=== PATIENT | female | born 1975 | race Caucasian/White ===

== ENCOUNTER 2020-08-22 12:11 | Emergency (ER) | payer OTHER, SELFPAY ==
--- NOTE | 2020-08-22 | ECG_ITS ---
Test Reason : CHEST PAIN Blood Pressure : / mmHG Vent. Rate : 098 BPM Atrial Rate : 098 BPM P-R Int : 128 ms QRS Dur : 074 ms QT Int : 338 ms P-R-T Axes : 026 -06 018 degrees QTc Int : 431 ms Normal sinus rhythm Normal ECG When compared with ECG of 09-MAY-2011 03:22, No significant change was found Referred By: Generic ED Physician Electronically Signed By:MARIANA DIEGO MD
--- NOTE | 2020-08-22 | XR_ITS ---
EXAMINATION: XR CHEST CLINICAL INFORMATION: Cough with chest pain COMPARISON: May 09, 2011 TECHNIQUE: AP portable view of the chest was obtained. FINDINGS: No significant abnormality is noted involving the heart, lungs, mediastinum, bony thorax or soft tissues. XR/XR chest 1V IMPRESSION: No acute disease.
[2020-08-22 12:48] VITALS: BP 133/96; PULSE 99; RESP 16; TEMP 36.9; O2SAT 96; BMI 35.2
--- NOTE | 2020-08-22 13:15 | ED.URI ---
HPI - URI/Sore Throat General Chief Complaint: Upper Respiratory Symptoms Stated Complaint: covid symptoms - test pending Time Seen by Provider: 08/22/20 13:15 Source: patient Mode of arrival: ambulatory Limitations: no limitations History of Present Illness HPI Narrative: 45 y/o female presenting with worsening COVID symptoms. She has a PCR test pending. She lives with her who is COVID positive. She reports worsening dry cough, shortness of breath when walking and chest wall discomfort. She also has headache and chills. No N/V/D, abdominal pain or known fevers at home. MD elicited complaint: cough Related Data Previous Rx's Medication Instructions Recorded hydrocodone-homatropine 5 ml PO Q4-6H PRN #60 ml 08/22/20 prednisone 40 mg PO DAILY #10 tab 08/22/20 Allergies Allergy/AdvReac Type Severity Reaction Status Date / Time hydromorphone [From DILAUDID] Allergy Unknown SHORTNESS Unverified 06/11/20 15:28 OF BREATH Review of Systems Review of Systems: Constitutional: No Fever, + Chills ENT/Mouth: + sore throat, No Rhinorrhea, No Swallowing Difficulty Eyes: No Eye Pain, No Swelling, No Redness Cardiovascular: + Chest Pain, + SOB, No Orthopnea, No Edema Respiratory: + Cough, No Sputum, No Wheezing, + dyspnea Gastrointestinal: No Nausea, No Vomiting, No Diarrhea, No abdominal Pain Musculoskeletal: No joint pain, + Myalgias Skin: No Skin Lesions, No rash Neuro: No Weakness, No Numbness, No Dizziness, + Headache Psych: No Anxiety/Panic, No Depression Heme/Lymph: No Bruising, No Lymphadenopathy Endocrine: No Polyuria, No Polydipsia PMFSH Past Medical History Attestation statement: The following information was validated with the patient. Medical History Anxiety Asthma High cholesterol Social History Social History Alcohol intake: never Smoked in Last 30 Days: No Use of substances other than those prescribed or required for medical reasons: No Advance Directives: No Advance Directives Information Provided: No Physical Exam Vital Signs: Vital Signs: Last Vital Signs Temp 98.5 F 08/22/20 12:48 Pulse 99 08/22/20 12:48 Resp 16 08/22/20 12:48 BP 133/96 H 08/22/20 12:48 Pulse Ox 96 08/22/20 12:48 Body Mass Index 35.2 Appearance: Alert. Oriented X3. No acute distress. ENT: Pharynx normal. Neck: Normal inspection. Neck supple. CVS: Normal heart rate and rhythm. Pulses normal. Respiratory: No respiratory distress. Breath sounds normal. Congested cough. Abdomen: Soft and non-tender. +BS x4 Skin: Skin warm and dry. Normal skin color. Normal skin turgor. No rashes. Extremities: No lower extremity edema. Neuro: Oriented X 3. No motor deficit. No sensory deficit. Course Course Course Narrative: 45 y/o female here with COVID symptoms and worsening PAUL. EKG and CXR are normal. Low suspicion for cardiac chest pain or PE. She has asthma and her COVID test is positive. She is in no respiratory distress and SpO2 96%. No indication for admission to the hospital. She is stable for d/c. Told to return to ER if PAUL worsens or if she develops difficulty breathing. MDM - URI/Sore Throat Lab Data Labs: Lab Results 08/22/20 Range/Units 13:00 Coronavirus (PCR) POSITIVE A (Negative) Influenza Type A (PCR) NEGATIVE (Negative) Influenza Type B (PCR) NEGATIVE (Negative) RSV RNA Qual (PCR) NEGATIVE (Negative) ECG Data Interpretation: normal sinus rhythm, HR 98, normal CO interval, normal QTC, no ischemic changes. Scores Heart Score History: -0- slightly suspicious ECG: -0- normal Age: -1- >45 - <65 Risk factory: -0- no risk factors known Critical Care Time Critical Care Time Critical Care Time: No Discharge Plan Discharge Clinical Impression: COVID-19 Patient Disposition: Home, Self-Care Instructions: COVID-19 (Coronavirus Disease 2019) (ED) Additional Instructions: Your COVID-19 test is POSITIVE. Do not go out in public for 10-14 days. Your EKG was normal. Your chest x-ray was normal. Your vital signs were stable. Take over the counter cold/flu medications as needed for your symptoms. Take Tylenol and/or Motrin as needed for muscle and body aches. Rest and stay hydrated. Continue to use your Duonebs as needed for shortness of breath. If you develop worsening respiratory symptoms or difficulty breathing come back to the ER for further evaluation. Follow up with your doctor next week. Prescriptions: New prednisone 20 mg tablet 40 mg PO DAILY Qty: 10 RF: 0 hydrocodone-homatropine 5-1.5 mg/5 mL syrup 5 ml PO Q4-6H PRN (Reason: cough) Qty: 60 RF: 0 Stand Alone Forms: Work/School Release
[2020-08-22 13:55] LABS: Influenza A PCR NEGATIVE (Negative); Influenza B PCR NEGATIVE (Negative); Resp Syncy Virus RNA Qual PCR NEGATIVE (Negative); SARS COV2 PCR INHOUSE POSITIVE (Negative)
== END 2020-08-22 15:03 | disposition home or self-care (01) ==
PROVIDERS: Emergency Provider Internal Medicine; PCP Internal Medicine
DX: U07.1 COVID-19 (principal); Z79.899 Other long term (current) drug therapy
CPT/HCPCS: 0241U; 71045; 93005; 99283; 99284

== ENCOUNTER 2021-01-15 12:20 | Emergency (ER) | payer OTHER, SELFPAY | END 2021-01-15 15:03 | disposition left against medical advice (07) | PROVIDERS: Emergency Provider Emergency Medicine | DX: G43.909 Migraine, unspecified, not intractable, without status migrainosus (principal) ==

== ENCOUNTER 2021-01-18 13:04 | Emergency (ER) | payer OTHER, SELFPAY ==
--- NOTE | ~2021-01-18 | CT_ITS ---
EXAMINATION: CT HEAD WITHOUT CONTRAST CLINICAL INFORMATION: Expressive aphasia greater than 24 hours ago COMPARISON: None TECHNIQUE: Contiguous axial imaging was performed from the skull base to vertex without intravenous administration of contrast. This CT examination was performed using dose optimization techniques as appropriate, variously including the following: *Automated exposure control *Adjustment of mA and/or kV according to patient size (this includes techniques or standardized protocols for targeted exams where dose is matched to indication/reason for exam; i.e. extremities or head) *Use of iterative reconstruction technique DLP: 659 mGy-cm FINDINGS: There is no evidence of acute intracranial hemorrhage or territorial infarction. No abnormal mass effect or midline shift is seen. Post to white matter differentiation is well preserved. No extra-axial fluid collections are identified. The ventricles are normal in size. There is no abnormal attenuation within the brain parenchyma. The osseous structures and soft tissues are normal. The mastoid air cells and visualized portions of the paranasal sinuses are well aerated. CT/CT head/brain wo con IMPRESSION: No acute intracranial pathology.
--- NOTE | ~2021-01-18 | US_ITS ---
EXAMINATION: US EXTRACRANIAL CAROTID DUPLEX, BILATERAL CLINICAL INFORMATION: TIA with aphasia COMPARISON: None TECHNIQUE: Real-time ultrasound and Doppler techniques (integrating B-mode 2-D vascular images, Doppler spectral analysis and color-flow Doppler imaging) were utilized to interrogate the extracranial carotid arteries, the vertebral arteries and proximal subclavian arteries bilaterally. The degree of stenosis is determined by criteria similar to NASCET. FINDINGS: Right Side: 1. There is mild atherosclerotic plaque seen in the bifurcation/proximal ICA region. 2. The common carotid artery PSV proximally is 95 cm/s and distally 112 cm/s. 3. The proximal internal carotid artery velocities are 99 cm/s systolic and 30 cm/s diastolic. 4. The proximal external carotid artery PSV is 111 cm/s. 5. The vertebral artery shows antegrade flow. 6. The subclavian artery waveforms are normal. Left Side: 1. There is mild atherosclerotic plaque seen in the bifurcation/proximal ICA region. 2. The common carotid artery PSV proximally is 117 cm/s and distally 103 cm/s. 3. The proximal internal carotid artery velocities are 90 cm/s systolic and 32 cm/s diastolic. 4. The proximal external carotid artery PSV is 95 cm/s. 5. The vertebral artery shows antegrade flow. 6. The subclavian artery waveforms are normal. US/US carotid duplex BI IMPRESSION: 1. RIGHT: Minimal, non-hemodynamically significant stenosis of the proximal right internal carotid artery corresponding to a 0-49% stenosis by velocity criteria. 2. LEFT: Minimal, non-hemodynamically significant stenosis of the proximal left internal carotid artery corresponding to a 0-49% stenosis by velocity criteria.
[2021-01-18 13:23] VITALS: BP 145/88; PULSE 80; RESP 16; TEMP 37.2; O2SAT 98; BMI 35.2
[2021-01-18 16:59] VITALS: BP 123/71; PULSE 91; RESP 18; O2SAT 97
--- NOTE | 2021-01-18 16:59 | PC.NURSE ---
pt taking home med: sumatriptan 50mg. no change in sx.
[2021-01-18 17:10] LABS: MANUAL DIFF FLAG NO
[2021-01-18 17:11] LABS: Basophils Absolute Auto 0.1 X10*3/uL (0.0-0.2); Basophils Percent Auto 0.8 % (0-2); Eosinophils Absolute Auto 0.2 X10*3/uL (0.0-0.4); Eosinophils Percent Auto 1.9 % (0-4); Hematocrit 43.7 % (37-47); Hemoglobin 14.7 g/dl (12.0-16.0); Imm Gran Abs Auto 0.02 X10*3/uL (0.00-0.03); Imm Gran Pct Auto 0.2 % (0.0-0.4); Lymphocytes Absolute Auto 2.1 X10*3/uL (1.2-4.9); Lymphocytes Percent Auto 25.2 % (20-40); Mean Corpuscular HGB Conc 33.6 g/dl (31.0-35.0); Mean Corpuscular Volume 89.2 fL (80-98); Mean Platelet Volume 9.2 fL (9.4-12.3); Monocytes Absolute Auto 0.5 X10*3/uL (0.1-1.2); Monocytes Percent Auto 5.4 % (2-11); Neutrophils Absolute Auto 5.5 X10*3/uL (2.0-8.3); Neutrophils Percent Auto 66.5 % (45-73); Platelet Count 306 X10*3/uL (160-400); Red Cell Distribution Width 11.8 % (11.0-16.0); White Blood Count 8.3 X10*3/uL (4.8-10.8)
--- NOTE | 2021-01-18 17:16 | ED_ITS ---
HPI - Headache General Chief Complaint: Headache Stated Complaint: headache Time Seen by Provider: 01/18/21 17:16 Source: patient Mode of arrival: ambulatory Limitations: no limitations History of Present Illness HPI Narrative: Patient's history of migraine headache been having headache for last 13 days. 3 days ago when she had headache she had difficulty in expressing herself episode lasted for 1-1/2 hour improved after Imitrex again she had similar episode 2 days ago which lasted for same time. Also patient had some tingling on the right arms and legs which have resolved completely. Patient called her PCP who asked her to go to hospital further evaluation. Patient denies any aphasia at this time has some mild headache patient took Imitrex prior to arrival no nausea no vomiting no ataxia MD elicited complaint: headache and migraine Onset (ago): day(s) (13) Onset description: gradually Location: frontal Severity: mild Quality & Timing: throbbing Exacerbating factors: light and noise Relieving factors: dark room Context: occurred at rest Associated symptoms: photophobia Treatments prior to arrival: migraine medication Related Data Previous Rx's Medication Instructions Recorded hydrocodone-homatropine 5 ml PO Q4-6H PRN #60 ml 08/22/20 hydrocodone-homatropine 5 ml PO Q4-6H PRN #60 ml 08/22/20 prednisone 40 mg PO DAILY #10 tab 08/22/20 nffvaddxxd-oipzfklxhezrv-fwmf 1 cap PO Q6H PRN #20 cap 01/18/21 [Fioricet] Allergies Allergy/AdvReac Type Severity Reaction Status Date / Time hydromorphone [From DILAUDID] Allergy Unknown SHORTNESS Verified 01/18/21 13:22 OF BREATH Review of Systems Review of Systems: Constitutional : No Weight loss, No Fever, No Chills ENT/Mouth : No sore throat, No Rhinorrhea Eyes: No Eye Pain, No Swelling Cardiovascular : No Chest Pain, no palpitations Respiratory : No Cough, No Sputum, no shortness of breath Gastrointestinal : no Nausea, No Vomiting, No Diarrhea, No abdominal Pain, no black stools Genitourinary : No Dysuria, No Urinary Frequency Musculoskeletal : No joint pain, No Myalgias, No Joint Swelling Skin : No Skin Lesions, No rash Neuro : No Weakness, No Numbness, No Dizziness,++ Headache Psych : No Anxiety/Panic, No Depression Heme/Lymph: No Bruising, No Lymphadenopathy Endocrine : No Polyuria, No Polydipsia All other systems reviewed and are negative FOR[facility]LY [facility] Past Medical History Medical History Anxiety Asthma High cholesterol Migraines Social History Social History Alcohol intake: current Alcohol intake frequency: holidays/special occasions only Alcohol type: wine Smoking Status: Never smoker Use of substances other than those prescribed or required for medical reasons: No Advance Directives: Yes Advance Directives Information Provided: No Advance Directives on File: No Physical Exam Vital Signs: Vital Signs: Last Vital Signs Temp 98.1 F 01/18/21 19:29 Pulse 89 01/18/21 19:29 Resp 16 01/18/21 19:29 BP 121/83 01/18/21 19:29 Pulse Ox 96 01/18/21 19:29 Body Mass Index 35.2 Appearance: Alert. Oriented X3. No acute distress. Eyes: Pupils equal, round and reactive to light. ENT: Pharynx normal. Neck: Normal inspection. Neck supple. CVS: Normal heart rate and rhythm. Pulses normal. Respiratory: No respiratory distress. Breath sounds normal. Abdomen: Soft and nontender. Bowel sounds are present, no mass palpable, no CVA tenderness Skin: Skin warm and dry. Normal skin color. Normal skin turgor. Extremities: No lower extremity edema. Neuro: Oriented X 3. No motor deficit. No sensory deficit. Normal speech no cerebellar signs , cranial nerves intact MDM - Headache MDM Narrative Medical decision making narrative: Patient's complex migraine with transit expressive aphasia more than [address] scan negative, carotid Doppler was also done which is also negative for any occlusive lesion. At this time there is no findings of CVA. No risk factors except migraine. Patient advised to take baby aspirin for now and follow with neurologist and report to the ER if recurrence of the symptoms Differential Diagnosis Differential diagnosis: Likely migraine Lab Data Attestation: I reviewed the patient's lab results. Result diagrams: 01/18/21 17:05 01/18/21 17:05 Labs: Lab Results 01/18/21 01/18/21 01/18/21 Range/Units 17:05 17:05 17:05 WBC 8.3 (4.8-10.8) X10*3/uL RBC 4.90 (4.20-5.50) X10*6/uL Hgb 14.7 (12.0-16.0) g/dl Hct 43.7 (37-47) % MCV 89.2 (80-98) fL MCH 30.0 (27.0-33.0) pg MCHC 33.6 (31.0-35.0) g/dl RDW 11.8 (11.0-16.0) % Plt Count 306 (160-400) X10*3/uL MPV 9.2 L (9.4-12.3) fL Immature Gran % (Auto) 0.2 (0.0-0.4) % Neut % (Auto) 66.5 (45-73) % Lymph % (Auto) 25.2 (20-40) % [place] % (Auto) 5.4 (2-11) % Eos % (Auto) 1.9 (0-4) % Baso % (Auto) 0.8 (0-2) % Lymph # (Auto) 2.1 (1.2-4.9) X10*3/uL [place] # (Auto) 0.5 (0.1-1.2) X10*3/uL Eos # (Auto) 0.2 (0.0-0.4) X10*3/uL Baso # (Auto) 0.1 (0.0-0.2) X10*3/uL Abs Immat Gran (auto) 0.02 (0.00-0.03) X10*3/uL Absolute Neuts (auto) 5.5 (2.0-8.3) X10*3/uL Absolute Nucleated RBC 0.000 (0.0-0.012) X10*3/uL Nucleated RBC % (auto) 0.0 (0.0-0.2) /100WBC PT 12.4 (10.8-13.0) SEC INR 1.0 (0.9-1.1) Sodium 140 (135-145) mmol/L Potassium 3.9 (3.3-5.1) mmol/L Chloride 106 (96-108) mmol/L Carbon Dioxide 24 (22-29) mmol/L Anion Gap 14 (12-20) BUN 14 (9-16) mg/dL Creatinine 0.82 (0.5-1.4) mg/dL Estim Creat Clear Calc 97.2 Estimated GFR > 60 Random Glucose 88 (60-115) mg/dL Calcium 9.3 (8.4-10.2) mg/dL Discharge Plan Discharge Clinical Impression: Migraine Patient Disposition: Home, Self-Care Instructions: Migraine Headache (ED) Additional Instructions: Continue medications and follow up with neurologist for further evaluation Report to the ER if any focal weakness Take baby aspirin daily Prescriptions: New hfolwdijfy-tbuikumwhtntj-ofku [Fioricet] 50-300-40 mg capsule 1 cap PO Q6H PRN (Reason: pain) Qty: 20 RF: 0 No Action prednisone 20 mg tablet 40 mg PO DAILY Qty: 10 RF: 0 hydrocodone-homatropine 5-1.5 mg/5 mL syrup 5 ml PO Q4-6H PRN (Reason: cough) Qty: 60 RF: 0 hydrocodone-homatropine 5-1.5 mg/5 mL syrup 5 ml PO Q4-6H PRN (Reason: cough) Qty: 60 RF: 0 Referrals: Dm Barker MD [Physician] - 1 week Interventions: ED Discharge Assessment Last Done: 01/18/21 20:23 Discharge Date/Time: 01/18/21 20:24
[2021-01-18 17:31] LABS: Prothrombin Time 12.4 SEC (10.8-13.0)
[2021-01-18 17:41] LABS: Anion Gap 14 (12-20); Blood Urea Nitrogen 14 mg/dL (9-16); Calcium 9.3 mg/dL (8.4-10.2); Carbon Dioxide 24 mmol/L (22-29); Chloride 106 mmol/L (96-108); Creatinine Clr Calc Pharmacy 97.2; Estimated Glomerular Filt Rate > 60; Glucose Random 88 mg/dL (60-115); Potassium 3.9 mmol/L (3.3-5.1); Sodium 140 mmol/L (135-145)
[2021-01-18] MEDS: Butalb/Acetamin/Caff 50/325/40 TABLET 1 TAB PO (19:27)
[2021-01-18] MEDS: Aspirin 81 MG TAB.CHEW PO (19:28)
[2021-01-18 19:29] VITALS: BP 121/83; PULSE 89; RESP 16; TEMP 36.7; O2SAT 96
== END 2021-01-18 20:24 | disposition home or self-care (01) ==
PROVIDERS: Emergency Provider Internal Medicine; PCP Internal Medicine
DX: G43.909 Migraine, unspecified, not intractable, without status migrainosus (principal); F41.9 Anxiety disorder, unspecified; J45.909 Unspecified asthma, uncomplicated; E78.5 Hyperlipidemia, unspecified
CPT/HCPCS: 36415; 70450; 80048; 85025; 85610; 93880; 99284; 99285

== ENCOUNTER 2021-01-20 02:20 | Emergency (ER) | payer OTHER, SELFPAY ==
[2021-01-20] VITALS (8 sets, daily range): BP systolic 107–126; BP diastolic 69–85; PULSE 72–94; RESP 16–18; TEMP 36.7; O2SAT 94–98; BMI 35.2
--- NOTE | ~2021-01-20 | MR_ITS ---
MRI OF THE BRAIN WITHOUT IV CONTRAST INDICATION: Numbness, tingling, dizziness. COMPARISON: Head CT 01/18/2021. TECHNIQUE: Multiplanar multisequence MR imaging of the brain was obtained without IV contrast. FINDINGS: There is no hydrocephalus, extra-axial surface collection, or herniation. No parenchymal signal abnormality. The major flow voids at the skull base are preserved. There is no acute infarct on diffusion-weighted imaging. There is no intracranial hemorrhage on the gradient recalled echo acquisition. The midline structures are normal. The cerebellar tonsils are normally positioned. The cerebellum and brainstem are normal. The craniocervical junction is normal. Osseous marrow signal intensity is homogenous. The visualized soft tissues are unremarkable. MR/MR head/brain wo con IMPRESSION: Unremarkable noncontrast MRI of the brain.
--- NOTE | 2021-01-20 03:50 | ED_ITS ---
HPI - Headache General Chief Complaint: Headache Stated Complaint: Dizziness/Headache Time Seen by Provider: 01/20/21 02:55 Source: patient and family () Mode of arrival: ambulatory History of Present Illness HPI Narrative: Is a 45-year-old female who comes in this morning with what she states is recurrence of neurologic symptoms. Patient states that she got up at approximately 2:00 a.m. this morning of went to the bathroom and then was going back to bed and then had 1 of her ?auras? and then felt dizzy and experienced lip and tongue tingling at as well as tingling in the right upper extremity that goes from distal to proximal, as well as stating that she has had right lower extremity tingling and reports some difficulty with the legs feeling heavy. In addition, patient states that she feels foggy. Patient states that at onset of symptoms she called her . Patient states the symptoms last approximately 15 minutes and then subside and that they have been on and off for approximately 2 weeks. During the course of this discussion patient states that she began feeling the tingling in the tips of her fingers again. Related Data Previous Rx's Medication Instructions Recorded hydrocodone-homatropine 5 ml PO Q4-6H PRN #60 ml 08/22/20 hydrocodone-homatropine 5 ml PO Q4-6H PRN #60 ml 08/22/20 prednisone 40 mg PO DAILY #10 tab 08/22/20 obenrndmgj-jettxzppbildm-egdz 1 cap PO Q6H PRN #20 cap 01/18/21 [Fioricet] Allergies Allergy/AdvReac Type Severity Reaction Status Date / Time hydromorphone [From DILAUDID] Allergy Unknown SHORTNESS Verified 01/18/21 13:22 OF BREATH Review of Systems Review of Systems: Pertinent positives and negatives as stated in HPI 10 point review of systems is otherwise negative. [facility] Past Medical History Source: nursing notes reviewed Medical History Anxiety Asthma High cholesterol Migraines Social History Social History Alcohol intake: current Alcohol intake frequency: holidays/special occasions only Alcohol type: wine Smoking Status: Never smoker Use of substances other than those prescribed or required for medical reasons: No Advance Directives: No Physical Exam Vital Signs: Vital Signs: Last Vital Signs Temp 98.0 F 01/20/21 02:26 Pulse 72 01/20/21 05:03 Resp 16 01/20/21 05:03 BP 109/74 01/20/21 05:03 Pulse Ox 97 01/20/21 05:03 Body Mass Index 35.2 VITAL SIGNS: Reviewed. GENERAL: Well developed, well nourished, in no acute distress. HEAD: Normocephalic/atraumatic, EYES: PERRLA, EOMI intact without pain, no nystagmus EARS: Ext canals without abnormality NOSE: Nares patent bilateral OROPHARYNX: no oral lesions noted, posterior pharynx clear NECK: Supple, no adenopathy LUNGS: Normal breath sounds. No adventitious sounds or accessory muscle use. SpO2<94> CARDIOVASCULAR: Regular rate and rhythm without noted murmurs ABDOMEN: Soft, non-tender, non-distended with bowel sounds. NEUROLOGIC: Alert and oriented x 4. Strength and sensation to light touch were grossly intact x 4, no facial asymmetry, heel to mao within normal limits, cranial nerves 2-12 intact. Course Course Course Narrative: 45-year-old female with history and clinical presentation suggestive of complex migraine syndrome with nonfocal findings. However patient was evaluated for this yesterday with CT scan as well as carotid duplex otherwise negative and instructed to return if her symptoms persisted. This evening patient has not attempted to take her Imitrex but did take a Fioricet prior to going to sleep. At this time patient is okay to take her prescribed Imitrex here in the emergency room. Will obtain ESR and reach out to Neurology for further recommendations. Review of ESR, TSH, orthostatics are without acute findings and patient has been resting after taking her Imitrex. The decision was made to proceed with the MRI to conclusively evaluate for evidence of ischemic basis for patient's symptoms as opposed to expansion of migraine symptoms. In addition, if obvious although less likely, could evaluate for MS. Signed out to Dr. Macias. Reevaluation(s) Reevaluation #1: Page out to Neurology Time: 05:09 MDM - Headache Lab Data Labs: Lab Results 01/20/21 01/20/21 01/20/21 Range/Units 04:07 05:11 05:11 ESR 7 (0-20) MM/HR TSH 1.92 (0.32-4.0) uIU/mL Urine Color STRAW Urine Appearance CLEAR Urine pH 6.0 (5.0-8.0) Ur Specific [place] <= 1.005 (1.005-1.025) Urine Protein NEG (NEG-TRACE) MG/DL Urine Glucose (UA) NEG (NEG) MG/DL Urine Ketones NEG (NEG) MG/DL Urine Blood TRACE (NEG) Urine Nitrite NEG (NEG) Ur Leukocyte Esterase NEG (NEG) Urine RBC 0 (0) /HPF Urine WBC 0 (0-4) /HPF Ur Squamous Epith Cells 1+ /LPF Amorphous Sediment 2+ /LPF Urine Bacteria NONE /LPF Discharge Plan Discharge Prescriptions: No Action tbbxirzbch-aityhhpyvpmdm-wzbs [Fioricet] 50-300-40 mg capsule 1 cap PO Q6H PRN (Reason: pain) Qty: 20 RF: 0 prednisone 20 mg tablet 40 mg PO DAILY Qty: 10 RF: 0 hydrocodone-homatropine 5-1.5 mg/5 mL syrup 5 ml PO Q4-6H PRN (Reason: cough) Qty: 60 RF: 0 hydrocodone-homatropine 5-1.5 mg/5 mL syrup 5 ml PO Q4-6H PRN (Reason: cough) Qty: 60 RF: 0
[2021-01-20 04:22] LABS: Glucose Urine UA NEG (NEG); Leukocyte Esterase Urine NEG (NEG); Nitrite Urine NEG (NEG); Specific Gravity - Urine <= 1.005 (1.005-1.025); Urine Blood TRACE (NEG); Urine Ketones NEG (NEG); Urine Protein NEG (NEG-TRACE)
[2021-01-20 04:23] LABS: Appearance Urine CLEAR; Color Urine STRAW
[2021-01-20 04:28] LABS: Amorphous Sediment Urine 2+ /LPF; RBC Urine 0 /HPF (0); Squamous Epithelial Cell Urine 1+ /LPF; WBC Urine 0 /HPF (0-4)
[2021-01-20 05:57] LABS: Erythrocyte Sedimentation Rate 7 MM/HR (0-20)
[2021-01-20 06:05] LABS: TSH reflex Free T4 1.92 uIU/mL (0.32-4.0)
[2021-01-20] MEDS: Butalb/Acetamin/Caff 50/325/40 TABLET 1 TAB PO (07:53)
--- NOTE | 2021-01-20 08:02 | PC.NURSE ---
Per pt and pt has had a migraine x 1.5 weeks. Reports hx of migraines, states she usually gets them with her periods but this one is different. Per report from Alexia VEGA pt was worked up last Monday with carotid u/s. Currently pt is waiting to go to MRI, MRI screening form performed by this RN. Pt ambulated to bathroom with steady gait.
--- NOTE | 2021-01-20 08:33 | PC.NURSE ---
Pt off unit to MRI at this time
--- NOTE | 2021-01-20 09:30 | PC.NURSE ---
Pt back from MRI, reports fioricet so far has been ineffective. Provided a cup of ice water, will re-assess h/a in 20 mins.
--- NOTE | 2021-01-20 10:06 | PC.NURSE ---
Pt reports minimal pain relief. MD at bedside. VSS. Speech clear, answering questions appropriately, denies N/T, neuros intact, reports h/a around her eyes wrapping to back of her head.
[2021-01-20] MEDS: Metoclopramide HCl 10 MG/2 ML VIAL IVPUSH (10:26)
[2021-01-20] MEDS: diphenhydrAMINE HCL 50 MG/ML VIAL IVPUSH (10:26)
[2021-01-20] MEDS: Ketorolac Tromethamine 30 MG/ML VIAL IVPUSH (10:26)
[2021-01-20] MEDS: 0.9 % Sodium Chloride 1,000 ML 999 ML IV (10:27)
--- NOTE | 2021-01-20 10:33 | PC.NURSE ---
Pt medicated with benedryl, reglan, toradol, as charted, 1l NS hung and running WO. Pt reports pain at 5-6/10, denies light sensitivity at this time. Pt instructed to ring if she needs to use the bathroom.
--- NOTE | 2021-01-20 10:58 | PC.NURSE ---
Pt sleeping at this time. Unable to re-assess pain currently.
== END 2021-01-20 12:37 | disposition home or self-care (01) ==
PROVIDERS: Student in an Organized Health Care Education/Training Program; Emergency Provider Emergency Medicine Emergency Medical Services
DX: G43.909 Migraine, unspecified, not intractable, without status migrainosus (principal); R42 Dizziness and giddiness; Z79.899 Other long term (current) drug therapy
CPT/HCPCS: 36415; 70551; 81001; 84443; 85652; 96365; 96375; 99285; J1200; J1885; J2765

== ENCOUNTER 2022-02-01 13:46 | Outpatient (REF) | payer OTHER, SELFPAY ==
--- NOTE | ~2022-02-01 | XR_ITS ---
EXAMINATION: XR HIP, RIGHT CLINICAL INFORMATION: Pain right hip COMPARISON: None TECHNIQUE: Two views of the right hip. FINDINGS: Normal bony mineralization. No fracture, dislocation, destructive process. No joint narrowing or erosive change or chondrocalcinosis. There is borderline spur at the caudal aspect greater trochanter. The right SI joint and pubis are unremarkable. XR/XR hip RT min 2V IMPRESSION: Normal right hip.
--- NOTE | ~2022-02-01 | XR_ITS ---
EXAMINATION: XR THORACIC SPINE CLINICAL INFORMATION: Disc displacement. COMPARISON: Portable chest radiograph 08/22/2020 TECHNIQUE: 4 views of the thoracic spine are obtained. FINDINGS: There is normal thoracic segmentation with 12 rib-bearing thoracic vertebrae of normal height and normal lumbar lordosis. There is no thoracic vertebral compression, spondylolisthesis, focal disc narrowing, or erosive changes. No paraspinal soft tissue swelling. XR/XR thoracic spine 3V IMPRESSION: Unremarkable examination.
== END 2022-02-01 13:47 | disposition home or self-care (01) ==
LOC: HO.XRAY 13:46
PROVIDERS: Absent Provider General Practice; PCP General Practice; Visit Provider Nurse Practitioner Family
DX: Z01.818 Encounter for other preprocedural examination (principal); M25.551 Pain in right hip; M51.26 Other intervertebral disc displacement, lumbar region; R29.898 Other symptoms and signs involving the musculoskeletal system
CPT/HCPCS: 72072; 73502

== ENCOUNTER 2022-06-10 09:57 | Day surgery (SDC) | payer OTHER, SELFPAY ==
--- NOTE | 2022-06-09 12:40 | HO.ANESPROP2 ---
Documented by User: Jessica Gregory NP 06/09/22 12:40 HPI - Anesthesia Eval Consult details Narrative: 46yo F for Colonoscopy PMFSH Active Problems Active Problems: All Active Problems (Updated 02/01/22 @ 14:17 by Fransisco Cottrell) Somatic dysfunction of left sacroiliac joint (Acute) COVID-19 (Acute) Migraine (Acute) Past Medical History Medical History Anxiety Asthma High cholesterol History of abnormal uterine bleeding Hx of fracture of ankle Migraines Family History Family History Mother Pre-diabetes Father Prostate CA Surgical History Surgical History Hx of section Hx of left breast biopsy Social History Social History Household Members: Spouse Alcohol intake: current Alcohol intake frequency: holidays/special occasions only Alcohol type: wine Patient Tobacco Use Status: Never used Tobacco Use of substances other than those prescribed or required for medical reasons: No Are you DNR?: No Advance Directives: No Advance Directives Information Provided: Yes Meds Allergies Allergy/AdvReac Type Severity Reaction Status Date / Time hydromorphone [From DILAUDID] Allergy Unknown SHORTNESS Verified 06/10/22 11:15 OF BREATH Home Medications Medication Instructions Recorded Confirmed Last Taken Type atorvastatin 10 mg tablet 10 mg PO DAILY 02/01/22 06/06/22 Unknown History cetirizine 10 mg tablet 10 mg PO DAILY 02/01/22 06/06/22 Unknown History citalopram 20 mg tablet 20 mg PO DAILY 02/01/22 06/06/22 Unknown History cyclobenzaprine 5 mg tablet 5 mg PO TID PRN Muscle Pain 02/01/22 06/06/22 Unknown History fluticasone 250 mcg-salmeterol 50 1 ea inhalation BID 02/01/22 06/06/22 Unknown History mcg/dose blistr powdr for inhalation (Michael Inhpat) montelukast 10 mg tablet 10 mg PO QPM 02/01/22 06/06/22 Unknown History sumatriptan succinate 50 mg tablet 50 mg PO DIRECTED PRN Migraine 02/01/22 06/06/22 Unknown History Headache Exam Exam Date and Time: June 09, 2022 1240 Assessment and Plan Assessment Anesthesia Assessment: Chart Reviewed Documented by User: Marquita Duff MD 06/10/22 11:23 PMFSH Past Medical History Medical History Anxiety Asthma High cholesterol History of abnormal uterine bleeding Hx of fracture of ankle Migraines Family History Family History Mother Pre-diabetes Father Prostate CA Surgical History Surgical History Hx of section Hx of left breast biopsy History of Problems with Anesthesia: No Social History Social History Household Members: Spouse Alcohol intake: current Alcohol intake frequency: holidays/special occasions only Alcohol type: wine Patient Tobacco Use Status: Never used Tobacco Use of substances other than those prescribed or required for medical reasons: No Are you DNR?: No Advance Directives: No Advance Directives Information Provided: Yes Meds Allergies Allergy/AdvReac Type Severity Reaction Status Date / Time hydromorphone [From DILAUDID] Allergy Unknown SHORTNESS Verified 06/10/22 11:15 OF BREATH Home Medications Medication Instructions Recorded Confirmed Last Taken Type atorvastatin 10 mg tablet 10 mg PO DAILY 02/01/22 06/06/22 Unknown History cetirizine 10 mg tablet 10 mg PO DAILY 02/01/22 06/06/22 Unknown History citalopram 20 mg tablet 20 mg PO DAILY 02/01/22 06/06/22 Unknown History cyclobenzaprine 5 mg tablet 5 mg PO TID PRN Muscle Pain 02/01/22 06/06/22 Unknown History fluticasone 250 mcg-salmeterol 50 1 ea inhalation BID 02/01/22 06/06/22 Unknown History mcg/dose blistr powdr for inhalation (Wixela Inhub) montelukast 10 mg tablet 10 mg PO QPM 02/01/22 06/06/22 Unknown History sumatriptan succinate 50 mg tablet 50 mg PO DIRECTED PRN Migraine 02/01/22 06/06/22 Unknown History Headache Exam Airway Mallampati Class: II Neck ROM: Full Loose/Missing/Broken Teeth: No Heart: RRR Lungs: CTA Assessment and Plan Assessment Anesthesia Assessment: Anesthesia Plan Discussed Final Anesthetic Review History of Problems with Anesthesia: No NPO: Yes ASA Class: II Final Preanesthetic Review: Meds/Allgs Chart Reviewed, Consent Obtained/Reviewed and Anes Risks/Benef Reviewed Patient Risk: Low Procedure Risk: Low Anesthetic Plan Anesthetic Plan: MAC: Disposition: Standard PACU
--- NOTE | ~2022-06-10 | CT_ITS ---
EXAMINATION: CT COLONOGRAPHY CLINICAL INFORMATION: Incomplete colonoscopy COMPARISON: None TECHNIQUE: Bowel preparation: There is a small amount of retained fecal residue and fluid. Stool tagging with Gastrografin and barium: Not used. Colonic distention: CO2 mechanical insufflator used via enema tube with incomplete distention. There are segments of the colon which are collapsed and unevaluable. Acquisition: Low dose imaging targeted to colonic was performed in the supine and prone positions. Procedure: No immediate complication reported. Review: The acquired images were reviewed in axial, coronal and sagittal planes. Additional 3-D fly through images were reviewed at an independent workstation. This CT examination was performed using dose optimization techniques as appropriate, variously including the following: *Automated exposure control *Adjustment of mA and/or kV according to patient size (this includes techniques or standardized protocols for targeted exams where dose is matched to indication/reason for exam; i.e. extremities or head) *Use of iterative reconstruction technique DLP: 611 mGy-cm FINDINGS: Colonic findings: The colon is redundant. There is a small amount of retained fluid and adherent fecal residue. There are some segments of the colon which are collapsed and unevaluable. There are some small smooth areas of mural irregularity including in the transverse colon. On at least some images there appears to be some internal gas and there is likely some change in position favoring adherent fecal residue. There are a few colonic diverticula. No convincing suspicious mass or fixed area of narrowing. Non-colonic findings: The uterus is enlarged and contour is abnormal when correlated with selected portions of lumbar MRI this could represent adenomyosis. There is an approximately 4.6 cm low attenuating right ovarian mass. This may be a cyst but is not fully characterized. The margins are smooth in the internal attenuation appears homogeneous. Best practices suggest this does not require follow-up. CT/CT colonography IMPRESSION: The study is limited. No convincing suspicious mass or fixed area of narrowing. Incomplete distention and adherent fecal residue and a small amount of retained residual fluid could obscure a significant abnormality. Consider a repeat study in one year. I will seek a second opinion from Dr. Raphael
--- NOTE | 2022-06-10 10:34 | MHC.SHP ---
Pre-Procedural Eval Section A Date of Service: 06/10/22 The patient is an INPATIENT: No The History & Physical has been completed within 30 days and I have reviewed it.: No Section B Chief Complaint: screening Details of Present Illness: Colon cancer screening Relevant Family History (Specify if Yes): No Relevant Social History: None Present Medications: see Short Stay Collaborative assessment Medical History: Significant History (Anxiety Asthma High cholesterol Hx of fracture of ankle Migraines) History of Previous Operations: Relevant previous surgery/procedure and date(s) ( history of ) Allergies: Allergies Allergy/AdvReac Type Severity Reaction Status Date / Time hydromorphone [From DILAUDID] Allergy Unknown SHORTNESS Verified 06/06/22 15:48 OF BREATH Review of Systems Sugical H&P ROS: Negative: Constitution, Cardiovascular, Respiratory and Gastrointestinal Exam Surgical H&P Exam: Normal: Heart, Normal: Lungs, Normal: Extremities and Normal: Abdomen Plan Diagnosis/Plan: Unchanged I have reviewed the history and physical and performed a pertinent physical examination on my patient. No changes have occurred unless specified.
[2022-06-10 10:58] LABS: UPreg QC Valid YES; Urine Pregnancy NEGATIVE (NEGATIVE)
[2022-06-10 11:02] VITALS: BMI 36.6
[2022-06-10 11:10] VITALS: BP 125/90; PULSE 89; RESP 16; TEMP 36.9; O2SAT 97
--- NOTE | 2022-06-10 11:26 | W.PM.OPN ---
Operative Note Operative Note Date of Service: 06/10/22 Narrative: Pre-op diagnosis: Colon cancer screening Post-op diagnosis:?other ( colon polyp, diverticulosis, hemorrhoids, incomplete colonoscopy) Procedure: COLONOSCOPY TILL? HEPATIC FLEXURE WITH SNARE POLYPECTOMY AND SUBMUCOSAL INJECTION Consent: Indications for the procedure and potential complications of bleeding, perforation, reaction to medications and missed diagnosis were discussed with the patient and informed consent was obtained. Instrument: Olympus PCF H 190 L variable stiffness pediatric colonoscope Monitoring: Vital signs and clinical assessment, intermittent blood pressure monitoring, continuous EKG monitoring, Pulse oximetry and Carbon Dioxide monitoring were done throughout the procedure. Colon withdrawl time was 30 minutes. Procedure: The patient was placed in the left lateral decubitis position and pre-procedure medications were administered. After a digital rectal examination of the ano-rectum, the video colonoscope was inserted into the rectum and advanced through the colon to the hepatic flexure. It was not possible to advance further due to lack of scope despite abdominal pressure and repositioning to a supine position. The pediatric colonoscope was removed and an adult colonoscope was advanced to the hepatic flexure. It was still not possible to advance the scope beyond the hepatic flexure. The colonoscope was slowly withdrawn in a retrograde panoramic fashion and the colon mucosa was carefully examined including a retroflexed view of the rectum. Findings and interventions are described below. Procedure Difficulty:? Pt was placed in the supine position and LLQ pressure applied to intubate the? ascending colon without success Incomplete colonoscopy Findings: Terminal Ileum: Not evaluated Cecum:? Not evaluated Ascending Colon:? Not evaluated Transverse Colon:? Normal Descending Colon:? Normal Sigmoid Colon:? A 2.5 cms pedunculated polyp at 90 cms - removed with a hot snare.? Polypectomy site was marked with anton ink. Moderate diverticulosis Rectum:? Normal Ano-rectum:? Moderate internal hemorrhoids Colon preparation:? Good? Impression and Post Procedure Diagnosis: Colonoscopy Findings: Incomplete colonoscopy till hepatic flexure due to long and redundant colon. One medium sized polyp removed Moderate diverticulosis seen in the entire colon Moderate hemorrhoids on retroflexed exam. Plan: Await pathology results. CT colonography today. Patient has an appointment on 06/24/22 in the [facility] with Yady Christie FNP-BC. Repeat Colonoscopy interval based on path results - in 1 year if polyp is adenomatous (to check polypectomy site) and 10 years if polyps are hyperplastic. (Needs single or double balloon enteroscope for future colonoscopies due to long and redundant colon) Above findings were reviewed with the patient and colon polyps and diverticulosis handouts were given in the discharge area Surgeon: Chad Browne MD ADDENDUM: CT colonography showed: The study is limited. ? No convincing suspicious mass or fixed area of narrowing. ? Incomplete distention and adherent fecal residue and a small amount of retained residual fluid could obscure a significant abnormality. ? Consider a repeat study in one year. Non-colonic findings:?The uterus is enlarged and contour is abnormal when correlated with selected portions of lumbar MRI this could represent adenomyosis. There is an approximately 4.6 cm low attenuating right ovarian mass. This may be a cyst but is not fully characterized. The margins are smooth in the internal attenuation appears homogeneous. Best practices suggest this does not require follow-up. Above findings were reviewed with the pt and she? was advised to review the non-colonic findings with her ObGyn physician to see if he/she would advise further evaluation with a Pelvic US Anesthesia:?MAC (Dr Duff) Was an Vegetable Grower used for this Procedure?:?Yes Vegetable Grower:?Mara Madrid Estimated blood loss (mL):?0 Pathology:?other (a. sigmoid polyp) Condition:?stable Disposition:?PACU
[2022-06-10 12:15] VITALS: BP 113/46; PULSE 73; RESP 10; TEMP 36.6; O2SAT 97
[2022-06-10 12:30] VITALS: BP 140/71; PULSE 75; RESP 14; O2SAT 98
[2022-06-10 12:45] VITALS: BP 147/74; PULSE 76; RESP 14; TEMP 36.6; O2SAT 98
== END 2022-06-10 15:01 | disposition home or self-care (01) ==
PROVIDERS: Nurse Practitioner; PCP General Practice; Visit Provider Internal Medicine Gastroenterology
PROC: 0DJD8ZZ Inspection of Lower Intestinal Tract, Via Natural or Artificial Opening Endoscopic (ICD-10-PCS; CPT 45378; principal; 2022-06-10 11:20)
DX: Z12.11 Encounter for screening for malignant neoplasm of colon (principal); D12.5 Benign neoplasm of sigmoid colon; K57.30 Diverticulosis of large intestine without perforation or abscess without bleeding; K64.8 Other hemorrhoids; K56.699 Other intestinal obstruction unspecified as to partial versus complete obstruction; N85.2 Hypertrophy of uterus; J45.909 Unspecified asthma, uncomplicated; E78.00 Pure hypercholesterolemia, unspecified; F41.1 Generalized anxiety disorder; G43.909 Migraine, unspecified, not intractable, without status migrainosus; Z79.51 Long term (current) use of inhaled steroids; Z79.899 Other long term (current) drug therapy; Z88.8 Allergy status to other drugs, medicaments and biological substances
CPT/HCPCS: 45385; 45381; 74261; 81025; 88305; J3010

== ENCOUNTER 2022-06-30 13:49 | Outpatient (REF) | payer OTHER, SELFPAY ==
--- NOTE | ~2022-06-30 | XR_ITS ---
EXAMINATION: XR CHEST CLINICAL INFORMATION: Cough COMPARISON: Previous chest x-ray July 2020 TECHNIQUE: 2 views of the chest were obtained. FINDINGS: No significant abnormality is noted involving the heart, lungs, mediastinum, bony thorax or soft tissues. XR/XR chest 2V IMPRESSION: Unremarkable examination.
== END 2022-06-30 13:50 | disposition home or self-care (01) ==
LOC: HO.XRAY 13:49
PROVIDERS: Absent Provider General Practice; PCP General Practice; Visit Provider Emergency Medicine
DX: R05.1 Acute cough (principal)
CPT/HCPCS: 71046

== ENCOUNTER → 2022-08-22 14:54 | Outpatient (BNVA) | payer OTHER, SELFPAY | PROVIDERS: PCP General Practice; Visit Provider Hospitalist | DX: Z23 Encounter for immunization (principal); J45.909 Unspecified asthma, uncomplicated; J18.9 Pneumonia, unspecified organism | CPT/HCPCS: 90471; 90677 ==

== ENCOUNTER → 2022-09-05 15:54 | Outpatient (REF) | payer OTHER, SELFPAY | LOC: HO.SL 15:54 | PROVIDERS: PCP General Practice; Visit Provider Hospitalist | DX: G47.33 Obstructive sleep apnea (adult) (pediatric) (principal) | CPT/HCPCS: 95806 ==

== ENCOUNTER 2022-09-12 14:31 | Outpatient (REF) | payer OTHER, SELFPAY ==
--- NOTE | 2022-09-12 17:24 | PFT_ITS ---
FLOWS: FEV1 102% of predicted at 3.01 L. FVC 107% of predicted at 3.97 L. FEV1 to FVC ratio of 0.76. No bronchodilator response. LUNG VOLUMES: Total lung capacity 107% of predicted at 5.59 L. Residual volume 100% of predicted at 1.82 L. Slow vital capacity 111% of predicted at 3.77 L. Expiratory reserve volume 27% of predicted at 0.30 L. Diffusion capacity is normal. IMPRESSION: No obstructive or restrictive ventilatory defect. No bronchodilator response. Decreased expiratory reserve volume suggests extrathoracic restriction likely secondary to abdominal obesity. Toby Rosales MD AP/MODL / [id number]
== END 2022-09-12 14:32 | disposition home or self-care (01) ==
LOC: HO.RESP 14:31
PROVIDERS: PCP General Practice; Visit Provider Hospitalist
DX: J45.909 Unspecified asthma, uncomplicated (principal)
CPT/HCPCS: 94060; 94727; 94729

== ENCOUNTER → 2022-10-11 15:21 | Outpatient (BNVA) | payer OTHER, SELFPAY | PROVIDERS: PCP General Practice; Visit Provider Hospitalist | DX: J45.909 Unspecified asthma, uncomplicated (principal); J18.9 Pneumonia, unspecified organism; G47.33 Obstructive sleep apnea (adult) (pediatric) ==

== ENCOUNTER → 2023-01-10 15:30 | Outpatient (BNVA) | payer OTHER, SELFPAY | PROVIDERS: PCP General Practice; Visit Provider Surgery Vascular Surgery | DX: Z13.89 Encounter for screening for other disorder (principal) ==

== ENCOUNTER 2023-01-19 14:46 | Outpatient (REF) | payer OTHER, SELFPAY ==
--- NOTE | ~2023-01-19 | US_ITS ---
EXAMINATION: US LOWER EXTREMITY VENOUS (REFLUX EXAM), BILATERAL CLINICAL INDICATION: Chronic venous insufficiency with lower extremity varicose veins, pain and inflammation COMPARISON: None. TECHNIQUE: Color flow triplex imaging and compression Doppler was performed to evaluate both the deep and the superficial systems bilaterally. To evaluate the superficial system, the examination was performed in the upright position. Color-flow Doppler ultrasound and compression ultrasound were utilized. In addition, maneuvers were utilized to demonstrate reflux. FINDINGS: 1. DEEP VENOUS ULTRASOUND OF THE RIGHT LOWER EXTREMITY: Common Femoral Vein: Compressible, normal respiratory variation and augmented flow. Femoral Vein: Compressible, normal color flow and augmentation. Popliteal Vein: Compressible, normal augmentation. Deep Reflux: There is reflux in the popliteal vein measuring 1176 ms There is no evidence of a Carpenter's cyst. 2. SUPERFICIAL ULTRASOUND WITH DOPPLER OF RIGHT LOWER EXTREMITY: GREAT SAPHENOUS VEIN: Saphenofemoral Junction: 0.6 cm; Reflux: 0 ms Proximal Thigh: 0.4 cm; Reflux: 0 ms Mid Thigh: 0.3 cm; Reflux: 532 ms Above Knee: 0.4 cm; Reflux: 872 ms At Knee: 0.4 cm; Reflux: 0 ms Below Knee: 0.2 cm; Reflux: 0 ms Mid Calf: 0.2 cm; Reflux: 0 ms Ankle: 0.2 cm; Reflux: 0 ms DUPLICATED MEDIAL GREAT SAPHENOUS VEIN: Diameter: None Imaged Reflux: NA DUPLICATED LATERAL GREAT SAPHENOUS VEIN: Diameter: 0.3 cm Reflux: None SMALL SAPHENOUS VEIN: Proximal: 0.3 cm; Reflux: 0 ms Distal: 0.3 cm; Reflux: 2672 ms VEIN OF GIACOMINI: None Imaged. PERFORATORS: Location: None significant Size: NA Reflux: NA VARICOSITIES: Location: None Imaged Size: NA Reflux: NA 3. DEEP VENOUS ULTRASOUND OF THE LEFT LOWER EXTREMITY: Common Femoral Vein: Compressible, normal respiratory variation and augmented flow. Femoral Vein: Compressible, normal color flow and augmentation. Popliteal Vein: Compressible, normal augmentation. Deep Reflux: There is deep venous reflux in the common femoral vein measuring 1288 ms There is no evidence of a Carpenter's cyst. 4. SUPERFICIAL ULTRASOUND WITH DOPPLER OF LEFT LOWER EXTREMITY: GREAT SAPHENOUS VEIN: Saphenofemoral Junction: 0.9 cm; Reflux: 2336 ms Proximal Thigh: 1.1 cm; Reflux: 1296 ms Mid Thigh: 0.6 cm; Reflux: 2304 ms Above Knee: 0.6 cm; Reflux: 2588 ms At Knee: 0.7 cm; Reflux: 2460 ms Below Knee: 0.5 cm; Reflux: 1028 ms Mid Calf: 0.4 cm; Reflux: 2564 ms Ankle: 0.2 cm; Reflux: 0 ms DUPLICATED MEDIAL GREAT SAPHENOUS VEIN: Diameter: None Imaged Reflux: NA DUPLICATED LATERAL GREAT SAPHENOUS VEIN: Diameter: 0.3 cm Reflux: 612 ms SMALL SAPHENOUS VEIN: Proximal: 0.2 cm; Reflux: 0 ms Distal: 0.3 cm; Reflux: 0 ms VEIN OF GIACOMINI: None Imaged. PERFORATORS: Location: Multiple perforators within the thigh and throughout the calf Size: Ranging from 0.2 to 0.4 cm Reflux: 752 ms in the corrosion technician to the small saphenous vein. No significant reflux within remaining perforators VARICOSITIES: Location: Proximal calf Size: 0.7 cm Reflux: 2508 ms US/US venous duplex LE BI IMPRESSION: Right: Deep venous reflux in the right popliteal vein. Segmental reflux seen in the great saphenous vein in the mid to distal thigh. Segmental reflux in the right small saphenous vein in the mid to distal calf Left: Deep venous reflux in the left common femoral vein. Diffuse severe reflux throughout the entire length of the left great saphenous vein. Moderate reflux in a lateral duplicated saphenous vein. Multiple varicose veins with large varicosity in the proximal calf with severe reflux
== END 2023-01-19 14:47 | disposition home or self-care (01) ==
LOC: HO.US 14:46
PROVIDERS: PCP General Practice; Visit Provider Surgery Vascular Surgery
DX: I83.12 Varicose veins of left lower extremity with inflammation (principal)
CPT/HCPCS: 93970

== ENCOUNTER → 2023-02-07 15:29 | Outpatient (BNVA) | payer OTHER, SELFPAY | PROVIDERS: PCP General Practice; Visit Provider Hospitalist | DX: J45.909 Unspecified asthma, uncomplicated (principal); J18.9 Pneumonia, unspecified organism; G47.33 Obstructive sleep apnea (adult) (pediatric); Z23 Encounter for immunization ==

== ENCOUNTER → 2023-02-21 15:14 | Outpatient (BNVA) | payer OTHER, SELFPAY | PROVIDERS: PCP General Practice; Visit Provider Surgery Vascular Surgery ==

== ENCOUNTER → 2023-03-31 09:40 | Outpatient (BNVA) | payer OTHER, SELFPAY | PROVIDERS: PCP General Practice; Visit Provider Surgery Vascular Surgery | DX: I83.12 Varicose veins of left lower extremity with inflammation (principal) | CPT/HCPCS: 36475 ==

== ENCOUNTER 2023-04-03 13:19 | Outpatient (REF) | payer OTHER, SELFPAY | END 2023-04-03 13:20 | disposition home or self-care (01) | LOC: HO.US 13:19 | PROVIDERS: PCP General Practice; Visit Provider Surgery Vascular Surgery | DX: M79.605 Pain in left leg (principal) | CPT/HCPCS: 93971 ==

== ENCOUNTER 2023-04-13 15:10 | Outpatient (AMB) | payer OTHER, SELFPAY ==
[2023-04-13 15:10] VITALS: BMI 36.6
--- NOTE | 2023-04-13 15:10 | A.OFFVIS_ITS ---
Intake Vital Signs 04/13/23 15:10 Height 5 ft 5 in Weight 220 lb BMI 36.6 Intake Visit Reasons: 2 week follow up Left GSV RFA 03/31/23 Intake Note: 2 week follow up Left GSV RFA 03/31/23, pt states that the only issue s/p RFA was some redness and a rash over the treated area. Accompanied by: Self / Same As Patient Allergies hydromorphone [From DILAUDID] Allergy (Unknown, Verified 04/13/23 15:16) SHORTNESS OF BREATH HPI 2 week follow up Left GSV RFA 03/31/23 HPI Details Very pleasant 47-year-old female presents for follow-up status post left great saphenous vein ablation. Overall reports that the leg has decreased in swelling and discomfort. She may have had a slight postprocedure allergic reaction as she did report some itching and discomfort. It appears to have resolved. Overall has been doing extremely well. She is now concerned about her right calf which does experience some swelling. [facility] Medical History Anxiety Asthma Asthma High cholesterol History of abnormal uterine bleeding Hx of fracture of ankle Migraines RUTH (obstructive sleep apnea) Pneumonia Surgical History Hx of section Hx of left breast biopsy Family History Mother Pre-diabetes Father Prostate CA Social History Household Members: Spouse Alcohol intake: current Alcohol intake frequency: holidays/special occasions only Alcohol type: wine Patient Tobacco Use Status: Never used Tobacco Review of Systems Const Reports as per HPI ENT Reports no additional complaints Card Denies chest pain, Denies chest pain at rest and Denies chest pain with activity Resp Denies chest congestion and Denies cough GI Reports no additional complaints Musc Details: pain over varicosities, aching of lower extremities, swelling, cramping, heaviness and tiredness, itching Denies abnormal gait Skin/Breast Reports pruritus and Denies wounds Neuro Reports no additional complaints and Denies abnormal gait Psych Denies no additional complaints Physical Exam Vital Signs: BMI result Body Mass Index 36.6 Const General: cooperative, healthy appearing and comfortable Orientation/consciousness: oriented to person, oriented to place and oriented to time Neck Carotids: no bruits Chest Chest palpation & inspection: normal inspection of the chest and normal palpation of entire chest wall Resp Effort & Inspection: normal respiratory effort and able to speak in complete sentences Cardio Rate: regular rate Heart sounds: S1 normal heart sound present and S2 normal heart sound present Peripheral pulses: Peripheral pulses 2+ throughout GI Inspection: Yes normal to inspection Skin Other: +2 edema, right leg and calf General skin exam: dry skin Neuro General: oriented to person, oriented to place and oriented to time Extrem Right lower extremity: full ROM, normal capillary refill and edema Left lower extremity: full ROM, normal capillary refill and edema Psych Mental Status: mental status grossly normal Results Reviewed Results Reviewed: Brief summary of venous insufficiency testing is as follows: right great saphenous vein: negative right small saphenous vein: Positive right accessory vein: none present left great saphenous vein: Ablated left small saphenous vein: negative left accessory vein: none present Please note there is no evidence of any venous aneurysms or significant tortuosity Assessment & Plan Assessment & Plan (1) Varicose veins of left lower extremity with inflammation: Comment: 03/31/2023 - left great saphenous vein radiofrequency ablation Code(s): I83.12 - Varicose veins of left lower extremity with inflammation (2) Varicose veins of right lower extremity with inflammation: Code(s): I83.11 - Varicose veins of right lower extremity with inflammation Plan: This patient has varicose veins with inflammation. They continue to be a source of discomfort for the patient. The patient has tried conservative treatment with compression, leg elevation and exercise program for over 3 months time. They have been compliant with all treatment. This has provided minimal relief for the patient. I do not anticipate this course of treatment will alter the underlying etiology. The patient has been scheduled for lower extremity venous treatment inclusive of --- right small saphenous vein radiofrequency ablation. Risks, benefits, and complications of this procedure has been discu ssed in detail with the patient including but not limited to bleeding, infection, and the development of a DVT. The patient has demonstrated a clear understanding and has consented. We will schedule the patient as soon as possible. Thank you for allowing us to participate in this patient's care. If there are any questions or concerns please do not hesitate to contact us. Coding Level of Care Code Est Pt Level 4 (95892) Diagnoses Varicose veins of left lower extremity with inflammation I83.12 Varicose veins of right lower extremity with inflammation I83.11
== END 2023-04-13 15:42 | disposition home or self-care (01) ==
PROVIDERS: Visit Provider Surgery Vascular Surgery
DX: I83.12 Varicose veins of left lower extremity with inflammation (principal); I83.11 Varicose veins of right lower extremity with inflammation
CPT/HCPCS: 99214

== ENCOUNTER → 2023-04-13 15:10 | Outpatient (BNVA) | payer OTHER, SELFPAY | PROVIDERS: Visit Provider Surgery Vascular Surgery ==

== ENCOUNTER 2023-05-11 13:27 | Outpatient (AMB) | payer OTHER, SELFPAY ==
--- NOTE | 2023-05-11 13:32 | A.OFFVIS_ITS ---
Vital Signs 05/11/23 13:38 Height 5 ft 5 in Weight 222 lb BMI 36.9 BP 130/77 Blood Pressure Location Lt brachial Position Sitting Pulse 66 Intake Visit Reasons: 8 month follow up per Intake Note: Patient follow up Colonoscopy results. Patient cc: acid reflex on and off. Professional Housing Consultant Required: No Accompanied by: Self / Same As Patient Allergies cortisone Allergy (Intermediate, Verified 04/10/24 11:11) Swelling hydromorphone [From DILAUDID] Allergy (Unknown, Verified 04/10/24 11:11) SHORTNESS OF BREATH HPI HPI 8 month follow up per : Details: GI clinic visit for this 46 YF with asthma, migraine MONTES and sleep apnea for follow-up of colon polyps.? LABS IN Dr. Z : Reviewed ENDOSCOPIC STUDIES: 05/2022 COLONOSCOPY SHOWED: Sigmoid Colon:? A 2.5 cms pedunculated polyp at 90 cms - removed with a hot snare.? Polypectomy site was marked with anton ink. Moderate diverticulosis Rectum:? Normal Ano-rectum:? Moderate internal hemorrhoids Impression and Post Procedure Diagnosis: Colonoscopy Findings: Incomplete colonoscopy till hepatic flexure due to long and redundant colon. One medium sized polyp removed (tubular adenoma on bx) Moderate diverticulosis seen in the entire colon Moderate hemorrhoids on retroflexed exam. Plan: CT colonography today. Repeat Colonoscopy interval based on path results - in 1 year if polyp is adenomatous (to check polypectomy site) and 10 years if polyps are hyperplastic. (Needs single or double balloon enteroscope for future colonoscopies due to long and redundant colon) Above findings were reviewed with the patient and colon polyps and diverticulosis handouts were given in the discharge area ADDENDUM: IMAGING STUDIES: 06/10/22 CT COLONOGRAPHY SHOWED: The study is limited. ?No convincing suspicious mass or fixed area of narrowing. ?Incomplete distention and adherent fecal residue and a small amount of retained residual fluid could obscure a significant abnormality. ?Consider a repeat study in one year. Non-colonic findings:?The uterus is enlarged and contour is abnormal when correlated with selected portions of lumbar MRI this could represent adenomyosis. There is an approximately 4.6 cm low attenuating right ovarian mass. This may be a cyst but is not fully characterized. The margins are smooth in the internal attenuation appears homogeneous. Best practices suggest this does not require follow-up. TODAY'S VISIT: Patient denies symptoms of heartburn, dysphagia, nausea, vomiting, change in appetite or weight. Denies recent change in bowel habits, constipation, diarrhea, black stools or rectal bleeding. Patient has a hx of asthma and denies major cardiac problems Denies problems with anesthesia in the past. Denies being on chronic anticoagulation. Patient denies known family history of colon polyps, colon cancer or other GI malignancies. [facility] Medical History RUTH (obstructive sleep apnea) Pneumonia Asthma History of abnormal uterine bleeding Hx of fracture of ankle Migraines Anxiety High cholesterol Asthma Surgical History Hx of colonoscopy Hx of left breast biopsy Hx of section Family History Mother Pre-diabetes Father Prostate CA Daughter Non-radiographic axial spondyloarthritis Daughter Matt thyroiditis Social History Household Members: Spouse Alcohol intake: current Alcohol intake frequency: holidays/special occasions only Alcohol type: wine Patient Tobacco Use Status: Never used Tobacco 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, 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 Review of Systems Const All systems reviewed & are unremarkable except as noted in HPI and below Physical Exam Vital Signs: Last Vital Signs Pulse 66 05/11/23 13:38 BP 130/77 05/11/23 13:38 BMI result Body Mass Index 36.9 Const General: healthy appearing and no acute distress Nutritional Appearance: obese Orientation/consciousness: patient oriented x3 Limitations: no limitations HEENT Head: Yes normal to inspection Ears: hearing grossly normal bilaterally Eyes Sclerae: sclerae normal Pupils: Equal, round and reactive pupils present Neck Neck: Yes normal visual inspection Chest Chest palpation & inspection: normal inspection of the chest Resp Effort & Inspection: normal respiratory effort Auscultation: clear to auscultation bilaterally Cardio Palpation: normal PMI Rate: regular rate Rhythm: regular rhythm Heart sounds: S1 normal heart sound present, S2 normal heart sound present and no murmurs GI Palpation (GI): Soft to palpation, nontender and No hepatosplenomegaly present Auscultation: normal bowel sounds Rectal Exam - Female: deferred Skin General skin exam: no rashes or lesions noted Neuro General: patient oriented x3, gait normal and moves all extremities Cranial nerves: Yes Equal, round and reactive pupils present Psych Appearance: grossly normal Mental Status: mental status grossly normal Assessment & Plan Assessment & Plan (1) History of adenomatous polyp of colon: Code(s): Z86.010 - Personal history of colonic polyps Category: Medical Plan 46 YF with asthma, migraine MONTES and sleep apnea for follow-up of colon polyps.? Pt had an incomplete colonoscopy in 05/2022 and a 2 to 2.5 cms tubular adenoma was removed from the sigmoid colon A CT colonoography was performed and results as noted above Pt was advised to schedule a FU colonoscopy Since she had an incomplete colonoscopy in the past due to a long and redundant colon, repeat colonoscopy will need to be performed with a small bowel enteroscope. FU in 6 months Coding Level of Care Code Est Pt Level 3 (75834) Diagnoses History of adenomatous polyp of colon Z86.010 Time Spent (min) 24
[2023-05-11 13:38] VITALS: BP 130/77; PULSE 66; BMI 36.9
== END 2023-05-11 14:18 | disposition home or self-care (01) ==
PROVIDERS: PCP General Practice; Visit Provider Internal Medicine Gastroenterology
DX: Z86.010 Personal history of colon polyps (principal)
CPT/HCPCS: 99499

== ENCOUNTER → 2023-05-11 13:27 | Outpatient (BNVA) | payer OTHER, SELFPAY | PROVIDERS: PCP General Practice; Visit Provider Internal Medicine Gastroenterology ==

== ENCOUNTER 2023-05-23 15:15 | Outpatient (REF) | payer OTHER, SELFPAY ==
--- NOTE | ~2023-05-23 | MR_ITS ---
EXAMINATION: MR CERVICAL SPINE WITHOUT CONTRAST CLINICAL INFORMATION: Neck pain. Numbness and tingling in upper extremities. COMPARISON: None available. TECHNIQUE: MRI of the cervical spine was obtained using routine sequences without contrast. FINDINGS: There is no central canal stenosis or foraminal narrowing. No disc protrusions are seen. No significant facet arthropathy evident. Very mild disc bulge noted at the C5-C6 level with a minimal anterolisthesis. The marrow signal is homogeneous. No cord signal abnormality or syrinx is seen. The craniovertebral junction and imaged portions of the brain parenchyma appear normal. The vertebral artery flow-voids are maintained. The paraspinal soft tissues are unremarkable. There is mild ectasia of the submandibular ducts bilaterally of indeterminate etiology. Mild rightward cervical spinal curvature noted. A partially visualized heterogeneous 2 cm mass is visible within the right thyroid lobe. The imaged portions of the lungs are grossly clear. MR/MR cervical spine wo con IMPRESSION: Very mild disc bulge and minimal anterolisthesis at the C5-C6 level. Mild rightward spinal curvature. Otherwise, relatively normal MRI of the cervical spine. Indeterminate partially visualized 2 cm nodular lesion in the right thyroid lobe. Based on size criteria and patient age, a followup ultrasound of the thyroid gland is recommended for further evaluation.
== END 2023-05-23 15:16 | disposition home or self-care (01) ==
LOC: HO.MRI 15:15
PROVIDERS: PCP General Practice; Visit Provider General Practice
DX: M54.2 Cervicalgia (principal); R20.0 Anesthesia of skin; R20.2 Paresthesia of skin
CPT/HCPCS: 72141

== ENCOUNTER 2023-05-31 10:13 | Outpatient (REF) | payer OTHER, SELFPAY ==
[2023-05-31 11:34] LABS: MANUAL DIFF FLAG NO
[2023-05-31 11:44] LABS: Basophils Absolute Auto 0.1 X10*3/uL (0.0-0.2); Basophils Percent Auto 1.1 % (0-2); Eosinophils Absolute Auto 0.2 X10*3/uL (0.0-0.4); Eosinophils Percent Auto 3.1 % (0-4); Hematocrit 40.5 % (37.0-47.0); Hemoglobin 13.8 g/dl (12.0-16.0); Imm Gran Abs Auto 0.02 X10*3/uL (0.00-0.03); Imm Gran Pct Auto 0.3 % (0.0-0.4); Lymphocytes Absolute Auto 1.7 X10*3/uL (1.2-4.9); Lymphocytes Percent Auto 27.2 % (20-40); Mean Corpuscular HGB Conc 34.1 g/dl (31.0-35.0); Mean Corpuscular Hemoglobin 30.7 pg (27.0-33.0); Mean Platelet Volume 9.8 fL (9.4-12.3); Monocytes Absolute Auto 0.5 X10*3/uL (0.1-1.2); Monocytes Percent Auto 7.2 % (2-11); Neutrophils Absolute Auto 3.9 x10*3/uL (2.0-8.3); Neutrophils Percent Auto 61.1 % (45-73); Platelet Count 307 X10*3/uL (160-400); Red Cell Distribution Width 11.9 % (11.0-16.0); White Blood Count 6.4 X10*3/uL (4.8-10.8)
[2023-05-31 12:44] LABS: Alanine Aminotransferase 18 U/L (0-31); Albumin Level 4.2 g/dL (3.5-5.0); Alkaline Phosphatase 60 U/L (39-117); Anion Gap 13 (12-20); Aspartate Amino Transferase 15 U/L (5-31); Bilirubin Total 0.5 mg/dL (0.0-1.0); Blood Urea Nitrogen 15 mg/dL (9-16); Calcium 9.3 mg/dL (8.4-10.2); Carbon Dioxide 25 mmol/L (22-29); Chloride 106 mmol/L (96-108); Cholesterol 168 mg/dL (<200); Estimated Glomerular Filt Rate > 60; Glucose Random 91 mg/dL (60-115); HDL Cholesterol 53 mg/dL (>40); LDL Cholesterol Calculated 85 mg/dL (<100); Potassium 3.7 mmol/L (3.3-5.1); Sodium 140 mmol/L (135-145); Triglycerides 153 mg/dL (<150)
[2023-05-31 12:52] LABS: TSH reflex Free T4 1.19 uIU/mL (0.32-4.0)
[2023-05-31 13:07] LABS: Folate 6.5 ng/mL (> or = 4.0); Vitamin B12 255 pg/mL (200-900)
[2023-06-02 04:35] LABS: Syphilis Screen Nonreactive (Nonreactive)
== END 2023-05-31 10:14 | disposition home or self-care (01) ==
LOC: HO.HHCL 10:13
PROVIDERS: Visit Provider General Practice
DX: R00.2 Palpitations (principal); E78.00 Pure hypercholesterolemia, unspecified; R20.0 Anesthesia of skin; R20.2 Paresthesia of skin
CPT/HCPCS: 36415; 80053; 80061; 82607; 82746; 84443; 85025; 86780

== ENCOUNTER 2023-06-26 13:49 | Outpatient (REF) | payer OTHER, SELFPAY | END 2023-06-26 13:50 | disposition home or self-care (01) | LOC: HO.US 13:49 | PROVIDERS: PCP General Practice; Visit Provider General Practice | DX: M79.604 Pain in right leg (principal) | CPT/HCPCS: 76536 ==

== ENCOUNTER 2023-06-30 14:21 | Outpatient (REF) | payer OTHER, SELFPAY | END 2023-06-30 14:22 | disposition home or self-care (01) | LOC: HO.NEURO 14:21 | PROVIDERS: PCP General Practice; Visit Provider General Practice | DX: R20.0 Anesthesia of skin (principal); R20.2 Paresthesia of skin | CPT/HCPCS: 95886; 95911 ==

== ENCOUNTER → 2023-06-30 14:25 | Outpatient (BNV) | payer OTHER, SELFPAY | PROVIDERS: PCP General Practice; Visit Provider Physical Medicine & Rehabilitation | DX: G56.13 Other lesions of median nerve, bilateral upper limbs (principal); G56.01 Carpal tunnel syndrome, right upper limb | CPT/HCPCS: 95886; 95911 ==

== ENCOUNTER 2023-08-01 13:36 | Outpatient (REF) | payer OTHER, SELFPAY ==
--- NOTE | ~2023-08-01 | US_ITS ---
ULTRASOUND-GUIDED THYROID NODULE FINE NEEDLE ASPIRATION INDICATION: Right lobe thyroid TI-RADS 5 category nodule, for FNA. Procedure: Informed consent was obtained from the patient prior to the procedure. During this process, the procedure and potential alternatives were explained, along with the intended outcome and benefits. The risks of the procedure, as well as the risks of not doing the procedure, were discussed. The patient was given the opportunity to ask questions regarding the procedure and appeared competent to make medical decisions. A signed consent form which documents this discussion was placed in the medical record. A timeout was performed in the room. The patient was placed in a supine position with the neck extended. The right side of the neck and chest was prepped and draped in routine sterile fashion. 1% lidocaine was used as anesthetic. Under real-time ultrasound guidance, a 25-gauge needle was placed into the nodule and aspiration was performed. A total of 4 aspirations were performed. The specimens were placed in CytoLyt and and the Affirma bottle. Postprocedure images showed no hematoma. A Band-Aid was applied to the access site. The patient tolerated the procedure well with no immediate complications. Permanent ultrasound images were archived to the procedure. US/US biopsy thyroid IMPRESSION: Right thyroid nodule fine-needle aspiration This procedure was performed by Sushil Hernandez PA-C, and directly supervised by Dr. Marvin
[2023-08-01] MEDS: Lidocaine HCl 1 % MPF 5 ML VIAL SUBCUT (14:52)
== END 2023-08-01 13:37 | disposition home or self-care (01) ==
LOC: HO.US 13:36
PROVIDERS: PCP General Practice; Visit Provider General Practice
DX: E04.1 Nontoxic single thyroid nodule (principal)
CPT/HCPCS: 10005; 88173

== ENCOUNTER → 2023-08-01 13:40 | Outpatient (BNV) | payer OTHER, SELFPAY | PROVIDERS: PCP General Practice; Visit Provider Radiology Diagnostic Radiology | DX: E04.1 Nontoxic single thyroid nodule (principal) | CPT/HCPCS: 10005 ==

== ENCOUNTER 2023-08-15 15:37 | Outpatient (AMB) | payer OTHER, SELFPAY ==
[2023-08-15 15:44] VITALS: PULSE 88; O2SAT 95; BMI 36.6
--- NOTE | 2023-08-15 15:44 | MHC.OFFVIS ---
Intake Vital Signs 08/15/23 15:44 Height 5 ft 5 in Weight 220 lb BMI 36.6 Pulse 88 Pulse Source Pulse Oximeter Pulse Oximetry (%) 95 Oxygen Delivery Method Room Air Intake Visit Reasons: Asthma Filter Tender Required: No Allergies hydromorphone [From DILAUDID] Allergy (Unknown, Verified 08/15/23 15:46) SHORTNESS OF BREATH HPI HPI Comments History of Present Illness Details The patient is a 47-year-old woman with a known history of asthma who has been complaining of ongoing recurrent asthma symptoms requiring prednisone. in the past she was evaluated and treated by a local dye house vat worker. she has continued to use allergy medicine. Typically in the winter in the fall the worst seasons. Then, back in July 2020 the patient did develop significant COVID. She was initially evaluated in the ER 08/22/2020. She was treated and discharged. Although her symptoms worsen and she ended up admitted at [facility] with COVID related pneumonia. She did improve she did not need any oxygen upon discharge. Subsequently after that she has had multiple at episodes of URIs that activate her asthma requiring prednisone. The last time this occurred was back in June 2022. She did have a chest x-ray at that time that I personally reviewed demonstrating some peribronchial coughing in the x-ray also demonstrated decreased lung volumes. But no focal area of airspace disease. Currently she is taking Advair in addition to her rescue inhaler. Seems to be doing better at this time. She continues with her allergy medicine as well. She is back to her baseline. In addition to this the patient does complaint of daytime drowsiness. Her Lehr score is elevated 24. Her complains that she has been snoring more and he has also noted that she has had apneic episodes. He does uses CPAP and strongly feels like she needs 1 as well. Therefore go ahead and request a home sleep study at this time. 10/11/2022 the patient is here for a pulmonary follow-up visit. The patient overall is doing well. She continues use her Advair and also her allergy medication. She continues to be at baseline. She has not required her rescue inhaler. We did review her pulmonary function studies demonstrating normal spirometry without any evidence of any obstruction and no evidence of any restriction. Some slight increased response to the small airways but otherwise within normal limits. The patient did not have any blood work. This point clinically she is doing well. If her symptoms worsen we can consider allergy testing for additional interventions. The patient also continues to have daytime drowsiness. Her Lehr score continues to be elevated 24. She did have a home sleep study which we personally reviewed. The patient did have moderate degree of sleep apnea with an AHI of 14 and also significant hypoxia and tachycardia. Therefore the patient to start CPAP therapy at this time. The patient is agreeable at this time. Will make arrangements with the local [employer] company to start PAP therapy. Will have the patient return in several months and bring her machine to further evaluate her response to therapy. 02/07/2023 the patient is here for pulmonary follow-up visit. The fusion is doing well from an asthma standpoint. She continues with the Advair. She has not required any rescue inhalers. She still struggling with CPAP however. She is using the nasal pillows. Her issue is that she wakes up in the middle the night and takes off the machine without realizing. She has been averaging around 75% usage which is relatively okay. The patient says AHI is down to about 2. The patient still having episodes of apnea specially because she requires higher pressures. I am concerned because high pressures may cause more weight gain in's and more difficulty tolerating it. Therefore will provide her with sleep aid in order for to tolerated better. I did increase her m PAP pressures from 14-16 cm of water. 08/15/2023 The patient is here for a pulmonary follow up visit. Doing well for an asthma standpoint. Has been using the Advair. Has not required the HOLLY as needed. No exacerbations. The patient also has been using his APAP. The therapy has been effective and beneficial. She does use it more than4 hours a night. Her AHI is aroung 2. mean pressures are 15-16. We will increase the min pressure from 6 to 8. [facility] Medical History (Updated 04/13/23 @ 15:56 by Kamron Corrales MD) RUTH (obstructive sleep apnea) Pneumonia Asthma History of abnormal uterine bleeding Hx of fracture of ankle Migraines Anxiety High cholesterol Asthma Surgical History Hx of section Hx of colonoscopy Hx of left breast biopsy Family History Mother Pre-diabetes Father Prostate CA Household Members: Spouse Alcohol intake: current Alcohol intake frequency: holidays/special occasions only Alcohol type: wine Patient Tobacco Use Status: Never used Tobacco Review of Systems Const Denies daytime sleepiness, Denies snoring and Denies stops breathing during sleep Eyes Denies change in vision ENT Denies change in voice, Reports nasal congestion, Reports nasal discharge and Denies throat swelling Card Denies chest pain Resp Reports cough, Denies snoring and Denies wheezing GI Reports no additional complaints Musc Reports no additional complaints and Reports arthralgias Skin/Breast Denies rash Neuro Reports no additional complaints Son/Lymph Denies easy bleeding Aller/Immun Reports seasonal rhinorrhea, Denies throat swelling and Denies wheezing Physical Exam Vital Signs: Last Vital Signs Pulse 88 08/15/23 15:44 Pulse Ox 95 08/15/23 15:44 Oxygen Delivery Method Room Air 08/15/23 15:44 BMI result Body Mass Index 36.6 Const General: comfortable HEENT Head: Yes atraumatic Eyes General: appearance normal, both eyes and all related structures Neck Neck: Yes normal visual inspection Chest Chest palpation & inspection: normal inspection of the chest Resp Effort & Inspection: normal respiratory effort Auscultation: clear to auscultation bilaterally and no wheezes Cardio Rate: regular rate Rhythm: regular rhythm Heart sounds: S1 normal heart sound present and S2 normal heart sound present GI Auscultation: normal bowel sounds Skin General skin exam: no rashes or lesions noted Extrem General: Yes no clubbing, cyanosis or edema Assessment & Plan Assessment & Plan (1) Asthma: Code(s): J45.909 - Unspecified asthma, uncomplicated Qualifiers: Asthma complication type: uncomplicated Asthma persistence: persistent Asthma severity: moderate Qualified Code(s): J45.40 - Moderate persistent asthma, uncomplicated (2) RUTH (obstructive sleep apnea): Comment: Moderate Code(s): G47.33 - Obstructive sleep apnea (adult) (pediatric) Plan Continue Advair HOLLY as needed Singulair increase APAP, adjusted 10-16 ramp 8 Ambien as needed for sleep F/U 12 months Coding Level of Care Code Est Pt Level 4 (46735) Diagnoses Moderate persistent asthma without complication J45.40 Asthma complication type: uncomplicated Asthma persistence: persistent Asthma severity: moderate RUTH (obstructive sleep apnea) G47.33 Time Spent (min) 16
== END 2023-08-15 16:04 | disposition home or self-care (01) ==
PROVIDERS: PCP General Practice; Visit Provider Hospitalist
DX: J45.40 Moderate persistent asthma, uncomplicated (principal); G47.33 Obstructive sleep apnea (adult) (pediatric)
CPT/HCPCS: 99214

== ENCOUNTER → 2023-08-15 15:37 | Outpatient (BNVA) | payer OTHER, SELFPAY | PROVIDERS: PCP General Practice; Visit Provider Hospitalist | DX: J45.909 Unspecified asthma, uncomplicated (principal); J18.9 Pneumonia, unspecified organism; G47.33 Obstructive sleep apnea (adult) (pediatric); Z23 Encounter for immunization ==

== ENCOUNTER 2023-09-04 12:45 | Outpatient (REF) | payer OTHER, SELFPAY ==
[2023-09-04] MEDS: Lidocaine HCl 1 % MPF 5 ML VIAL SUBCUT (14:09)
== END 2023-09-04 12:46 | disposition home or self-care (01) ==
LOC: HO.US 12:45
PROVIDERS: PCP General Practice; Visit Provider General Practice
DX: E04.1 Nontoxic single thyroid nodule (principal)
CPT/HCPCS: 10005; 88173; 88305

== ENCOUNTER → 2023-09-04 12:50 | Outpatient (BNV) | payer OTHER, SELFPAY | PROVIDERS: PCP General Practice; Visit Provider Student in an Organized Health Care Education/Training Program | DX: E04.1 Nontoxic single thyroid nodule (principal) | CPT/HCPCS: 10005 ==

== ENCOUNTER 2023-11-15 12:12 | Outpatient (AMB) | payer OTHER, SELFPAY ==
--- NOTE | 2023-11-15 12:19 | A.OFFVIS_ITS ---
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 Patient reports her Right is worse then the left. She gets numbness, tingling, and shooting pains that go up to the shoulder. It is worse first thing in the morning or with to much repetitive hand motion. She states she uses a brace at night which helps but doesn't relieve all of her symptoms. EMG done. 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 She complains of numbness in the thumb, index, and middle fingers bilaterally, R>L. She says her right hand symptoms are constantly mildly numb but worse in the mornings or with repetitive activities. Her left hand symptoms are more intermittent and occasional She finds some relief from wearing braces at night. 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 [facility] Medical History (Updated 11/15/23 @ 13:18 by Ankit Cortes) RUTH (obstructive sleep apnea) Pneumonia Asthma History of abnormal uterine bleeding Hx of fracture of ankle Migraines Anxiety High cholesterol Asthma Surgical History Hx of section Hx of colonoscopy Hx of left breast biopsy Family History Mother Pre-diabetes Father Prostate CA Social History (Updated 11/15/23 @ 12:35 by Breanne Ayala MACHINE PRESSER) Household Members: Spouse Alcohol intake: current Alcohol intake frequency: holidays/special occasions only Alcohol type: wine Patient Tobacco Use Status: Never used Tobacco 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, 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 Review of Systems Const All systems reviewed & are unremarkable except as noted in HPI and below Physical Exam Vital Signs: BMI result Body Mass Index 36.6 Const General: cooperative, healthy appearing and no acute distress Orientation/consciousness: patient oriented x3 HEENT Head: Yes normocephalic and Yes atraumatic Eyes EOM: EOMs intact bilaterally Resp Effort & Inspection: normal respiratory effort and able to speak in complete sentences Cardio Jugular venous distension: no JVD Skin General skin exam: turgor normal Rashes: no rashes Neuro General: patient oriented x3 Extrem Other: Evaluation of Bilateral Upper Extremity: The patient is alert, oriented, and in no acute distress Neuro: Dense numbness in the right median nerve distribution. Normal sensation in the left median nerve distribution. Normal sensation in the ulnar nerve distribution bilaterally No thenar or intrinsic wasting Good APB muscle belly firing and good finger cross Vascular: Cap refill brisk ROM: She can make a fist and extend all her digits No locking or catching Skin: No lacerations or abrasions. General: No Ecchymosis. No Erythema or evidence of infection. Nerve Conduction Study: IMPRESSION: 1. This is an abnormal study. 2. There is electrodiagnostic evidence for right moderate-severe median neuropathy at the wrist, consistent with carpal tunnel syndrome. 3. There is no electrodiagnostic evidence for ulnar neuropathy, brachial plexopathy, or cervical radiculopathy. 4. There is electrodiagnostic evidence for left median neuropathy at the wrist. Thank you for your kind referral. Kalyani Carl MD, JONATHAN 06/30/23 Psych Appearance: grossly normal Affect: normal affect Attitude: cooperative Assessment & Plan Assessment & Plan (1) Carpal tunnel syndrome of right wrist: Code(s): G56.01 - Carpal tunnel syndrome, right upper limb (2) Carpal tunnel syndrome of left wrist: Code(s): G56.02 - Carpal tunnel syndrome, left upper limb Plan Assessment & Plan: 1. Right carpal tunnel syndrome, moderate-severe With dense numbness, worse with activities 2. Left carpal tunnel syndrome, mild Symptoms intermittent, but daily, worse at night I educated her about this condition I discussed operative and non-operative treatment options The patient would like to proceed with surgery, beginning with the right side The risks and benefits of operative treatment were discussed with the patient and the patient wishes to proceed with surgery. These risks include, but are not limited to risk of damage to blood vessels, nerves, tendons, infection, recurrence, incomplete relief of preoperative symptoms, persistent pain, possible need for further surgery and the risks associated with regional blocks and anesthesia. The plan is to take the patient to the operating room sometime in the next few weeks for the following procedures: 1. Right carpal tunnel release, under local All of the preoperative paperwork including the consent was reviewed today. All the patient's questions were answered. The patient understands that they will be contacted by our planner/scheduler soon to schedule this procedure. She says she is travelling in December and would like to have surgery after she returns She denies Diabetes, blood thinners, heart, lung, kidney issues She has asthma Scribed for Leora Lewis MD by Ankit Cortes, medical detail representative, on 11/15/23 at 1:06 PM, EST. Coding Level of Care Code New Pt Level 4 (90631) Diagnoses Carpal tunnel syndrome of right wrist G56.01 Carpal tunnel syndrome of left wrist G56.02
[2023-11-15 12:21] VITALS: BMI 36.6
== END 2023-11-15 13:32 | disposition home or self-care (01) ==
PROVIDERS: PCP General Practice; Visit Provider Orthopaedic Surgery
DX: G56.03 Carpal tunnel syndrome, bilateral upper limbs (principal); E11.9 Type 2 diabetes mellitus without complications; J45.909 Unspecified asthma, uncomplicated
CPT/HCPCS: 99204

== ENCOUNTER → 2023-11-15 12:12 | Outpatient (BNVA) | payer OTHER, SELFPAY | PROVIDERS: PCP General Practice; Visit Provider Orthopaedic Surgery ==

== ENCOUNTER 2024-01-22 08:25 | Day surgery (SDC) | payer OTHER, SELFPAY ==
[2024-01-22 08:35] VITALS: BP 138/79; PULSE 87; RESP 20; TEMP 36.3; O2SAT 97; BMI 46.8
--- NOTE | 2024-01-22 09:56 | MHC.SHP ---
Pre-Procedural Eval Section A - 24 Hr Update-Section A only Date of Service: 01/22/24 The patient is an INPATIENT: No Changes since office visit: No Cold of Flu in the past 2 weeks, No New Medical Problems, No Changes in Medication and No Patient answered all questions The patient has been examined within 24 hours of the surgical procedure. The History & Physical has been completed within 30 days and I have reviewed it.: Yes Section B - Complete if H&P > 30 days Chief Complaint: Carpal tunnel syndrome, right upper limb Allergies: Allergies Allergy/AdvReac Type Severity Reaction Status Date / Time cortisone Allergy Intermediate Swelling Verified 11/15/23 12:28 hydromorphone [From DILAUDID] Allergy Unknown SHORTNESS Verified 08/15/23 15:46 OF BREATH Exam Exam Comment: Right carpal tunnel syndrome Plan Diagnosis/Plan: Unchanged I have reviewed the history and physical and performed a pertinent physical examination on my patient. No changes have occurred unless specified. Time Spent With Patient Time: Total time managing care of this patient today ____ minutes.
--- NOTE | 2024-01-22 09:56 | W.PM.OPN ---
Operative Note Operative Note Date of Service: 01/22/24 Narrative: Preop diagnosis: 1. Right Carpal tunnel syndrome Postop diagnosis: same Procedure: 1. Right Carpal tunnel release Surgeon: Leora Lewis MD Anesthesia: local block using 1% lidocaine with epinephrine Findings: Thickened transverse carpal ligament. EBL: Less than 5 mL Specimens: None Complications: None Disposition: Brought to recovery room in stable condition Plan: Follow-up for 10-14 days for wound check and suture removal Indications: The patient is 48 years old, with right carpal tunnel syndrome that has been unresponsive to nonoperative management. The risks and benefits of operative treatment including but not limited to risk of damage to blood vessels, nerves, tendons, infection, persistent pain, persistent symptoms, or possible need for additional surgery were discussed with the patient and the patient wishes to proceed with surgery. Procedure: Once consent was obtained a local block was performed using a combination of 1% lidocaine with epinephrine. The patient was then brought back to the operating suite and placed on the operative table in supine position. The right upper extremity was prepped and draped in a standard surgical fashion. Once assured that we had a good block, a 2.0 cm longitudinal incision was made centered over the carpal tunnel. The incision was made through the skin to the subcutaneous tissues using a #15 blade. Dissection was made down to the level of the transverse carpal ligament with care being taken to protect the palmar cutaneous nerve. Once the transverse carpal ligament was clearly visualized, a longitudinal incision was made in the transverse carpal ligament 1st using a #15 blade, then using tenotomy scissors under direct visualization. Care was taken to look for and protect the motor branch of the median nerve when seen in this area. Once satisfied with our carpal tunnel release the wound was copiously irrigated with normal saline and hemostasis was obtained with a brief period of local pressure. The skin edges were reapproximated with some 5.0 nylon suture material and a sterile dressing was applied. The patient appears to have tolerated the procedure well and with no complications. All digits were well vascularized at the conclusion of the case.
--- NOTE | 2024-01-22 11:03 | HO.INF ---
POST OP VITAL SIGNS 121/82, 95 P, 92% RA, R 16.
== END 2024-01-22 11:02 | disposition home or self-care (01) ==
PROVIDERS: PCP General Practice; Visit Provider Orthopaedic Surgery
PROC: (CPT 64721; principal; 2024-01-22 09:00)
DX: G56.01 Carpal tunnel syndrome, right upper limb (principal); R20.0 Anesthesia of skin; R20.2 Paresthesia of skin; G43.909 Migraine, unspecified, not intractable, without status migrainosus; J45.909 Unspecified asthma, uncomplicated; E78.00 Pure hypercholesterolemia, unspecified; G47.33 Obstructive sleep apnea (adult) (pediatric); Z88.5 Allergy status to narcotic agent; Z88.8 Allergy status to other drugs, medicaments and biological substances
CPT/HCPCS: 64721; J0171

== ENCOUNTER → 2024-01-22 08:25 | Outpatient (BNV) | payer OTHER, SELFPAY | PROVIDERS: PCP General Practice; Visit Provider Orthopaedic Surgery | DX: G56.01 Carpal tunnel syndrome, right upper limb (principal) | CPT/HCPCS: 64721 ==

== ENCOUNTER 2024-02-06 11:09 | Outpatient (AMB) | payer OTHER, SELFPAY ==
[2024-02-06 11:24] VITALS: BMI 46.8
--- NOTE | 2024-02-06 11:24 | A.OFFVIS_ITS ---
Vital Signs 02/06/24 11:24 Height 5 ft 5 in Weight 281 lb BMI 46.8 Intake Visit Reasons: PO RT CTR 01/22/24 AR Intake Note: Ashley 48 yr old female presents today for her PO visit for her right CTR 01/22/24 AR. States CTS have improved and is doing well. Sutures removed and steri strips applied. Patient states she is now experiencing mild numbness and tingling in her left pinky. Allergies cortisone Allergy (Intermediate, Verified 02/06/24 11:30) Swelling hydromorphone [From DILAUDID] Allergy (Unknown, Verified 02/06/24 11:30) SHORTNESS OF BREATH HPI HPI PO RT CTR 01/22/24 AR: Details: Ashley is a 48 year old right hand dominant woman who presents S/P right carpal tunnel release, DOS: 01/22/24. She says her sensation has improved and is now normal. She is happy with the results of her surgery Her left hand symptoms are more intermittent and occasional in the median nerve distribution. She says she is now having some occasional small finger numbness She finds some relief from wearing braces at night. She works in [employer] and says she lives with her grandson. She says she has been working from home since her surgery [facility] Medical History (Updated 11/15/23 @ 13:18 by Ankit Cortes) RUTH (obstructive sleep apnea) Pneumonia Asthma History of abnormal uterine bleeding Hx of fracture of ankle Migraines Anxiety High cholesterol Asthma Surgical History Hx of colonoscopy Hx of left breast biopsy Hx of section Family History Mother Pre-diabetes Father Prostate CA Social History Household Members: Spouse Alcohol intake: current Alcohol intake frequency: holidays/special occasions only Alcohol type: wine Patient Tobacco Use Status: Never used 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 Cap refill is brisk Nerve Conduction Study: IMPRESSION: 1. This is an abnormal study. 2. There is electrodiagnostic evidence for right moderate-severe median neuropathy at the wrist, consistent with carpal tunnel syndrome. 3. There is no electrodiagnostic evidence for ulnar neuropathy, brachial plexopathy, or cervical radiculopathy. 4. There is electrodiagnostic evidence for left median neuropathy at the wrist. Thank you for your kind referral. Kalyani Carl MD, JONATHAN 06/30/23 Psych Appearance: grossly normal Affect: normal affect Attitude: cooperative Assessment & Plan Assessment & Plan (1) Carpal tunnel syndrome of right wrist: Code(s): G56.01 - Carpal tunnel syndrome, right upper limb Category: Medical (2) Carpal tunnel syndrome of left wrist: Code(s): G56.02 - Carpal tunnel syndrome, left upper limb Category: Medical Plan Assessment & Plan: 1. Right carpal tunnel syndrome, S/P release DOS: 01/22/24 Pre-operatively with dense numbness, worse with activities Now with normal sensation and good resolution of her nighttime symptoms The patient appears to be doing well post-operatively I educated her about the post-operative course I discussed activity modifications, she is to lift nothing heavier than a cellphone for the next two weeks She will perform gentle ROM exercises at home She should avoid any underwater activities for the next 5 days She should gently massage about the incision site to reduce the risk of hypersensitivity She can follow up prn 2. Left carpal tunnel syndrome, mild Symptoms intermittent, but daily, worse at night She now also has new occasional small finger numbness She will be mindful abot hwo often her small finger goes numb She does not want to discuss surgery at this time If her symptoms increase in frequency or severity she will follow up to discuss surgery Scribed for Leora Lewis MD by Ankit Cortes medical reimbursement manager, on 02/06/24 at 11:30 AM, EST. Scribe Plan - Not visible on output: Scribed for Leora Lewis MD by Ankit Lubanszky, medical reimbursement manager, on [ ] at [ ], EST. Coding Level of Care Code Global (82275) Diagnoses Carpal tunnel syndrome of right wrist G56.01 Carpal tunnel syndrome of left wrist G56.02
== END 2024-02-06 11:42 | disposition home or self-care (01) ==
PROVIDERS: PCP General Practice; Visit Provider Orthopaedic Surgery
DX: G56.03 Carpal tunnel syndrome, bilateral upper limbs (principal)
CPT/HCPCS: 99024

== ENCOUNTER → 2024-02-06 11:09 | Outpatient (BNVA) | payer OTHER, SELFPAY | PROVIDERS: PCP General Practice; Visit Provider Orthopaedic Surgery ==

== ENCOUNTER 2024-02-07 12:23 | Outpatient (AMB) | payer OTHER, SELFPAY ==
[2024-02-07 12:32] VITALS: BMI 46.8
--- NOTE | 2024-02-07 12:32 | MHC.OFFVIS ---
Vital Signs 02/07/24 12:32 Height 5 ft 5 in Weight 281 lb BMI 46.8 Intake Visit Reasons: PO RT CTR 01/22/24 AR Intake Note: Ashley returns today for a wound check of her S/P right hand CTR from 01/22/24. States a steri strip fell off yesterday and looked like her incision was opening. States today it looks better however she just wants to get it check out. Allergies cortisone Allergy (Intermediate, Verified 02/07/24 12:33) Swelling hydromorphone [From DILAUDID] Allergy (Unknown, Verified 02/07/24 12:33) SHORTNESS OF BREATH HPI HPI PO RT CTR 01/22/24 AR: Details: The patient is a 48-year-old woman who is status post a right carpal tunnel release on 01/22/2024. She was seen yesterday for a postop visit and had her sutures removed and Steri-Strips applied. The most distal Steri-Strips came off and the patient thought that the wound may have opened up in want to come in to be seen today, otherwise she says that she is doing well. 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 Her wound appears to be healing well. The distal most Steri-Strips has fallen off, but the underlying wound appears to be well approximated and healing well. No erythema drainage or evidence of infection She can make a fist and extend all of her digits without difficulty. Normal sensation in the median nerve distribution Assessment & Plan Assessment & Plan (1) Carpal tunnel syndrome of right wrist: Code(s): G56.01 - Carpal tunnel syndrome, right upper limb Category: Medical (2) Carpal tunnel syndrome of left wrist: Code(s): G56.02 - Carpal tunnel syndrome, left upper limb Category: Medical Plan Assessment & Plan: 1. Right carpal tunnel syndrome, S/P release DOS: 01/22/24 Pre-operatively with dense numbness, worse with activities Now with normal sensation and good resolution of her nighttime symptoms The patient appears to be doing well post-operatively. No wound problems seen today. I educated her about the post-operative course I discussed activity modifications, she is to lift nothing heavier than a cellphone for the next two weeks She will perform gentle ROM exercises at home She should avoid any underwater activities for the next 5 days She should gently massage about the incision site to reduce the risk of hypersensitivity She can follow up prn 2. Left carpal tunnel syndrome, mild Symptoms intermittent, but daily, worse at night She now also has new occasional small finger numbness She will be mindful abot hwo often her small finger goes numb She does not want to discuss surgery at this time If her symptoms increase in frequency or severity she will follow up to discuss surgery Coding Level of Care Code Global (23126) Diagnoses Carpal tunnel syndrome of right wrist G56.01 Carpal tunnel syndrome of left wrist G56.02
== END 2024-02-07 13:01 | disposition home or self-care (01) ==
PROVIDERS: PCP General Practice; Visit Provider Orthopaedic Surgery
DX: G56.03 Carpal tunnel syndrome, bilateral upper limbs (principal)
CPT/HCPCS: 99024

== ENCOUNTER → 2024-02-07 12:23 | Outpatient (BNVA) | payer OTHER, SELFPAY | PROVIDERS: PCP General Practice; Visit Provider Orthopaedic Surgery ==

== ENCOUNTER 2024-04-10 11:01 | Outpatient (AMB) | payer OTHER, SELFPAY ==
--- NOTE | 2024-04-10 11:08 | A.OFFVIS_ITS ---
Vital Signs 04/10/24 11:14 Height 5 ft 5 in Weight 237 lb 10.533 oz BMI 39.5 BP 120/72 Blood Pressure Location Rt brachial Position Sitting Respiration 16 Pulse 89 Pulse Source Pulse Oximeter Pulse Oximetry (%) 98 Oxygen Delivery Method Room Air Intake Visit Reasons: /CM Intake Note: Patient presents for . hoping to get answer and treatment for diagnoses Allergies cortisone Allergy (Intermediate, Verified 04/10/24 11:11) Swelling hydromorphone [From DILAUDID] Allergy (Unknown, Verified 04/10/24 11:11) SHORTNESS OF BREATH Medication List - Last Reconciled 04/10/24 by Nitesh Johnston MD albuterol sulfate 90 mcg/actuation 0 mcg inhalation atorvastatin 10 mg PO DAILY cetirizine 10 mg PO DAILY cholecalciferol (vitamin D3) 10 mcg PO DAILY citalopram 20 mg PO DAILY cyclobenzaprine 5 mg PO TID PRN fluticasone propion-salmeterol 250-50 mcg/dose (Wixela Inhub) 1 ea inhalation BID ipratropium-albuterol 0.5 mg-3 mg(2.5 mg base)/3 mL mL inhalation QID montelukast 10 mg PO QPM nebulizers As directed oxycodone 10 mg PO QID sumatriptan succinate 50 mg PO DIRECTED PRN zolpidem (Ambien) 10 mg PO BEDTIME PRN 30 days HPI Comments Details: This is a 48-year-old female who presents for evaluation of sacroiliitis. Patient stated that she has had back pain symptoms for about 10 years. The pain is in different parts of her spine but generally more severe in the lower left back, the SI joint area and the left buttock area. Generally worse in the morning associated with morning stiffness that lasts 1-2 hours. Improved with sitting on heat, moving around. Patient was referred to do physical therapy multiple times with little improvement. 3-4 years ago her symptoms were worse. She would have flare-ups that were few and far in between however for the last 3-4 years she would have a flare-up that occurs every other week and lasts 3-4 days. Her PCP ordered multiple labs which showed positive HLA B27. She was referred to [facility]. She was evaluated and no evidence of an autoimmune rheumatic disease was found. She was then referred to Dr. Otoole. She ibuprofen 600 mg 3 times a day for at least 2 months without improvement. She also took multiple prednisone courses without improvement. She had multiple steroid injections in the left SI joint area as well as other injections without much improvement, she also had radiofrequency ablation procedure. These procedures would help some of her back pain but they do not affect the main painful area in the left lower back, in the SI area. She also gets intermittent joint pain swelling and stiffness of her hands, wrists, fingers were swollen and she had to cut off her wedding ring. She denies any skin rashes. She denies any history suggestive of uveitis or colitis. She states that her daughter was diagnosed with non radiographic axial spa with uveitis and is on Humira. Her other daughter has Matt's thyroiditis. Patient denies any history of DVT/PE. 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, 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 Female Reproductive History Menstrual Total pregnancies: 4 Full term: 2 Ab spontaneous: 2 Review of Systems Const Denies weight loss Eyes Reports no additional complaints ENT Reports neck pain Musc Reports back pain, Reports arthralgias, Reports joint swelling, Reports neck pain and Reports stiffness Skin/Breast Reports unusual bruising Physical Exam Vital Signs: Last Vital Signs Pulse 89 04/10/24 11:14 Resp 16 04/10/24 11:14 BP 120/72 04/10/24 11:14 Pulse Ox 98 04/10/24 11:14 Oxygen Delivery Method Room Air 04/10/24 11:14 BMI result Body Mass Index 39.5 Const General: cooperative, healthy appearing and comfortable Nutritional Appearance: obese morbidly obese Orientation/consciousness: patient oriented x3 Limitations: no limitations HEENT Head: Yes normocephalic and Yes atraumatic Mouth: moist mucous membranes Resp Effort & Inspection: normal respiratory effort and able to speak in complete sentences Auscultation: clear to auscultation bilaterally Cardio Rate: regular rate Rhythm: regular rhythm Skin General skin exam: no rashes or lesions noted Neuro General: patient oriented x3 Extrem Other: Left wrist pain with flexion and extension Left 2nd flexor tendon tenderness No elbow pain with full flexion-extension Normal range of motion of shoulders without pain Negative empty can test and Speed's test bilaterally Normal range of motion of neck No knee pain or swelling and no pain with full flexion-extension No ankle swelling or tenderness bilaterally Negative MTP squeeze test bilaterally Normal nailfold capillaroscopy No nail pitting Courtney test 10-14 cm Positive straight leg raise test bilaterally Positive BARRETT test on the right Results Reviewed Results Reviewed: MRI L-spine 11/2023 Impression: At L5-S1, there is a small broad-based disc bulge.? There is no significant central canal stenosis or nerve root compromise at this or at any other level MRI SI joints without contrast 11/2023 Findings The sacroiliac joints are congruent without effusion or capsulitis detected.? There is asymmetric hyperintense STIR osseous reactive signal in the sacrum along the sacroiliac joints, left more than right.? Corresponding irregularity of the joint margin without osseous erosion or subarticular cystic change.? On the left this sizable area of edema exhibits abnormal intermediate T1 signal.? Minimal left iliac bone hyperintense T1 fat reactive signal as well? Sacrum and coccygeal segments are normally aligned.? Sacral neural foramina are symmetric.? Presacral fat is normal.? Pyriformis muscles are symmetric without edema? Image portions of the sciatic nerves demonstrate no impinging lesion or signal abnormality? Lower lumbar spine exhibits L5-S1 disc bulging, incompletely characterized.? Hip joints and pubic symphysis are congruent.? Muscle bulk is preserved.? No muscular edema or tear.? No fascial edema? Subcutaneous factors normal.? Bone signal is normal.? No soft tissue collection? Intrapelvic contents demonstrate no free fluid.? Impression 1.:? Assymmetric sacral osseous edema along the SI joints with irregularity of the joint margins may be compatible with an axial spondyloarthritis such as psoriatic arthritis and reactive arthritis, particularly in the corresponding clinical setting with positive HLA B27? 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 Patient's back pain is inflammatory in nature. Her her labs showed a positive HLA B27, MRI SI joint consistent with sacroiliitis, daughter with non radiographic axial spa. Patient failed numerous treatments including ibuprofen 600 mg 3 times a day for at least 2 months, she also failed prednisone as well as numerous spinal procedures and injections by Pain Management without improvement. We will need to start a biologic DMARD. Discussed risks and benefits of Humira. Patient agreed to proceed. Will start prior authorization for Humira, any other adalimumab bio similar. Check labs today. 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
[2024-04-10 11:14] VITALS: BP 120/72; PULSE 89; RESP 16; O2SAT 98; BMI 39.5
== END 2024-04-10 11:55 | disposition home or self-care (01) ==
PROVIDERS: PCP General Practice; Visit Provider Student in an Organized Health Care Education/Training Program
DX: M45.A Non-radiographic axial spondyloarthritis (principal)
CPT/HCPCS: 99204

== ENCOUNTER → 2024-04-10 11:01 | Outpatient (BNVA) | payer OTHER, SELFPAY | PROVIDERS: PCP General Practice; Visit Provider Student in an Organized Health Care Education/Training Program ==

== ENCOUNTER 2024-04-10 12:02 | Outpatient (REF) | payer OTHER, SELFPAY ==
[2024-04-10 13:10] LABS: MANUAL DIFF FLAG NO
[2024-04-10 13:11] LABS: Basophils Absolute Auto 0.1 X10*3/uL (0.0-0.2); Basophils Percent Auto 0.8 % (0-2); Eosinophils Absolute Auto 0.2 X10*3/uL (0.0-0.4); Eosinophils Percent Auto 1.8 % (0-4); Hemoglobin 14.3 g/dl (12.0-16.0); Imm Gran Abs Auto 0.02 X10*3/uL (0.00-0.03); Imm Gran Pct Auto 0.2 % (0.0-0.4); Lymphocytes Absolute Auto 1.6 X10*3/uL (1.2-4.9); Lymphocytes Percent Auto 17.6 % (20-40); Mean Corpuscular Hemoglobin 30.6 pg (27.0-33.0); Mean Corpuscular Volume 89.7 fL (80.0-98.0); Mean Platelet Volume 9.6 fL (9.4-12.3); Monocytes Absolute Auto 0.5 X10*3/uL (0.1-1.2); Neutrophils Absolute Auto 6.6 x10*3/uL (2.0-8.3); Neutrophils Percent Auto 73.6 % (45-73); Platelet Count 306 X10*3/uL (160-400); Red Blood Count 4.68 X10*6/uL (4.20-5.50); White Blood Count 8.9 X10*3/uL (4.8-10.8)
[2024-04-10 13:29] LABS: Alanine Aminotransferase 18 U/L (0-31); Albumin Level 4.4 g/dL (3.5-5.0); Alkaline Phosphatase 70 U/L (39-117); Anion Gap 14 (12-20); Aspartate Amino Transferase 11 U/L (5-31); Bilirubin Total 0.5 mg/dL (0.0-1.0); Blood Urea Nitrogen 15 mg/dL (9-16); C Reactive Protein 2.79 mg/dL (< or = 0.50); Calcium 9.6 mg/dL (8.4-10.2); Carbon Dioxide 21 mmol/L (22-29); Chloride 106 mmol/L (96-108); Estimated Glomerular Filt Rate > 60; Glucose Random 100 mg/dL (60-115); Potassium 4.1 mmol/L (3.3-5.1); Sodium 137 mmol/L (135-145); Total Protein 7.3 g/dL (6.5-8.0)
[2024-04-10 13:31] LABS: Rheumatoid Factor < 13.0 IU/mL (<15.0)
[2024-04-10 13:51] LABS: Erythrocyte Sedimentation Rate 17 MM/HR (0-20)
[2024-04-10 13:53] LABS: HBS Num1 > 1000.00 mIU/mL (0-7.99); HBc Num1 0.11 S/CO (0.00-0.79); HBsAGNum1 0.29 S/CO (0.00-0.99); Hepatitis A Antibody IgM 0.16 Index (0-0.79); Hepatitis B Core Antibody Nonreactive (Nonreactive); Hepatitis B Surface Antigen Negative (Negative); ~HepC Num1 0.05 S/CO (0.00-0.79); ~Hepatitis A Antibody IgM Nonreactive (Nonreactive); ~Hepatitis B Surface Antibody REACTIVE (Nonreactive); ~Hepatitis C Antibody Nonreactive (Nonreactive)
[2024-04-12 14:44] LABS: Cyclic Citrullinated Peptide <16 UNITS
[2024-04-12 21:24] LABS: Prot Elec - Albumin 4.1 g/dL (3.8-4.8); Prot Elec - Alpha1 0.4 g/dL (0.2-0.3); Prot Elec - Alpha2 0.8 g/dL (0.5-0.9); Prot Elec - Beta 1 0.5 g/dL (0.4-0.6); Prot Elec - Beta 2 0.4 g/dL (0.2-0.5); Prot Elec - Gamma 0.8 g/dL (0.8-1.7)
[2024-04-13 00:09] LABS: TS Negative Control Passed; TS Panel A 2; TS Panel B 0; TS Positive Control Passed; TSpotTB Negative (Negative)
[2024-04-15 14:18] LABS: IgA 162 mg/dL (47-310); IgG 950 mg/dL (600-1640); IgM 108 mg/dL (50-300)
[2024-04-19 09:28] LABS: Anti Nuclear Antibody Screen NEGATIVE (NEGATIVE)
== END 2024-04-10 12:03 | disposition home or self-care (01) ==
LOC: HO.10HDL 12:02
PROVIDERS: Visit Provider Student in an Organized Health Care Education/Training Program
DX: M25.50 Pain in unspecified joint (principal); Z11.59 Encounter for screening for other viral diseases; Z11.7 Encounter for testing for latent tuberculosis infection; M45.A Non-radiographic axial spondyloarthritis
CPT/HCPCS: 36415; 80053; 82784; 84165; 85025; 85652; 86038; 86140; 86200; 86334; 86431; 86481; 86704; 86706; 86709; 86803; 87340

== ENCOUNTER 2024-05-02 13:17 | Outpatient (REF) | payer OTHER, SELFPAY | END 2024-05-02 13:18 | disposition home or self-care (01) | LOC: HO.LAB 13:17 | PROVIDERS: PCP General Practice; Visit Provider Internal Medicine Gastroenterology | DX: R19.7 Diarrhea, unspecified (principal); M45.A Non-radiographic axial spondyloarthritis | CPT/HCPCS: 36415; 81405; 81479; 82397; 83520; 86140; 88346; 88350 ==

== ENCOUNTER 2024-06-17 09:28 | Outpatient (REF) | payer OTHER, SELFPAY ==
--- NOTE | ~2024-06-17 | US_ITS ---
EXAMINATION: US THYROID CLINICAL INFORMATION: History thyroid nodules. Greater than 1.5 cm inconclusive early 2023. COMPARISON: Ultrasound soft tissue head/neck thyroid dated 06/26/2023. TECHNIQUE: Linear transducer grayscale and color Doppler examination with attention to the region of the thyroid. FINDINGS: SIZE: Measurements of the thyroid lobes and nodules are given in sagittal, anteroposterior and transverse dimensions respectively. Right Thyroid Lobe: 5.8 x 2.6 x 3.0 cm, volume 23.4 mL. Previously 5.8 x 2.3 x 2.6 cm, volume 18 mL. Parenchyma: The gland echotexture is homogeneous. Thyroid vascularity is normal. Left Thyroid Lobe: 4.8 x 2.0 x 2.0 cm, volume 10.2 mL. Previously 5.1 x 2.1 x 2.2 cm, volume 12 mL. Parenchyma: The gland echotexture is homogeneous. Thyroid vascularity is normal. Isthmus: 0.3 cm in maximum AP dimension. Previously 0.3 cm. Estimated total number of nodules greater than or equal to 1 cm: 1. Weekday Babysitter nodules are described as follows: 1. Location: Right superior. Size: 0.6 x 0.7 x 0.8 cm, volume 0.2 mL. Previously: 1.0 x 0.6 x 0.8 cm, volume 0.24 mL. Nodule characteristics: Composition: Spongiform (0). Echogenicity: Anechoic (0). Shape: Not taller than wide (0). Margins: Smooth (0). Echogenic Foci: None (0). ACR TI-RADS total points: 0 Previous: 0 ACR TI-RADS category: 1 Previous: 1 Significant change in size (>/= 20% in 2 dimensions and minimal increase of 2 mm or 50% or greater increase in volume): No Change in features: No Change in ACR TI-RADS risk category: No 2. Location: Right superior/mid. Size: 3.2 x 1.3 x 2.4 cm, volume 5.1 mL. Previously: 2.2 x 1.3 x 2.1 cm, volume 3.28 mL. Nodule characteristics: Composition: Mixed cystic and solid (1). Echogenicity: Hypoechoic (2). Shape: Not taller than wide (0). Margins: Smooth (0). Echogenic Foci: None (0). ACR TI-RADS total points: 3 Previous: 4 ACR TI-RADS category: 3 Previous: 4 Significant change in size (>/= 20% in 2 dimensions and minimal increase of 2 mm or 50% or greater increase in volume): Yes Change in features: Yes Change in ACR TI-RADS risk category: Yes, decreased. 3. Location: Right mid. Size: 0.8 x 0.3 x 0.8 cm, volume 0.11 mL. Previously: 0.9 x 0.4 x 0.7 cm, volume 0.14 mL. Nodule characteristics: Composition: Solid/almost completely solid (2). Echogenicity: Hypoechoic (2). Shape: Not taller than wide (0). Margins: Smooth (0). Echogenic Foci: None (0). ACR TI-RADS total points: 4 Previous: 4 ACR TI-RADS category: 4 Previous: 4 Significant change in size (>/= 20% in 2 dimensions and minimal increase of 2 mm or 50% or greater increase in volume): No Change in features: No Change in ACR TI-RADS risk category: No 4. Location: Left superior. Size: 0.5 x 0.4 x 0.7 cm, volume 0.06 mL. Previously: 0.9 x 0.4 x 0.8 cm, volume 0.14 mL. Nodule characteristics: Composition: Mixed cystic and solid (1). Echogenicity: Hypoechoic (2). Shape: Not taller than wide (0). Margins: Smooth (0). Echogenic Foci: None (0). ACR TI-RADS total points: 3 Previous: 3 ACR TI-RADS category: 3 Previous: 3 Significant change in size (>/= 20% in 2 dimensions and minimal increase of 2 mm or 50% or greater increase in volume): No Change in features: No Change in ACR TI-RADS risk category: No 5. Location: Left mid. Size: 0.6 x 0.4 x 0.6 cm, volume 0.08 mL. Previously: 0.6 x 0.4 x 0.5 cm, volume 0.07 mL. Nodule characteristics: Composition: Spongiform (0). Echogenicity: Anechoic (0). Shape: Not taller than wide (0). Margins: Smooth (0). Echogenic Foci: None (0). ACR TI-RADS total points: 0 Previous: 0 ACR TI-RADS category: 1 Previous: 1 Significant change in size (>/= 20% in 2 dimensions and minimal increase of 2 mm or 50% or greater increase in volume): No Change in features: No Change in ACR TI-RADS risk category: No NODES: No lymphadenopathy is seen in the tissue surrounding the thyroid gland. US/US thyroid IMPRESSION: Multinodular goiter. TR 3, 3.2 cm right superior mid nodule which has increased in size and meets criteria for biopsy. ACR TI-RADS RECOMMENDATION REFERENCE: Ultrasound-guided fine-needle aspiration, follow up ultrasound, no further followup. * TR1 (0 point) and TR2 (2 points): No FNA or followup * TR3 (3 points): FNA if more than or equal to 2.5 cm in maximum dimension, follow up ultrasound in 1, 3 and 5 years if 1.5 to 2.4 cm in maximum dimension. * TR4 (4-6 points): FNA if more than or equal to 1.5 cm in maximum dimension, follow up ultrasound in 1, 2, 3 and 5 years if 1 to 1.4 cm in maximum dimension. * TR5 (more than or equal to 7 points): FNA if more than or equal to 1 cm in maximum dimension, follow up ultrasound every year for 5 years if 0.5 to 0.9 cm in maximum dimension. * TR3, TR4 or TR5 nodules that are below the size threshold for follow up receive no followup. Electronically signed by: Ritesh Liang MD 07/19/2024 08:36 AM EDT
== END 2024-06-17 09:29 | disposition home or self-care (01) ==
LOC: HO.US 09:28
PROVIDERS: PCP General Practice; Visit Provider General Practice
DX: E04.1 Nontoxic single thyroid nodule (principal)
CPT/HCPCS: 76536

== ENCOUNTER 2024-06-25 14:31 | Outpatient (AMB) | payer OTHER, SELFPAY ==
--- NOTE | 2024-06-25 14:40 | MHC.OFFVIS ---
Vital Signs 06/25/24 14:43 Height 5 ft 5 in Weight 238 lb 15.697 oz BMI 39.8 BP 115/72 Blood Pressure Location Rt brachial Position Sitting Pulse 90 Pulse Source Pulse Oximeter Pulse Oximetry (%) 96 Oxygen Delivery Method Room Air Intake Visit Reasons: non-radiographic AxSpA Intake Note: Patient presents for non-radiographic AxSpA. Allergies cortisone Allergy (Intermediate, Verified 06/25/24 14:43) Swelling hydromorphone [From DILAUDID] Allergy (Unknown, Verified 06/25/24 14:43) SHORTNESS OF BREATH Medication List - Last Reconciled 06/25/24 by Nitesh Johnston MD albuterol sulfate 90 mcg/actuation 0 mcg inhalation atorvastatin 10 mg PO DAILY cetirizine 10 mg PO DAILY cholecalciferol (vitamin D3) 10 mcg PO DAILY citalopram 20 mg PO DAILY cyclobenzaprine 5 mg PO TID PRN Cyltezo(CF) Pen (adalimumab-adbm) 40 mg (0.4 mL) subcut Q2W NS fluticasone propion-salmeterol 250-50 mcg/dose (Wixela Inhub) 1 ea inhalation BID ipratropium-albuterol 0.5 mg-3 mg(2.5 mg base)/3 mL mL inhalation QID montelukast 10 mg PO QPM naproxen 500 mg PO BID PRN nebulizers As directed oxycodone 10 mg PO QID sumatriptan succinate 50 mg PO DIRECTED PRN zolpidem (Ambien) 10 mg PO BEDTIME PRN 30 days HPI Comments Details: Patient returns for follow-up. Ariel was finally approved. She has done 4 injections so far. She states that she feels somewhat improved, especially in terms of her fatigue. Initial history: This is a 48-year-old female who presents for evaluation of sacroiliitis. Patient stated that she has had back pain symptoms for about 10 years. The pain is in different parts of her spine but generally more severe in the lower left back, the SI joint area and the left buttock area. Generally worse in the morning associated with morning stiffness that lasts 1-2 hours. Improved with sitting on heat, moving around. Patient was referred to do physical therapy multiple times with little improvement. 3-4 years ago her symptoms were worse. She would have flare-ups that were few and far in between however for the last 3-4 years she would have a flare-up that occurs every other week and lasts 3-4 days. Her PCP ordered multiple labs which showed positive HLA B27. She was referred to [facility]. She was evaluated and no evidence of an autoimmune rheumatic disease was found. She was then referred to Dr. Otoole. She ibuprofen 600 mg 3 times a day for at least 2 months without improvement. She also took multiple prednisone courses without improvement. She had multiple steroid injections in the left SI joint area as well as other injections without much improvement, she also had radiofrequency ablation procedure. These procedures would help some of her back pain but they do not affect the main painful area in the left lower back, in the SI area. She also gets intermittent joint pain swelling and stiffness of her hands, wrists, fingers were swollen and she had to cut off her wedding ring. She denies any skin rashes. She denies any history suggestive of uveitis or colitis. She states that her daughter was diagnosed with non radiographic axial spa with uveitis and is on Humira. Her other daughter has Matt's thyroiditis. Patient denies any history of DVT/PE. [facility] Medical History RUTH (obstructive sleep apnea) Pneumonia Asthma History of abnormal uterine bleeding Hx of fracture of ankle Migraines Anxiety High cholesterol Asthma Surgical History Hx of colonoscopy Hx of left breast biopsy Hx of section Family History Mother Pre-diabetes Father Prostate CA Daughter Non-radiographic axial spondyloarthritis Daughter Matt thyroiditis Social History Household Members: Spouse Alcohol intake: current Alcohol intake frequency: holidays/special occasions only Alcohol type: wine Patient Tobacco Use Status: Never used Tobacco 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, 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 Female Reproductive History Menstrual Total pregnancies: 4 Full term: 2 Ab spontaneous: 2 Review of Systems Const Denies weight loss Eyes Reports no additional complaints ENT Reports neck pain Musc Reports back pain, Reports arthralgias, Reports neck pain and Reports stiffness Physical Exam Vital Signs: Last Vital Signs Pulse 90 06/25/24 14:43 BP 115/72 06/25/24 14:43 Pulse Ox 96 06/25/24 14:43 Oxygen Delivery Method Room Air 06/25/24 14:43 BMI result Body Mass Index 39.8 Const General: cooperative, healthy appearing and comfortable Nutritional Appearance: obese morbidly obese Orientation/consciousness: patient oriented x3 Limitations: no limitations HEENT Head: Yes normocephalic and Yes atraumatic Mouth: moist mucous membranes Resp Effort & Inspection: normal respiratory effort and able to speak in complete sentences Skin General skin exam: no rashes or lesions noted Neuro General: patient oriented x3 Extrem Other: No active synovitis both hands, wrists, elbows and shoulders Normal range of motion of neck Courtney test 10-14 cm Negative Fabere test bilaterally Negative straight leg raise test bilaterally Results Reviewed Results Reviewed: MRI L-spine 11/2023 Impression: At L5-S1, there is a small broad-based disc bulge.? There is no significant central canal stenosis or nerve root compromise at this or at any other level MRI SI joints without contrast 11/2023 Findings The sacroiliac joints are congruent without effusion or capsulitis detected.? There is asymmetric hyperintense STIR osseous reactive signal in the sacrum along the sacroiliac joints, left more than right.? Corresponding irregularity of the joint margin without osseous erosion or subarticular cystic change.? On the left this sizable area of edema exhibits abnormal intermediate T1 signal.? Minimal left iliac bone hyperintense T1 fat reactive signal as well? Sacrum and coccygeal segments are normally aligned.? Sacral neural foramina are symmetric.? Presacral fat is normal.? Pyriformis muscles are symmetric without edema? Image portions of the sciatic nerves demonstrate no impinging lesion or signal abnormality? Lower lumbar spine exhibits L5-S1 disc bulging, incompletely characterized.? Hip joints and pubic symphysis are congruent.? Muscle bulk is preserved.? No muscular edema or tear.? No fascial edema? Subcutaneous factors normal.? Bone signal is normal.? No soft tissue collection? Intrapelvic contents demonstrate no free fluid.? Impression 1.:? Assymmetric sacral osseous edema along the SI joints with irregularity of the joint margins may be compatible with an axial spondyloarthritis such as psoriatic arthritis and reactive arthritis, particularly in the corresponding clinical setting with positive HLA B27? 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 Started Humira 40 mg every other week about 2 months ago with significant improvement on exam. Continue with Humira 40 mg every other week Labs before next visit in 3 months (2) Adalimumab (Humira) long-term use: Code(s): Z79.620 - halfway (current) use of immunosuppressive biologic Category: Medical Plan: Side effects of Humira were discussed with the patient in detail including increased risk of infection, demyelinating disease, reactivation of latent TB, possible increased risk of solid and skin tumors. Patient fully aware. Advised patient to seek medical care [facility] if patient has an infection and advised patient to stop the medication until the infection is resolved. (3) Immunization counseling: Code(s): Z71.85 - Encounter for immunization safety counseling Category: Medical Plan: Discussed vaccinations. Advised patient to get flu vaccine and COVID booster. Get Shingrix vaccine. Try to get RSV vaccine. 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
[2024-06-25 14:43] VITALS: BP 115/72; PULSE 90; O2SAT 96; BMI 39.8
== END 2024-06-25 15:27 | disposition home or self-care (01) ==
PROVIDERS: PCP General Practice; Visit Provider Student in an Organized Health Care Education/Training Program
DX: M45.A Non-radiographic axial spondyloarthritis (principal); Z79.620 Long term (current) use of immunosuppressive biologic; Z71.85 Encounter for immunization safety counseling
CPT/HCPCS: 99214

== ENCOUNTER → 2024-06-25 14:31 | Outpatient (BNVA) | payer OTHER, SELFPAY | PROVIDERS: PCP General Practice; Visit Provider Student in an Organized Health Care Education/Training Program ==

== ENCOUNTER 2024-09-20 14:04 | Outpatient (REF) | payer OTHER, SELFPAY ==
[2024-09-20 14:21] LABS: MANUAL DIFF FLAG NO
[2024-09-20 14:52] LABS: Basophils Absolute Auto 0.1 X10*3/uL (0.0-0.2); Eosinophils Absolute Auto 0.2 X10*3/uL (0.0-0.4); Eosinophils Percent Auto 2.9 % (0-4); Hematocrit 39.8 % (37.0-47.0); Hemoglobin 13.5 g/dl (12.0-16.0); Imm Gran Abs Auto 0.02 X10*3/uL (0.00-0.03); Imm Gran Pct Auto 0.2 % (0.0-0.4); Lymphocytes Absolute Auto 2.4 X10*3/uL (1.2-4.9); Lymphocytes Percent Auto 28.7 % (20-40); Mean Corpuscular HGB Conc 33.9 g/dl (31.0-35.0); Mean Corpuscular Volume 91.5 fL (80.0-98.0); Mean Platelet Volume 9.6 fL (9.4-12.3); Monocytes Absolute Auto 0.6 X10*3/uL (0.1-1.2); Monocytes Percent Auto 6.7 % (2-11); Neutrophils Percent Auto 60.5 % (45-73); Platelet Count 288 X10*3/uL (160-400); Red Blood Count 4.35 X10*6/uL (4.20-5.50); Red Cell Distribution Width 12.1 % (11.0-16.0); White Blood Count 8.2 X10*3/uL (4.8-10.8)
[2024-09-20 15:31] LABS: Erythrocyte Sedimentation Rate 6 MM/HR (0-20)
[2024-09-20 16:22] LABS: Alanine Aminotransferase 37 U/L (0-31); Albumin Level 4.1 g/dL (3.5-5.0); Alkaline Phosphatase 59 U/L (39-117); Anion Gap 11 (12-20); Aspartate Amino Transferase 21 U/L (5-31); Bilirubin Total 0.3 mg/dL (0.0-1.0); Blood Urea Nitrogen 13 mg/dL (9-16); C Reactive Protein 0.29 mg/dL (< or = 0.50); Calcium 9.2 mg/dL (8.4-10.2); Carbon Dioxide 26 mmol/L (22-29); Chloride 105 mmol/L (96-108); Estimated Glomerular Filt Rate > 60; Glucose Random 99 mg/dL (60-115); Potassium 3.8 mmol/L (3.3-5.1); Sodium 138 mmol/L (135-145)
== END 2024-09-20 14:05 | disposition home or self-care (01) ==
LOC: HO.LAB 14:04
PROVIDERS: PCP General Practice; Visit Provider Student in an Organized Health Care Education/Training Program
DX: M45.A Non-radiographic axial spondyloarthritis (principal)
CPT/HCPCS: 36415; 80053; 85025; 85652; 86140

== ENCOUNTER 2024-09-26 14:24 | Outpatient (AMB) | payer OTHER, SELFPAY ==
--- NOTE | 2024-09-26 14:27 | MHC.OFFVIS ---
Vital Signs 09/26/24 14:32 Height 5 ft 5 in Weight 241 lb 6.499 oz BMI 40.2 BP 124/72 Blood Pressure Location Rt brachial Position Sitting Pulse 86 Pulse Source Pulse Oximeter Pulse Oximetry (%) 97 Oxygen Delivery Method Room Air Intake Visit Reasons: Intake Note: Patient presents for . Allergies cortisone Allergy (Intermediate, Verified 09/26/24 14:31) Swelling hydromorphone [From DILAUDID] Allergy (Unknown, Verified 09/26/24 14:31) SHORTNESS OF BREATH Medication List - Last Reconciled 09/26/24 by Nitesh Johnston MD adalimumab-atto (Amjevita(CF) Autoinjector) 40 mg (0.4 mL) subcut Q2W albuterol sulfate 90 mcg/actuation 0 mcg inhalation atorvastatin 10 mg PO DAILY cetirizine 10 mg PO DAILY cholecalciferol (vitamin D3) 10 mcg PO DAILY citalopram 20 mg PO DAILY cyclobenzaprine 5 mg PO TID PRN fluticasone propion-salmeterol 250-50 mcg/dose (Wixela Inhub) 1 ea inhalation BID ipratropium-albuterol 0.5 mg-3 mg(2.5 mg base)/3 mL mL inhalation QID montelukast 10 mg PO QPM naproxen 500 mg PO BID PRN nebulizers As directed oxycodone 10 mg PO QID sumatriptan succinate 50 mg PO DIRECTED PRN zolpidem (Ambien) 10 mg PO BEDTIME PRN 30 days HPI Comments Details: 49-year-old female with HLA B27 positive ankylosing spondylitis returns for follow-up. She remains on the adalimumab bio similar. Doing well overall. She states that she continues to have intermittent low back pain and some neck pain. Initial history: This is a 48-year-old female who presents for evaluation of sacroiliitis. Patient stated that she has had back pain symptoms for about 10 years. The pain is in different parts of her spine but generally more severe in the lower left back, the SI joint area and the left buttock area. Generally worse in the morning associated with morning stiffness that lasts 1-2 hours. Improved with sitting on heat, moving around. Patient was referred to do physical therapy multiple times with little improvement. 3-4 years ago her symptoms were worse. She would have flare-ups that were few and far in between however for the last 3-4 years she would have a flare-up that occurs every other week and lasts 3-4 days. Her PCP ordered multiple labs which showed positive HLA B27. [facility] was [facility] to [facility]. She was evaluated and no evidence of an autoimmune rheumatic disease was found. She was then referred to Dr. Otoole. She ibuprofen 600 mg 3 times a day for at least 2 months without improvement. She also took multiple prednisone courses without improvement. She had multiple steroid injections in the left SI joint area as well as other injections without much improvement, she also had radiofrequency ablation procedure. These procedures would help some of her back pain but they do not affect the main painful area in the left lower back, in the SI area. She also gets intermittent joint pain swelling and stiffness of her hands, wrists, fingers were swollen and she had to cut off her wedding ring. She denies any skin rashes. She denies any history suggestive of uveitis or colitis. She states that her daughter was diagnosed with non radiographic axial spa with uveitis and is on Humira. Her other daughter has Matt's thyroiditis. Patient denies any history of DVT/PE. 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, 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 Female Reproductive History Menstrual Total pregnancies: 4 Full term: 2 Ab spontaneous: 2 Review of Systems Const Denies weight loss Eyes Reports no additional complaints ENT Reports neck pain Musc Reports back pain, Reports arthralgias and Reports neck pain Physical Exam Vital Signs: Last Vital Signs Pulse 86 09/26/24 14:32 BP 124/72 09/26/24 14:32 Pulse Ox 97 09/26/24 14:32 Oxygen Delivery Method Room Air 09/26/24 14:32 BMI result Body Mass Index 40.2 Const General: cooperative, healthy appearing and comfortable Nutritional Appearance: obese morbidly obese Orientation/consciousness: patient oriented x3 Limitations: no limitations HEENT Head: Yes normocephalic and Yes atraumatic Mouth: moist mucous membranes Resp Effort & Inspection: normal respiratory effort and able to speak in complete sentences Skin General skin exam: no rashes or lesions noted Neuro General: patient oriented x3 Extrem Other: No active synovitis both hands, wrists, elbows and shoulders Normal range of motion of neck Courtney test 10-14.5 cm Negative Fabere test bilaterally Negative straight leg raise test bilaterally Assessment & Plan Assessment & Plan (1) 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 On adalimumab 40 mg every other week. Doing well overall. I think her inflammatory symptoms are very well controlled. Remaining symptoms are likely degenerative and mechanical in nature. Advised patient to get re-evaluated by Dr. Otoole Continue with adalimumab 40 mg every other week Labs before next visit in 6 months (2) Adalimumab (Humira) long-term use: Code(s): Z79.620 - residential (current) use of immunosuppressive biologic Category: Medical Plan: Side effects of Humira were discussed with the patient in detail including increased risk of infection, demyelinating disease, reactivation of latent TB, possible increased risk of solid and skin tumors. Patient fully aware. Advised patient to seek medical care [facility] if patient has an infection and advised patient to stop the medication until the infection is resolved. (3) Immunization counseling: Code(s): Z71.85 - Encounter for immunization safety counseling Category: Medical Plan: Discussed vaccinations. Patient got her flu vaccine, COVID booster this year, 1st dose of Shingrix vaccine. She will try to get the RSV vaccine No need to hold Humira Plan I spent 26 minutes reviewing patient's chart, evaluating patient, ordering diagnostic workup, counseling patient and documenting in the chart Orders: Orders Comprehensive Met. 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
[2024-09-26 14:32] VITALS: BP 124/72; PULSE 86; O2SAT 97; BMI 40.2
== END 2024-09-26 14:52 | disposition home or self-care (01) ==
PROVIDERS: PCP General Practice; Visit Provider Student in an Organized Health Care Education/Training Program
DX: M45.A Non-radiographic axial spondyloarthritis (principal); Z79.620 Long term (current) use of immunosuppressive biologic; Z71.85 Encounter for immunization safety counseling
CPT/HCPCS: 99214

== ENCOUNTER 2024-10-11 15:17 | Outpatient (REF) | payer OTHER, SELFPAY ==
[2024-10-11 15:29] LABS: MANUAL DIFF FLAG NO
[2024-10-11 15:35] LABS: Basophils Absolute Auto 0.1 X10*3/uL (0.0-0.2); Basophils Percent Auto 1.3 % (0-2); Eosinophils Absolute Auto 0.3 X10*3/uL (0.0-0.4); Eosinophils Percent Auto 4.8 % (0-4); Hematocrit 42.2 % (37.0-47.0); Hemoglobin 14.5 g/dl (12.0-16.0); Imm Gran Abs Auto 0.01 X10*3/uL (0.00-0.03); Imm Gran Pct Auto 0.1 % (0.0-0.4); Lymphocytes Absolute Auto 2.5 X10*3/uL (1.2-4.9); Lymphocytes Percent Auto 36.1 % (20-40); Mean Corpuscular HGB Conc 34.4 g/dl (31.0-35.0); Mean Corpuscular Hemoglobin 30.8 pg (27.0-33.0); Mean Corpuscular Volume 89.6 fL (80.0-98.0); Mean Platelet Volume 9.2 fL (9.4-12.3); Monocytes Absolute Auto 0.5 X10*3/uL (0.1-1.2); Monocytes Percent Auto 6.6 % (2-11); Neutrophils Absolute Auto 3.5 x10*3/uL (2.0-8.3); Neutrophils Percent Auto 51.1 % (45-73); Platelet Count 311 X10*3/uL (160-400); Red Blood Count 4.71 X10*6/uL (4.20-5.50); Red Cell Distribution Width 11.6 % (11.0-16.0); White Blood Count 6.8 X10*3/uL (4.8-10.8)
[2024-10-11 16:19] LABS: Erythrocyte Sedimentation Rate 5 MM/HR (0-20)
[2024-10-11 16:59] LABS: Alanine Aminotransferase 49 U/L (0-31); Albumin Level 4.4 g/dL (3.5-5.0); Alkaline Phosphatase 65 U/L (39-117); Anion Gap 10 (12-20); Aspartate Amino Transferase 30 U/L (5-31); Bilirubin Total 0.5 mg/dL (0.0-1.0); Blood Urea Nitrogen 14 mg/dL (9-16); C Reactive Protein 0.24 mg/dL (< or = 0.50); Calcium 8.9 mg/dL (8.4-10.2); Carbon Dioxide 26 mmol/L (22-29); Chloride 108 mmol/L (96-108); Estimated Glomerular Filt Rate > 60; Glucose Random 102 mg/dL (60-115); Potassium 3.8 mmol/L (3.3-5.1); Sodium 140 mmol/L (135-145); Total Protein 7.6 g/dL (6.5-8.0)
== END 2024-10-11 15:18 | disposition home or self-care (01) ==
LOC: HO.LAB 15:17
PROVIDERS: PCP General Practice; Visit Provider Student in an Organized Health Care Education/Training Program
DX: M45.A Non-radiographic axial spondyloarthritis (principal)
CPT/HCPCS: 36415; 80053; 85025; 85652; 86140

== ENCOUNTER 2024-10-14 15:05 | Outpatient (AMB) | payer OTHER, SELFPAY ==
[2024-10-14 15:05] VITALS: BP 122/76; PULSE 81; O2SAT 99; BMI 39.2
--- NOTE | 2024-10-14 15:05 | A.OFFVIS_ITS ---
Vital Signs 10/14/24 15:05 Height 5 ft 5 in Weight 235 lb 10.786 oz BMI 39.2 BP 122/76 Blood Pressure Location Lt brachial Position Sitting Pulse 81 Pulse Source Pulse Oximeter Pulse Oximetry (%) 99 Oxygen Delivery Method Room Air Intake Visit Reasons: Intake Note: Patient last seen by Doctor Nitesh Johnston on 09/26/24. Patient presents for follow up and test results. Allergies cortisone Allergy (Intermediate, Verified 10/14/24 15:08) Swelling hydromorphone [From DILAUDID] Allergy (Unknown, Verified 10/14/24 15:08) SHORTNESS OF BREATH Medication List - Last Reconciled 10/14/24 by Cecilia Lamas MD adalimumab-atto (Amjevita(CF) Autoinjector) 40 mg (0.4 mL) subcut Q2W albuterol sulfate 90 mcg/actuation 0 mcg inhalation atorvastatin 10 mg PO DAILY cetirizine 10 mg PO DAILY cholecalciferol (vitamin D3) 10 mcg PO DAILY citalopram 20 mg PO DAILY cyclobenzaprine 5 mg PO TID PRN fluticasone propion-salmeterol 250-50 mcg/dose (Wixela Inhub) 1 ea inhalation BID ipratropium-albuterol 0.5 mg-3 mg(2.5 mg base)/3 mL mL inhalation QID montelukast 10 mg PO QPM naproxen 500 mg PO BID PRN nebulizers As directed oxycodone 10 mg PO QID sumatriptan succinate 50 mg PO DIRECTED PRN zolpidem (Ambien) 10 mg PO BEDTIME PRN 30 days HPI Comments Details: Patient is a 49-year-old female with hyperlipidemia and allergies who presents for follow up of non radiographic ankylosing spondylitis Interval History: Patient last seen with Dr. Johnston 09/26/2024. At that time she was continuing to have intermittent low back pain and some neck pain. She had recently started a new by a similar as per her insurance which was not covering her previous medications. Today patient states that she has been on the new bio similar for 1 month and has been having return of her inflammatory type back pain as well as peripheral joint pain. Rheumatologic History: Patient diagnosed with non radiographic ankylosing spondylitis 03/2024 Initial history: This is a 48-year-old female who presents for evaluation of sacroiliitis. Patient stated that she has had back pain symptoms for about 10 years. The pain is in different parts of her spine but generally more severe in the lower left back, the SI joint area and the left buttock area. Generally worse in the morning associated with morning stiffness that lasts 1-2 hours. Improved with sitting on heat, moving around. Patient was referred to do physical therapy multiple times with little improvement. 3-4 years ago her symptoms were worse. She would have flare-ups that were few and far in between however for the last 3-4 years she would have a flare-up that occurs every other week and lasts 3-4 days. Her PCP ordered multiple labs which showed positive HLA B27. She was referred to [facility]. She was evaluated and no evidence of an autoimmune rheumatic disease was found. She was then referred to Dr. Otoole. She ibuprofen 600 mg 3 times a day for at least 2 months without improvement. She also took multiple prednisone courses without improvement. She had multiple steroid injections in the left SI joint area as well as other injections without much improvement, she also had radiofrequency ablation procedure. These procedures would help some of her back pain but they do not affect the main painful area in the left lower back, in the SI area. She also gets intermittent joint pain swelling and stiffness of her hands, wrists, fingers were swollen and she had to cut off her wedding ring. She denies any skin rashes. She denies any history suggestive of uveitis or colitis. She states that her daughter was diagnosed with non radiographic axial spa with uveitis and is on Humira. Her other daughter has Matt's thyroiditis. Patient denies any history of DVT/PE. Current Rheumatology Medication(s): Adalimumab-atto 40mg SC every other week [facility] Medical History (Updated 10/14/24 @ 15:41 by Cecilia Lamas MD) Long-term current use of immunosuppressive biologic agent RUTH (obstructive sleep apnea) Pneumonia Asthma History of abnormal uterine bleeding Hx of fracture of ankle Migraines Anxiety High cholesterol Asthma Surgical History Hx of colonoscopy Hx of left breast biopsy Hx of section Family History Mother Pre-diabetes Father Prostate CA Daughter Non-radiographic axial spondyloarthritis Daughter Matt thyroiditis Social History Household Members: Spouse Alcohol intake: current Alcohol intake frequency: holidays/special occasions only Alcohol type: wine Patient Tobacco Use Status: Never used Tobacco 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, 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 Review of Systems Const Details: Review of Systems Constitutional: Denies fever, chills, weight loss ENT: Denies vision changes, eye pain or eye redness, dental caries, dry mouth GI: Denies nausea, vomiting, diarrhea, abdominal pain, change in BM Pulm: Denies SOB, PAUL, hemoptysis, wheezing Cards: Denies chest pain, palpitations Skin: Denies Raynaud's, rash, nail changes, photosensitivity, SENIOR QUALITY CONTROL 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 Well appearing and in no apparent painful distress HEENT Conjunctiva and sclera clear. ?Pupils equal round and reactive to light. ?No lymphadenopathy. ? CHEST/RESPIRATORY SYSTEM Normal respiratory effort and able to speak in complete sentences. ?Clear to auscultation bilaterally. ?No crackles, rales, rhonchi, wheezes heard. CARDIAC SYSTEM Regular rate and rhythm. ?S1 and S2 heard no murmurs. ?Radial pulses intact bilaterally MSK Hands: ?Mild dactylitis noted to the 2nd digit bilateral hands. Mild tenderness to palpation of the PIPs. Wrists: ?Full range of motion at the wrists without pain. ?No tenderness to palpation or synovitis noted to the wrists. Elbows: Full range of motion without pain. No tenderness, weakness, swelling, increased warmth or erythema. Shoulders: Full range of motion. Mild pain at the extreme of range. No tend erness, weakness, swelling, increased warmth or erythema. Hips: Full range of motion without pain. Hip bursa: No tenderness to palpation Knees: ?Full range of motion. ?No tenderness, swelling, increased warmth or erythema.?No effusion or crepitations Ankles: Full range of motion. ?No tenderness, swelling, increased warmth or erythema.? Feet: ?Negative squeeze test. ?No tenderness to palpation or swelling of the MTPs. Tender points:?No tenderness to palpation of the bilateral trapezius, supraspinatus, greater trochanters, anterior costochondral junctions, bilateral gluteal areas, bilateral suboccipital muscle insertions SKIN Skin intact without rashes. 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: Comment: +HLA b27 Failed NSAIDs Humira 04/2024 effective - 07/2024 Stopped due to insurance Humira biosimilar - secondary failure Code(s): M45.A8 - 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 Category: Medical Plan: #Non radiographic ankylosing spondylitis Patient wit non radiographic ankylosing spondylitis now with secondary failure of her Humira biosimilar We will change to Rinvoq Plan - Rinvoq 15mg daily - Stop Amjevita - RTC 3 months - Labs befor visit: CBC, CMP, ESR, CRP (2) Long-term current use of immunosuppressive biologic agent: Code(s): 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 immunosuppressive 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 Category: Medical Plan: #Long-term Use of MONY inhibitor (Rinvoq) Discussed with patient the benefits and risks of MONY inhibitors for the management of the rheumatic condition Benefits include reduce pain, maintenance of remission and reduction of flares Risks include thromboembolic events, skin cancer and nonmelanoma skin cancers, other forms of cancer, cardiovascular alcohol and mortality Advise patient that they are to hold the medication and for up to 1 week after a febrile illness or an open skin wound Plan I spent 40 minutes reviewing the record and labs, taking a history, examining the patient, discussing the treatment plan and documenting in the medical record Medications: New upadacitinib ER (Rinvoq) 15 mg PO DAILY 90 days 90 tabs 1RF M45.A8 - Non- radiographic axial spondyloarthritis of sacral and sacrococcygeal region Discontinued adalimumab-atto (Amjevita(CF) Autoinjector) Discontinued Reason: Doctor's Order 40 mg (0.4 mL) subcut Q2W 0.8 mL 2RF Coding Level of Care Code Est Pt Level 5 (68805) Complex EM visit Add On G2211 Diagnoses 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
== END 2024-10-14 15:35 | disposition home or self-care (01) ==
PROVIDERS: PCP General Practice; Visit Provider Student in an Organized Health Care Education/Training Program
DX: M45.A Non-radiographic axial spondyloarthritis (principal); Z79.620 Long term (current) use of immunosuppressive biologic
CPT/HCPCS: 99215

== ENCOUNTER 2024-11-01 11:39 | Outpatient (AMB) | payer OTHER, SELFPAY ==
--- NOTE | 2024-11-01 11:42 | A.OFFVIS_ITS ---
Intake Visit Reasons: dfmla paperwork Intake Note: Patient presents for DFMLA paperwork. Allergies cortisone Allergy (Intermediate, Verified 10/14/24 15:08) Swelling hydromorphone [From DILAUDID] Allergy (Unknown, Verified 10/14/24 15:08) SHORTNESS OF BREATH HPI Comments Details: Patient is a 49-year-old female with hyperlipidemia and allergies who presents for follow up of non radiographic ankylosing spondylitis Interval History: Patient last seen with ne 10/14/2024. At that time she had switched from Humira to the bio similar however on the bio similar she had waning of effect. And so we transitioned her to Rinvoq Today she is here to fill out FMLA paperwork Rheumatologic History: Patient diagnosed with non radiographic ankylosing spondylitis 03/2024 Initial history: This is a 48-year-old female who presents for evaluation of sacroiliitis. Patient stated that she has had back pain symptoms for about 10 years. The pain is in different parts of her spine but generally more severe in the lower left back, the SI joint area and the left buttock area. Generally worse in the morning associated with morning stiffness that lasts 1-2 hours. Improved with sitting on heat, moving around. Patient was referred to do physical therapy multiple times with little improvement. 3-4 years ago her symptoms were worse. She would have flare-ups that were few and far in between however for the last 3-4 years she would have a flare-up that occurs every other week and lasts 3-4 days. Her PCP ordered multiple labs which showed positive HLA B27. She was [facility] to [facility]. She was evaluated and no evidence of an autoimmune rheumatic disease was found. She was then referred to Dr. Otoole. She ibuprofen 600 mg 3 times a day for at least 2 months without improvement. She also took multiple prednisone courses without improvement. She had multiple steroid injections in the left SI joint area as well as other injections without much improvement, she also had radiofrequency ablation procedure. These procedures would help some of her back pain but they do not affect the main painful area in the left lower back, in the SI area. She also gets intermittent joint pain swelling and stiffness of her hands, wrists, fingers were swollen and she had to cut off her wedding ring. She denies any skin rashes. She denies any history suggestive of uveitis or colitis. She states that her daughter was diagnosed with non radiographic axial spa with uveitis and is on Humira. Her other daughter has Matt's thyroiditis. Patient denies any history of DVT/PE. Current Rheumatology Medication(s): Rinvoq 15mg daily PFSH Medical History (Updated 10/14/24 @ 15:41 by Cecilia Lamas MD) Long-term current use of immunosuppressive biologic agent RUTH (obstructive sleep apnea) Pneumonia Asthma History of abnormal uterine bleeding Hx of fracture of ankle Migraines Anxiety High cholesterol Asthma Surgical History Hx of colonoscopy Hx of left breast biopsy Hx of section Family History Mother Pre-diabetes Father Prostate CA Daughter Non-radiographic axial spondyloarthritis Daughter Matt thyroiditis Social History Household Members: Spouse Alcohol intake: current Alcohol intake frequency: holidays/special occasions only Alcohol type: wine Patient Tobacco Use Status: Never used 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 Well appearing and in no apparent painful distress HEENT Conjunctiva and sclera clear. ?Pupils equal round and reactive to light. ?No lymphadenopathy. ? CHEST/RESPIRATORY SYSTEM Normal respiratory effort and able to speak in complete sentences. ?Clear to auscultation bilaterally. ?No crackles, rales, rhonchi, wheezes heard. CARDIAC SYSTEM Regular rate and rhythm. ?S1 and S2 heard no murmurs. ?Radial pulses intact bilaterally MSK Hands: ?Mild dactylitis noted to the 2nd digit bilateral hands. Mild tenderness to palpation of the PIPs. Wrists: ?Full range of motion at the wrists without pain. ?No tenderness to palpation or synovitis noted to the wrists. Elbows: Full range of motion without pain. No tenderness, weakness, swelling, increased warmth or erythema. Shoulders: Full range of motion. Mild pain at the extreme of range. No tenderness, weakness, swelling, increased warmth or erythema. Hips: Full range of motion without pain. Hip bursa: No tenderness to palpation Knees: ?Full range of motion. ?No tenderness, swelling, increased warmth or erythema.?No effusion or crepitations Ankles: Full range of motion. ?No tenderness, swelling, increased warmth or erythema.? Feet: ?Negative squeeze test. ?No tenderness to palpation or swelling of the MTPs. Tender points:?No tenderness to palpation of the bilateral trapezius, supraspinatus, greater trochanters, anterior costochondral junctions, bilateral gluteal areas, bilateral suboccipital muscle insertions SKIN Skin intact without rashes. 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: Comment: +HLA b27 Failed NSAIDs Humira 04/2024 effective - 07/2024 Stopped due to insurance Humira biosimilar - secondary failure Code(s): M45.A8 - 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 Category: Medical Plan: #Non radiographic ankylosing spondylitis Patient wit non radiographic ankylosing spondylitis now with secondary failure of her Humira biosimilar On Rinvoq Plan -complete [facility] paperwork - follow up in 3 months (2) Long-term current use of immunosuppressive biologic agent: Code(s): 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 immunosuppressive 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 Category: Medical Plan: #Long-term Use of MONY inhibitor (Rinvoq) Discussed with patient the benefits and risks of MONY inhibitors for the management of the rheumatic condition Benefits include reduce pain, maintenance of remission and reduction of flares Risks include thromboembolic events, skin cancer and nonmelanoma skin cancers, other forms of cancer, cardiovascular alcohol and mortality Advise patient that they are to hold the medication and for up to 1 week after a febrile illness or an open skin wound Plan I spent 10 minutes reviewing the record and labs, taking a history, examining the patient, discussing the treatment plan and documenting in the medical record Coding Level of Care Code Est Pt Level 2 (73861) Diagnoses 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
--- OUTSIDE RECORDS SUMMARY | 2024-11-01 12:41 | XMS_ITS ---
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 She has been in state of [...] She exercises x days/week by . * ROS:?Annual Radio Maintainer Exam ROS:?Bowel habit changes?denies.?Bladder symptoms?denies.?Vaginal discharge, unusual?denies.?Vaginal itch or odor?denies.?weight or appetite changes?denies.?Chest pains, SOB?denies.?depression?denies.?Breast:?Denies?Breast lump.?Denies?Nipple discharge.?Hematology:?Denies?Swollen glands.?Skin:?Patient denies?changing moles.?Psychiatric:?Denies?Anxiety.? * Medical History:?Unspecified asthma, uncomplicated, Pure hypercholesterolemia, unspecified, Anxiety disorder, unspecified, Disorder of breast, unspecified, Unspecified lump in the left breast, upper inner quadrant, Unspecified lump in the right breast, upper inner quadrant, COVID-19, Diverticulitis of intestine, part unspecified, without perforation or abscess without bleeding. * Radio Maintainer History:?/ Para?4/3.?Sexual activity?currently sexually active.?Last Pap Smear:?11/14/2019 NIL/neg HR HPV.?Mammogram:?10/30/23 50-75% density, 08/25/21 Unilat Right, 08/17/21 50-75% density, 01/13/20 50-75% density, 05/16/19 right breast u/s, 01/16/2017, 50-75% density.?Abnormal Pap Smear:?None.?LMP and menses?07/01/23.?History of STD's:?None.? Control:?partner had vasectomy.?Colonoscopy?2021 - polyp found; diverticulosis.?TANK SETTER HISTORY MISC.?12/12/17 Dense breasts counseling done. Cristela lifetime risk is 7.1%. No supplemental screening indicated.? * OB History:?Total pregnancies? 4, Para 3. 2 vaginal. 1 .?Total living children?3.?(s)?1.? # 1:?normal spontaneous vaginal delivery (), 07/19/92, Cassandra, 5lb 1oz, IUGR.? # 2:?elective terminations of (ETOP), T1, no complications.? # 3?normal spontaneous vaginal delivery (), 11/30/94, Alejandra, 7lb 3oz, no complications.? # 4:?Primary , [birth year], born at 31.5 wks, Maura, 2lb 12oz, breech and PPROM. Started as a twin (lost first twin in first trimester).? * Allergies:?Dilaudid: breathi ng problems. Objective: * Vitals:? * Examination: ???General Examination: ?GENERAL APPEARANCE:?in no acute distress, well developed, well nourished, dopster present in room.?HEAD:?normocephalic, atraumatic.?NECK/THYROID:?neck supple, full range of motion, thyroid normal.?LYMPH NODES:?no axillary or supraclavicular adenopathy.?SKIN:? normal, good turgor, no rashes, no suspicious lesions.?BREASTS:? normal, no dimpling, no discharge, no drainage, no masses palpable bilaterally, nontender.?ABDOMEN:? soft, non-tender, non distended without masses or hepatosplenomegay.?RECTAL:? normal tone, no masses palpable.?BACK:? no costovertebral angle tenderness.?FEMALE GENITOURINARY:?Vulva without lesions or masses, vagina pink without abnormal discharge, lesions or masses, cervix appears normal and is not tender to palpation, uterus is normal size, mobile, nontender and anteverted, ovaries are not palpable.?NEUROLOGIC:? alert and oriented, gait normal.?PSYCH:? alert, oriented, cognitive function intact, cooperative with exam, good eye contact, mood/affect full range, speech clear.? Assessment: * Assessment: 1.?Encounter for gynecologic al examination (general) (routine) without abnormal findings - Z01.419 (Primary)???2.?Encounter for screening mammogram for malignant neoplasm of breast - Z12.31???3.?Encounter for screening for infections with a predominantly sexual mode of transmission - Z11.3??? Plan: * Treatment: 2.?Encounter for screening m ammogram for malignant neoplasm of breast?Imaging: MM Digital Screening Mammogram 3D * Follow Up:?1 Year (Reason: Y early Radio Maintainer Exam) * Images: Billing Information: * Visit Code:? 57206 Preventive Care Est Pt. Age 40-64. * Procedure Codes:? 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 She has been in state of [...] General Examination GENERAL APPEARANCE: in no ac [place] distress, well developed, well nourished, dopster present in room HEAD: normocephalic, atrau matic [...]
--- OUTSIDE RECORDS SUMMARY | 2024-11-01 12:41 | XMS_ITS | Encounter Summary ---
Author Organization [facility] Address [address] [place] [address] Care Team Providers Care Sole Polisher Name Role Phone Bette Garay DO Primary Care Pro vider Unavailable Community, Pcp Primary Care Provider Harish Winters MD, PHD Unavailable Unava ilable Encounter Details Date Type Department Care Team Description 05/08/2018 Refill Adult Medicine [address] [address] Bette Garay DO Social History Tobacco Use Types Packs/Day Years Used Date Smoking Tobacco: Never Smokeless Tobacco: Never Alcohol Use Standard Drinks/Week Comments Not Asked 0 (1 standard drink = 0.6 oz pur e alcohol) Sex Assigned at Date Recorded Not on file Job Start Date Occupation Industry Not on file Not on file Not on file documented as of this encounter Miscellaneous Notes * Telephone Encounter - Cinthya Woods M.A. - 05/09/2018 7:32 AM EDT Lab Results Component Value Date NA 142 11/27/2017 K 4.3 11/27/2017 CO2 27.0 11/27/2017 CL 101 11/27/2017 BUN 17 11/27/2017 CREAT 1.0 11/27/2017 GLU 83 11/27/2017 CA 9.1 11/27/2017 GFR > 60 11/27/2017 Last ov with Maya 01/02/18 Last albuterol inhaler rx 11/2017 DX Asthma so it is too early to refill. Pt is changing pharmacies * Telephone Encounter - Cinthya Woods M.A. - 05/09/2018 7:32 AM EDTFrom: Ashley Magdaleno To: Bette Raines DO Sent: 05/08/2018 10:13 PM EDT Subject: Medication Renewal Request Original authorizing provider: DO Ashley Padron would like a refill of the following medications: cetirizine (ZYRTEC) 10 MG tablet [Bette Jay DO] montelukast (SINGULAIR) 10 MG tablet [Bette Jay DO] ALBUTEROL SULFATE (PROAIR HFA) 108 (90 BASE) MCG/ACT Aero Soln [Bette Jay DO] fluticasone-salmeterol (ADVAIR DISKUS) 250-50 MCG/DOSE diskus inhaler [Bette Jay DO] sumatriptan (IMITREX) 50 MG tablet [Bette Jay DO] Preferred pharmacy: [id number] AT Comment: [place]??? My pharmacy closed ([facility] in [place]). I requested twice, through the pharmacies, that my meds be transferred to [facility] on [facility] in [place], but they seem to be unable to do this. I am wondering if you might be able to just send along new prescriptions to [facility] for me? I think this isthe easiest way to get this done. Please let me know if there are any questions. Thank you very much! documented in this encounter Plan of Treatment Not on file documented as of this encounter Visit Diagnoses Not on filedocumented in this encounter Care Teams Sole Polisher Relationship Specialty Start Date End Date Bette Garay DO PCP - General Internal Medicine 02/27/14 06/06/21 Community, Pcp PCP - General Internal Medicine 11/09/21 Harish Palomo MD, PHD Specialist Neurosurgery 11/09/21 documented as of this encounter
--- OUTSIDE RECORDS SUMMARY | 2024-11-01 12:41 | XMS_ITS | Encounter Summary ---
Author Organization [facility] Address [address] [place] [address] Care Team Providers Care Import Manager Name Role Phone Community, Pcp Primary Care Provider Harish Winters MD, PHD Unavailable Unava ilable Reason for Visit * Reason Onset Date Comments Faxed Refill 07/27/2021 Encounter Details Date Type Department Care Team Description 07/27/2021 Refill Adult Medicine [address] [address] Louise Fairchild PA-C [address] [place] [id number] Faxed Refill Social History Tobacco Use Types Packs/Day Years Used Date Smoking Tobacco: Never Smokeless Tobacco: Never Alcohol Use Standard Drinks/Week Comments Yes 0 (1 standard drink = 0.6 oz pur e alcohol) occasionally Sex Assigned at Date Recorded Not on file Job Start Date Occupation Industry Not on file Not on file Not on file COVID-19 Exposure Response Date Recorded In the last month, have you been in contact with someone who was confirmed or suspected to have Coronavirus / COVID-19? Yes 07/13/2021 3:58 PM EDT documented as of this encounter Miscellaneous Notes * Telephone Encounter - Mary Martinez M.A. - 07/27/2021 11:14 AM EDT Last office visit 07/13/21 with Louise Fairchild Lab Results Component Value Date CHOL 141 09/16/2019 LDL 74 09/16/2019 HDL 51 09/16/2019 TRIG 80 09/16/2019 SGOT 14 09/16/2019 SGPT 22 09/16/2019 * Telephone Encounter - Sushil Buck - 07/27/2021 10:54 AM EDT Patient would like script to be: E-PRESCRIBED/FAXED TO PHARMACY WHEN WAS THE PATIENT'S LAST APPOINTMENT IN ADULT MEDICINE? 07/13/21 WHEN WAS THE LAST TIME THE PATIENT SAW THEIR PCP? 05/16/19 Does patient have an upcoming appointment? No, Louise Fairchild did not specify in the appointment on 07/13/21 when the patient should follow up. (THE MEDICATION REQUESTED IS ON THE MED LIST ABOVE) All of the medications requested were on the CURRENT MEDS list Did you check the Pharmacy information above?: YES Patient wants: 90 -day supply Is this a mail order prescription request ? NO If the refill is from a FAXED refill request what is the RX # listed on the fax? [id number] Patients current insurance carrier is: Payor: [employer] [place] / Plan: PPO $20 [place] / Product Type: PPO [id number] documented in this encounter Plan of Treatment Not on file documented as of this encounter Visit Diagnoses Not on filedocumented in this encounter Care Teams Import Manager Relationship Specialty Start Date End Date Community, Pcp PCP - General Internal Medicine 11/09/21 Harish Palomo MD, PHD Specialist Neurosurgery 11/09/21 documented as of this encounter
--- OUTSIDE RECORDS SUMMARY | 2024-11-01 12:41 | XMS_ITS | Encounter Summary ---
Author Organization [facility] Address [address] [place] [address] Care Team Providers Care First Assistant Manager Name Role Phone Bette Garay DO Primary Care Pro vider Unavailable Community, Pcp Primary Care Provider Harish Winters MD, PHD Unavailable Unava ilable Encounter Details Date Type Department Care Team Description 01/19/2018 Orders Only Adult Medicine [address] [address] Bette Garay DO Social History Tobacco Use Types Packs/Day Years Used Date Smoking Tobacco: Never Smokeless Tobacco: Never Alcohol Use Standard Drinks/Week Comments Not Asked 0 (1 standard drink = 0.6 oz pur e alcohol) Sex Assigned at Date Recorded Not on file Job Start Date Occupation Industry Not on file Not on file Not on file documented as of this encounter Plan of Treatment Not on file documented as of this encounter Visit Diagnoses Not on filedocumented in this encounter Care Teams First Assistant Manager Relationship Specialty Start Date End Date Bette Garay DO PCP - General Internal Medicine 02/27/14 06/06/21 Community, Pcp PCP - General Internal Medicine 11/09/21 Harish Palomo MD, PHD Specialist Neurosurgery 11/09/21 documented as of this encounter
--- OUTSIDE RECORDS SUMMARY | 2024-11-01 12:41 | XMS_ITS | Encounter Summary ---
Author Organization [facility] Address [address] [place] [address] Care Team Providers Care Street Supervisor Name Role Phone Bette Garay DO Primary Care Pro vider Unavailable Community, Pcp Primary Care Provider Harish Winters MD, PHD Unavailable Unava ilable Encounter Details Date Type Department Care Team Description 01/19/2018 Pt. Non Urgent Medic al Question Adult Medicine [address] [address] Bette Garay DO Social History Tobacco Use Types Packs/Day Years Used Date Smoking Tobacco: Never Smokeless Tobacco: Never Alcohol Use Standard Drinks/Week Comments Not Asked 0 (1 standard drink = 0.6 oz pur e alcohol) Sex Assigned at Date Recorded Not on file Job Start Date Occupation Industry Not on file Not on file Not on file documented as of this encounter Progress Notes * Mony Almaguer, C.M.A. - 01/19/2018 3:08 PM EDTFrom: Ashley Magdaleno To: Bette Raines DO Sent: 01/19/2018 2:48 PM EDT Subject: Follow-up to Med Discussion Hi Dr. Akhtar-- I received a call from Mony who was relaying your message about my not tolerating the bupropionwell. I completely agree with that. She also mentioned being referred to Behavioral Health, which is not necessary. I have had anxiety for a very long time and have always been well controlled on SSRIs. 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 The only reason why I requested changes with you to these meds was due to weight gain. I would like to request to be placed back on citalopram or sertraline. I will deal with the weight gain in the best way thatI can. If you have a few free moments, can I request that you please give me a quick call on my cell ([phone]) so we can discuss if you are in agreement with this new plan? I would greatly appreciate it. documented in this encounter Plan of Treatment Not on file documented as of this encounter Visit Diagnoses Not on filedocumented in this encounter Care Teams Street Supervisor Relationship Specialty Start Date End Date Bette Garay DO PCP - General Internal Medicine 02/27/14 06/06/21 [facility], Pcp PCP - General Internal Medicine 11/09/21 Harish Palomo MD, PHD Specialist Neurosurgery 11/09/21 documented as of this encounter
--- OUTSIDE RECORDS SUMMARY | 2024-11-01 12:41 | XMS_ITS | Patient Health Record ---
Author Organization [facility] Address [address] [place] [address] Care Team Providers Care Burn Crew Member Name Role Phone ERIKA TAVAREZ MD Primary Care Provider Unavail able LIAN HENSON Unavailable [phone] Allergies Allergen (clinical drug ingredient) Drug/Non Drug Allergy documented on EMR Reaction Allergy Type Onset Date Status hydromorphone Dilaudid breathing problems Drug Allergy Active Reason For Referral No Information Medications Medication SIG (Take, Route, Frequency, Duration) Notes Start Date End Date Status Advair Diskus 250-50 1 Inhalation TWICE DAILY for -02/16/2012 Active Vitamin D3 50 MCG (1999 [place]) 1 capsule Orally Once a day for 30 day(s) Active Atorvastatin Calcium 10 MG 1 tablet Orally Once a day Active Citalopram Hydrobromide 40 MG Orally BEING TAPERED OFF Active Singulair 5 MG 1 ORAL daily for -02/16/2012 Active ProAir HFA 90MCG 2 Inhalation four times daily for -02/16/2012 Active Cyclobenzaprine HCl 5 MG Oral for 20 Active SUMAtriptan Succinate 50 MG Oral for 5 Active Cetirizine HCl 10 MG TAKE 1 TABLET BY MOUTH EVERY DAY NEEDED Oral for 30 Active Co Q-10 50 MG 1 capsule with a meal Orally Once a day Active Social History Tobacco Use: Social History Observation Description Date Details (start date - stop date) Never Smoker NA - NA Tobacco Use/Smoking Question Answer Notes Are you a nonsmoker Alcohol Screen (Audit-C) Question Answer Notes Did you have a drink contain ing alcohol in the past year? Yes How often did you have a dri nk containing alcohol in the past year? 2 to 3 times a week (3 points) How many drinks did you have on a typical day when you were drinking in the past year? 1 or 2 drinks (0 point) How often did you have 6 or more drinks on one occasion in the past year? Never (0 point) Points 3 Interpretation Positive Sexual History Question Answer Notes Had sex in the past 12 months (vaginal, oral, or anal)? Yes with Men only Section Notes: Marital status: Children: 3 Children Lives with: spouse Occupation: employed full-time Nutrition: average diet Exercise: regular walking Sexual activity: monogamous relationship. Contraception: vasectomy .CE: Smoking: Never a smoker .CE: Alcohol: occasional alcohol Text messaging while driving: no Sunscreen: yes Illicit drugs: no Seatbelt: yes Marital status: Children: 3 Children Lives with: spouse Occupation: employed full-time Nutrition: average diet Exercise: regular walking Sexual activity: monogamous relationship. Contraception: vasectomy .CE: Smoking: Never a smoker .CE: Alcohol: occasional alcohol Text messaging while driving: no Sunscreen: yes Illicit drugs: no Seatbelt: yes Marital status: Children: 3 Children Lives with: spouse Occupation: employed full-time Nutrition: average diet Exercise: regular walking Sexual activity: monogamous relationship. Contraception: vasectomy .CE: Smoking: Never a smoker .CE: Alcohol: occasional alcohol Text messaging while driving: no Sunscreen: yes Illicit drugs: no Seatbelt: yes Marital status: Children: 3 Children Lives with: spouse Occupation: employed full-time Nutrition: average diet Exercise: regular walking Sexual activity: monogamous relationship. Contraception: vasectomy .CE: Smoking: Never a smoker .CE: Alcohol: occasional alcohol Text messaging while driving: no Sunscreen: yes Illicit drugs: no Seatbelt: yes Problems Problem Type SNOMED Code ICD Code Onset Dates Problem Status W/U Status Risk Notes Problem Diverticulitis of colon (651563033) Diverticulitis of intestine, part unspecified, without perforation or abscess without bleeding (K57.92) Active confirmed Problem Disorder of breast (52639074) Disorder of breast, unspecified (N64.9) Active confirmed Problem Asthma (disorder) (320950229) Asthma, unspecified, unspecified status (493.90) Active confirmed Major Plan Of Treatment Pending Test Test Name Order Date Ultrasound : Breast, right 01/18/2017 MM Digital Mammo Screening 10/23/2015 ULTRASOUND: PELVIC W/TRANSVAGINAL 2021 ULTRASOUND: PELVIC W/TRANSVAGINAL 2022 MM Digital Screening Mammogram 3D 2019 MM Digital Screening Mammogram 3D 2020 MM Digital Screening Mammogram 3D 2021 Insurance Providers Payer Name Payer Address Payer Phone Subscriber Number Group Number Insured Name Patient Relationship to Insured Coverage Start Date Coverage End Date [facility] [address] [place] [address] [id number] ENRIQUE PALMER Self - patient is the insured Medical (General) History Medical History History ICD Code Unspecified asthma, uncomplicated J45.90 9 Pure hypercholesterolemia, unspecified E 78.00 Anxiety disorder, unspecified F41.9 Disorder of breast, unspecified N64.9 Unspecified lump in the left breast, upp er inner quadrant N63.22 Unspecified lump in the right breast, up per inner quadrant N63.12 COVID-19 U07.1 Diverticulitis of intestine, part unspecified, without perforation or abscess without bleeding K57.92 Surgical History Surgery Date(Month/Year) HYSTEROSCOPY, POLYPECTOMY, FRAC D&C AND HTA 2013 section R beast intraductal papilloma resection Left Ankle Surgery 07/27/18; 10/2018 Left Breast Biopsy - Fibroadenoma 01/2020 Hospitalization History Reason Date(Month/Year) child
--- OUTSIDE RECORDS SUMMARY | 2024-11-01 12:41 | XMS_ITS ---
Author Organization [facility] Address [address] [address] Care Team Providers Care Sheriff'S Officer Name Role Phone ERIKA TAVAREZ MD Primary Care Provider Unavail able LIAN HENSON Unavailable [phone] Allergies Allergen (clinical drug ingredient) Drug/Non Drug Allergy documented on EMR Reaction Allergy Type Onset Date Status hydromorphone Dilaudid breathing problems Drug Allergy Active REASON FOR VISIT Annual TAG STRINGER Physical Encounters Encounter Location Date Provider Diagnosis [facility] [employer] [facility] [address] [address] 04/09/2024 LIAN HENSON Encounter for gynecological examination [...] Follow Up: 1 Year, Reason: Y early Senior Telecommunications Specialist Exam Progress Notes * ARTURO PALMEROB: 3 (49 yo F)Acc No.[id number]:04/09/2024 PROGRESS NOTES Patient:?ASHLEY PALMER Provider:?LIAN HENSON MD :1975???Age:48 Y???Sex:Female D ate:04/09/2024 Address:[address] [place], [place] [id number] Pcp:ERIKA TAVAREZ MD Subjective: * Chief Complaints: * ???1. Annual TAG STRINGER Physical. 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 She has been in state [...] exercises x days/week by . * ROS:?Annual Senior Telecommunications Specialist Exam ROS:?Bowel habit changes?denies.?Bladder symptoms?denies.?Vaginal discharge, unusual?denies.?Vaginal [...] without perforation or abscess without bleeding. * Senior Telecommunications Specialist History:?/ Para?4/3.?Sexual activity?currently sexually active.?Last Pap Smear:?11/14/2019 NIL/neg HR HPV.?Mammogram:?10/30/23 50-75% density, 08/25/21 Unilat Right, 08/17/21 50-75% density, 01/13/20 50-75% density, 05/16/19 right breast u/s, 01/16/2017, 50-75% density.?Abnormal Pap Smear:?None.?LMP and menses?07/01/23.?History of STD's:?None.? Control:?partner had vasectomy.?Colonoscopy?2021 - polyp found; diverticulosis.?TAG STRINGER HISTORY MISC.?12/12/17 Dense breasts counseling done. Cristela [...] no acute distress, well developed, well nourished, area field person present in room.?HEAD:?normocephalic, atraumatic.?NECK/THYROID:?neck supple, full range [...] * Follow Up:?1 Year (Reason: Y early Senior Telecommunications Specialist Exam) * Images: Billing Information: * Visit Code:? 82146 Preventive Care Est Pt. Age 40-64. 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 She has been in state [...] ac diony distress, well developed, well nourished, area field person present in room HEAD: normocephalic, atrau matic [...]
--- OUTSIDE RECORDS SUMMARY | 2024-11-01 12:41 | XMS_ITS | Encounter Summary ---
Author Organization [facility] Address [address] [place] [address] Care Team Providers Care Decorator Inspector Name Role Phone Community, Pcp Primary Care Provider Harish Winters MD, PHD Unavailable Unava ilable Encounter Details Date Type Department Care Team Description 08/09/2021 Manager [facility] Report Medical Records [address] [place] [id number] Ron Otoole DO Social History Tobacco Use Types Packs/Day [...] PM EDT documented as of this encounter Plan of Treatment Not on file documented as of this encounter Visit Diagnoses Not on filedocumented in this encounter Care Teams Decorator Inspector Relationship Specialty Start Date End Date Community, Pcp PCP - General Internal Medicine 11/09/21 Harish Palomo MD, PHD Specialist Neurosurgery 11/09/21 documented as of this encounter
--- OUTSIDE RECORDS SUMMARY | 2024-11-01 12:42 | XMS_ITS | Encounter Summary ---
Author Organization [employer] Address [address] [facility] 7[address] [place] [address] Care Team Providers Care Gate Attendant Name Role Phone Leilani Gale MD Primary Care Provider [phone] Encounter Details Date Type Department Care Team ([facility] st Contact Info) Description 10/08/2024 Telephone [facility] MED[facility] [address] [place] [address] Leilani Gale MD [address] [place] [address] Social History Tobacco Use Types Packs/Day Years Used Date Smoking Tobacco: Never Smokeless Tobacco: Never Alcohol Use Standard Drinks/Week Comments Yes 0 (1 standard drink = 0.6 oz pur e alcohol) sometimes wine PHQ-2 Answer Date Recorded Patient Health Questionnaire-2 Score 0 11/28/2022 Housing Stability Answer Date Recorded What is your housing situation today? I have sherrie soliman 07/11/[address] you li ve. Do you have problems with any of the following? None of the above 07/11/2023 Food Insecurity Answer Date Recorded Within the past 12 months, y ou worried that your food would run out before you got money to buy more: Never True 07/11/2023 Within the past 12 months,th e food you bought just didn't last and you didn't have enough money to get more: Never True Transportation Answer Date Recorded In the past 12 months, has l ack of transportation kept you from medical appts, meetings, work or from getting things needed for daily living? Yes, it has kept me from medical appointments or getting medications. 07/07/2023 Utilities Answer Date Recorded In the past 12 months, has t he electric, gas, oil or water [employer] threatened to shut off services in your home? No 07/11/2023 Depression Answer Date Recorded Patient Health Questionnaire-2 Score 0 11/28/2022 Comments Unknown Sex and Gender Information Value Date Recorded Sex Assigned at Female 07/25/2022 10:20 AM EDT Legal Sex Female 10:20 AM EDT Gender Identity Female 07/25/2022 10:20 AM EDT Sexual Orientation Straight 07/25/2022 10 :20 AM EDT documented as of this encounter Miscellaneous Notes * Telephone Encounter - Leilani Gale MD - 10/08/2024 4:03 PM EST Patient is 49yo F with history of YUE-27 negative ankylosing spondylosis, asthma, carpal tunnel, and redundant colon, who needs repeat biopsy of R thyroid nodule. Attempted x 2 at [facility] 08/01/23 and 09/04/23 TECHNIQUE/FINDINGS.: Informed consent was obtained following discussion of the risks and benefits of the procedure with the patient. The patient was placed supine in the ultrasound procedure table. Preliminary ultrasound demonstrates right thyroid nodule in concordance with prior imaging. A site on the right neck was selected and marked and sterilely prepped and draped. The right thyroid nodule was then accessed with a 22-gauge needle. 4 passes were made. The samples were sent to pathology for analysis. Hemostasis was achieved with white manual compression and a dressing was applied. Patient tolerated procedure well with no immediate complications . US/US guided fine needle asp IMPRESSION: Right thyroid nodule FNA. Second attempt with sufficient cells for diagnosis: Thyroid, right nodule, fine-needle aspiration: Benign ([place] category 2). COMMENT: The ThinPrep slide has scattered mixed inflammatory cells and blood only. The cell block has scattered small groups of benign-appearing follicular epithelial cells, some with degenerative changes. No cytologic atypia is present. Small fragments of colloid and focal dystrophic calcifications are also present. Repeat thyroid ultrasound 05/2024 EXAMINATION: US THYROID CLINICAL INFORMATION: History thyroid nodules. Greater than 1.5 cm inconclusive early 2023. COMPARISON: Ultrasound soft tissue head/neck thyroid dated 06/26/2023. TECHNIQUE: Linear transducer grayscale and color Doppler examination with attention to the region of the thyroid. FINDINGS: SIZE: Measurements of the thyroid lobes and nodules are given in sagittal, anteroposterior and transverse dimensions respectively. Right Thyroid Lobe: 5.8 x 2.6 x 3.0 cm, volume 23.4 mL. Previously 5.8 x 2.3 x 2.6 cm, volume 18 mL. Parenchyma: The gland echotexture is homogeneous. Thyroid vascularity is normal. Left Thyroid Lobe: 4.8 x 2.0 x 2.0 cm, volume 10.2 mL. Previously 5.1 x 2.1 x 2.2 cm, volume 12 mL. Parenchyma: The gland echotexture is homogeneous. Thyroid vascularity is normal. Isthmus: 0.3 cm in maximum AP dimension. Previously 0.3 cm. Estimated total number of nodules greater than or equal to 1 cm: 1. Garden Equipment Mechanic nodules are described as follows: 1. Location: Right superior. Size: 0.6 x 0.7 x 0.8 cm, volume 0.2 mL. Previously: 1.0 x 0.6 x 0.8 cm, volume 0.24 mL. Nodule characteristics: Composition: Spongiform (0). Echogenicity: Anechoic (0). Shape: Not taller than wide (0). Margins: Smooth (0). Echogenic Foci: None (0). ACR TI-RADS total points: 0 Previous: 0 ACR TI-RADS category: 1 Previous: 1 Significant change in size (>/= 20% in 2 dimensions and minimal increase of 2 mm or 50% or greater increase in volume): No Change in features: No Change in ACR TI-RADS risk category: No 2. Location: Right superior/mid. Size: 3.2 x 1.3 x 2.4 cm, volume 5.1 mL. Previously: 2.2 x 1.3 x 2.1 cm, volume 3.28 mL. Nodule characteristics: Composition: Mixed cystic and solid (1). Echogenicity: Hypoechoic (2). Shape: Not taller than wide (0). Margins: Smooth (0). Echogenic Foci: None (0). ACR TI-RADS total points: 3 Previous: 4 ACR TI-RADS category: 3 Previous: 4 Significant change in size (>/= 20% in 2 dimensions and minimal increase of 2 mm or 50% or greater increase in volume): Yes Change in features: Yes Change in ACR TI-RADS risk category: Yes, decreased. 3. Location: Right mid. Size: 0.8 x 0.3 x 0.8 cm, volume 0.11 mL. Previously: 0.9 x 0.4 x 0.7 cm, volume 0.14 mL. Nodule characteristics: Composition: Solid/almost completely solid (2). Echogenicity: Hypoechoic (2). Shape: Not taller than wide (0). Margins: Smooth (0). Echogenic Foci: None (0). ACR TI-RADS total points: 4 Previous: 4 ACR TI-RADS category: 4 Previous: 4 Significant change in size (>/= 20% in 2 dimensions and minimal increase of 2 mm or 50% or greater increase in volume): No Change in features: No Change in ACR TI-RADS risk category: No 4. Location: Left superior. Size: 0.5 x 0.4 x 0.7 cm, volume 0.06 mL. Previously: 0.9 x 0.4 x 0.8 cm, volume 0.14 mL. Nodule characteristics: Composition: Mixed cystic and solid (1). Echogenicity: Hypoechoic (2). Shape: Not taller than wide (0). Margins: Smooth (0). Echogenic Foci: None (0). ACR TI-RADS total points: 3 Previous: 3 ACR TI-RADS category: 3 Previous: 3 Significant change in size (>/= 20% in 2 dimensions and minimal increase of 2 mm or 50% or greater increase in volume): No Change in features: No Change in ACR TI-RADS risk category: No 5. Location: Left mid. Size: 0.6 x 0.4 x 0.6 cm, volume 0.08 mL. Previously: 0.6 x 0.4 x 0.5 cm, volume 0.07 mL. Nodule characteristics: Composition: Spongiform (0). Echogenicity: Anechoic (0). Shape: Not taller than wide (0). Margins: Smooth (0). Echogenic Foci: None (0). ACR TI-RADS total points: 0 Previous: 0 ACR TI-RADS category: 1 Previous: 1 Significant change in size (>/= 20% in 2 dimensions and minimal increase of 2 mm or 50% or greater increase in volume): No Change in features: No Change in ACR TI-RADS risk category: No NODES: No lymphadenopathy is seen in the tissue surrounding the thyroid gland. US/US thyroid IMPRESSION: Multinodular goiter. TR 3, 3.2 cm right superior mid nodule which has increased in size and meets criteria for biopsy. documented in this encounter Plan of Treatment Not on file documented as of this encounter Visit Diagnoses Not on filedocumented in this encounter Care Teams Gate Attendant Relationship Specialty Start Date End Date Leilani Gale MD [address] [place] [phone] PCP - General Family Medicine 11/02/21 documented as of this encounter
--- OUTSIDE RECORDS SUMMARY | 2024-11-01 12:42 | XMS_ITS | Encounter Summary ---
Author Organization [facility] Address [address] [place] [address] Care Team Providers Care Bank Vault Clerk Name Role Phone Bette Garay DO Primary Care Pro vider Unavailable Community, Pcp Primary Care Provider Harish Winters MD, PHD Unavailable Unava ilable Encounter Details Date Type Department Care Team Description 09/07/2018 Lead Engineer Report Medical Records [address] [place] [id number] Jarrell Aldrich Social History Tobacco Use Types Packs/Day Years [...] on filedocumented in this encounter Care Teams Bank Vault Clerk Relationship Specialty Start Date End Date Bette Garay DO PCP - General Internal Medicine 02/27/14 06/06/21 [facility], Pcp PCP - General Internal Medicine 11/09/21 Harish Palomo MD, PHD Specialist Neurosurgery 11/09/21 documented as of this encounter
--- OUTSIDE RECORDS SUMMARY | 2024-11-01 12:42 | XMS_ITS | Encounter Summary ---
Author Organization [employer] Address [address] [facility] 7[address] [place] [address] Care Team Providers Care Development Officer Name Role Phone Leilani Gale MD Primary Care Provider [phone] Encounter Details Date Type Department Care Team (Late st Contact Info) Description 10/11/2024 Orders Only GENERIC EXTERNAL DATA DEPARTMENT Provider, Generic External Data Social History Tobacco Use Types Packs/Day Years Used Date Smoking Tobacco: Never Smokeless Tobacco: Never Alcohol Use Standard Drinks/Week Comments Yes 0 (1 standard drink = 0.6 oz pur e alcohol) sometimes wine PHQ-2 Answer Date Recorded Patient Health Questionnaire-2 Score 0 11/28/2022 Housing Stability Answer Date Recorded What is your housing situation today? I have sherrie jourdan 07/11/[address] you li [...] t he electric, gas, oil or water company threatened to shut off services in your home? No 07/11/2023 Depression Answer Date Recorded Patient Health Questionnaire-2 Score 0 11/28/2022 Comments Unknown Sex and Gender Information Value Date Recorded Sex Assigned at Female 07/25/2022 10:20 AM EDT Legal Sex Female 10:20 AM EDT Gender Identity Female 07/25/2022 10:20 AM EDT Sexual Orientation Straight 07/25/2022 10 :20 AM EDT documented as of this encounter Plan of Treatment Not on file documented as of this encounter Procedures Procedure Name Priority Date/Time Associated Diagnosis Comments CBC WITH AUTO DIFFERENTIAL Routine 10/11/2024 3:26 PM EST SED RATE BY MODIFIED WESTERGREN Routine 10/11/2024 3:26 PM EST C-REACTIVE PROTEIN Routine 10/11/2024 3: 26 PM EST COMPREHENSIVE METABOLIC PANEL Routine 10/11/2024 3:26 PM EST documented in this encounter Results * C-reactive Protein (10/11/2024 3:26 PM EST) C Reactive Protein 0.24 < or = 0.50 mg/dL [facility] 10/11/2024 3:26 PM EST 10/11/2024 3:27 PM EST us Generic External Data Provider LAB BLOOD ORDERAB LES Final Result [facility] [address] [place] [phone] * (ABNORMAL) Comprehensive Metabolic Panel (10/11/2024 3:26 PM EST) Sodium 140 135 - 145 mmol/L [facility] Potassium 3.8 3.3 - 5.1 mmol/L [facility] Chloride 108 96 - 108 mmol/L [facility] Carbon Dioxide 26 22 - 29 mmol/L [facility] Anion Gap 10(L) 12 - 20 [facility] Urea Nitrogen (BUN) 14 9 - 16 mg/dL [facility] Creatinine, Serum 0.96 0.5 - 1.4 mg/dL [facility] Estimated Glomerular Filt Rate >60 [facility] Comment:Chronic Kidney Disea se: Estimated GFR < 60 mL/min/[id number] Kidney Disease: Estimated GFR < 15 mL/min/1.73m2 Glucose 102 60 - 115 mg/dL [facility] Calcium 8.9 8.4 - 10.2 mg/dL [facility] Bilirubin, Total 0.5 0.0 - 1.0 mg/dL [facility] Aspartate Amino Transferase 30 5 - 31 U/L [facility] Alanine Aminotransferase 49(H) 0 - 31 U/L [facility] Total Protein 7.6 6.5 - 8.0 g/dL [facility] Albumin Level 4.4 3.5 - 5.0 g/dL [facility] Alkaline Phosphatase 65 39 - 117 U/L [facility] 10/11/2024 3:26 PM EST 10/11/2024 3:27 PM EST us Generic External Data Provider LAB BLOOD ORDERAB LES Final Result Performing Organization Address City/[facility]/ZIP Co de Phone Number [facility] [address] [place] [phone] * Sed Rate by Modified Juliannaren (10/11/2024 3:26 PM EST) Erythrocyte Sedimentation Rate 5 0 - 20 MM/HR [facility] Comment:Patients with polycy themia and many hemoglobin abnormalitiesmay have depressed sed rates whereas patients with anemiamay have elevated sed rates. 10/11/2024 3:26 PM EST 10/11/2024 3:27 PM EST us Generic External Data Provider LAB BLOOD ORDERAB LES Final Result Performing Organization Address City/[facility]/ZIP Co de Phone Number [facility] [address] [place] [phone] * (ABNORMAL) CBC auto differential (10/11/2024 3:26 PM EST) White Blood Count 6.8 4.8 - 10.8 X10*3/uL [facility] Red Blood Count 4.71 4.20 - 5.50 X10*6/uL [facility] Hemoglobin 14.5 12.0 - 16.0 g/dl [facility] Hematocrit 42.2 37.0 - 47.0 % [facility] Mean Corpuscular Volume 89.6 80.0 - 98.0 fL [facility] Mean Corpuscular Hemoglobin 30.8 27.0 - 33.0 pg [facility] Mean Corpuscular HGB Conc 34.4 31.0 - 35.0 g/dl [facility] Red Cell Distribution Width 11.6 11.0 - 16.0 % [facility] Platelet Count 311 160 - 400 X10*3/uL [facility] Mean Platelet Volume 9.2(L) 9.4 - 12.3 fL [facility] Neutrophils Percent Auto 51.1 45 - 73 % [facility] Imm Gran Pct Auto 0.1 0.0 - 0.4 % [facility] Lymphocytes Percent Auto 36.1 20 - 40 % [facility] Monocytes Percent Auto 6.6 2 - 11 % [facility] Eosinophils Percent Auto 4.8(H) 0 - 4 % [facility] Basophils Percent Auto 1.3 0 - 2 % [facility] NRBC Pct Auto 0.0 0.0 - 0.2 /100WBC [facility] Neutrophils Absolute Auto 3.5 2.0 - 8.3 x10*3/uL [facility] Imm Gran Abs Auto 0.01 0.00 - 0.03 X10*3/uL [facility] Lymphocytes Absolute Auto 2.5 1.2 - 4.9 X10*3/uL [facility] Monocytes Absolute Auto 0.5 0.1 - 1.2 X10*3/uL [facility] Eosinophils Absolute Auto 0.3 0.0 - 0.4 X10*3/uL [facility] Basophils Absolute Auto 0.1 0.0 - 0.2 X10*3/uL [facility] NRBC Abs Auto 0.000 0.0 - 0.012 X10*3/uL [facility] 10/11/2024 3:26 PM EST 10/11/2024 3:27 PM EST us Generic External Data Provider LAB BLOOD ORDERAB LES Final Result Performing Organization Address City/State/[facility] Co de Phone Number [facility] [address] [place] [phone] documented in this encounter Visit Diagnoses Not on filedocumented in this encounter Care Teams Development Officer Relationship Specialty Start Date End Date Leilani Gale MD [address] [place] [phone] PCP - General Family Medicine 11/02/21 documented as of this encounter
--- OUTSIDE RECORDS SUMMARY | 2024-11-01 12:42 | XMS_ITS | Encounter Summary ---
Author Organization [facility] Address [address] [place] [address] Care Team Providers Care Saxophone Teacher Name Role Phone Bette Garay DO Primary Care Pro vider Unavailable Community, Pcp Primary Care Provider Harish Winters MD, PHD Unavailable Unava ilable Reason for Visit * Reason Comments E-prescribe Rx Request Encounter Details Date Type Department Care Team Description 08/17/2019 Refill Adult Medicine [address] [phone] Bette Garay DO E-prescribe Rx Request Social History Tobacco Use Types Packs/Day Years [...] encounter Miscellaneous Notes * Telephone Encounter - Kelle Talley M.A. - 08/19/2019 9:17 AM EST Lab Results Component Value Date SGOT 15 06/23/2018 SGPT 19 06/23/2018 * Telephone Encounter - Danae Perez - 08/18/2019 9:21 AM EST Patient would like script to be: E-PRESCRIBED/FAXED TO PHARMACY WHEN WAS THE PATIENT'S LAST APPOINTMENT IN ADULT MEDICINE? 05-16-19 WHEN WAS THE LAST TIME THE PATIENT SAW THEIR PCP? 12-17-18 Does patient have an upcoming appointment? Patient was sent a My Chart request to set up an appointment as they are due. (THE MEDICATION REQUESTED IS ON THE MED LIST ABOVE) All of the medications requested were on the CURRENT MEDS list Did you check the Pharmacy information above?: YES Patient wants: 30 -day supply Is this a mail order prescription request ? NO If the refill is from a FAXED refill request what is the RX # listed on the fax? N/A Patients current insurance carrier is: Payor: [employer] / Plan: [employer] $20 [place] 1 / Product Type: Replica LabsO [id number] documented in this encounter Plan of Treatment Not on file documented as of this encounter Visit Diagnoses Not on filedocumented in this encounter Care Teams Saxophone Teacher Relationship Specialty Start Date End Date Bette Garay DO PCP - General Internal Medicine 02/27/14 06/06/21 [facility], Pcp PCP - General Internal Medicine 11/09/21 Harish Palomo MD, PHD Specialist Neurosurgery 11/09/21 documented as of this encounter
--- OUTSIDE RECORDS SUMMARY | 2024-11-01 12:42 | XMS_ITS | Patient Health Record ---
Author Organization [facility] Address [address] [facility] [place] [address] Care Team Providers Care Vmware Consultant Name Role Phone Bette Garay Primary Care Provid er Unavailable Addis Alexander Unavailable [phone] Allergies Allergen (clinical drug ingredient) Drug/Non Drug Allergy documented on EMR Reaction Allergy Type Onset Date Status hydromorphone Dilaudid anaphylaxis Drug Allergy A ctive hydromorphone Hydromorphone HCl anaphylaxis Drug Allergy Active adhesive tape Skin Irritation Drug Allergy Active latex Skin Irritation Drug Allergy A ctive Reason For Referral No Information Medications Medication SIG (Take, Route, Frequency, Duration) Notes Start Date End Date Status Cetirizine HCl 10 MG Oral for 30 Active Vitamin D Active Atorvastatin Calcium Active SUMAtriptan Active CoQ-10 Active Citalopram Hydrobromide 20 MG 1 tablet Orally Once a day Active Montelukast Sodium 10 MG Oral for 30 Active Advair Diskus 250-50 MCG/DOSE Inhalation for 30 Active Immunizations Vaccine Route Administration Date Status Comme nts COVID-19 Moderna Vaccine Unknown 10/07/2020 Administered Second Dose: 11/04/2020 Social History Tobacco use other than smoking: Question Answer Notes Are you an other tobacco user? No Problems Problem Type SNOMED Code ICD Code Onset Dates Problem Status W/U Status Risk Notes Problem 30416510 Non-pressure ulcer of right lower extremity, limited to breakdown of skin (L97.911) Active confirmed Plan Of Treatment Pending Test Test Name Order Date 10073-Wudd Destruction, -01/16/2017 14785-Onru Destruction, -02/06/2017 84926-Loum Destruction, -14 03/22/2017 [id number]-Gihcqxcy Plate 01/16/2017 27725- Debride <25 sq cm 02/06/2017 Insurance Providers Payer Name Payer Address Payer Phone Subscriber Number Group Number Insured Name Patient Relationship to Insured Coverage Start Date Coverage End Date [facility] [address] [place] [address] [id number] Ashley Magdaleno Self - patient is the insured Medical (General) History Medical History History ICD Code Anxiety asthma Chicken pox Migraines Sciatica Back,Hip,and Knee pain Broken bones Cholesterol Cataracts Headaches/Migraines Neuropathy chronic sinusitis Joint implants/screws Surgical History Surgery Date(Month/Year) Uterine Ablation 2015 Intraductal Papiloma Removal 2013 section 1996 breast biopsy 12/2019 ankle surgery L 10/2018 ankle ORIF L 07/2018
--- OUTSIDE RECORDS SUMMARY | 2024-11-01 12:42 | XMS_ITS | Encounter Summary ---
Author Organization [facility] Address [address] [place] [address] Care Team Providers Care Mortgage Loan Counselor Name Role Phone Bette Garay DO Primary Care Pro vider Unavailable Community, Pcp Primary Care Provider Harish Winters MD, PHD Unavailable Unava ilable Reason for Visit * Reason Comments E-prescribe Rx Request Encounter Details Date Type Department Care Team Description 02/18/2020 Refill Adult Medicine [address] [address] Bette Garay DO E-prescribe Rx Request Social [...] encounter Miscellaneous Notes * Telephone Encounter - Silvana Crowder M.A. - 02/18/2020 4:40 PM EDT Last ov 12/08/19 Lab Results Component Value Date ALB 3.7 09/16/2019 SGOT 14 09/16/2019 SGPT 22 09/16/2019 TBILI 0.4 09/16/2019 ALKPHOS 62 09/16/2019 TP 6.2 09/16/2019 * Telephone Encounter - Lacy Issa 02/18/2020 2:27 PM EDT Patient would like script to be: E-PRESCRIBED/FAXED TO PHARMACY WHEN WAS THE PATIENT'S LAST APPOINTMENT IN ADULT MEDICINE? 11/15/2019 WHEN WAS THE LAST TIME THE PATIENT SAW THEIR PCP? Same as above Does patient have an upcoming appointment? No-unable to reach left voicemaill to call for appointment due to refill request. Appt due (THE MEDICATION REQUESTED IS ON THE MED [...] N/A Patients current insurance carrier is: Payor: [employer] / Plan: [employer] $20 [place] 1 / Product Type: HMO [id number] documented in this encounter Plan of Treatment Not on file documented as of this encounter Visit Diagnoses Not on filedocumented in this encounter Care Teams Mortgage Loan Counselor Relationship Specialty Start Date End Date Bette Garay DO PCP - General Internal Medicine 02/27/14 06/06/21 [facility], Pcp PCP - General Internal Medicine 11/09/21 Harish Palomo MD, PHD Specialist Neurosurgery 11/09/21 documented as of this encounter
--- OUTSIDE RECORDS SUMMARY | 2024-11-01 12:42 | XMS_ITS | Encounter Summary ---
Author Organization [facility] Address [address] [place] [address] Care Team Providers Care Menswear Salesperson Name Role Phone Bette Garay DO Primary Care Pro vider Unavailable Community, Pcp Primary Care Provider Harish Winters MD, PHD Unavailable Unava ilable Encounter Details Date Type Department Care Team Description 08/07/2016 Refill Adult Medicine [address] [address] Bette Garay DO Social History Tobacco Use Types Packs/Day Years Used Date Smoking Tobacco: Never Alcohol Use Standard Drinks/Week Comments Not Asked 0 (1 standard drink = 0.6 oz pur e alcohol) Sex Assigned at Date Recorded Not on file Job Start Date Occupation Industry Not on file Not on file Not on file documented as of this encounter Miscellaneous Notes * Telephone Encounter - Mony Almaguer C.M.A. - 08/08/2016 9:53 AM EST Faxed to pharmacy * Telephone Encounter - Renea Cueto M.A. - 08/07/2016 3:17 PM EST Last ov 05/20/16 * Telephone Encounter - Renea Cueto M.A. - 08/07/2016 3:17 PM ESTFrom: Ashley Magdaleno To: Bette Raines DO Sent: 08/07/2016 3:25 AM EST Subject: Medication Renewal Request Original authorizing provider: DO Ashley Padron would like a refill of the following medications: montelukast (SINGULAIR) 10 MG tablet [Bette Jay DO] Preferred pharmacy: [address] Comment: documented in this encounter Plan of Treatment Not on file documented as of this encounter Visit Diagnoses Not on filedocumented in this encounter Care Teams Menswear Salesperson Relationship Specialty Start Date End Date Bette Garay DO PCP - General Internal Medicine 02/27/14 06/06/21 [facility], Pcp PCP - General Internal Medicine 11/09/21 Harish Palomo MD, PHD Specialist Neurosurgery 11/09/21 documented as of this encounter
--- OUTSIDE RECORDS SUMMARY | 2024-11-01 12:42 | XMS_ITS | Encounter Summary ---
Author Organization [facility] Address [address] [place] [address] Care Team Providers Care Executive Vice President Business Development Name Role Phone Bette Garay DO Primary Care Pro vider Unavailable Community, Pcp Primary Care Provider Harish Winters MD, PHD Unavailable Unava ilable Encounter Details Date Type Department Care Team Description 10/23/2018 Transfer Records Medical Records [address] [place] [id number] Jarrell Aldrich Social History Tobacco Use Types [...] on filedocumented in this encounter Care Teams Executive Vice President Business Development Relationship Specialty Start Date End Date Bette Garay DO PCP - General Internal Medicine 02/27/14 06/06/21 [facility]cp PCP - General Internal Medicine 11/09/21 Harish Palomo MD, PHD Specialist Neurosurgery 11/09/21 documented as of this encounter
--- OUTSIDE RECORDS SUMMARY | 2024-11-01 12:42 | XMS_ITS | Encounter Summary ---
Author Organization [facility] Address [address] [place] [address] Care Team Providers Care Naturopathic Doctor Name Role Phone Bette Garay DO Primary Care Pro vider Unavailable Community, Pcp Primary Care Provider Harish Winters MD, PHD Unavailable Unava ilable Reason for Visit * Reason Comments E-prescribe Rx Request Encounter Details Date Type Department Care Team Description 08/08/2020 Refill Adult Medicine [address] [address] Bette Garay DO E-prescribe Rx Request Social [...] Telephone Encounter - Mary Martinez M.A. - 08/10/2020 1:18 PM EST Lab Results Component Value Date ALB 3.7 09/16/2019 SGOT 14 09/16/2019 SGPT 22 09/16/2019 TBILI 0.4 09/16/2019 ALKPHOS 62 09/16/2019 TP 6.2 09/16/2019 * Telephone Encounter - Kaylie Horan - 08/10/2020 12:53 PM EST Patient would like script to be: E-PRESCRIBED/FAXED TO PHARMACY WHEN WAS THE PATIENT'S LAST APPOINTMENT IN ADULT MEDICINE? 06/29/20 WHEN WAS THE LAST TIME THE PATIENT SAW THEIR PCP? 10/26/19 Does patient have an upcoming appointment? My chart message has been sent to pt (THE MEDICATION REQUESTED IS ON THE MED [...] N/A Patients current insurance carrier is: Payor: [employer] / Plan: One [place] $20 [place] 1 / Product Type: HMO [id number] documented in this encounter Plan of Treatment Not on file documented as of this encounter Visit Diagnoses Not on filedocumented in this encounter Care Teams Naturopathic Doctor Relationship Specialty Start Date End Date Bette Garay DO PCP - General Internal Medicine 02/27/14 06/06/21 [facility], Pcp PCP - General Internal Medicine 11/09/21 Harish Palomo MD, PHD Specialist Neurosurgery 11/09/21 documented as of this encounter
--- OUTSIDE RECORDS SUMMARY | 2024-11-01 12:42 | XMS_ITS | Encounter Summary ---
Author Organization [employer] Address [address] [place] [address] [address] [place] [address] Care Team Providers Care Costume Rental Clerk Name Role Phone Leilani Gale MD Primary Care Provider [phone] Reason for Referral * Consultation (Routine) - Closed Specialty Diagnoses / Procedures Referred By Peng booth Referred To Contact Gastroenterology Diagnoses Redundant colon Colon cancer screening Leilani Gale MD [address] [place] [address] Phone: tel: fax: [facility] [address] [place] [address] Phone: tel: fax: Referral ID Status Reason Start Date Expiration Date V isits Requested Visits Authorized [id number] Closed Specialty Services Required 05/31/2024 05/31/2025 1 1 * Imaging (Routine) - Closed Specialty Diagnoses / Procedures Referred By Peng booth Referred To Contact Radiology Diagnoses Thyroid nodule greater than or equal to 1.5 cm in diameter incidentally noted on imaging study Procedures US Thyroid Leilani Gale MD [address] [place] [address] Phone: tel: fax: [facility] [address] [place] [address] Phone: tel: fax: Referral ID Status Reason Start Date Expiration Date Visits Re quested Visits Authorized [id number] Closed 05/31/2024 05/31/2025 1 1 Encounter Details Date Type Department Care Team (Late st Contact Info) Description 05/31/2024 Orders Only [facility] MEDICINE [address] [place] [address] Leilani Gale MD [address] [place] [address] Thyroid nodule greater than or equal to 1.5 cm in diameter incidentally noted on imaging study (Primary Dx); Redundant colon; Colon cancer screening Social History Tobacco Use Types Packs/Day Years [...] as of this encounter Plan of Treatment Scheduled Referrals Name Type Priority Associated Diagnoses Order Schedule Referral to Gastroenterology Outpatient Referral Routine Redundant colon Colon cancer screening Expected: 05/31/2024 (Approximate), Expires: 05/31/2025 documented as of this encounter Procedures Procedure Name Priority Date/Time Associated Diagnosis Comments US THYROID Routine 06/17/2024 9:38 AM EDT Thyroid nodule greater than or equal to 1.5 cm in diameter incidentally noted on imaging study documented in this encounter Results * US Thyroid (06/17/2024 9:38 AM EDT) Anatomical Region Laterality Modality Head, Neck Ultrasound 06/17/2024 9:38 AM EDT Narrative 07/19/2024 8:39 AM EDT ? [facility] ?[address] ?[place] [address] ? Ultrasound Report ? Signed ? Patient: Ashley Magdaleno ?MR#: [id number] ?? [id number] ? : 1975 ?Acct:[id number] ? Age/Sex: 48 / F ?ADM Date: 06/17/24 ? Loc: HO.US ? Attending Dr: Leilani Gale MD ? Ordering Physician: Leilani Gale ?? Date of Service: 06/17/24 ?? Procedure(s): US thyroid ?? Accession Number(s): [id number] ? cc: Leilani Gale ? EXAMINATION: ?? US THYROID ? CLINICAL INFORMATION: ?? History thyroid nodules. Greater than 1.5 cm inconclusive early 2023. ? COMPARISON: ?? Ultrasound soft tissue head/neck thyroid dated 06/26/2023. ? TECHNIQUE: ?? Linear transducer grayscale and color Doppler examination with ?? attention to the region of the thyroid. ? FINDINGS: ? SIZE: Measurements of the thyroid lobes and nodules are given in ?? sagittal, anteroposterior and transverse dimensions respectively. ? Right Thyroid Lobe: 5.8 x 2.6 x 3.0 cm, volume 23.4 mL. Previously 5.8 ?? x 2.3 x 2.6 cm, volume 18 mL. ?? Parenchyma: The gland echotexture is homogeneous. Thyroid vascularity ?? is normal. ? Left Thyroid Lobe: 4.8 x 2.0 x 2.0 cm, volume 10.2 mL. Previously 5.1 x ?? 2.1 x 2.2 cm, volume 12 mL. ?? Parenchyma: The gland echotexture is homogeneous. Thyroid vascularity ?? is normal. ? Isthmus: 0.3 cm in maximum AP dimension. Previously 0.3 cm. ? Estimated total number of nodules greater than or equal to 1 cm: 1. ?? Super[employer] Former nodules are described as follows: ? 1. ??Location: Right superior. ? Size: 0.6 x 0.7 x 0.8 cm, volume 0.2 mL. ? Previously: 1.0 x 0.6 x 0.8 cm, volume 0.24 mL. ? Nodule characteristics: ? Composition: Spongiform (0). ? Echogenicity: Anechoic (0). ? Shape: Not taller than wide (0). ? Margins: Smooth (0). ? Echogenic Foci: None (0). ? ACR TI-RADS total points: 0 Previous: 0 ? ACR TI-RADS category: 1 Previous: 1 ? Significant change in size (>/= 20% in 2 dimensions and minimal ?? increase of 2 mm or 50% or greater increase in volume): No ? Change in features: No ? Change in ACR TI-RADS risk category: No ? 2. ??Location: Right superior/mid. ? Size: 3.2 x 1.3 x 2.4 cm, volume 5.1 mL. ? Previously: 2.2 x 1.3 x 2.1 cm, volume 3.28 mL. ? Nodule characteristics: ? Composition: Mixed cystic and solid (1). ? Echogenicity: Hypoechoic (2). ? Shape: Not taller than wide (0). ? Margins: Smooth (0). ? Echogenic Foci: None (0). ? ACR TI-RADS total points: 3 Previous: 4 ? ACR TI-RADS category: 3 Previous: 4 ? Significant change in size (>/= 20% in 2 dimensions and minimal ?? increase of 2 mm or 50% or greater increase in volume): Yes ? Change in features: Yes ? Change in ACR TI-RADS risk category: Yes, decreased. ? 3. ??Location: Right mid. ? Size: 0.8 x 0.3 x 0.8 cm, volume 0.11 mL. ? Previously: 0.9 x 0.4 x 0.7 cm, volume 0.14 mL. ? Nodule characteristics: ? Composition: Solid/almost completely solid (2). ? Echogenicity: Hypoechoic (2). ? Shape: Not taller than wide (0). ? Margins: Smooth (0). ? Echogenic Foci: None (0). ? ACR TI-RADS total points: 4 Previous: 4 ? ACR TI-RADS category: 4 Previous: 4 ? Significant change in size (>/= 20% in 2 dimensions and minimal ?? increase of 2 mm or 50% or greater increase in volume): No ? Change in features: No ? Change in ACR TI-RADS risk category: No ? 4. ??Location: Left superior. ? Size: 0.5 x 0.4 x 0.7 cm, volume 0.06 mL. ? Previously: 0.9 x 0.4 x 0.8 cm, volume 0.14 mL. ? Nodule characteristics: ? Composition: Mixed cystic and solid (1). ? Echogenicity: Hypoechoic (2). ? Shape: Not taller than wide (0). ? Margins: Smooth (0). ? Echogenic Foci: None (0). ? ACR TI-RADS total points: 3 Previous: 3 ? ACR TI-RADS category: 3 Previous: 3 ? Significant change in size (>/= 20% in 2 dimensions and minimal ?? increase of 2 mm or 50% or greater increase in volume): No ? Change in features: No ? Change in ACR TI-RADS risk category: No ? 5. ??Location: Left mid. ? Size: 0.6 x 0.4 x 0.6 cm, volume 0.08 mL. ? Previously: 0.6 x 0.4 x 0.5 cm, volume 0.07 mL. ? Nodule characteristics: ? Composition: Spongiform (0). ? Echogenicity: Anechoic (0). ? Shape: Not taller than wide (0). ? Margins: Smooth (0). ? Echogenic Foci: None (0). ? ACR TI-RADS total points: 0 Previous: 0 ? ACR TI-RADS category: 1 Previous: 1 ? Significant change in size (>/= 20% in 2 dimensions and minimal ?? increase of 2 mm or 50% or greater increase in volume): No ? Change in features: No ? Change in ACR TI-RADS risk category: No ? NODES: No lymphadenopathy is seen in the tissue surrounding the thyroid ?? gland. ? US/US thyroid ?? IMPRESSION: ?? Multinodular goiter. TR 3, 3.2 cm right superior mid nodule which has ?? increased in size and meets criteria for biopsy. ? ACR TI-RADS RECOMMENDATION REFERENCE: ?? Ultrasound-guided fine-needle aspiration, follow up ultrasound, no ?? further followup. ? * TR1 (0 point) and TR2 (2 points): No FNA or followup ? * TR3 (3 points): FNA if more than or equal to 2.5 cm in maximum ?? dimension, follow up ultrasound in 1, 3 and 5 years if 1.5 to 2.4 cm in ?? maximum dimension. ? * TR4 (4-6 points): FNA if more than or equal to 1.5 cm in maximum ?? dimension, follow up ultrasound in 1, 2, 3 and 5 years if 1 to 1.4 cm ?? in maximum dimension. ? * TR5 (more than or equal to 7 points): FNA if more than or equal to 1 ?? cm in maximum dimension, follow up ultrasound every year for 5 years if ?? 0.5 to 0.9 cm in maximum dimension. ? * TR3, TR4 or TR5 nodules that are below the size threshold for follow ?? up receive no followup. ? Electronically signed by: ??Ritesh Liang MD ??07/19/2024 08:36 AM EDT ? Dictated By: ?Ritesh Liang MD ? Signed By: ?<Electronically signed by Ritesh Liang MD in OV> ? 07/19/24 0836 ? DD/ 0938 ? TD/TT: 06/17/24 0948 ? Sales Record Clerk: SS ? Procedure Note Bruce Shaikh - 07/19/[address] [address] Ultrasound Report Signed Patient: Ashley Magdaleno EMR#: [id number] : 1975Acct:[id number] Age/Sex: 48 / FADM Date: 06/17/24 Loc: HO.US Attending Dr: Leilani Gale MD Ordering Physician: Leilani Gale Date of Service: 06/17/24 Procedure(s): US thyroid Accession Number(s): [id number] cc: Leilani Gale EXAMINATION: US THYROID CLINICAL INFORMATION: History thyroid [...] than or equal to 1 cm: 1. [employer] Former nodules are described as follows: 1. Location: [...] in size and meets criteria for biopsy. ACR TI-RADS RECOMMENDATION REFERENCE: Ultrasound-guided fine-needle aspiration, follow up ultrasound, no further followup. * TR1 (0 point) and TR2 (2 points): No FNA or followup * TR3 (3 points): FNA if more than or equal to 2.5 cm in maximum dimension, follow up ultrasound in 1, 3 and 5 years if 1.5 to 2.4 cm in maximum dimension. * TR4 (4-6 points): FNA if more than or equal to 1.5 cm in maximum dimension, follow up ultrasound in 1, 2, 3 and 5 years if 1 to 1.4 cm in maximum dimension. * TR5 (more than or equal to 7 points): FNA if more than or equal to 1 cm in maximum dimension, follow up ultrasound every year for 5 years if 0.5 to 0.9 cm in maximum dimension. * TR3, TR4 or TR5 nodules that are below the size threshold for follow up receive no followup. Electronically signed by: Ritesh Liang MD 07/19/2024 08:36 AM EDT Dictated By: Ritesh Liang MD Signed By: <Electronically signed by Ritesh Liang MD in OV> 07/19/24 0836 DD/ 0938 TD/TT: 06/17/24 0948 Sales Record Clerk: SS us Leilani Gale MD IMG US PROCEDURES Final Result documented in this encounter Visit Diagnoses Diagnosis Thyroid nodule greater than or equal to 1.5 cm in diameter incidentally noted on imaging study- Primary Redundant colon Other congenital anomalies of intestine Colon cancer screening Special screening for malignant neoplasms, colon documented in this encounter Care Teams Costume Rental Clerk Relationship Specialty Start Date End Date Leilani Gale MD [address] [place] [address] PCP - General Family Medicine 11/02/21 documented as of this encounter
--- OUTSIDE RECORDS SUMMARY | 2024-11-01 12:42 | XMS_ITS | Encounter Summary ---
Author Organization [facility] Address [address] [place] [address] Care Team Providers Care Can Patcher Name Role Phone Bette Garay DO Primary Care Pro vider Unavailable Community, Pcp Primary Care Provider Harish Winters MD, PHD Unavailable Unava ilable Reason for Visit * Reason Onset Date Comments DME Request 05/11/2020 nebulizer supply cup that medication goes into Encounter Details Date Type Department Care Team Description 05/11/2020 Pt. Non Urgent Medical Question Medicine/Pediatrics - [address] [phone] Shefali Dowling NP Mild intermittent asthma with acute exacerbation (Primary Dx) Social History Tobacco Use Types Packs/Day Years Used Date Smoking Tobacco: Never Smokeless Tobacco: Never Alcohol Use Standard Drinks/Week Comments Yes 0 (1 standard drink = 0.6 oz pur e alcohol) occasionally Sex Assigned at Date Recorded Not on file Job Start Date Occupation Industry Not on file Not on file Not on file documented as of this encounter Progress Notes * Shefali Dowling NP - 05/11/2020 4:33 PM EDT Nebulizer and supplies ordered - 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 documented in this encounter Miscellaneous Notes * Telephone Encounter - Cinthya Woods M.A. - 05/11/2020 1:08 PM EDTFrom: Ashley Magdaleno To: Shefali Dowling NP Sent: 05/11/2020 1:07 PM EDT Subject: Request for Nebulizer wilson Elida, When I got home from my appointment I found my dogs ate the part of my nebulizer the medication goes in to. Would you be able to write an Rx for me to get this part replaced please? Thank you, Ashley documented in this encounter Plan of Treatment Not on file documented as of this encounter Procedures Procedure Name Priority Date/Time Associated Diagnosis Comments NEBULIZER SUPPLIES Routine 05/11/2020 4:33 PM EDT Mild intermittent asthma with acute exacerbation NEBULIZER Routine 05/11/2020 4:33 PM EDT Mild intermittent asthma with acute exacerbation documented in this encounter Visit Diagnoses Diagnosis Mild intermittent asthma with acute exacerbation- Primary Unspecified asthma, with exacerbation documented in this encounter Care Teams Can Patcher Relationship Specialty Start Date End Date Bette Garay DO PCP - General Internal Medicine 02/27/14 06/06/21 [facility], Pcp PCP - General Internal Medicine 11/09/21 Harish Palomo MD, PHD Specialist Neurosurgery 11/09/21 documented as of this encounter
--- OUTSIDE RECORDS SUMMARY | 2024-11-01 12:42 | XMS_ITS | Encounter Summary ---
Author Organization [facility] Address [address] [place] [address] Care Team Providers Care Fumigator And Sterilizer Name Role Phone Bette Garay DO Primary Care Pro vider Unavailable Community, Pcp Primary Care Provider Harish Winters MD, PHD Unavailable Unava ilable Encounter Details Date Type Department Care Team Description 12/24/2020 Pt. Non Urgent Medic al Question Adult Medicine [address] [address] Bette Garay DO Social History Tobacco Use [...] on filedocumented in this encounter Care Teams Fumigator And Sterilizer Relationship Specialty Start Date End Date Bette Garay DO PCP - General Internal Medicine 02/27/14 06/06/21 [facility], Pcp PCP - General Internal Medicine 11/09/21 Harish Palomo MD, PHD Specialist Neurosurgery 11/09/21 documented as of this encounter
--- OUTSIDE RECORDS SUMMARY | 2024-11-01 12:42 | XMS_ITS | Encounter Summary ---
Author Organization [facility] Address [address] [place] [address] Care Team Providers Care Certified Real Estate Appraiser Name Role Phone Bette Garay DO Primary Care Pro vider Unavailable Community, Pcp Primary Care Provider Harish Winters MD, PHD Unavailable Unava ilable Reason for Visit * Reason Comments E-prescribe Rx Request Encounter Details Date Type Department Care Team Description 07/28/2020 Refill Adult Medicine [address] [address] Bette Garay DO E-prescribe Rx Request Social [...] or suspected to have Coronavirus / COVID-19? Unable to assess 06/29/2020 11:13 AM EDT documented as of this encounter Miscellaneous Notes * Telephone Encounter - Mary Martinez M.A. - 07/28/2020 11:22 AM EST Lab Results Component Value Date CHOL 141 09/16/2019 LDL 74 09/16/2019 HDL 51 09/16/2019 TRIG 80 09/16/2019 SGOT 14 09/16/2019 SGPT 22 09/16/2019 * Telephone Encounter - Amber Yoel - 07/28/2020 8:04 AM EST Patient would like script to be: E-PRESCRIBED/FAXED TO PHARMACY WHEN WAS THE PATIENT'S LAST APPOINTMENT IN ADULT MEDICINE? 06/29/2020 WHEN WAS THE LAST TIME THE PATIENT SAW THEIR PCP? 11/15/2019 Does patient have an upcoming appointment? No-no answer, no voicemail documented x2 (Please verify telephone contact #'s at next phone call) (THE MEDICATION REQUESTED IS ON THE MED [...] N/A Patients current insurance carrier is: Payor: [employer] / Plan: [employer] $[address] [place] [id number] / Product Type: HMO [id number] documented in this encounter Plan of Treatment Not on file documented as of this encounter Visit Diagnoses Not on filedocumented in this encounter Care Teams Certified Real Estate Appraiser Relationship Specialty Start Date End Date Bette Garay DO PCP - General Internal Medicine 02/27/14 06/06/21 [facility], Pcp PCP - General Internal Medicine 11/09/21 Harish Palomo MD, PHD Specialist Neurosurgery 11/09/21 documented as of this encounter
--- OUTSIDE RECORDS SUMMARY | 2024-11-01 12:42 | XMS_ITS | Encounter Summary ---
Author Organization [facility] Address [address] [place] [address] Care Team Providers Care Personnel Associate Name Role Phone Adina Ramos Primary Care Provider Bette Astudillo DO Primary Care Pro vider Unavailable Community, Pcp Primary Care Provider Harish Winters MD, PHD Unavailable Unava ilable Reason for Visit * Reason Onset Date Comments TEST RESULTS 02/18/2014 Encounter Details Date Type Department Care Team Description 02/18/2014 Telephone Adult Medicine [address] [address] Bette Garay DO TEST RESULTS Social History Tobacco Use Types Packs/Day Years Used Date Smoking Tobacco: Never Alcohol Use Standard Drinks/Week Comments Not Asked 0 (1 standard drink = 0.6 oz pur e alcohol) Sex Assigned at Date Recorded Not on file Job Start Date Occupation Industry Not on file Not on file Not on file documented as of this encounter Miscellaneous Notes * Telephone Encounter - Miguelito Woods M.A. - 02/19/2014 12:53 PM EDT Pt made aware of results, please put order in for Vit B12 inj, pt advised to take vit D suppliment * Telephone Encounter - Miguelito Woods M.A. - 02/19/2014 11:38 AM EDT Message left advising pt I tried calling her back again re test resutls [phone] * Telephone Encounter - Jelly Gupta - 02/19/2014 8:47 AM EDT Patient returned call.. Please call on cell # [phone] * Telephone Encounter - Miguelito Woods M.A. - 02/18/2014 3:45 PM EDT Message left asking pt to call our office back re test resultrs [phone] * Telephone Encounter - Miguelito Woods M.A. - 02/18/2014 3:45 PM EDT Message copied by MIGUELITO WOODS M.A. on MonFebruary 18, 2014 3:45 PM ------ Message from: BETTE DOHERTY Created: MonFebruary 18, 2014 1:55 PM Please call patient regarding results thyroid function is good. But b12 and vitamin D is on the lwoside and may be contributing to fatigue will benefit from suppletments. Telephone Information: documented in this encounter Plan of Treatment Not on file documented as of this encounter Visit Diagnoses Not on filedocumented in this encounter Care Teams Personnel Associate Relationship Specialty Start Date End Date Adina Ramos PCP - General 05/31/11 02/26/14 Bette Garay DO PCP - General Internal Medicine 02/27/14 06/06/21 [facility], Pcp PCP - General Internal Medicine 11/09/21 Harish Palomo MD, PHD Specialist Neurosurgery 11/09/21 documented as of this encounter
--- OUTSIDE RECORDS SUMMARY | 2024-11-01 12:42 | XMS_ITS | Encounter Summary ---
Author Organization [facility] Address [address] [place] [address] Care Team Providers Care Superintendent Geophysical Laboratory Name Role Phone Bette Garay DO Primary Care Pro vider Unavailable Community, Pcp Primary Care Provider Harish Winters MD, PHD Unavailable Unava ilable Reason for Referral * EXTERNAL (Urgent) - Authorized/Booked Specialty Diagnoses / Procedures Referred By Peng booth Referred To Contact Neurology Diagnoses Migraine without aura and without status migrainosus, not intractable Procedures REFERRAL TO NEUROLOGY Louise Fairchild PA-C [address] [place] [address] [facility] [address], [address] [place] [address] Referral ID Status Reason Start Date Expiration Date V isits Requested Visits Authorized [id number] Authorized/B ooked 01/20/2021 04/22/2021 1 1 Encounter Details Date Type Department Care Team Description 01/19/2021 Pt. Non Urgent Medical Question Adult Medicine [address] [address] Louise Fairchild PA-C [address] [place] [id number] Migraine without aura and without status migrainosus, not intractable (Primary Dx) Social History Tobacco Use Types [...] or suspected to have Coronavirus / COVID-19? No / Unsure 01/22/2021 3:48 PM EDT documented as of this encounter Miscellaneous Notes * Telephone Encounter - Elenita Sullivan M.A. - 01/19/2021 1:48 PM EDTFrom: Ashley Magdaleno To: Edinson Fairchild Sent: 01/19/2021 1:42 PM EDT Subject: Neuro Referral Elida Espinosa was [place] [facility] [place] for continuing migraines with complex symptoms. Both the CT scan andcarotid ultrasound were negative. I was prescribed fioricet and advised to follow-up with neurology. Can you please advise who you would recommend I see for neurology and what the timeframe is to getin with them? Thank Ashley duncan documented in this encounter Plan of Treatment Not on file documented as of this encounter Visit Diagnoses Diagnosis Migraine without aura and without status migrainosus, not intractable- Primary Migraine without aura, without mention of intractable migraine without mention of status migrainosus documented in this encounter Care Teams Superintendent Geophysical Laboratory Relationship Specialty Start Date End Date Bette Garay DO PCP - General Internal Medicine 02/27/14 06/06/21 [facility], Pcp PCP - General Internal Medicine 11/09/21 Harish Palomo MD, PHD Specialist Neurosurgery 11/09/21 documented as of this encounter
--- OUTSIDE RECORDS SUMMARY | 2024-11-01 12:42 | XMS_ITS | Encounter Summary ---
Author Organization [employer] Address [address] [place] [address] 7t [place] [address] Care Team Providers Care Occup Therapist Name Role Phone Leilani Gale MD Primary Care Provider [phone] Reason for Referral * Consultation (Routine) - Canceled Specialty Diagnoses / Procedures Referred By Peng booth Referred To Contact Endocrinology Diagnoses Thyroid nodule greater than or equal to 1.5 cm in diameter incidentally noted on imaging study Leilani Gale MD [address] [place] [address] Phone: tel: fax: Referral ID Status Reason Start Date Expiration Date Visits Requested Visits Authorized [id number] Canceled Specialty Services Required 08/08/2024 08/08/2025 1 1 Encounter Details Date Type Department Care Team ([facility] st Contact Info) Description 08/08/2024 Orders Only [facility] MEDICINE [address] [place] [address] Leilani Gale MD [address] [place], [place] [phone] Thyroid nodule greater than or equal to 1.5 cm in diameter incidentally noted on imaging study (Primary Dx) Social History Tobacco Use Types [...] Scheduled Referrals Name Type Priority Associated Diagnoses Orde r Schedule Referral to Endocrinology Outpatient Referral Routine Thyroid nodule greater than or equal to 1.5 cm in diameter incidentally noted on imaging study Expected: 08/08/2024 (Approximate), Expires: 08/08/2025 documented as of this encounter Visit Diagnoses Diagnosis Thyroid nodule greater than or equal to 1.5 cm in diameter incidentally noted on imaging study- Primary documented in this encounter Care Teams Occup Therapist Relationship Specialty Start Date End Date Leilani Gale MD [address] [place] [address] PCP - General Family Medicine 11/02/21 documented as of this encounter
--- OUTSIDE RECORDS SUMMARY | 2024-11-01 12:42 | XMS_ITS | Encounter Summary ---
Author Organization [employer] Address [address] [place] [address] 7t [place] [address] Care Team Providers Care Capability Lead Name Role Phone Leilani Gale MD Primary Care Provider [phone] Reason for Referral * Consultation (Routine) - Authorized Specialty Diagnoses / Procedures Referred By Contac t Referred To Contact Endocrinology Diagnoses Thyroid nodule greater than or equal to 1.5 cm in diameter incidentally noted on imaging study Leilani Gale MD [address] [place] [address] Phone: tel: fax: [facility] [address] [place] [phone] Phone: tel: fax: Referral ID Status Reason Start Date Expiration Date Visits Requested Visits Authorized [id number] Authorized Specialty Services Required 10/08/2024 10/08/2025 1 1 Encounter Details Date Type Department Care Team (Late st Contact Info) Description 10/08/2024 Orders Only [facility] MEDICINE [address] [place] [address] Leilani Gale MD [address] [place], [place] [phone] Thyroid nodule greater than or equal to [...] diameter incidentally noted on imaging study Expected: 10/08/2024 (Approximate), Expires: 10/08/2025 documented as of this encounter Visit Diagnoses Diagnosis Thyroid nodule greater than or equal to 1.5 cm in diameter incidentally noted on imaging study- Primary documented in this encounter Care Teams Capability Lead Relationship Specialty Start Date End Date Leilani Gale MD [address] [place] [phone] PCP - General Family Medicine 11/02/21 documented as of this encounter
--- OUTSIDE RECORDS SUMMARY | 2024-11-01 12:42 | XMS_ITS ---
Author Organization [employer] 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 * Medical History:? Objective: * Vitals:? Assessment: Plan: * Treatment: * Images: Billing Information: * Visit Code:? * Procedure Codes:? * Electronic signature of LIAN HENSON MD on 11/01/2024 at 12:42 PM EST Sign off status: Pending * Provider:?LIAN HENSON MD Date:?2023 Generated for Printi ng/Faxing/eTransmitting on:?11/01/2024 12:42 PM EST
--- OUTSIDE RECORDS SUMMARY | 2024-11-01 12:42 | XMS_ITS | Encounter Summary ---
Author Organization [facility] Address [address] [place] [address] Care Team Providers Care Chief Resource Officer Name Role Phone Bette Garay DO Primary Care Pro vider Unavailable Community, Pcp Primary Care Provider Harish Winters MD, PHD Unavailable Unava ilable Reason for Visit * Reason Onset Date Comments medication problems 05/26/2017 Encounter Details Date Type Department Care Team Description 05/26/2017 Telephone Adult Medicine [address] [address] Bette Garay DO medication problems Social History Tobacco Use Types Packs/Day Years Used Date Smoking Tobacco: Never Alcohol Use Standard Drinks/Week Comments Not Asked 0 (1 standard drink = 0.6 oz pur e alcohol) Sex Assigned at Date Recorded Not on file Job Start Date Occupation Industry Not on file Not on file Not on file documented as of this encounter Miscellaneous Notes * Telephone Encounter - Balke Sheikh M.A. - 05/26/2017 3:43 PM EDT Please clarify directions, thank you. Current sig shown as May repeat dose once after 2 hours, if needed. * Telephone Encounter - Camila Rosario - 05/26/2017 3:32 PM EDT Who is calling? A pharmacist: [facility] [place] Pharmacist Name: n/a Pharmacy Phone # [phone] Name of the medication imitrex What is the specific problem or interaction? Please call and clarify directions /cannot be dispenseas written If the patient is having a problem with taking the med - how long has the problem been going on? N/A documented in this encounter Plan of Treatment Not on file documented as of this encounter Visit Diagnoses Not on filedocumented in this encounter Care Teams Chief Resource Officer Relationship Specialty Start Date End Date Bette Garay DO PCP - General Internal Medicine 02/27/14 06/06/21 [facility], Pcp PCP - General Internal Medicine 11/09/21 Harish Palomo MD, PHD Specialist Neurosurgery 11/09/21 documented as of this encounter
--- OUTSIDE RECORDS SUMMARY | 2024-11-01 12:42 | XMS_ITS | Encounter Summary ---
Author Organization [facility] Address [address] [place] [address] Care Team Providers Care Commercial Loan Underwriter Name Role Phone Bette Garay DO Primary Care Pro vider Unavailable Community, Pcp Primary Care Provider Harish Winters MD, PHD Unavailable Unava ilable Reason for Visit * Reason Comments E-prescribe Rx Request Encounter Details Date Type Department Care Team Description 07/23/2020 Refill Adult Medicine [address] [address] Bette Garay DO E-prescribe Rx Request Social [...] encounter Miscellaneous Notes * Telephone Encounter - Amy Pink - 07/23/2020 9:35 AM EDT Patient would like script to be: E-PRESCRIBED/FAXED TO PHARMACY WHEN WAS THE PATIENT'S LAST APPOINTMENT IN ADULT MEDICINE? 06/29/20 WHEN WAS THE LAST TIME THE PATIENT SAW THEIR PCP? 11/15/19 Does patient have an upcoming appointment? No-patient refused appointment, will call back to book appointment (THE MEDICATION REQUESTED IS ON THE MED [...] N/A Patients current insurance carrier is: Payor: [employer] [place] / Plan: [employer] $20 ARCHER 1 / Product Type: HMO [id number] documented in this encounter Plan of Treatment Not on file documented as of this encounter Visit Diagnoses Not on filedocumented in this encounter Care Teams Commercial Loan Underwriter Relationship Specialty Start Date End Date Bette Garay DO PCP - General Internal Medicine 02/27/14 06/06/21 [facility], Pcp PCP - General Internal Medicine 11/09/21 Harish Palomo MD, PHD Specialist Neurosurgery 11/09/21 documented as of this encounter
--- OUTSIDE RECORDS SUMMARY | 2024-11-01 12:42 | XMS_ITS | Encounter Summary ---
Author Organization [facility] Address [address] [place] [address] Care Team Providers Care Right Of Way Man Name Role Phone Bette Garay DO Primary Care Pro vider Unavailable Community, Pcp Primary Care Provider Harish Winters MD, PHD Unavailable Unava ilable Encounter Details Date Type Department Care Team Description 05/27/2017 Orders Only Adult Medicine [address] [address] Bette Garay DO Social History Tobacco Use [...] on filedocumented in this encounter Care Teams Right Of Way Man Relationship Specialty Start Date End Date Bette Garay DO PCP - General Internal Medicine 02/27/14 06/06/21 Community, Pcp PCP - General Internal Medicine 11/09/21 Harish Palomo MD, PHD Specialist Neurosurgery 11/09/21 documented as of this encounter
--- OUTSIDE RECORDS SUMMARY | 2024-11-01 12:42 | XMS_ITS | Clinical Summary ---
Author Organization [employer] Address [address] [place] [address] 7t [place] [address] Care Team Providers Care Street Cleaning Equipment Operator Name Role Phone Leilani Gale MD Primary Care Provider [phone] Allergies Active Allergy Reactions Criticality Noted Date Comments Hydromorphone Hcl 12/16/2021 Other reaction(s): breathing problems Wound Dressings 11/30/2022 Other reaction(s): swollen red rash Medications cholecalcifero l (Vitamin D-3) 50 MCG (1999) capsule daily. Active coenzyme Q-10 50 MG capsule daily. Active ipratropium-al buterol (Duo-Neb) 0.5-2.5 mg/3 mL nebulizer solution USE 1 VIAL VIA NEBULIZER 4 TIMES A DAY 2 Active predniSONE (Deltasone) 20 MG tablet Take 40 mg by mouth in the morning. 2 Active Turmeric 500 MG capsule Active zolpidem (Ambien) 10 MG tablet Take 10 mg by mouth if needed at bedtime. 3 Active citalopram (CeleXA) 20 MG tabletIndicati ons:Anxiety TAKE 1 TABLET BY MOUTH EVERY DAY 90 tablet 3 4 Active Fluticasone-Sa lmeterol 250-50 MCG/ACT aerosol powder INHALE 1 PUFF TWICE DAILY IN THE MORNING AND IN THE EVENING APPROXIMATELY 12 HOURS APART. RINSE MOUTH AFTER USING. 60 each 5 4 Active montelukast (Singulair) 10 MG tablet TAKE 1 TABLET BY MOUTH EVERY DAY IN THE EVENING 90 tablet 3 4 Active atorvastatin (Lipitor) 10 MG tablet Take 1 tablet (10 mg) by mouth Once per day. 90 tablet 3 4 Active cetirizine (ZyrTEC) 10 MG tablet Take 1 tablet (10 mg) by mouth Once per day. 90 tablet 3 4 Active cyclobenzaprin e (Flexeril) 5 MG tablet Take 1 tablet (5 mg) by mouth at bedtime. 30 tablet 3 4 Active SUMAtriptan (Imitrex) 50 MG tablet TAKE 1 TABLET BY MOUTH AT ONSET OF MIGRAINE. MAY REPEAT ONCE AFTER 2 HOURS IF NEEDED. NO MORE THAN 2 DOSES PER 24 HOURS 10 tablet 6 4 Active albuterol 108 (90 Base) MCG/ACT inhaler INHALE 2 PUFFS BY MOUTH EVERY 4 TO 6 HOURS NEEDED FOR COUGH / FOR ASTHMA 8.5 g 3 4 Active Active Problems Problem Noted Date Diagnosed Date Bilateral carpal tunnel syndrome 11/15/2023 Overview (11/15/2023): Ortho note 11/15/23; Pt to have surgical release Thyroid nodule greater than or equal to 1.5 cm in diameter incidentally noted on imaging study 05/31/2023 Anxiety 11/30/2022 Arthritis 11/30/2022 Disorder of breast 11/30/2022 Facet arthropathy, lumbosacral 11/30/2022 Lumbar radiculitis 11/30/2022 SI (sacroiliac) joint dysfunction 11/30/2022 Cervical pain (neck) 11/30/2022 Assessment & Plan (04/14/2023 8:33 AM EDT): Pt has undergone > 6 weeks of conservative therapy without improvement in symptoms I am concerned for cervical myelopathy with her progressive fine motor weakness Will re-order CT scan of neck Varicose veins of leg with pain, left 11/30/2022 Herniated lumbar intervertebral disc 11/05/2021 Assessment & Plan (04/14/2023 8:33 AM EDT): Continue supportive measures Consider trial of acupuncture Migraine headache 11/05/2021 History of COVID-19 01/11/2021 Overview (11/30/2022): Dx: 08/28/2020 Vitamin D deficiency 05/26/2017 High cholesterol 09/30/2016 Obesity (BMI 30-39.9) 11/15/2013 Panic attack 08/24/2012 Palpitations 10/30/2006 Asthma 09/25/1959 Overview (11/30/2022): Dr. 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 Encounters Date Type Department Care Team Description 10/11/2024 Orders Only GENERIC EXTERNAL DATA DEPARTMENT Provider, Generic External Data 10/08/2024 Orders Only [address] [address] Leilani Gale MD Thyroid nodule greater than or equal to 1.5 cm in diameter incidentally noted on imaging study (Primary Dx) 10/08/[address] [address] Leilani Gale MD 09/20/2024 Orders Only GENERIC EXTERNAL DATA DEPARTMENT Provider, Generic External Data 09/13/2024 Refill [facility] [address] [place] [address] Leilani Gale MD 08/08/2024 Orders Only [address] [address] Leilani Gale MD Thyroid nodule greater than or equal to 1.5 cm in diameter incidentally noted on imaging study (Primary Dx) from Last 3 Months Immunizations Name Administration Dates Next Due Influenza Injectable Quadriv alant Preservative Free IIV4 MDCK 07/20/2022,06/14/2022,06/15/2021,2019 Influenza injectable quadriv alent IIV4 with preservative 06/05/2019,06/06/2018 Influenza, IIV3, injectable 05/24/2012 Influenza, Unspecified 06/03/2020,05/26/2019 Moderna Covid-19 Vaccine 6+ Bivalent 01/16/2023 Pneumococcal Conjugate PCV 13 10/23/2015 Pneumococcal Conjugate PCV 20 08/22/2022 Tdap 01/28/2022,01/12/2012 Social History Tobacco Use Types Packs/Day Years Used Date Smoking Tobacco: Never Smokeless Tobacco: Never Tobacco Cessation:Counseling Given: Not Answered Alcohol Use Standard Drinks/Week Comments Yes 0 [...] t he electric, gas, oil or water [employer] threatened to shut off services in your home? No 07/11/2023 Depression Answer Date Recorded Patient Health Questionnaire-2 Score 0 11/28/2022 Comments Unknown Sex and Gender Information Value Date Recorded Sex Assigned at Female 07/25/2022 10:20 AM EDT Legal Sex Female 10:20 AM EDT Gender Identity Female 07/25/2022 10:20 AM EDT Sexual Orientation Straight 07/25/2022 10 :20 AM EDT Last Filed Vital Signs Vital Sign Reading Time Taken Comments Blood Pressure 126/80 04/12/2023 4:15 PM EDT Pulse 87 04/12/2023 4:15 PM EDT Temperature 36.8 ??C (98.3 ??F) 04/12/2023 4:15 PM ED T Respiratory Rate 20 11/28/2022 11:43 AM EST Oxygen Saturation 98% 04/12/2023 4:15 PM EDT Inhaled Oxygen Concentration - - Weight 103 kg (228 lb) 04/12/2023 4:15 PM EDT Height 165.1 cm (5' 5 ) 04/12/2023 4:15 PM EDT Body Mass Index 37.94 04/12/2023 4:15 PM EDT Plan of Treatment Health Maintenance Due Date Last Done Comments CT Colonography 1973 FIT DNA/Cologuard 1973 FIT 1973 FOBT 1973 HIV Screening 1973 Sigmoidoscopy 1973 Alcohol/Substance Use Screening 1985 Family Planning (PISQ) 1988 Hepatitis C Screening 1991 Hepatitis B Vaccines (1 of 3 - 19+ 3-dose series) 1992 Pap Smear 1994 Cervical Cancer Screening 2003 HPV/Cotest 2003 Mammogram 2013 Zoster Vaccines (1 of 2) 2023 Depression Screening 11/29/2023 11/28/2022, 11/29/19 23 SDOH Screening 11/29/2023 11/28/2022 Tobacco Screening 04/14/2024 04/14/2023 COVID-19 Vaccine ( season) 2024 01/16/2023, 01/11/2022, 11/04/2020, Additional history exists Influenza Vaccine (#1) 2024 , 06/14/2022, 06/15/2021, Additional history exists Lipid Panel 05/31/2028 05/31/2023 DTaP/Tdap/Td Vaccines (3 - Td or Tdap) 01/29/2032 01/28/2022, 01/12/2012 Colonoscopy 06/10/2032 06/10/2022, 06/10/2022 Colorectal Cancer Screening 06/10/2032 RSV Patients and Patients Aged 60 years or older (1 - 1-dose 75+ series) 2048 Pneumococcal Vaccine: 50+ Years Completed 08/22/2022, 10/23/2015 HIB Vaccines Aged Out No longer eligi ble based on patient's age to complete this topic HPV Vaccines Aged Out No longer eligi ble based on patient's age to complete this topic Hepatitis A Vaccines Aged Out No long er eligible based on patient's age to complete this topic IPV Vaccines Aged Out No longer eligi ble based on patient's age to complete this topic Meningococcal Vaccine Aged Out No lida jayda eligible based on patient's age to complete this topic RSV under 20 months Aged Out No longe r eligible based on patient's age to complete this topic Rotavirus Vaccines Aged Out No longer eligible based on patient's age to complete this topic Procedures Procedure Name Priority Date/Time Associated Diagnosis Comments C-REACTIVE PROTEIN Routine 10/11/2024 3: 26 PM EST COMPREHENSIVE METABOLIC PANEL Routine 10/11/2024 3:26 PM EST SED RATE BY MODIFIED WESTERGREN Routine 10/11/2024 3:26 PM EST CBC WITH AUTO DIFFERENTIAL Routine 10/11/2024 3:26 PM EST C-REACTIVE PROTEIN Routine 09/20/2024 2: 19 PM EST COMPREHENSIVE METABOLIC PANEL Routine 09/20/2024 2:19 PM EST SED RATE BY MODIFIED WESTERGREN Routine 09/20/2024 2:19 PM EST CBC WITH AUTO DIFFERENTIAL Routine 09/20/2024 2:19 PM EST LIPID PANEL, STANDARD Routine 05/31/2023 10:17 AM EDT High cholesterol HM COLONOSCOPY Routine 06/10/2022 from Last 3 Months or Most Recently Relevant to Health Maintenance Results * (ABNORMAL) CBC auto differential (10/11/2024 3:26 PM EST) Only the most recent of2 resultswithin the time period is included. White Blood Count 6.8 4.8 - 10.8 [...] LES Final Result [facility] [address] [place] [phone] * Sed Rate by Modified Juliannaren (10/11/2024 3:26 PM EST) Only the most recent of2 resultswithin the time period is included. Pathologist [facility] Erythrocyte Sedimentation Rate 5 0 - 20 MM/HR [facility] Comment:Patients with polycy themia and many hemoglobin abnormalitiesmay have depressed sed rates whereas patients with anemiamay have elevated sed rates. 10/11/2024 3:26 PM EST 10/11/2024 3:27 PM EST Generic External Data Provider LAB BLOOD ORDERAB LES Final Result Performing Organization Address [facility] Phone Number [facility] [address] [place] [phone] * C-reactive Protein (10/11/2024 3:26 PM EST) Only the most recent of2 resultswithin the time period is included. Pathologist [facility] C Reactive Protein 0.24 < or = 0.50 mg/dL [facility] 10/11/2024 3:26 PM EST 10/11/2024 3:27 PM EST Generic External Data Provider LAB BLOOD ORDERAB LES Final Result Performing Organization Address [facility] Phone Number [facility] [address] [place] [phone] * (ABNORMAL) Comprehensive Metabolic Panel (10/11/2024 3:26 PM EST) Only the most recent of2 resultswithin the time period is included. Pathologist [facility] Sodium 140 135 - 145 mmol/L [facility] [...] Kidney Disea se: Estimated GFR < 60 mL/min/1.01p3Pgibch Kidney Disease: Estimated GFR < 15 mL/min/1.73m2 [...] LES Final Result [facility] [address] [place] [address] [phone] * (ABNORMAL) Lipid Panel, Standard (05/31/2023 10:17 AM EDT) Triglycerides 153(H) <150 mg/dL [facility] Comment:Desirable Triglyceri de: less than 150 mg/dLBorderline High Triglyceride 150-199 mg/dLHigh Triglyceride: 200-499 mg/dLVery High Triglyceride: greater than or equal to 5OO mg/dL Cholesterol 168 <200 mg/dL [facility] Comment:Desirable Cholestero l: less than 200 mg/dLBorderline High Cholesterol: 200-239 mg/dLHigh Cholesterol: greater than 239 mg/dL LDL Cholesterol Calculated 85 <100 mg/dL [facility] Comment:Desirable LDL: less than 100 mg/dLNear Optimal/Above Optimal LDL: 110- 129 mg/dLBorderline High LDL: 130-159 mg/dLHigh LDL: 160-189 mg/dLVery High LDL: greater than or equal to 190 mg/dL HDL Cholesterol 53 >40 mg/dL [facility] Comment:Desirable HDL: great er than 40 mg/dL Note: This HDL assay may give artificially low results in patients with liver disease. Blood Venous blood specimen / Unknown 05/31/2023 10:17 AM EDT 05/31/2023 11:16 AM EDT us Leilani Gale MD LAB BLOOD ORDERABLES Final Res ult Performing Organization Address [facility] Co de Phone Number [facility] [address] [place] [phone] * Colonoscopy (06/10/2022) Colonoscopy Normal Normal [facility] Comment:see scanned report 06/10/2022 Leilani Gale MD HEALTH MAINTENANCE Final Resul t Performing Organization Address [facility] Co de Phone Number [facility] [address] [place] [phone] from Last 3 Months or Most Recently Relevant to Health Maintenance Insurance [facility] , [address] [place] [address] Cleaning Equipment Operator Relationship Specialty Start Date End Date Leilani Gale MD [address] [place] [phone] PCP - General Family Medicine 11/02/21
--- OUTSIDE RECORDS SUMMARY | 2024-11-01 12:43 | XMS_ITS | Encounter Summary ---
Author Organization [facility] Address [address] [place] [address] Care Team Providers Care Nitrate Operator Name Role Phone Community, Pcp Primary Care Provider Harish Winters MD, PHD Unavailable Unava ilable Encounter Details Date Type Department Care Team Description 11/10/2021 SCAN [facility] Neurosurgery [place] [address] [place] [address] Harish Palomo MD, PHD Social History Tobacco Use Types Packs/Day Years [...] have Coronavirus / COVID-19? No / Unsure 11/09/2021 9:36 AM EST documented as of this encounter Plan of Treatment Not on file documented as of this encounter Visit Diagnoses Not on filedocumented in this encounter Care Teams Nitrate Operator Relationship Specialty Start Date End Date Community, Pcp PCP - General Internal Medicine 11/09/21 Harish Palomo MD, PHD Specialist Neurosurgery 11/09/21 documented as of this encounter
--- OUTSIDE RECORDS SUMMARY | 2024-11-01 12:43 | XMS_ITS | Encounter Summary ---
Author Organization [facility] Address [address] [place] [address] Care Team Providers Care Head Start Assistant Teacher Name Role Phone Bette Garay DO Primary Care Pro vider Unavailable Community, Pcp Primary Care Provider Harish Winters MD, PHD Unavailable Unava ilable Encounter Details Date Type Department Care Team Description 09/21/2018 Cost Control Supervisor Report Medical Records [address] [place] [phone] Jarrell Aldrich Social History Tobacco Use Types [...] on filedocumented in this encounter Care Teams Head Start Assistant Teacher Relationship Specialty Start Date End Date Bette Garay DO PCP - General Internal Medicine 02/27/14 06/06/21 [facility], Pcp PCP - General Internal Medicine 11/09/21 Harish Palomo MD, PHD Specialist Neurosurgery 11/09/21 documented as of this encounter
--- OUTSIDE RECORDS SUMMARY | 2024-11-01 12:43 | XMS_ITS | Encounter Summary ---
Author Organization [facility] Address [address] [place] [address] Care Team Providers Care Cut Off Saw Grader Name Role Phone Bette Garay DO Primary Care Pro vider Unavailable Community, Pcp Primary Care Provider Harish Winters MD, PHD Unavailable Unava ilable Encounter Details Date Type Department Care Team Description 06/12/2018 Orders Only Adult Medicine [address] [id number] Bette Garay DO Dyslipidemia (Primary Dx); Vitamin D deficiency; Fatigue, unspecified type Social History Tobacco Use Types Packs/Day Years [...] on file documented as of this encounter Results * TRANSAMINASE (SGPT)(ALT) UV- (06/23/2018 10:14 AM EDT) ALT( SGPT) 19 10 - 60 U/L 06/23/2018 12:36 PM EDT [facility] 06/23/2018 10:1 4 AM EDT 06/23/2018 10:15 AM EDT Bette Raines DO LAB [address] * TRANSAMINASE (SGOT)(AST) UV- (06/23/2018 10:14 AM EDT) AST (SGOT) 15 10 - 42 U/L 06/23/2018 12:36 PM EDT [facility] 06/23/2018 10:1 4 AM EDT 06/23/2018 10:15 AM EDT Bette [employer] Colasacco DO LAB Performing Organization Address City/[facility] Co de Phone Number [address] * (ABNORMAL) LIPID PROFILE (06/23/2018 10:14 AM EDT) Cholesterol 172 0 - 200 mg/dL 06/23/2018 12:36 PM EDT [facility] TRIGLYCERIDES 97 0 - 150 mg/dL 06/23/2018 12:36 PM EDT [facility] HDL CHOLESTEROL 49 >40 mg/dL 8 12:36 PM EDT [facility] LDL CALCULATED 104(H) 0 - 100 mg/dL 06/23/2018 12:36 PM EDT [facility] TC-HDLC RATIO 4 0.0 - 4.4 mg/dL 06/23/2018 12:36 PM EDT [facility] 06/23/2018 10:1 4 AM EDT 06/23/2018 10:15 AM EDT Bette [employer] Colasacco DO LAB Performing Organization Address City/[facility] Co de Phone Number [address] * (ABNORMAL) 25 HYDROXY INCLUDES FRACTIONS IF PERFORMED (06/23/2018 10:14 AM EDT) 25-HYDROXY VITAMIN D TOTAL 29(L) 30 - 80 ng/ml 06/25/2018 11:12 AM EDT [facility] Comment: Vitamin D Reference Ranges ??Deficiency: ? <20 ng/mL ??Insufficiency: ?20-29 ng/mL ??Optimal: ?30-80 ng/mL ??High: ? >80 ng/mL 06/23/2018 10:1 4 AM EDT 06/23/2018 10:15 AM EDT Bette Akhtar Colasacco DO LAB Performing Organization Address City/[facility]/ZIP Co de Phone Number [address] * VITAMIN B-12, ASSAY (06/23/2018 10:14 AM EDT) Pathologist [facility] [place] VITAMIN B12 419 211 - 946 pg/mL 06/23/2018 12:36 PM EDT [facility] 06/23/2018 10:1 4 AM EDT 06/23/2018 10:15 AM EDT Bette Raines DO LAB Performing Organization Address City/[facility] Co de Phone Number [address] * CBC (AUTO DIFF PLATELET) (06/23/2018 10:14 AM EDT) Pathologist [facility] [place] WBC 6.4 4.8 - 10.8 x10-3 06/23/2018 10:24 AM EDT [facility] RBC 4.8 3.8 - 4.8 x10-6 06/23/2018 10:24 AM EDT [facility] HGB 14.2 11.5 - 16.0 g/dl 06/23/2018 10:24 AM EDT [facility] HCT 42.8 35 - 47 % 06/23/2018 10:24 AM EDT [facility] MCV 89.9 79 - 98 fl 06/23/2018 10:24 AM EDT [facility] MCH 29.8 27 - 32 pg 06/23/2018 10:24 AM EDT [facility] MCHC 33.2 32 - 37 g/dl 06/23/2018 10:24 AM EDT [facility] RDW 11.9 11 - 15 % 06/23/2018 10:24 AM EDT [facility] PLT COUNT 324 130 - 400 x10-3 06/23/2018 10:24 AM EDT [facility] MEAN PLATELET VOLUME 9.3 7 - 11 fl 06/23/2018 10:24 AM EDT [facility] NEUT % 56.6 41 - 85 % 06/23/2018 10:24 AM EDT [facility] LYMPH % 31.8 15 - 48 % 06/23/2018 10:24 AM EDT [facility] MONO % 6.4 0 - 12 % 06/23/2018 10:24 AM EDT [facility] EOS % 3.9 0 - 5 % 06/23/2018 10:24 AM EDT [facility] BASO % 1.3 0 - 2 % 06/23/2018 10:24 AM EDT [facility] 06/23/2018 10:1 4 AM EDT 06/23/2018 10:15 AM EDT Bette Raines DO LAB Performing Organization Address City/State/[facility] Co de Phone Number [facility] [address] [facility] documented in this encounter Visit Diagnoses Diagnosis Dyslipidemia- Primary Other and unspecified hyperlipidemia Vitamin D deficiency Unspecified vitamin D deficiency Fatigue, unspecified type documented in this encounter Care Teams Cut Off Saw Grader Relationship Specialty Start Date End Date Bette Garay DO PCP - General Internal Medicine 02/27/14 06/06/21 [facility], Pcp PCP - General Internal Medicine 11/09/21 Harish Palomo MD, PHD Specialist Neurosurgery 11/09/21 documented as of this encounter
== END 2024-11-01 12:26 | disposition home or self-care (01) ==
PROVIDERS: PCP General Practice; Visit Provider Student in an Organized Health Care Education/Training Program
DX: M45.A Non-radiographic axial spondyloarthritis (principal); Z79.620 Long term (current) use of immunosuppressive biologic
CPT/HCPCS: 99212

== ENCOUNTER → 2024-11-01 11:39 | Outpatient (BNVA) | payer OTHER, SELFPAY | PROVIDERS: PCP General Practice; Visit Provider Student in an Organized Health Care Education/Training Program ==

== ENCOUNTER 2025-01-15 10:39 | Outpatient (AMB) | payer OTHER, SELFPAY ==
--- NOTE | 2025-01-15 10:40 | MHC.OFFVIS ---
Vital Signs 01/15/25 10:44 Height 5 ft 5 in Weight 237 lb 3.478 oz BMI 39.5 BP 115/70 Blood Pressure Location Lt brachial Position Sitting Pulse 82 Pulse Source Pulse Oximeter Pulse Oximetry (%) 97 Oxygen Delivery Method Room Air Intake Visit Reasons: Intake Note: Patient presents for . Allergies cortisone Allergy (Intermediate, Verified 01/15/25 10:44) Swelling hydromorphone [From DILAUDID] Allergy (Unknown, Verified 01/15/25 10:44) SHORTNESS OF BREATH Medication List - Last Reconciled 01/15/25 by Cecilia Lamas MD albuterol sulfate 90 mcg/actuation 0 mcg inhalation atorvastatin 10 mg PO DAILY cetirizine 10 mg PO DAILY cholecalciferol (vitamin D3) 10 mcg PO DAILY citalopram 20 mg PO DAILY cyclobenzaprine 5 mg PO TID PRN fluticasone propion-salmeterol 250-50 mcg/dose (Wixela Inhub) 1 ea inhalation BID ipratropium-albuterol 0.5 mg-3 mg(2.5 mg base)/3 mL mL inhalation QID montelukast 10 mg PO QPM naproxen 500 mg PO BID PRN nebulizers As directed oxycodone 10 mg PO QID sumatriptan succinate 50 mg PO DIRECTED PRN upadacitinib ER (Rinvoq) 15 mg PO DAILY 90 days zolpidem (Ambien) 10 mg PO BEDTIME PRN 30 days HPI Comments Details: Patient is a 49-year-old female with hyperlipidemia and allergies who presents for follow up of non radiographic ankylosing spondylitis Interval History: Patient last seen with me 11/01/2024. At that time she was transitioned to Rinvoq due to secondary failure of Humira biosimilar Today, She continues to have SI joint pain and intermittent flares affecting different sites Thinks that the Rinvoq is working but still has flare Had flares on the Humira as well so she feels that they are both doing the same Is very frustrated with her pain and disease Rheumatologic History: Patient diagnosed with non radiographic ankylosing spondylitis 03/2024 Initial history: This is a 48-year-old female who presents for evaluation of sacroiliitis. Patient stated that she has had back pain symptoms for about 10 years. The pain is in different parts of her spine but generally more severe in the lower left back, the SI joint area and the left buttock area. Generally worse in the morning associated with morning stiffness that lasts 1-2 hours. Improved with sitting on heat, moving around. Patient was referred to do physical therapy multiple times with little improvement. 3-4 years ago her symptoms were worse. She would have flare-ups that were few and far in between however for the last 3-4 years she would have a flare-up that occurs every other week and lasts 3-4 days. Her PCP ordered multiple labs which showed positive HLA B27. She was referred to [facility]. She was evaluated and no evidence of an autoimmune rheumatic disease was found. She was then referred to Dr. Otoole. She ibuprofen 600 mg 3 times a day for at least 2 months without improvement. She also took multiple prednisone courses without improvement. She had multiple steroid injections in the left SI joint area as well as other injections without much improvement, she also had radiofrequency ablation procedure. These procedures would help some of her back pain but they do not affect the main painful area in the left lower back, in the SI area. She also gets intermittent joint pain swelling and stiffness of her hands, wrists, fingers were swollen and she had to cut off her wedding ring. She denies any skin rashes. She denies any history suggestive of uveitis or colitis. She states that her daughter was diagnosed with non radiographic axial spa with uveitis and is on Humira. Her other daughter has Matt's thyroiditis. Patient denies any history of DVT/PE. Current Rheumatology Medication(s): Rinvoq 15mg daily [facility] Medical History (Updated 10/14/24 @ 15:41 by Cecilia Lamas MD) Long-term current use of immunosuppressive biologic agent RUTH (obstructive sleep apnea) Pneumonia Asthma History of abnormal uterine bleeding Hx of fracture of ankle Migraines Anxiety High cholesterol Asthma Surgical History Hx of colonoscopy Hx of left breast biopsy Hx of section Family History Mother Pre-diabetes Father Prostate CA Daughter Non-radiographic axial spondyloarthritis Daughter Matt thyroiditis Social History Household Members: Spouse Alcohol intake: current Alcohol intake frequency: holidays/special occasions only Alcohol type: wine Patient Tobacco Use Status: Never used Tobacco 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, 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 Review of Systems Const Details: Review of Systems Constitutional: Denies fever, chills, weight loss ENT: Denies vision changes, eye pain or eye redness, dental caries, dry mouth GI: Denies nausea, vomiting, diarrhea, abdominal pain, change in BM Pulm: Denies SOB, PAUL, hemoptysis, wheezing Cards: Denies chest pain, palpitations Skin: Denies Raynaud's, rash, nail changes, photosensitivity, RAIL CAR REPAIRER: Denies headaches, weakness, paresthesias, recurrent falls MSK: as per HPI All other systems reviewed and are unremarkable except noted above Physical Exam Vital Signs: Last Vital Signs Pulse 82 01/15/25 10:44 BP 115/70 01/15/25 10:44 Pulse Ox 97 01/15/25 10:44 Oxygen Delivery Method Room Air 01/15/25 10:44 BMI result Body Mass Index 39.5 Vital signs reviewed Physical Examination CONSTITUITIONAL Patient alert and cooperative. Well appearing and in no apparent painful distress HEENT Conjunctiva and sclera clear. ?Pupils equal round and reactive to light. ?No lymphadenopathy. ? CHEST/RESPIRATORY SYSTEM Normal respiratory effort and able to speak in complete sentences. ?Clear to auscultation bilaterally. ?No crackles, rales, rhonchi, wheezes heard. CARDIAC SYSTEM Regular rate and rhythm. ?S1 and S2 heard no murmurs. ?Radial pulses intact bilaterally MSK Hands: TTP of the 2nd and 3rd MCPs on the right and the 2nf MCP on the left Wrists: ?Full range of motion at the wrists without pain. ?TTP of bilateral wrists Elbows: Full range of motion without pain. No tenderness, weakness, swelling, increased warmth or erythema. Shoulders: Full range of motion. Mild pain at the extreme of range. No tenderness, weakness, swelling, increased warmth or erythema. Knees: ?Full range of motion. ?No tenderness, swelling, increased warmth or erythema.?No effusion or crepitations Ankles: Full range of motion. ?No tenderness, swelling, increased warmth or erythema.? Feet: ?Negative squeeze test. ?No tenderness to palpation or swelling of the MTPs. Tender points:?No tenderness to palpation of the bilateral trapezius, supraspinatus, greater trochanters, anterior costochondral junctions, bilateral gluteal areas, bilateral suboccipital muscle insertions SKIN Skin intact without rashes. 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 Given her moderate to severe disease activity with recurrent flares this warrants change in her medication. She had okay response on TNF and we will try another TNF medication: Simponi Plan - Stop Rinvoq - Simponi SC 50mg every 4 weeks - Labs today: CBC, CMP, ESR, CRP, hepatitis panel, T spot - RTC 4 months - Labs before visit: CBC, CMP, ESR, CRP (2) Encounter for monitoring golimumab therapy: Code(s): Z51.81 - Encounter for therapeutic drug level monitoring; Z79.620 - rodent exterminator (current) use of immunosuppressive biologic Plan: #Long-term Use of TNF Inhibitors: Golimumab Discussed with the patient the benefits and risks of TNF inhibitors for the management of the rheumatic condition Benefits include reduce pain, maintenance of remission and reduction of flares as well as ?progression of the disease Risks include injection sites/infusion reactions, serious infections (such as bacterial infections, opportunistic infections), malignancy, delaminating syndromes, autoimmune phenomena, CHF exacerbations, palmar plantar psoriasis and cytopenias Recommended rotating injection sites, and holding medication during and for up to 1 week after resolution of a febrile illness or open skin wound Plan I spent 35 minutes reviewing the record and labs, taking a history, examining the patient, discussing the treatment plan and documenting in the medical record Orders: Orders Complete Blood Count Auto Diff 4 Months M45.A8 - 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
[2025-01-15 10:44] VITALS: BP 115/70; PULSE 82; O2SAT 97; BMI 39.5
--- OUTSIDE RECORDS SUMMARY | 2025-01-15 12:37 | XMS_ITS | Encounter Summary ---
Author Organization [facility] Address [address] [place] [address] Care Team Providers Care Fabric Worker Leader Name Role Phone Community, Pcp Primary Care Provider Harish Winters MD, PHD Unavailable Unava ilable Encounter Details Date Type Department Care Team Description 08/09/2021 Tub Wash Operator Report Medical Records [address] [place] [id number] Ron Otoole DO Social History Tobacco Use [...] on filedocumented in this encounter Care Teams Fabric Worker Leader Relationship Specialty Start Date End Date Community, Pcp PCP - General Internal Medicine 11/09/21 Harish Palomo MD, PHD Specialist Neurosurgery 11/09/21 documented as of this encounter
--- OUTSIDE RECORDS SUMMARY | 2025-01-15 12:37 | XMS_ITS | Patient Health Record ---
Author Organization [facility] Address [address] [place] [address] Care Team Providers Care Vegetable Grower Name Role Phone ERIKA TAVAREZ MD Primary Care Provider Unavail able LIAN HENSON Unavailable [phone] Allergies Allergen (clinical drug ingredient) Drug/Non Drug Allergy documented on EMR Reaction Allergy Type Onset Date Status hydromorphone Dilaudid breathing problems Drug Allergy Active Results Component Value Reference Range Notes [id number] IGP No Culture 30 Plus Reviewed date:12/26/2024 04:19:08 PM Interpretation: Performing Lab:[facility] [place], [address], [address], [place], Phone - [phone], Director - [facility] Notes/Report: Clinical Information:VAG/CERV [id number] LMP / Prev Treat...[id number] Dates / Results....11/14/2019 No. of containers..01 ThinPrep Vial DIAGNOSIS: NEGATIVE FOR IN TRAEPITHELIAL LESION OR MALIGNANCY. Specimen adequacy: Satisfactory for evaluation. Endocervical and/or squamous metaplastic cells (endocervical component) are present. Clinician provided ICD10: Z0 1.419 Performed by: Sushil Ramirez , Security Intern (ASCP) . . Note: The Pap smear is a screening test designed to aid in the detection of premalignant and malignant conditions of the uterine cervix. It is not a diagnostic procedure and should not be used as the sole means of detecting cervical cancer. Both false-positive and false-negative reports do occur. . Test Methodology: This liquid based ThinPrep(R) pap test was screened with the use of an image guided system. HPV Aptima Negative Negative This nucleic acid amplification test detects fourteen high-risk HPV types (16,18,31,33,35,39,45,51,52,56,58 ,59,66,68) without differentiation. HPV Genotype Reflex Criteria not met, HPV Genotype not performed. PDF Report Reviewed date:12/26/2024 04:19:27 PM Interpretation: Performing Lab:[facility] [place], [address], [address], [place], Phone - [phone], Director - [facility] Notes/Report: Clinical Information:VAG/CERV [id number] LMP / Prev Treat...[id number]=[id number] Dates / Results....11/14/2019 No. of containers..01 ThinPrep Vial Test, Urine Reviewed date:01/10/2025 11:31:35 AM Interpretation: Performing Lab: Notes/Report: Test, Urine NEG Reason For Referral No Information Medications Medication SIG (Take, Route, Frequency, Duration) Notes Start Date End Date Status Rinvoq Active Vitamin D3 50 MCG (2000 UT) 1 capsule Orally Once a day for 30 day(s) Active Advair Diskus 250-50 1 Inhalation TWICE DAILY for -3 02/16/2012 Active ProAir HFA 90MCG 2 Inhalation four times daily for -02/16/2012 Active Cetirizine HCl 10 MG TAKE 1 TABLET BY MOUTH EVERY DAY NEEDED Oral for 30 Active SUMAtriptan Succinate 50 MG Oral for 5 Active Ambien 5 MG 1 tablet at bedtime as needed Orally Once a day Active Cyclobenzaprine HCl 5 MG Oral for 20 Active oxyCODONE HCl 10 MG 1 tablet as needed Orally every 6 hrs Active miSOPROStol 200 MCG as directed Orally 8-12 hrs prior to appointment for 1 days 12/23/2024 Active Singulair 5 MG 1 ORAL daily for -02/16/2012 Active Citalopram Hydrobromide 40 MG Orally BEING TAPERED OFF Active Atorvastatin Calcium 10 MG 1 tablet Orally Once a day Active Social History Tobacco Use: Social History Observation Description Date Details (start date - stop date) Never Smoker NA - NA Tobacco Use/Smoking Question Answer Notes Are you a nonsmoker Sexual History Question Answer Notes Had sex in the past 12 months (vaginal, oral, or anal)? Yes with Men only AUDIT-C (Standard) Question Answer Notes Did you have a drink contain ing alcohol in the past year? Yes How often did you have a dri nk containing alcohol in the past year? 2 to 4 times a month (2 points) How many drinks did you have on a typical day when you were drinking in the past year? 1 or 2 drinks (0 point) How often did you have six o r more drinks on one occasion in the past year? Never (0 point) Points 2 Interpretation Negative Section Notes: Marital status: Children: 3 Children [...] Status Risk Notes Problem Diverticulitis of colon (479376594) Diverticulitis of intestine, part unspecified, without perforation or abscess without bleeding (K57.92) Active confirmed Problem Disorder of breast (77572961) Disorder of breast, unspecified (N64.9) Active confirmed Problem Abnormal uterine bleeding (66586734060519) Abnormal uterine and vaginal bleeding, unspecified (N93.9) Active confirmed Problem Asthma (disorder) (709394146) Asthma, unspecified, unspecified status (493.90) Active confirmed Major Vital Signs Temperature 97.7 degrees Fahrenheit 12/23/2024 Blood pressure diastolic 78 mm Hg 12/23/2024 Height 65 in 12/23/2024 Blood pressure systolic 124 mm Hg 12/23/2024 Weight 233 lbs 12/23/2024 BMI 38.77 kg/m2 12/23/2024 Encounters Encounter Location Date Provider Diagnosis [facility] [facility] [employer] [address] [address] 12/23/2024 LIAN HENSON Encounter for gynecological examination (general) (routine) without abnormal findings Z01.419 ; Encounter for screening mammogram for malignant neoplasm of breast Z12.31 and Abnormal uterine and vaginal bleeding, unspecified N93.9 [facility] [employer] [address] [address] 01/10/2025 LIAN HENSON Abnormal uterine and vaginal bleeding, unspecified N93.9 Assessments Encounter Date Diagnosis (ICD Code) Assessment Notes Treatment Notes Treatment Clinical Notes Section Notes 12/23/2024 Encounter for gynecological examination (general) (routine) without abnormal findings (ICD-10 - Z01.419) During the visit, the following areas of concern were addressed: Discussed cervical cancer screening with either cytology alone every 3 years or high risk HPV co-testing every 5 years as per ASCCP guidelines. Advised continued annual pelvic exams. Patient encouraged to increase her level of exercise. SBE technique encouraged/taugh t. Patient reminded when annual mammogram is due. Patient encouraged to keep colon screening up to date. 12/23/2024 Encounter for screening mammogram for malignant neoplasm of breast (ICD-10 - Z12.31) 01/10/2025 Abnormal uterine and vaginal bleeding, unspecified (ICD-10 - N93.9) If normal, consider Mirena IUD vs hormonal therapy to help with frequent, erratic bleeding. 12/23/2024 Abnormal uterine and vaginal bleeding, unspecified (ICD-10 - N93.9) Likely abnormal bleeding due to perimenopause, but need to rule out polyps, hyperplasia and carcinoma. This is a new, complex problem, evaluated separately from her routine exam, and considerable time was spent on obtaining additional history including ROS, and ordering medications and testing for evaluation. Plan Of Treatment Pending Test Test Name Order Date Ultrasound : Breast, right 01/18/2017 Sonohysterogram 12/23/2024 SURGICAL PATHOLOGY 01/10/2025 MM Digital Mammo Screening 10/23/2015 ULTRASOUND: PELVIC W/TRANSVAGINAL 2022 ULTRASOUND: PELVIC W/TRANSVAGINAL 2021 MM Digital Screening Mammogram 3D 2024 MM Digital Screening Mammogram 3D 2019 MM Digital Screening Mammogram 3D 2020 MM Digital Screening Mammogram 3D 2021 Next Appt Details Provider Name:LIAN Celis, 01/20/2025 03:00:00 PM, [address], [address], [place], [address], Provider Name:LIAN Celis, 12/25/2025 09:00:00 AM, [address], [address], [place], [address], Insurance Providers Payer Name Payer Address Payer Phone Subscriber Number Group Number Insured Name Patient Relationship to Insured Coverage Start Date Coverage End Date [facility] [address] [place] [address] [id number] ENRIQUE PALMER Self - patient is the [...] without perforation or abscess without bleeding K57.92 Abnormal uterine and vaginal bleeding, u nspecified N93.9 Postmenopausal bleeding N95.0 Surgical History Surgery Date(Month/Year) HYSTEROSCOPY, POLYPECTOMY, FRAC D&C AND HTA 2013 section R beast intraductal papilloma resection Left Ankle Surgery 07/27/18; 10/2018 Left Breast Biopsy - Fibroadenoma 01/2020 Hospitalization History Reason Date(Month/Year) child
--- OUTSIDE RECORDS SUMMARY | 2025-01-15 12:37 | XMS_ITS | Encounter Summary ---
Author Organization [facility] Address [address] [place] [address] Care Team Providers Care Workforce Specialist Name Role Phone Community, Pcp Primary Care Provider Harish Winters MD, PHD Unavailable Unava ilable Reason for Visit * Reason Onset Date Comments Faxed Refill 07/27/2021 Encounter Details Date Type Department Care Team Description 07/27/2021 Refill Adult Medicine [address] [address] Louise Fairchild PA-C [address] [place] [phone] Faxed Refill Social History Tobacco Use Types [...] the RX # listed on the fax? [phone] Patients current insurance carrier is: Payor: [employer] [place] / Plan: PPO $20 [place] / Product Type: PPO [id number] documented in this encounter Plan of Treatment Not on file documented as of this encounter Visit Diagnoses Not on filedocumented in this encounter Care Teams Workforce Specialist Relationship Specialty Start Date End Date Community, Pcp PCP - General Internal Medicine 11/09/21 Harish Palomo MD, PHD Specialist Neurosurgery 11/09/21 documented as of this encounter
--- OUTSIDE RECORDS SUMMARY | 2025-01-15 12:37 | XMS_ITS | Encounter Summary ---
Author Organization [employer] Address [address] [place] [address] Care Team Providers Care Seed Technician Name Role Phone Leilani Gale MD Primary Care Provider Encounter Details Date Type Department Care Team ([facility] st Contact Info) Description 12/27/2024 Orders Only [facility] [address] [place] [address] Leilani Gale MD [address] [place] [address] COVID-19 (Primary Dx) Social History Tobacco Use Types [...] as of this encounter Visit Diagnoses Diagnosis COVID-19- Primary documented in this encounter Care Teams Seed Technician Relationship Specialty Start Date End Date Leilani Gale MD [address] [place] [address] PCP - General Family Medicine 11/02/21 documented as of this encounter
--- OUTSIDE RECORDS SUMMARY | 2025-01-15 12:37 | XMS_ITS | Encounter Summary ---
Author Organization [facility] Address [address] [place] [address] Care Team Providers Care Establishment Guide Name Role Phone Bette Garay DO Primary Care Pro vider Unavailable Community, Pcp Primary Care Provider Harish Winters MD, PHD Unavailable Unava ilable Encounter Details Date Type Department Care Team Description 05/08/2018 Refill Adult Medicine [address] [address] Bette Garay DO Social History Tobacco Use [...] MG tablet [Bette Jay DO] Preferred pharmacy: [id number] AT Comment: Helharley??? My pharmacy closed ([facility] in [place]). I requested twice, through the pharmacies, that my meds be transferred to [facility] on [address] in [place], but they seem to be unable to do this. I am wondering if you might be able to just send along new prescriptions to [facility] for me? I think this isthe easiest way to get this done. Please let me know if there are any questions. Thank you very much! documented in this encounter Plan of Treatment Not on file documented as of this encounter Visit Diagnoses Not on filedocumented in this encounter Care Teams Establishment Guide Relationship Specialty Start Date End Date Bette Garay DO PCP - General Internal Medicine 02/27/14 06/06/21 Community, Pcp PCP - General Internal Medicine 11/09/21 Harish Palomo MD, PHD Specialist Neurosurgery 11/09/21 documented as of this encounter
--- OUTSIDE RECORDS SUMMARY | 2025-01-15 12:37 | XMS_ITS ---
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 Name Role Phone ERIKA TAVAREZ MD Primary Care Provider Unavail able LIAN HENSON Unavailable [phone] Allergies Allergen (clinical drug ingredient) Drug/Non Drug Allergy documented on EMR Reaction Allergy Type Onset Date Status hydromorphone Dilaudid breathing problems Drug Allergy Active REASON FOR VISIT Annual MANAGER WIRELESS Physical Encounters Encounter Location Date Provider Diagnosis [facility] [address] [address] 04/09/2024 LIAN HENSON Encounter for gynecological examination [...] Follow Up: 1 Year, Reason: Y early Client Account Manager Exam Provider Name:LIAN Celis, 01/20/2025 03:00:00 PM, [employer], [address], [place], [address], Provider Name:LIANAkilah Celis, 12/25/2025 09:00:00 AM, [address], [address], [place], [address], Progress Notes * ARTURO PALMEROB: 3 (49 yo F)Acc No.[id number]:04/09/2024 PROGRESS NOTES Patient:?ASHLEY PALMER Provider:?LIAN HENSON MD :1975???Age:48 Y???Sex:Female D ate:04/09/2024 Address:[address] [place], [place] [id number] Pcp:ERIKA TAVAREZ MD Subjective: * Chief Complaints: * ???1. Annual MANAGER WIRELESS Physical. 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 She has been in state of [...] exercises x days/week by . * ROS:?Annual Client Account Manager Exam ROS:?Bowel habit changes?denies.?Bladder symptoms?denies.?Vaginal discharge, unusual?denies.?Vaginal [...] without perforation or abscess without bleeding. * Client Account Manager History:?/ Para?4/3.?Sexual activity?currently sexually active.?Last Pap Smear:?11/14/2019 NIL/neg HR HPV.?Mammogram:?10/30/23 50-75% density, 08/25/21 Unilat Right, 11/23/21 50-75% density, 01/13/20 50-75% density, 05/16/19 right breast u/s, 01/16/2017, 50-75% density.?Abnormal Pap Smear:?None.?LMP and menses?07/01/23.?History of STD's:?None.? Control:?partner had vasectomy.?Colonoscopy?2021 - polyp found; diverticulosis.?MANAGER WIRELESS HISTORY MISC.?12/12/17 Dense breasts counseling done. Cristela [...] no acute distress, well developed, well nourished, ambulatory services representative present in room.?HEAD:?normocephalic, atraumatic.?NECK/THYROID:?neck supple, full range [...] * Follow Up:?1 Year (Reason: Y early Client Account Manager Exam) * Images: Billing Information: * Visit Code:? 75435 Preventive Care Est Pt. Age 40-64. * Procedure Codes:? 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 She has been in state of [...] General Examination GENERAL APPEARANCE: in no ac nisqually distress, well developed, well nourished, ambulatory services representative present in room HEAD: normocephalic, atrau matic [...]
--- OUTSIDE RECORDS SUMMARY | 2025-01-15 12:37 | XMS_ITS ---
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 Name Role Phone ERIKA TAVAREZ MD Primary Care Provider Unavail able LIAN HENSON Unavailable [phone] Allergies Allergen (clinical drug ingredient) Drug/Non Drug Allergy documented on EMR Reaction Allergy Type Onset Date Status hydromorphone Dilaudid breathing problems Drug Allergy Active Results Component Value Reference Range Notes [id number] IGP No Culture 30 Plus Reviewed date:12/26/2024 04:19:08 PM Interpretation: Performing Lab:[facility], [address], [address], [place], Phone - [phone], Director - [facility] Notes/Report: Clinical Information:VAG/CERV [id number] LMP / Prev Treat...[id number] Dates / Results....11/14/2019 No. of containers..01 ThinPrep Vial DIAGNOSIS: NEGATIVE FOR IN TRAEPITHELIAL LESION OR MALIGNANCY. Specimen adequacy: Satisfactory for evaluation. Endocervical and/or squamous metaplastic cells (endocervical component) are present. Clinician provided ICD10: Z0 1.419 Performed by: Sushil Ramirez Content Architect (ASCP) . . Note: The Pap smear [...] Report Reviewed date:12/26/2024 04:19:27 PM Interpretation: Performing Lab:[facility] [place], [address]ta [address], [address], [place], Phone - [phone], Director - [facility] Notes/Report: Clinical Information:VAG/CERV [id number] LMP / Prev Treat...[id number] Dates / Results....11/14/2019 No. of containers..01 ThinPrep Vial REASON FOR VISIT Annual BUNDLE SORTER Physical Medications Medication SIG (Take, Route, Frequency, Duration) Notes Start Date End Date Status miSOPROStol 200 MCG as directed Orally 8-12 hrs prior to appointment for 1 days 12/23/2024 Active Cetirizine HCl 10 MG TAKE 1 TABLET BY MOUTH EVERY DAY NEEDED Oral for 30 Active SUMAtriptan Succinate 50 MG Oral for 5 Active Cyclobenzaprine HCl 5 MG Oral for 20 Active Advair Diskus 250-50 1 Inhalation TWICE DAILY for -3 02/16/2012 Active ProAir HFA 90MCG 2 Inhalation four times daily for -02/16/2012 Active Singulair 5 MG 1 ORAL daily for -02/16/2012 Active Citalopram Hydrobromide 40 MG Orally BEING TAPERED OFF Active Atorvastatin Calcium 10 MG 1 tablet Orally Once a day Active Rinvoq Active Vitamin D3 50 MCG (2000 UT) 1 capsule Orally Once a day for 30 day(s) Active Ambien 5 MG 1 tablet at bedtime as needed Orally Once a day Active oxyCODONE HCl 10 MG 1 tablet as needed Orally every 6 hrs Active Social History Tobacco Use: Social History [...] Never (0 point) Points 2 Interpretation Negative Problems Problem Type SNOMED Code ICD Code Onset Dates Problem Status W/U Status Risk Notes Problem Abnormal uterine bleeding ([id number] [id number]) Abnormal uterine and vaginal bleeding, unspecified (N93.9) Active confirmed Vital Signs Temperature 97.7 degrees Fahrenheit 12/24/19 25 Blood pressure systolic 124 mm Hg 12/24/19 25 Blood pressure diastolic 78 mm Hg 025 Height 65 in 12/23/2024 Weight 233 lbs 12/23/2024 BMI 38.77 kg/m2 12/23/2024 Encounters Encounter Location Date Provider Diagnosis [address] [place] [address] 12/23/2024 LIAN HENSON Encounter for gynecological examination [...] malignant neoplasm of breast (ICD-10 - Z12.31) 12/23/2024 Abnormal uterine and vaginal bleeding, unspecified (ICD-10 - N93.9) Likely abnormal bleeding due to perimenopause, but need to rule out polyps, hyperplasia and carcinoma. This is a new, complex problem, evaluated separately from her routine exam, and considerable time was spent on obtaining additional history including ROS, and ordering medications and testing for evaluation. Plan Of Treatment Medication Medication Name Sig Start Date Stop Date Notes miSOPROStol 200 MCG as directed Orally 8 -12 hrs prior to appointment for 1 days 12/23/2024 Treatment Notes Assessment Notes Encounter for gynecological [...] to keep colon screening up to date. Abnormal uterine and vaginal bleeding, unspecified Likely abnormal bleeding due to perimenopause, but need to rule out polyps, hyperplasia and carcinoma. This is a new, complex problem, evaluated separately from her routine exam, and considerable time was spent on obtaining additional history including ROS, and ordering medications and testing for evaluation. Pending Test Test Name Order Date Sonohysterogram 12/23/2024 MM Digital Screening Mammogram 3D 2024 Next Appt Details Follow Up: prn sonohysterogr am; 1 Year, Reason: Yearly Digital Sales Manager Exam Provider Name:LIAN Celis, 01/20/2025 03:00:00 PM, [address], [address], [place], [address], Provider Name:LIAN Celis, 12/25/2025 09:00:00 AM, [address], [address], [place], [address], Progress Notes * ARTURO PALMEROB: 3 (49 yo F)Acc No.[id number]:12/23/2024 PROGRESS NOTES Patient:?ENRIQUE PALMER Provider:?LIAN HENSON MD :[id number]???Age:49 Y???Sex:Female D ate:12/23/2024 Address:[address] [place] [address], [place], [place] Pcp:ERIKA TAVAREZ MD Subjective: * Chief Complaints: * ??? Annual BUNDLE SORTER Physical * HPI: ???Constitutional:? 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 She has been in state of good health since her last exam. She reports she was diagnosed with ankylosing spondylosis.?She has the following concerns: she has had some very painful periods, and they have been irregular. She has received the Moderna Covid-19 vaccine. Relationship status: for 32 years. She is sexually active. Sexual partner(s): male. She does not wish to have STI testing. Menses: irregular, usually coming about once a month, but occasionally a shorter cycle (22 days) and occasionally skipping a period. They usually last 3-13 days, with an average of 5-7 days. She also reports random spotting - she is always wearing a pantiliner. In October, she had a 13-day bleed with a 1 day break (day 4), then the November period started 12/05/24, which was a 22 day cycle, which then lasted 9 days. Contraception: vasectomy She does report vaginal dryness - lubricant with good effect. She does have hot flashes/night sweats - tolerable, has been present for years. The patient hasn never had an abnormal pap smear. Her most recent pap smear was 11/14/2019 - NIL, neg HRHPV. Cotesting due 2024. She has not been diagnosed with breast cancer. She does not have a family history of breast cancer. Her last mammogram was 10/30/23. She has heterogeneously dense breast tissue, with a Cristela model lifetime risk of 7.1%. No supplemental screening is indicated. She does not have a family history of colon cancer. She a has had a colonoscopy. The last colonoscopy was 09/24/24 - next due in 3 yrs. The patient does exercise. She exercises x 2 days/week by walking. She has arthritis in her back. ???BUNDLE SORTER (Problems):?c/o Abnormal bleeding:?Date problem started:?within the last year ?Current bleeding problem:?change in cycle (interval/duration/flow/pain) or irregular cycles ?Interval between cycles since change:?irregular - see above ?Changes in amount or character of flow:?medium ?Associated signs and symptoms:?abdominal pain with the bleeding, and lower back pain. She has a history of a uterine ablation. * ROS:?Annual Digital Sales Manager Exam ROS:?Bowel habit changes?denies.?Bladder symptoms?denies.?Vaginal discharge, unusual?denies.?Vaginal itch or odor?denies.?weight or appetite changes?denies.?Chest pains, SOB?denies.?depression?denies.?ENT:?Denies?Nosebleed.?Endocrine:?Comments?Has thyroid nodules - seeing endocrine.?Breast:?Denies?Breast lump.?Denies?Breast pain.?Denies?Nipple discharge.?Gastrointestinal:?Denies?Abdominal pain.?Denies?Blood in stool.?Denies?Hematemesis.?Denies?Rectal bleeding.?Hematology:?Denies?Easy bruising.?Denies?Swollen glands.?Denies?Family member with bleeding problems.?Women Only:?Admits?Irregular menses.?Admits?Vaginal bleeding between periods.?Genitourinary:?Denies?Blood in urine.?Skin:?Patient denies?changing moles.?Psychiatric:?Admits?Anxiety,?well-controlled with citalopram, uses self-talk.? * Medical History:? * Digital Sales Manager History:?/ Para?4/3.?Sexual activity?currently sexually active.?Last Pap Smear:?11/14/2019 NIL/neg HR HPV.?Mammogram:?10/30/23 50-75% density, 08/25/21 Unilat Right, 08/17/21 50-75% density, 01/13/20 50-75% density, 05/16/19 right breast u/s, 01/16/2017, 50-75% density.?Abnormal Pap Smear:?None.?LMP and menses?12/05/2024 ,07/01/23.?History of STD's:?None.? Control:?partner had vasectomy.?Colonoscopy?09/24/2024 NEG, 2021 - polyp found; diverticulosis.?BUNDLE SORTER HISTORY MISC.?12/12/17 Dense breasts counseling done. Cristela lifetime risk is 7.1%. No supplemental screening indicated.? * OB History:?Total pregnancies? 4, Para 3. 2 vaginal. 1 .?Total living children?3.?(s)?1.? # 1:?normal spontaneous vaginal delivery (), 07/19/92, Cassandra, 5lb 1oz, IUGR.? # 2:?elective terminations of (ETOP), T1, no complications.? # 3?normal spontaneous vaginal delivery (), 11/30/94, Alejandra, 7lb 3oz, no complications - has a son Guanako (05/25/22).? # 4:?Primary , [birth year], born at 31.5 wks, Maura, 2lb 12oz, breech and PPROM. Started as a twin (lost first twin in first trimester).? * Surgical History:?HYSTEROSCO PY, POLYPECTOMY, FRAC D&C AND HTA 2013Cesarean section R beast intraductal papilloma resection Left Ankle Surgery 07/27/18; 10/2018Left Breast Biopsy - Fibroadenoma 01/2020 * Hospitalization/Major Diagno stic Procedure:?child * Family History:?Mother: nina kaye 77 yrs, pre diabetic, diagnosed with Unspecified essential hypertension.?Father: 75 yrs, prostate ca, high cholesterol, CAD, interstitial lung disease, hypothyroid; in 12/2022 from sepsis and CHF, diagnosed with Unspecified essential hypertension.?2 brother(s) - healthy. .? Brother - Humble - 11/26/75 - well Brother - Jose Daniel - 01/22/81 - well Daughter - Maura - ankylosing spondylitis Daughter - Cassandra - Matt's, infertility issues Daughter - Alejandra - PCOS; focal seizures, fibromyalgia?- has a child 05/25/22 (boy, Guanako). * Social History:?Tobacco Use:?Tobacco Use/Smoking?Are you a?nonsmoker ???Sexual History:?Sexual History?Had sex in the past 12 months (vaginal, oral, or anal)??Yes ?with?Men only ?Details of Sexual History?Are you sexually active??Yes ???Drugs/Alcohol:?Drugs?Have you used drugs other than those for medical reasons in the past 12 months??Yes ?Marijuana??Yes edible couple of times a month ???Miscellaneous:?Children: yes. ?Domestic violence: no. ?Exercise: no. ?Home smoke detector use: yes, smoke detectors, carbon monoxide detector. ?Housing: owns a home. ?Living with: spouse. ?Marital status: , Red. ?Natural support system: yes. 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 ?Others at home: yes, daughter and grandson. ?Pets: dogs: 2. ?Sexual abuse: no. ?Sexually active: yes. ?Travel outside of the [place]: no. ?Verbal abuse: no. ???Drug/Alcohol:?AUDIT-C (Standard)?Did you have a drink containing alcohol in the past year??Yes ?How often did you have a drink containing alcohol in the past year??2 to 4 times a month (2 points) ?How many drinks did you have on a typical day when you were drinking in the past year??1 or 2 drinks (0 point) ?How often did you have six or more drinks on one occasion in the past year??Never (0 point) ?Points?2 ?Interpretation?Negative * Medications:?TakingAmbien 5 MG Tablet 1 tablet at bedtime as needed Orally Once a day oxyCODONE HCl 10 MG Tablet 1 tablet as needed Orally every 6 hrs Rinvoq Vitamin D3 50 MCG (2000 UT) Capsule 1 capsule Orally Once a day Advair Diskus 250-50 60 1 Inhalation TWICE DAILY ProAir HFA 90MCG 1 2 Inhalation four times daily Singulair 5 MG 30 1 ORAL daily Citalopram Hydrobromide 40 MG Tablet Orally , Notes to Pharmacist: BEING TAPERED OFFAtorvastatin Calcium 10 MG Tablet 1 tablet Orally Once a day Cetirizine HCl 10 MG Tablet TAKE 1 TABLET BY MOUTH EVERY DAY NEEDED Oral SUMAtriptan Succinate 50 MG Tablet Oral Cyclobenzaprine HCl 5 MG Tablet Oral Taking Ambien 5 MG Tablet 1 tablet at bedtime as needed Orally Once a day Taking oxyCODONE HCl 10 MG Tablet 1 tablet as needed Orally every 6 hrs Taking Rinvoq Taking Vitamin D3 50 MCG (2000 UT) Capsule 1 capsule Orally Once a day Taking Advair Diskus 250-50 60 1 Inhalation TWICE DAILY Taking ProAir HFA 90MCG 1 2 Inhalation four times daily Taking Singulair 5 MG 30 1 ORAL daily Taking Citalopram Hydrobromide 40 MG Tablet Orally , Notes to Pharmacist: BEING TAPERED OFFTaking Atorvastatin Calcium 10 MG Tablet 1 tablet Orally Once a day Taking Cetirizine HCl 10 MG Tablet TAKE 1 TABLET BY MOUTH EVERY DAY NEEDED Oral Taking SUMAtriptan Succinate 50 MG Tablet Oral Taking Cyclobenzaprine HCl 5 MG Tablet Oral DiscontinuedCo Q-10 50 MG Capsule 1 capsule with a meal Orally Once a day Medication List reviewed and reconciled with the patientDiscontinued Co Q-10 50 MG Capsule 1 capsule with a meal Orally Once a day Medication List reviewed and reconciled with the patient * Allergies:?Dilaudid: mercedvaleria gutierrez[Allergies Verified] Objective: * Vitals:?Ht: 65 in, Wt:233lbs , BMI:38.77Index, BP:124/78mm Hg, Temp:97.7F. * Examination: ???General Examination: ?GENERAL APPEARANCE:?in no acute distress, well developed, well nourished, account support rep present in room , pleasant, well nourished, in no acute distress, account support rep present in room.?HEAD:?normocephalic, atraumatic.?NECK/THYROID:?neck supple, full range of motion, thyroid normal.?LYMPH NODES:?no axillary or supraclavicular adenopathy.?SKIN:? normal, good turgor, no rashes, no suspicious lesions , warm and dry.?BREASTS:? normal, no dimpling, no discharge, no drainage, no masses palpable bilaterally, nontender.?ABDOMEN:? soft, obese, on-tender, non distended without masses or hepatosplenomegaly.?RECTAL:?deferred due to recent colonoscopy.?BACK:? no costovertebral angle tenderness.?FEMALE GENITOURINARY:?Vulva without lesions or masses, vagina pink without abnormal discharge, lesions or masses, cervix appears normal and is not tender to palpation, no polyps seen, uterus is difficult to size due to habitus, mobile, nontender and anteverted, ovaries are not palpable.?NEUROLOGIC:? alert and oriented, gait normal.?PSYCH:? alert, oriented, cognitive function intact, cooperative with exam, good eye contact, mood/affect full range, speech clear.?Psychiatry: ?AFFECT:? appropriate.?ATTITUDE:? cooperative.?SPEECH:? clear.? Assessment: * Assessment: 1.?Encounter for gynecologic al examination (general) (routine) without abnormal findings - Z01.419 (Primary)???2.?Encounter for screening mammogram for malignant neoplasm of breast - Z12.31???3.?Abnormal uterine and vaginal bleeding, unspecified - N93.9??? Plan: * Treatment: ? Value Reference Range ?. . - * ?HPV Aptima Negative Negative - * VAG/CERVThis lab was reviewe d by LIAN HENSON on 12/26/2024 at 16:19 PM EDT Notes: During the visit, the following areas of [...] to keep colon screening up to date. ??2.?Encounter for screening mammogram for malignant neoplasm of breast?Imaging: MM Digital Screening Mammogram 3D3.?Abnormal uterine and vaginal bleeding, unspecified? Start miSOPROStol Tablet, 200 MCG, as directed, Orally, 8-12 hrs prior to appointment, 1 days, 1, Refills 0.?Imaging: Sonohysterogram Notes: Likely abnormal bleeding due to perimenopause, but need to rule out polyps, hyperplasia and carcinoma. This is a new, complex problem, evaluated separately from her routine exam, and considerable time was spent on obtaining additional history including ROS, and ordering medications and testing for evaluation. ?? * Procedure Codes:? * Preventive Medicine:? ~~~~~~~~~~~~~ STRENGTH TRAINING ~~~~~~~~~~~~~ Anyone, at any fitness level, can and should add strength training to their routine. Strength training is an important part of an overall fitness program, mainly because lean muscle mass naturally diminishes with age. You'll increase the percentage of fat in your body if you don't do anything to replace the lean muscle you lose over time. Strength training can help you preserve and enhance your muscle mass (at any age!), develop strong bones and reduce the risk of osteoporosis, manage or lose weight and increase your metabolism to help you burn more calories. It will also improve your ability to do everyday activities and reduce symptoms of chronic conditions such as arthritis, back pain, obesity, heart disease and diabetes. Some research suggests that regular strength training may help improve thinking and learning skills. Don't be intimidated. You can strength train at home or in the gym, and you have plenty of options. You can rely on your body weight and do many exercises with little or no equipment, like pushups, pullups, planks and leg squats. Or you can go pro and choose to go with resistance tubing (a lightweight tubing that provides resistance when stretched), free weights like barbells and dumbbells, or weight machines at the gym. ~~~~~~~~~~~~~~~~~~~~~~~~~~~~~~~~~~~~~~~~~~~ SARCOPENIA AND THE IMPORTANCE OF STRENGTH TRAINING EXERCISE ~~~~~~~~~~~~~~~~~~~~~~~~~~~~~~~~~~~~~~~~~~~ What is sarcopenia? ~~~~~~~~~~~~ Sarcopenia refers to the process of losing skeletal muscle mass and strength. 'Sarco' is the [place] word referring to flesh, and 'penia' means a reduction in amount. Thus, the word describes a progressive weakening of the body caused by a 'change in body compensation in favor of fat and at the expense of muscle.' Everyone, beginning around age 25, starts to lose muscle mass, though the actual symptoms of this loss do not usually begin showing up until around the age of 40 or so. The process begins really picking up speed after the age of 65. In fact, around the age of 40, most women will lose almost a half-pound of muscle every year and replace it with fat. The result of this gradual loss of muscle is an insidious weakening of the body, loss of balance, loss of confidence upon walking, and a reduced ability to recover from near falls. As we lose strength, we become more inactive. This makes sense, because if we have less muscle, it takes much more effort to move, and we fatigue more easily. But also, with loss of strength comes loss of balance and stability. The fear of falling keeps many people sedentary, and a sedentary lifestyle opens the door for chronic illness. ~~~~~~~~~~~~~~ Take back your muscle ~~~~~~~~~~~~~~ And now for great news: you can delay sarcopenia and even reverse it. How? By lifting weights. Even though you cannot grow new muscles cells to replace the ones you have already lost, you can develop the ones that you have left. In fact, you can become stronger than you ever have in your life by simply beginning a strength training program. No matter how old you are, it is not too late to start. Even patients in nursing homes have seen transformation. After strength training, bedridden patients were able to begin walking with walkers, walker-dependent patients graduated to canes, and so on. And no matter how young you are, it is not too early to start! By starting early, you can significantly delay the effects of sarcopenia. As you begin lifting weights, you will notice a transformation in your body. You will have more energy, you will perform everyday tasks with noticeably more ease and your clothes will begin sagging on you, because you will be building muscle and burning up the fat deposits. You will have greater balance and more confidence. And perhaps best of all is the insurance policy you pay premiums on every time you choose to lift, because you are laying a strong, solid foundation for your later years. You are laying up health, independence and the ability to live well, not just long. DON'T LET ANOTHER DAY GO BY THAT YOU ARE LOSING MUSCLE. Take it back, and get ready to feel better than you ever have! . * Follow Up:?pb kingogr am; 1 Year (Reason: Yearly Digital Sales Manager Exam) * Images: Billing Information: * Visit Code:? 93842 Preventive Care Est Pt. Age 40-64. 04719 Office Visit, Est Pt., Level 4. * Procedure Codes:? 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 She has been in state of good health since her last exam. She reports she was diagnosed with ankylosing spondylosis. She has the following concerns: she has had some very painful periods, and they have been irregular. She has received the Moderna Covid-19 vaccine. Relationship status: for 32 years. She is sexually active. Sexual partner(s): male. She does not wish to have STI testing. Menses: irregular, usually coming about once a month, but occasionally a shorter cycle (22 days) and occasionally skipping a period. They usually last 3-13 days, with an average of 5-7 days. She also reports random spotting - she is always wearing a pantiliner. In October, she had a 13-day bleed with a 1 day break (day 4), then the November period started 12/05/24, which was a 22 day cycle, which then lasted 9 days. Contraception: vasectomy She does report vaginal dryness - lubricant with good effect. She does have hot flashes/night sweats - tolerable, has been present for years. The patient hasn never had an abnormal pap smear. Her most recent pap smear was 11/14/2019 - NIL, neg HRHPV. Cotesting due 2024. She has not been diagnosed with breast cancer. She does not have a family history of breast cancer. Her last mammogram was 10/30/23. She has heterogeneously dense breast tissue, with a Cristela model lifetime risk of 7.1%. No supplemental screening is indicated. She does not have a family history of colon cancer. She a has had a colonoscopy. The last colonoscopy was 09/24/24 - next due in 3 yrs. The patient does exercise. She exercises x 2 days/week by walking. She has arthritis in her back. BUNDLE SORTER (Problems) Abnormal bleeding: Date problem started:: within the last year Current bleeding problem:: c hange in cycle (interval/duration/flow/pain) or irregular cycles ?Interval between cycles since change:: irregular - see above ?Changes in amount or character of flow: : medium Associated signs and symptoms:: abdomina l pain with the bleeding, and lower back pain. She has a history of a uterine ablation. Examination Category Sub-Category Detail Notes Category Not es Psychiatry ATTITUDE: cooperative AFFECT: appropriate SPEECH: clear General Examination GENERAL APPEARANCE: in no ac diony distress, well developed, well nourished, account support rep present in room , pleasant, well nourished, in no acute distress, account support rep present in room HEAD: normocephalic, atrau matic NECK/THYROID: neck supple, full ra nge of motion, thyroid normal ABDOMEN: soft, obese, on-tend er, non distended without masses or hepatosplenomegaly NEUROLOGIC: alert and oriented, gait normal SKIN: normal, good turgor, no rashes, no suspicious lesions , warm and dry BACK: no costovertebral an gle tenderness BREASTS: normal, no dimpling, no discharge, no drainage, no masses palpable bilaterally, nontender LYMPH NODES: no axillary or supra clavicular adenopathy RECTAL: deferred due to rece nt colonoscopy PSYCH: alert, oriented, cog nitive function intact, cooperative with exam, good eye contact, mood/affect full range, speech clear FEMALE GENITOURINARY: Vulva without lesi ons or masses, vagina pink without abnormal discharge, lesions or masses, cervix appears normal and is not tender to palpation, no polyps seen, uterus is difficult to size due to habitus, mobile, nontender and anteverted, ovaries are not palpable
--- OUTSIDE RECORDS SUMMARY | 2025-01-15 12:37 | XMS_ITS | Encounter Summary ---
Author Organization [facility] Address [address] [place] [address] Care Team Providers Care Lipstick Molder Name Role Phone Bette Garay DO Primary Care Pro vider Unavailable Community, Pcp Primary Care Provider Harish Winters MD, PHD Unavailable Unava ilable Encounter Details Date Type Department Care Team Description 01/19/2018 Pt. Non Urgent Medic al Question Adult Medicine [address] [address] Bette Garay DO Social History Tobacco Use [...] me a quick call on my cell ([phone]) so we can discuss if you are in agreement with this new plan? I would greatly appreciate it. documented in this encounter Plan of Treatment Not on file documented as of this encounter Visit Diagnoses Not on filedocumented in this encounter Care Teams Lipstick Molder Relationship Specialty Start Date End Date Bette Garay DO PCP - General Internal Medicine 02/27/14 06/06/21 [facility], Pcp PCP - General Internal Medicine 11/09/21 Harish Palomo MD, PHD Specialist Neurosurgery 11/09/21 documented as of this encounter
--- OUTSIDE RECORDS SUMMARY | 2025-01-15 12:38 | XMS_ITS | Encounter Summary ---
Author Organization [facility] Address [address] [place] [address] Care Team Providers Care Building Inspector Name Role Phone Bette Garay DO Primary Care Pro vider Unavailable Community, Pcp Primary Care Provider Harish Winters MD, PHD Unavailable Unava ilable Reason for Visit * Reason Comments E-prescribe Rx Request Encounter Details Date Type Department Care Team Description 08/17/2019 Refill Adult Medicine [address] [address] Bette Garay DO E-prescribe Rx Request Social [...] N/A Patients current insurance carrier is: Payor: [employer] [place] / Plan: [employer] $20 [place]PER[place] 1 / Product Type: PrediculousO [id number] documented in this encounter Plan of Treatment Not on file documented as of this encounter Visit Diagnoses Not on filedocumented in this encounter Care Teams Building Inspector Relationship Specialty Start Date End Date Bette Garay DO PCP - General Internal Medicine 02/27/14 06/06/21 [facility], Pcp PCP - General Internal Medicine 11/09/21 Harish Palomo MD, PHD Specialist Neurosurgery 11/09/21 documented as of this encounter
--- OUTSIDE RECORDS SUMMARY | 2025-01-15 12:38 | XMS_ITS | Encounter Summary ---
Author Organization [facility] Address [address] [place] [address] Care Team Providers Care Right Of Way Maintenance Supervisor Name Role Phone Bette Garay DO Primary Care Pro vider Unavailable Community, Pcp Primary Care Provider Harish Winters MD, PHD Unavailable Unava ilable Encounter Details Date Type Department Care Team Description 12/24/2020 Pt. Non Urgent Medic al Question Adult Medicine [address] [address] Bette Garay DO Social History Tobacco Use [...] this encounter Care Teams Right Of Way Maintenance Supervisor Relationship Specialty Start Date End Date Bette Garay DO PCP - General Internal Medicine 02/27/14 06/06/21 [facility], Pcp PCP - General Internal Medicine 11/09/21 Harish Palomo MD, PHD Specialist Neurosurgery 11/09/21 documented as of this encounter
--- OUTSIDE RECORDS SUMMARY | 2025-01-15 12:38 | XMS_ITS | Encounter Summary ---
Author Organization [facility] Address [address] [place] [address] Care Team Providers Care Gameplay Engineer Name Role Phone Bette Garay DO Primary Care Pro vider Unavailable Community, Pcp Primary Care Provider Harish Winters MD, PHD Unavailable Unava ilable Encounter Details Date Type Department Care Team Description 05/13/2020 Pt. Non Urgent Medic al Question Adult Medicine - [address] [address] Molly Rossi MD Social History Tobacco Use Types Packs/Day Years Used Date Smoking Tobacco: Never Smokeless Tobacco: Never Alcohol Use Standard Drinks/Week Comments Yes 0 (1 standard drink = 0.6 oz pur e alcohol) occasionally Sex Assigned at Date Recorded Not on file Job Start Date Occupation Industry Not on file Not on file Not on file documented as of this encounter Progress Notes * Amina Douglas M.A. - 05/13/2020 2:00 PM EDTFrom: Ashley Magdaleno To: Molly Rossi MD Sent: 05/13/2020 1:58 PM EDT Subject: COVID Test Results Hello, I am wondering what the turnaround time is on COVID testing? I had testing done on Monday, May 08 and do not yet have results. Thank you, Ashley documented in this encounter Plan of Treatment Not on file documented as of this encounter Visit Diagnoses Not on filedocumented in this encounter Care Teams Gameplay Engineer Relationship Specialty Start Date End Date Bette Garay DO PCP - General Internal Medicine 02/27/14 06/06/21 [facility], Pcp PCP - General Internal Medicine 11/09/21 Harish Palomo MD, PHD Specialist Neurosurgery 11/09/21 documented as of this encounter
--- OUTSIDE RECORDS SUMMARY | 2025-01-15 12:38 | XMS_ITS | Encounter Summary ---
Author Organization [facility] Address [address] [place] [address] Care Team Providers Care Volunteer Assistant Name Role Phone Bette Garay DO Primary Care Pro vider Unavailable Community, Pcp Primary Care Provider Harish Winters MD, PHD Unavailable Unava ilable Encounter Details Date Type Department Care Team Description 09/07/2018 Head Kiln Operator Report Medical Records [address] [place] [address] Jarrell Aldrich Social History Tobacco Use Types [...] on filedocumented in this encounter Care Teams Volunteer Assistant Relationship Specialty Start Date End Date Bette Garay DO PCP - General Internal Medicine 02/27/14 06/06/21 [facility], Pcp PCP - General Internal Medicine 11/09/21 Harish Palomo MD, PHD Specialist Neurosurgery 11/09/21 documented as of this encounter
--- OUTSIDE RECORDS SUMMARY | 2025-01-15 12:38 | XMS_ITS | Encounter Summary ---
Author Organization [facility] Address [address] [place] [address] Care Team Providers Care Diet Consultant Name Role Phone Bette Garay DO Primary Care Pro vider Unavailable Community, Pcp Primary Care Provider Harish Winters MD, PHD Unavailable Unava ilable Reason for Visit * Reason Comments E-prescribe Rx Request Encounter Details Date Type Department Care Team Description 08/08/2020 Refill Adult Medicine [address] [address] Bette Garay DO E-prescribe Rx Request Social [...] N/A Patients current insurance carrier is: Payor: [employer] [place] / Plan: [employer] $20 [place] 1 / Product Type: HMO [id number] documented in this encounter Plan of Treatment Not on file documented as of this encounter Visit Diagnoses Not on filedocumented in this encounter Care Teams Diet Consultant Relationship Specialty Start Date End Date Bette Garay DO PCP - General Internal Medicine 02/27/14 06/06/21 [facility], Pcp PCP - General Internal Medicine 11/09/21 Harish Palomo MD, PHD Specialist Neurosurgery 11/09/21 documented as of this encounter
--- OUTSIDE RECORDS SUMMARY | 2025-01-15 12:38 | XMS_ITS | Encounter Summary ---
Author Organization [facility] Address [address] [place] [address] Care Team Providers Care Embedded Systems Software Developer Name Role Phone Bette Garay DO Primary Care Pro vider Unavailable Community, Pcp Primary Care Provider Harish Winters MD, PHD Unavailable Unava ilable Encounter Details Date Type Department Care Team Description 10/23/2018 Transfer Records Medical Records [address] [place] [address] Jarrell Aldrich Social History Tobacco Use Types [...] on filedocumented in this encounter Care Teams Embedded Systems Software Developer Relationship Specialty Start Date End Date Bette Garay DO PCP - General Internal Medicine 02/27/14 06/06/21 [facility], Pcp PCP - General Internal Medicine 11/09/21 Harish Palomo MD, PHD Specialist Neurosurgery 11/09/21 documented as of this encounter
--- OUTSIDE RECORDS SUMMARY | 2025-01-15 12:38 | XMS_ITS ---
Author Organization [facility] Address [address] [address] Care Team Providers Care Programmer Operator Numerical Control Name Role Phone ERIKA TAVAREZ MD Primary Care Provider Unavail able LIAN HENSON Unavailable [phone] Allergies Allergen (clinical drug ingredient) Drug/Non Drug Allergy documented on EMR Reaction Allergy Type Onset Date Status hydromorphone Dilaudid breathing problems Drug Allergy Active Results Component Value Reference Range Notes Test, Urine Reviewed date:01/10/2025 11:31:35 AM Interpretation: Performing Lab: Notes/Report: Test, Urine NEG REASON FOR VISIT HSONO/EB/AUB Medications Medication SIG (Take, Route, Frequency, Duration) Notes Start Date End Date Status Rinvoq Active Vitamin D3 50 MCG (1999 UT) 1 capsule Orally Once a day for 30 day(s) Active Advair Diskus 250-50 1 Inhalation TWICE DAILY for -02/16/2012 Active ProAir HFA 90MCG 2 Inhalation four times daily for -02/16/2012 Active Singulair 5 MG 1 ORAL daily for -02/16/2012 Active SUMAtriptan Succinate 50 MG Oral for [...] EVERY DAY NEEDED Oral for 30 Active Citalopram Hydrobromide 40 MG Orally BEING TAPERED OFF Active Atorvastatin Calcium 10 MG 1 tablet Orally Once a day Active Encounters Encounter Location Date Provider Diagnosis [facility] [address] [facility] [address] [place] [address] 01/10/2025 LIAN HENSON Abnormal uterine and vaginal bleeding, unspecified N93.9 Assessments Encounter Date Diagnosis (ICD Code) Assessment Notes Treatment Notes Treatment Clinical Notes Section Notes 01/10/2025 Abnormal uterine and vaginal bleeding, unspecified (ICD-10 - N93.9) If normal, consider Mirena IUD vs hormonal therapy to help with frequent, erratic bleeding. Plan Of Treatment Treatment Notes Assessment Notes Abnormal uterine and vaginal bleeding, unspecified If normal, consider Mirena IUD vs hormonal therapy to help with frequent, erratic bleeding. Pending Test Test Name Order Date SURGICAL PATHOLOGY 01/10/2025 Next Appt Details Follow Up: 10 days, Reason: results/plan Provider Name:LIAN Celis, 01/20/2025 03:00:00 PM, [address] [place] [address], [address], [place], [address], Provider Name:LIAN Celis, 12/25/2025 09:00:00 AM, [employer], [address], [place], [address], Procedure Notes * Category Sub-Category Detail Notes Endometrial biopsy Test: Negative Indication: Dysfunctional uterin e bleeding (DUB) Consent: General procedure, i ndications, risks, benefits, alternative treatments, and expected outcomes have been discussed with this patient. She has had an opportunity to ask questions, and all questions have been answered by me. She verbalizes understanding and to the best of my knowledge I feel the patient has been adequately informed and consented. The consent form has been signed. Prep: The patient was plac ed in the dorsal lithotomy position and a pelvic examination performed with the results documented above. A speculum was inserted into the vagina and the cervix cleaned with an antiseptic solution Procedure: A speculum was place d in the vaginal vault. The cervix was visualized and cleansed with an antiseptic solution. The cervix was grasped with a tenaculum. Gentle traction was used to align the cervix and uterine canal. A flexible endometrial biopsy instrument was then passed through the cervical canal into the uterine cavity without difficulty. The uterine cavity was sounded to 10 cm. An adequate specimen was obtained and submitted for pathological evaluation and hemostasis achieved. The instruments were removed from the vagina and the patient advised to report bleeding, fever, dizziness, or other symptoms. She tolerated the procedure well. She was discharged from the office in stable condition with follow-up instructions. Follow-up treatment will be determined when the results of the biopsy are available in approximately one week. Sonohysterogram procedure Cervix prepped w ith aseptic solution, Tenaculum required/used, Catheter advanced easily, Lining smooth Progress Notes * ARTURO PALMEROB: 3 (49 yo F)Acc No.[id number]:01/10/2025 Patient:?ENRIQUE PALMER Provider:?LIAN HENSON MD :1975???Age:49 Y???Sex:Female D ate:01/10/2025 Address:[address] [place], [place] [id number] Pcp:ERIKA TAVAREZ MD Subjective: * Chief Complaints: * ???HSONO/EB/AUB * HPI: ???PASSENGER SERVICE AGENT (Procedures/Surgeries):?Patient presents today for sonohysterogram and endometrial biopsy. She was seen for her yearly exam on 12/23/24 with the following bleeding history: Menses: irregular, usually coming about once a [...] day cycle, which then lasted 9 days. She relies on her 's vasectomy for contraception. * Medical History:? * Medications:?TakingAmbien 5 MG Tablet 1 tablet at bedtime as needed Orally Once a day oxyCODONE HCl 10 MG Tablet 1 tablet as needed Orally every 6 hrs Rinvoq Vitamin D3 50 MCG (1999 UT) Capsule 1 capsule Orally Once a [...] Oral Cyclobenzaprine HCl 5 MG Tablet Oral miSOPROStol 200 MCG Tablet as directed Orally 8-12 hrs prior to appointment Medication List reviewed and reconciled with the patientTaking Ambien 5 MG Tablet 1 tablet at [...] Taking Cyclobenzaprine HCl 5 MG Tablet Oral Taking miSOPROStol 200 MCG Tablet as directed Orally 8-12 hrs prior to appointment Medication List reviewed and reconciled with the patient * Allergies:?Dilaudid: rosibel gutierrez[Allergies Verified] Objective: * Vitals:? Assessment: * Assessment: 1.?Abnormal uterine and vagi nal bleeding, unspecified - N93.9 (Primary)??? Plan: * Treatment: ?LAB: Test, Urine (Collection Date & Time - 01/10/2025)* ? Value Reference Range ? Test, Urine NEG * Anand Sejal 01/10/2025 11:20:29 AM EDT > Notes: If normal, consider Mirena IUD vs hormonal therapy to help with frequent, erratic bleeding. ? * Procedures:?Sonohysterogram:?procedure?Cervix prepped with aseptic solution, Tenaculum required/used, Catheter advanced easily, Lining smooth.?Endometrial biopsy :? Test:?Negative.?Indication:?Dysfunctional uterine bleeding (DUB).?Consent:?General procedure, indications, risks, benefits, alternative treatments, and expected outcomes have been discussed with this patient. She has had an opportunity to ask questions, and all questions have been answered by me. She verbalizes understanding and to the best of my knowledge I feel the patient has been adequately informed and consented. The consent form has been signed..?Prep:?The patient was placed in the dorsal lithotomy position and a pelvic examination performed with the results documented above. A speculum was inserted into the vagina and the cervix cleaned with an antiseptic solution.?Procedure:?A speculum was placed in the vaginal vault. The cervix was visualized and cleansed with an antiseptic solution. The cervix was grasped with a tenaculum. Gentle traction was used to align the cervix and uterine canal. A flexible endometrial biopsy instrument was then passed through the cervical canal into the uterine cavity without difficulty. The uterine cavity was sounded to 10 cm. An adequate specimen was obtained and submitted for pathological evaluation and hemostasis achieved. The instruments were removed from the vagina and the patient advised to report bleeding, fever, dizziness, or other symptoms. She tolerated the procedure well. She was discharged from the office in stable condition with follow-up instructions. Follow-up treatment will be determined when the results of the biopsy are available in approximately one week..? * Procedure Codes:?52499 URINE [id number] CATHETER FOR [id number] BIOPSY OF UTERUS LINING * Follow Up:?10 days (Reason: results/plan) * Images: Billing Information: * Visit Code:? * Procedure Codes:? 73975 [address]. 91266 CATHETER FOR HYSTEROGRAPHY. 59381 BIOPSY OF UTERUS LINING. * Sign off status: Completed true * Provider:?LIAN HENSON MD Date:?2024 Generated for Madhu gray/Luis/Raysmitting on:?01/15/2025 12:37 PM EDT
--- OUTSIDE RECORDS SUMMARY | 2025-01-15 12:38 | XMS_ITS | Patient Health Record ---
Author Organization [facility] Address [address] [facility] [place] [address] Care Team Providers Care Behavioral Health Clinician Name Role Phone Bette Garay Primary Care Provid er Unavailable Addis Alexander Unavailable [phone] Allergies Allergen (clinical drug ingredient) Drug/Non Drug [...] Problem Status W/U Status Risk Notes Problem [id number] Non-pressure ulcer of right lower extremity, limited to breakdown of skin (L97.911) Active confirmed Plan Of Treatment Pending Test Test Name Order Date 91326-Xmdb Destruction, -01/16/2017 51393-Xvwq Destruction, -02/06/2017 47254-Vkpf Destruction, -14 03/22/2017 46472-Ovaykwgu Plate 01/16/2017 75992- Debride <25 sq cm 02/06/2017 Insurance Providers Payer Name Payer Address Payer Phone Subscriber Number Group Number Insured Name Patient Relationship to Insured Coverage Start Date Coverage End Date [facility] [address] [place] [address] [id number] Ashley Magdaleno Self - patient is the [...]
--- OUTSIDE RECORDS SUMMARY | 2025-01-15 12:38 | XMS_ITS | Encounter Summary ---
Author Organization [facility] Address [address] [place] [address] Care Team Providers Care Restaurant Assistant Name Role Phone Bette Garay DO Primary Care Pro vider Unavailable Community, Pcp Primary Care Provider Harish Winters MD, PHD Unavailable Unava ilable Reason for Visit * Reason Comments E-prescribe Rx Request Encounter Details Date Type Department Care Team Description 11/13/2018 Refill Adult Medicine [address] [address] Shaneka Blanco PA-C E-prescribe Rx Request Social History Tobacco Use [...] Telephone Encounter - Cinthya Woods M.A. - 11/14/2018 10:42 AM EST Lab Results Component Value Date NA 142 11/27/2017 K 4.3 11/27/2017 CO2 27.0 11/27/2017 CL 101 11/27/2017 BUN 17 11/27/2017 CREAT 1.0 11/27/2017 GLU 83 11/27/2017 CA 9.1 11/27/2017 GFR > 60 11/27/2017 Last ov with Shaneka 10/17/18 * Telephone Encounter - Tatiana Tim - 11/14/2018 10:38 AM EST Patient would like script to be: E-PRESCRIBED/FAXED TO PHARMACY WHEN WAS THE PATIENT'S LAST APPOINTMENT IN ADULT MEDICINE? 10/17/2018 WHEN WAS THE LAST TIME THE PATIENT SAW THEIR PCP? 12/01/2017 Does patient have an upcoming appointment? No[facility]ill [facility]. Appt due 03/17/2019 (THE MEDICATION REQUESTED IS ON THE MED [...] N/A Patients current insurance carrier is: Payor: [employer] [place] / Plan: HMO $30 [place] [id number] /Product Type: HMO [id number] documented in this encounter Plan of Treatment Not on file documented as of this encounter Visit Diagnoses Not on filedocumented in this encounter Care Teams Restaurant Assistant Relationship Specialty Start Date End Date Bette Garay DO PCP - General Internal Medicine 02/27/14 06/06/21 [facility], Pcp PCP - General Internal Medicine 11/09/21 Harish Palomo MD, PHD Specialist Neurosurgery 11/09/21 documented as of this encounter
--- OUTSIDE RECORDS SUMMARY | 2025-01-15 12:38 | XMS_ITS | Encounter Summary ---
Author Organization [employer] Address [address] [place] [address] [address] [place] [address] Care Team Providers Care Principal Military Analyst Name Role Phone Leilani Gale MD Primary Care Provider [phone] Reason for Referral * Consultation (Routine) - Authorized Specialty Diagnoses / Procedures Referred By Contac t Referred To Contact Endocrinology Diagnoses Thyroid nodule greater than or equal to 1.5 cm in diameter incidentally noted on imaging study Leilani Gale MD [address] [place] [address] Phone: tel: fax: [facility] [address] [place] [phone] Phone: tel: fax: Referral ID Status Reason Start Date Expiration Date Visits Requested Visits Authorized [id number] Authorized Specialty Services Required 10/08/2024 10/08/2025 1 1 Encounter Details Date Type Department Care Team (Late st Contact Info) Description 10/08/2024 Orders Only [facility] MEDICINE [address] [place] [address] Leilani Gale MD [address] [place], [place] [phone] Thyroid nodule greater than or equal to [...] Primary documented in this encounter Care Teams Principal Military Analyst Relationship Specialty Start Date End Date Leilani Gale MD [address] [place] [address] PCP - General Family Medicine 11/02/21 documented as of this encounter
--- OUTSIDE RECORDS SUMMARY | 2025-01-15 12:38 | XMS_ITS | Clinical Summary ---
Author Organization [employer] Address [address] [place] [address] 7t [place] [address] Care Team Providers Care Account Officer Name Role Phone Leilani Gale MD Primary Care Provider [phone] Allergies Active Allergy Reactions Criticality Noted Date Comments Hydromorphone Hcl 12/16/2021 Other reaction(s): breathing problems Wound Dressings 11/30/2022 Other reaction(s): swollen red rash Medications cholecalcifer ol (Vitamin D-3) 50 MCG (1999) capsule daily. Active coenzyme Q-10 50 MG capsule daily. Active ipratropium-a lbuterol (Duo-Neb) 0.5-2.5 mg/3 mL nebulizer solution USE 1 VIAL VIA NEBULIZER 4 TIMES A DAY 06/27/20 22 Active predniSONE (Deltasone) 20 MG tablet Take 40 mg by mouth in the morning. 06/29/20 22 Active Turmeric 500 MG capsule Active zolpidem (Ambien) 10 MG tablet Take 10 mg by mouth if needed at bedtime. 02/09/20 23 Active Fluticasone-S almeterol 250-50 MCG/ACT aerosol powder INHALE 1 PUFF TWICE DAILY IN THE MORNING AND IN THE EVENING APPROXIMATELY 12 HOURS APART. RINSE MOUTH AFTER USING. 60 each 5 01/19/20 24 Active montelukast (Singulair) 10 MG tablet TAKE 1 TABLET BY MOUTH EVERY DAY IN THE EVENING 90 tablet 3 02/07/20 24 Active atorvastatin (Lipitor) 10 MG tablet Take 1 tablet (10 mg) by mouth Once per day. 90 tablet 3 02/09/20 24 Active cetirizine (ZyrTEC) 10 MG tablet Take 1 tablet (10 mg) by mouth Once per day. 90 tablet 3 02/09/20 24 Active cyclobenzapri ne (Flexeril) 5 MG tablet Take 1 tablet (5 mg) by mouth at bedtime. 30 tablet 3 05/03/20 24 Active SUMAtriptan (Imitrex) 50 MG tablet TAKE 1 TABLET BY MOUTH AT ONSET OF MIGRAINE. MAY REPEAT ONCE AFTER 2 HOURS IF NEEDED. NO MORE THAN 2 DOSES PER 24 HOURS 10 tablet 6 06/28/20 24 Active albuterol 108 (90 Base) MCG/ACT inhaler INHALE 2 PUFFS BY MOUTH EVERY 4 TO 6 HOURS NEEDED FOR COUGH / FOR ASTHMA 8.5 g 3 09/13/20 24 Active citalopram (CeleXA) 20 MG tabletIndicat ions:Anxiety TAKE 1 TABLET BY MOUTH EVERY DAY 90 tablet 3 12/18/19 25 Active Nirmatrelvir& Ritonavir 300/100 (Paxlovid, 300/100,) 20 x 150 MG & 10 x 100MG tablet therapy packIndicatio ns:COVID-19 Take 1 Dose by mouth 2 times daily. 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) 12/27/2024 Orders Only [facility] MEDICINE [address] [place], [place] [phone] Leilani Gale MD COVID-19 (Primary Dx) 12/17/2024 Refill [facility] MED & PEDS [address] [place], [place] [phone] Quynh Bliss MD Anxiety from Last 3 Months Immunizations Name Administration [...] Procedure Name Priority Date/Time Associated Diagnosis Comments LIPID PANEL, STANDARD Routine 05/31/2023 10:17 AM EDT High cholesterol HM COLONOSCOPY Routine 06/10/2022 from Last 3 Months or Most Recently Relevant to Health Maintenance Results * (ABNORMAL) Lipid Panel, Standard (05/31/2023 10:17 AM EDT) Triglycerides 153(H) <150 mg/dL [facility] Comment:Desirable Triglyceri de: less than 150 mg/dLBorderline High Triglyceride 150-199 mg/dLHigh Triglyceride: 200-499 mg/dLVery High Triglyceride: greater than or equal to 5OO mg/dL Cholesterol 168 <200 mg/dL [facility] Comment:Desirable Cholestero l: less than 200 mg/dLBorderline High Cholesterol: 200-239 mg/dLHigh Cholesterol: greater than 239 mg/dL LDL Cholesterol Calculated 85 <100 mg/dL [facility] Comment:Desirable LDL: less than 100 mg/dLNear Optimal/Above Optimal LDL: 110- 129 mg/dLBorderline High LDL: 130-159 mg/dLHigh LDL: 160-189 mg/dLVery High LDL: greater than or equal to 190 mg/dL HDL Cholesterol 53 >40 mg/dL [facility] Comment:Desirable HDL: great er than 40 mg/dL Note: This HDL assay may give artificially low results in patients with liver disease. Blood Venous blood specimen / Unknown 05/31/2023 10:17 AM EDT 05/31/2023 11:16 AM EDT us Leilani Gale MD LAB BLOOD ORDERABLES Final Res ult [facility] [address] [place] [address] [phone] * Hm Colonoscopy (06/10/2022) Colonoscopy Normal Normal [facility] Comment:see scanned report 06/10/2022 Leilani Gale MD HEALTH MAINTENANCE Final Resul t [facility] [address] [place] [address] [phone] from Last 3 Months or Most Recently Relevant to Health Maintenance Insurance [facility] , [address] [place] [address] Care Teams Account Officer Relationship Specialty Start Date End Date Leilani Gale MD [address] [place] [id number] PCP - General Family Medicine 11/02/21
--- OUTSIDE RECORDS SUMMARY | 2025-01-15 12:38 | XMS_ITS | Encounter Summary ---
Author Organization [facility] Address [address] [place] [address] Care Team Providers Care Senior Benefits Analyst Name Role Phone Community, Pcp Primary Care Provider Harish Winters MD, PHD Unavailable Unava ilable Encounter Details Date Type Department Care Team Description 11/10/2021 SCAN [facility] Neurosurgery [place] [address] [place] [address] Harish Palomo MD, PHD Social [...] on filedocumented in this encounter Care Teams Senior Benefits Analyst Relationship Specialty Start Date End Date Community, Pcp PCP - General Internal Medicine 11/09/21 Harish Palomo MD, PHD Specialist Neurosurgery 11/09/21 documented as of this encounter
--- OUTSIDE RECORDS SUMMARY | 2025-01-15 12:38 | XMS_ITS | Encounter Summary ---
Author Organization [facility] Address [address] [place] [address] Care Team Providers Care Pain Management Specialist Name Role Phone Bette Garay DO Primary Care Pro vider Unavailable Community, Pcp Primary Care Provider Harish Winters MD, PHD Unavailable Unava ilable Encounter Details Date Type Department Care Team Description 09/21/2018 Supervisor [employer] Report Medical Records [address] [place] [address] Jarrell Aldrich Social History Tobacco Use Types [...] on filedocumented in this encounter Care Teams Pain Management Specialist Relationship Specialty Start Date End Date Bette Garay DO PCP - General Internal Medicine 02/27/14 06/06/21 [facility], Pcp PCP - General Internal Medicine 11/09/21 Harish Palomo MD, PHD Specialist Neurosurgery 11/09/21 documented as of this encounter
--- OUTSIDE RECORDS SUMMARY | 2025-01-15 12:38 | XMS_ITS | Encounter Summary ---
Author Organization [facility] Address [address] [place] [address] Care Team Providers Care Gravel Wheeler Name Role Phone Bette Garay DO Primary Care Pro vider Unavailable Community, Pcp Primary Care Provider Harsih Winters MD, PHD Unavailable Unava ilable Encounter Details Date Type Department Care Team Description 05/12/2020 Telephone Adult [address] [address] Shefali Dowling, MOE Social History Tobacco Use Types Packs/Day Years [...] on filedocumented in this encounter Care Teams Gravel Wheeler Relationship Specialty Start Date End Date Bette Garay DO PCP - General Internal Medicine 02/27/14 06/06/21 Community, Pcp PCP - General Internal Medicine 11/09/21 Harish Palomo MD, PHD Specialist Neurosurgery 11/09/21 documented as of this encounter
--- OUTSIDE RECORDS SUMMARY | 2025-01-15 12:38 | XMS_ITS | Encounter Summary ---
Author Organization [facility] Address [address] [place] [address] Care Team Providers Care Library Media Specialist Name Role Phone Bette Garay DO Primary Care Pro vider Unavailable Community, Pcp Primary Care Provider Harish Winters MD, PHD Unavailable Unava ilable Reason for Visit * Reason Comments E-prescribe Rx Request Encounter Details Date Type Department Care Team Description 01/14/2019 Refill Adult Medicine [address] [address] Louise Fairchild PA-C [address] [place] [address] E-prescribe Rx Request Social History Tobacco Use [...] Telephone Encounter - Cinthya Woods M.A. - 01/14/2019 9:37 AM EDT Lab Results Component Value Date NA 142 11/27/2017 K 4.3 11/27/2017 CO2 27.0 11/27/2017 CL 101 11/27/2017 BUN 17 11/27/2017 CREAT 1.0 11/27/2017 CA 9.1 11/27/2017 GFR > 60 11/27/2017 Last ov with pcp 12/17/18 * Telephone Encounter - Tashia Parry - 01/14/2019 9:31 AM EDT Patient would like script to be: E-PRESCRIBED/FAXED TO PHARMACY WHEN WAS THE PATIENT'S LAST APPOINTMENT IN ADULT MEDICINE? 12-17-18 WHEN WAS THE LAST TIME THE PATIENT SAW THEIR PCP? Same as above Does patient have an upcoming appointment? No-patient will call back to book appointment (THE MEDICATION REQUESTED IS ON THE MED LIST ABOVE) One or some of the medications requested were on the HISTORICAL MED list Did you check the Pharmacy information above?: YES Patient wants: 30 -day supply Is this a mail order prescription request ? NO If the refill is from a FAXED refill request what is the RX # listed on the fax? N/A Patients current insurance carrier is: Payor: [employer] [place] / Plan: [employer] $30 JAKE 1500 /Product Type: HMO [id number] documented in this encounter Plan of Treatment Not on file documented as of this encounter Visit Diagnoses Not on filedocumented in this encounter Care Teams Library Media Specialist Relationship Specialty Start Date End Date Bette Garay DO PCP - General Internal Medicine 02/27/14 06/06/21 [facility], Pcp PCP - General Internal Medicine 11/09/21 Harish Palomo MD, PHD Specialist Neurosurgery 11/09/21 documented as of this encounter
--- OUTSIDE RECORDS SUMMARY | 2025-01-15 12:38 | XMS_ITS | Encounter Summary ---
Author Organization [facility] Address [address] [place] [address] Care Team Providers Care Packer Dried Beef Name Role Phone Bette Garay DO Primary Care Pro vider Unavailable Community, Pcp Primary Care Provider Harish Winters MD, PHD Unavailable Unava ilable Reason for Visit * Reason Comments E-prescribe Rx Request Encounter Details Date Type Department Care Team Description 02/18/2020 Refill Adult Medicine [address] [address] Bette Garay DO E-prescribe Rx Request Social [...] N/A Patients current insurance carrier is: Payor: [employer] / Plan: [employer] $20 BRISTOL 1 / Product Type: HMO [id number] documented in this encounter Plan of Treatment Not on file documented as of this encounter Visit Diagnoses Not on filedocumented in this encounter Care Teams Packer Dried Beef Relationship Specialty Start Date End Date Bette Garay DO PCP - General Internal Medicine 02/27/14 06/06/21 [facility], Pcp PCP - General Internal Medicine 11/09/21 Harish Palomo MD, PHD Specialist Neurosurgery 11/09/21 documented as of this encounter
--- OUTSIDE RECORDS SUMMARY | 2025-01-15 12:38 | XMS_ITS | Encounter Summary ---
Author Organization [facility] Address [address] [place] [address] Care Team Providers Care Elevator Erector Name Role Phone Bette Garay DO Primary Care Pro vider Unavailable Community, Pcp Primary Care Provider Harish Winters MD, PHD Unavailable Unava ilable Encounter Details Date Type Department Care Team Description 12/16/2020 Kitchen Clerk Report Medical Records [address] [place] [address] Addis Alexander DPM Social History Tobacco Use Types Packs/Day Years [...] on filedocumented in this encounter Care Teams Elevator Erector Relationship Specialty Start Date End Date Bette Garay DO PCP - General Internal Medicine 02/27/14 06/06/21 [facility], Pcp PCP - General Internal Medicine 11/09/21 Harish Palomo MD, PHD Specialist Neurosurgery 11/09/21 documented as of this encounter
--- OUTSIDE RECORDS SUMMARY | 2025-01-15 12:38 | XMS_ITS | Encounter Summary ---
Author Organization [employer] Address [address] [place] [address] 7[address] [place] [address] Care Team Providers Care Field Artillery Operations Specialist Name Role Phone Leilani Gale MD Primary Care Provider [phone] Reason for Referral * Consultation (Routine) - Canceled Specialty Diagnoses / Procedures Referred By Peng booth Referred To Contact Endocrinology Diagnoses Thyroid nodule greater than or equal to 1.5 cm in diameter incidentally noted on imaging study Leilani Gale MD [address] [place] [address] Phone: tel: fax: Referral ID Status Reason Start Date Expiration Date Visits Requested Visits Authorized [id number] Canceled Specialty Services Required 08/08/2024 08/08/2025 1 1 Encounter Details Date Type Department Care Team (Late st Contact Info) Description 08/08/2024 Orders Only [facility] MEDICINE [address] [place] [address] Leilani Gale MD [address] [place], [place] [phone] Thyroid nodule greater than or equal to [...] Primary documented in this encounter Care Teams Field Artillery Operations Specialist Relationship Specialty Start Date End Date Leilani Gale MD [address] [place] [address] PCP - General Family Medicine 11/02/21 documented as of this encounter
--- OUTSIDE RECORDS SUMMARY | 2025-01-15 12:38 | XMS_ITS | Encounter Summary ---
Author Organization [employer] Address [address] [place] [address] 7t [place] [address] Care Team Providers Care Drawing Supervisor Name Role Phone Leilani Gale MD Primary Care Provider [phone] Reason for Referral * Consultation (Routine) - Closed Specialty Diagnoses / Procedures Referred By Peng booth Referred To Contact Gastroenterology Diagnoses Redundant colon Colon cancer screening Leilani Gale MD [address] [place] [address] Phone: tel: fax: [facility] [address] [place] [address] Phone: tel: fax: Referral ID Status Reason Start Date Expiration Date V isits Requested Visits Authorized [id number] Closed Specialty Services Required 05/31/2024 05/31/2025 1 1 * Imaging (Routine) - Closed Specialty Diagnoses / Procedures Referred By Peng booth Referred To Contact Radiology Diagnoses Thyroid nodule greater than or equal to 1.5 cm in diameter incidentally noted on imaging study Procedures US Thyroid Leilani Gale MD [address] [place] [address] Phone: tel: fax: [facility] [address] [place] [address] Phone: tel: fax: Referral ID Status Reason Start Date Expiration Date Visits Re quested Visits Authorized [id number] Closed 05/31/2024 05/31/2025 1 1 Encounter Details Date Type Department Care Team (Late st Contact Info) Description 05/31/2024 Orders Only [facility] MEDICINE [address] [place] [address] Leilani Gale MD [address] [place] [address] Thyroid nodule greater than or equal to [...] EDT Narrative 07/19/2024 8:39 AM EDT ? [facility] ?[address] ?[place] [address] ? Ultrasound Report ? Signed ? Patient: Ashley Magdaleno ?MR#: [id number] ?? [id number] ? : 1975 ?Acct:[id number] ? Age/Sex: 48 / F ?ADM Date: 06/17/24 ? Loc: HO.US ? Attending Dr: Leilani Gale MD ? Ordering Physician: Leilani Gale ?? Date of Service: 06/17/24 ?? Procedure(s): US thyroid ?? Accession Number(s): [id number] ? cc: Leilani Gale ? EXAMINATION: ?? [...] or equal to 1 cm: 1. ?? Sole Filler nodules are described as follows: ? 1. [...] DD/ 0938 ? TD/TT: 06/17/24 0948 ? Agent Based Modeler: SS ? Procedure Note Bruce Shaikh - 07/19/[address] [address] Ultrasound Report Signed Patient: Ashley Magdaleno EMR#: [id number] : 1975Acct:[id number] Age/Sex: 48 / FADM Date: 06/17/24 Loc: HO.US Attending Dr: Leilani Gale MD Ordering Physician: Leilani Gale Date of Service: 06/17/24 Procedure(s): US thyroid Accession Number(s): [id number] cc: Leilani Gale EXAMINATION: US THYROID CLINICAL [...] than or equal to 1 cm: 1. Sole Filler nodules are described as follows: 1. Location: [...] 07/19/24 0836 DD/ 0938 TD/TT: 06/17/24 0948 Agent Based Modeler: SS us Leilani Gale MD IMG US PROCEDURES Final Result documented in this encounter Visit Diagnoses Diagnosis Thyroid nodule greater than or equal to 1.5 cm in diameter incidentally noted on imaging study- Primary Redundant colon Other congenital anomalies of intestine Colon cancer screening Special screening for malignant neoplasms, colon documented in this encounter Care Teams Drawing Supervisor Relationship Specialty Start Date End Date Leilani Gale MD [address] [place] [address] PCP - General Family Medicine 11/02/21 documented as of this encounter
--- OUTSIDE RECORDS SUMMARY | 2025-01-15 12:38 | XMS_ITS | Encounter Summary ---
Author Organization [facility] Address [address] [place] [address] Care Team Providers Care Coupon Clerk Name Role Phone Bette Garay DO Primary Care Pro vider Unavailable Community, Pcp Primary Care Provider Harish Winters MD, PHD Unavailable Unava ilable Encounter Details Date Type Department Care Team Description 07/03/2014 Market Research Interviewer Report Medical Records [address] [place] [address] Ron Roberson Social History Tobacco Use Types Packs/Day Years [...] on filedocumented in this encounter Care Teams Coupon Clerk Relationship Specialty Start Date End Date Bette Garay DO PCP - General Internal Medicine 02/27/14 06/06/21 [facility], Pcp PCP - General Internal Medicine 11/09/21 Harish Palomo MD, PHD Specialist Neurosurgery 11/09/21 documented as of this encounter
== END 2025-01-15 11:20 | disposition home or self-care (01) ==
LOC: HO.RHE 10:39
PROVIDERS: PCP General Practice; Visit Provider Student in an Organized Health Care Education/Training Program
DX: M45.A Non-radiographic axial spondyloarthritis (principal); Z51.81 Encounter for therapeutic drug level monitoring; Z79.620 Long term (current) use of immunosuppressive biologic
CPT/HCPCS: 99214

== ENCOUNTER 2025-01-15 11:33 | Outpatient (REF) | payer OTHER, SELFPAY ==
[2025-01-15 13:23] LABS: MANUAL DIFF FLAG NO
[2025-01-15 13:48] LABS: Basophils Percent Auto 0.5 % (0-2); Eosinophils Absolute Auto 0.1 X10*3/uL (0.0-0.4); Eosinophils Percent Auto 1.3 % (0-4); Hematocrit 38.7 % (37.0-47.0); Hemoglobin 13.1 g/dl (12.0-16.0); Imm Gran Abs Auto 0.04 X10*3/uL (0.00-0.03); Imm Gran Pct Auto 0.7 % (0.0-0.4); Lymphocytes Absolute Auto 2.2 X10*3/uL (1.2-4.9); Lymphocytes Percent Auto 38.8 % (20-40); Mean Corpuscular HGB Conc 33.9 g/dl (31.0-35.0); Mean Corpuscular Hemoglobin 31.4 pg (27.0-33.0); Mean Corpuscular Volume 92.8 fL (80.0-98.0); Mean Platelet Volume 9.9 fL (9.4-12.3); Monocytes Absolute Auto 0.4 X10*3/uL (0.1-1.2); Monocytes Percent Auto 7.6 % (2-11); Neutrophils Absolute Auto 2.8 x10*3/uL (2.0-8.3); Neutrophils Percent Auto 51.1 % (45-73); Platelet Count 299 X10*3/uL (160-400); Red Blood Count 4.17 X10*6/uL (4.20-5.50); Red Cell Distribution Width 12.9 % (11.0-16.0); White Blood Count 5.6 X10*3/uL (4.8-10.8)
--- OUTSIDE RECORDS SUMMARY | 2025-01-15 13:58 | XMS_ITS | Encounter Summary ---
Author Organization [employer] Address [address] [place] [address] [address] [place] [address] Care Team Providers Care Pin Ticket Machine Operator Name Role Phone Leilani Gale MD Primary Care Provider [phone] Reason for Referral * Consultation (Routine) - Canceled Specialty Diagnoses / Procedures Referred By Peng booth Referred To Contact Endocrinology Diagnoses Thyroid nodule greater than or equal to 1.5 cm in diameter incidentally noted on imaging study Leilani Gale MD [address] [place] [address] Phone: tel: fax: Referral ID Status Reason Start Date Expiration Date Visits Requested Visits Authorized [id number] Canceled Specialty Services Required 08/08/2024 08/08/2025 1 1 Encounter Details Date Type Department Care Team (Late st Contact Info) Description 08/08/2024 Orders Only [facility] MEDICINE [address] [place] [address] Leilani Gale MD [address] [place], [place] [phone] Thyroid nodule greater than or equal to [...] Primary documented in this encounter Care Teams Pin Ticket Machine Operator Relationship Specialty Start Date End Date Leilani Gale MD [address] [place] [address] PCP - General Family Medicine 11/02/21 documented as of this encounter
--- OUTSIDE RECORDS SUMMARY | 2025-01-15 13:58 | XMS_ITS | Encounter Summary ---
Author Organization [employer] Address [address] [facility] 7t [place] [address] Care Team Providers Care Cp Bleacher Operator Name Role Phone Leilani Gale MD Primary Care Provider [phone] Encounter Details Date Type Department Care Team ([facility] st Contact Info) Description 12/27/2024 Orders Only [facility] MEDICINE [address] [place] [address] Leilani Gale MD [address] [place] [address] COVID-19 (Primary Dx) Social History Tobacco Use [...] Primary documented in this encounter Care Teams Cp Bleacher Operator Relationship Specialty Start Date End Date Leilani Gale MD [address] [place] [address] PCP - General Family Medicine 11/02/21 documented as of this encounter
--- OUTSIDE RECORDS SUMMARY | 2025-01-15 13:58 | XMS_ITS | Encounter Summary ---
Author Organization [employer] Address [address] [place] [address] 7[address] [place] [address] Care Team Providers Care Cable Inspector Name Role Phone Leilani Gale MD Primary Care Provider [phone] Reason for Referral * Consultation (Routine) - Authorized Specialty Diagnoses / Procedures Referred By Contac t Referred To Contact Endocrinology Diagnoses Thyroid nodule greater than or equal to 1.5 cm in diameter incidentally noted on imaging study Leilani Gale MD [address] [place] [address] Phone: tel: fax: [facility] [address] [place] [phone] Phone: tel: fax: Referral ID Status Reason Start Date Expiration Date Visits Requested Visits Authorized [id number] Authorized Specialty Services Required 10/08/2024 10/08/2025 1 1 Encounter Details Date Type Department Care Team (Late st Contact Info) Description 10/08/2024 Orders Only [facility] MEDICINE [address] [place] [address] Leilani Gale MD [address] [place], [place] [phone] Thyroid nodule greater than or equal to [...] Primary documented in this encounter Care Teams [place] Inspector Relationship Specialty Start Date End Date Leilani Gale MD [address] [place] [address] PCP - General Family Medicine 11/02/21 documented as of this encounter
--- OUTSIDE RECORDS SUMMARY | 2025-01-15 13:58 | XMS_ITS | Clinical Summary ---
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 MEDICINE [address] [place], [place] [phone] Leilani Gale MD COVID-19 (Primary Dx) 12/17/2024 Refill [facility] MED & PEDS [address] [place], [place] [phone] Quynh Bliss MD Anxiety from Last 3 [...] 10:17 AM EDT) Triglycerides 153(H) <150 mg/dL [facility] Comment:Desirable Triglyceri de: less than 150 mg/dLBorderline High Triglyceride 150-199 mg/dLHigh Triglyceride: 200-499 mg/dLVery High Triglyceride: greater than or equal to 5OO mg/dL Cholesterol 168 <200 mg/dL [facility] Comment:Desirable Cholestero l: less than 200 mg/dLBorderline High Cholesterol: 200-239 mg/dLHigh Cholesterol: greater than 239 mg/dL LDL Cholesterol Calculated 85 <100 mg/dL [facility] Comment:Desirable LDL: less than 100 mg/dLNear Optimal/Above Optimal LDL: 110- 129 mg/dLBorderline High LDL: 130-159 mg/dLHigh LDL: 160-189 mg/dLVery High LDL: greater than or equal to 190 mg/dL HDL Cholesterol 53 >40 mg/dL [facility] Comment:Desirable HDL: great er than 40 mg/dL Note: This HDL assay may give artificially low results in patients with liver disease. Blood Venous blood specimen / Unknown 05/31/2023 10:17 AM EDT 05/31/2023 11:16 AM EDT us Leilani Gale MD LAB BLOOD ORDERABLES Final Res ult [facility] [address] [place] [address] [phone] * Hm Colonoscopy (06/10/2022) Colonoscopy Normal Normal [facility] Comment:see scanned report 06/10/2022 Leilani Gale MD HEALTH MAINTENANCE Final Resul t [facility] [address] [place] [address] [phone] from Last 3 Months or Most Recently Relevant to Health Maintenance Insurance [facility] , [address] [place] [address] Care Teams Funeral Home Assistant Relationship Specialty Start Date End Date Leilani Gale MD [address] [place] [id number] PCP - General Family Medicine 11/02/21
--- OUTSIDE RECORDS SUMMARY | 2025-01-15 13:58 | XMS_ITS | Encounter Summary ---
Author Organization [employer] Address [address] [place] [address] 7t [place] [address] Care Team Providers Care Floatman Name Role Phone Leilani Gale MD Primary Care Provider [phone] Reason for Referral * Consultation (Routine) - Closed Specialty Diagnoses / Procedures Referred By Peng booth Referred To Contact Gastroenterology Diagnoses Redundant colon Colon cancer screening Leilani Gale MD [address] [place] [address] Phone: tel: fax: [facility] [address] [place] [address] Phone: tel: fax: Referral ID Status Reason Start Date Expiration Date V isits Requested Visits Authorized [id number] Closed Specialty Services Required 05/31/2024 05/31/2025 1 1 * Imaging (Routine) - Closed Specialty Diagnoses / Procedures Referred By Peng booth Referred To Contact Radiology Diagnoses Thyroid nodule greater than or equal to 1.5 cm in diameter incidentally noted on imaging study Procedures US Thyroid Leilani Gale MD [address] [place] [address] Phone: tel: fax: [facility] [address] [place] [address] Phone: tel: fax: Referral ID Status Reason Start Date Expiration Date Visits Re quested Visits Authorized [id number] Closed 05/31/2024 05/31/2025 1 1 Encounter Details Date Type Department Care Team (Late st Contact Info) Description 05/31/2024 Orders Only [facility] MED[facility]INE [address] [place] [address] Leilani Gale MD [address] [place] [address] Thyroid nodule greater than or equal to [...] EDT Narrative 07/19/2024 8:39 AM EDT ? [facility] ?[address] ?[place] [address] ? Ultrasound Report ? Signed ? Patient: Ashley Magdaleno ?MR#: [id number] ?? [id number] ? : 1975 ?Acct:[id number] ? Age/Sex: 48 / F ?ADM Date: 06/17/24 ? Loc: HO.US ? Attending Dr: Leilani Gale MD ? Ordering Physician: Leilani Gale ?? Date of Service: 06/17/24 ?? Procedure(s): US thyroid ?? Accession Number(s): [id number] ? cc: Leilani Gale ? EXAMINATION: ?? [...] or equal to 1 cm: 1. ?? Pattern Changer And Repairer nodules are described as follows: ? 1. [...] DD/ 0938 ? TD/TT: 06/17/24 0948 ? Door Core Assembler: SS ? Procedure Note Bruce Shaikh - 07/19/[address] [address] Ultrasound Report Signed Patient: Ashley Magdaleno EMR#: [id number] : 1975Acct:[id number] Age/Sex: 48 / FADM Date: 06/17/24 Loc: HO.US Attending Dr: Leilani Gale MD Ordering Physician: Leilani Gale Date of Service: 06/17/24 Procedure(s): US thyroid Accession Number(s): [id number] cc: Leilani Gale EXAMINATION: US THYROID CLINICAL [...] than or equal to 1 cm: 1. Pattern Changer And Repairer nodules are described as follows: 1. Location: [...] 07/19/24 0836 DD/ 0938 TD/TT: 06/17/24 0948 Door Core Assembler: SS us Leilani Gale MD IMG US PROCEDURES Final Result documented in this encounter Visit Diagnoses Diagnosis Thyroid nodule greater than or equal to 1.5 cm in diameter incidentally noted on imaging study- Primary Redundant colon Other congenital anomalies of intestine Colon cancer screening Special screening for malignant neoplasms, colon documented in this encounter Care Teams Floatman Relationship Specialty Start Date End Date Leilani Gale MD [address] [place] [address] PCP - General Family Medicine 11/02/21 documented as of this encounter
[2025-01-15 14:05] LABS: Alanine Aminotransferase 32 U/L (0-31); Albumin Level 4.3 g/dL (3.5-5.0); Alkaline Phosphatase 44 U/L (39-117); Anion Gap 11 (12-20); Aspartate Amino Transferase 21 U/L (5-31); Bilirubin Total 0.4 mg/dL (0.0-1.0); Blood Urea Nitrogen 13 mg/dL (9-16); C Reactive Protein 0.12 mg/dL (< or = 0.50); Calcium 9.3 mg/dL (8.4-10.2); Carbon Dioxide 24 mmol/L (22-29); Chloride 107 mmol/L (96-108); Estimated Glomerular Filt Rate > 60; Glucose Random 91 mg/dL (60-115); Sodium 138 mmol/L (135-145)
[2025-01-15 14:15] LABS: Erythrocyte Sedimentation Rate 9 MM/HR (0-20)
[2025-01-16 04:22] LABS: HBS Num1 > 1000.00 mIU/mL (0-7.99); HBc Num1 0.13 S/CO (0.00-0.79); HBsAGNum1 0.29 S/CO (0.00-0.99); Hepatitis A Antibody IgM 0.16 Index (0-0.79); Hepatitis B Core Antibody Nonreactive (Nonreactive); Hepatitis B Surface Antigen Negative (Negative); ~HepC Num1 0.08 S/CO (0.00-0.79); ~Hepatitis A Antibody IgM Nonreactive (Nonreactive); ~Hepatitis B Surface Antibody REACTIVE (Nonreactive); ~Hepatitis C Antibody Nonreactive (Nonreactive)
[2025-01-17 22:29] LABS: TS Negative Control Passed; TS Panel A 1; TS Panel B 0; TS Positive Control Passed; TSpotTB Negative (Negative)
== END 2025-01-15 11:34 | disposition home or self-care (01) ==
LOC: HO.HHCL 11:33
PROVIDERS: Visit Provider Student in an Organized Health Care Education/Training Program
DX: M45.A Non-radiographic axial spondyloarthritis (principal)
CPT/HCPCS: 36415; 80053; 85025; 85652; 86140; 86481; 86704; 86706; 86709; 86803; 87340

== ENCOUNTER 2025-04-08 15:39 | Outpatient (REF) | payer OTHER, SELFPAY ==
[2025-04-08 15:50] LABS: MANUAL DIFF FLAG NO
[2025-04-08 16:33] LABS: Hematocrit 41.7 % (37.0-47.0); Hemoglobin 14.3 g/dl (12.0-16.0); Imm Gran Abs Auto 0.01 X10*3/uL (0.00-0.03); Imm Gran Pct Auto 0.2 % (0.0-0.4); Lymphocytes Absolute Auto 2.1 X10*3/uL (1.2-4.9); Mean Corpuscular HGB Conc 34.3 g/dl (31.0-35.0); Mean Corpuscular Hemoglobin 30.7 pg (27.0-33.0); Mean Corpuscular Volume 89.5 fL (80.0-98.0); NRBC Abs Auto 0.000 X10*3/uL (0.0-0.012); NRBC Pct Auto 0.0 /100WBC (0.0-0.2); Platelet Count 315 X10*3/uL (160-400); Red Blood Count 4.66 X10*6/uL (4.20-5.50); White Blood Count 6.1 X10*3/uL (4.8-10.8)
--- OUTSIDE RECORDS SUMMARY | 2025-04-08 16:34 | XMS_ITS | Encounter Summary ---
Author Organization [employer] Address [address] [facility] 7t [place] [address] Care Team Providers Care Website Admin Name Role Phone Leilani Gale MD Primary Care Provider [phone] Encounter Details Date Type Department Care Team ([facility] st Contact Info) Description 12/27/2024 Orders Only [facility] MEDICINE [address] [place], [place] [phone] Leilani Gale MD [address] [place] [address] COVID-19 (Primary Dx) Social History Tobacco Use Types Packs/Day Years Used Date Smoking Tobacco: Never Smokeless Tobacco: Never Alcohol Use Standard Drinks/Week Comments Yes 0 (1 standard drink = 0.6 oz pur e alcohol) sometimes wine PHQ-2 Answer Date Recorded Patient Health Questionnaire-2 Score 0 11/28/2022 Housing Stability Answer Date Recorded What is your housing situation today? I have sherrieyaakov soliman 07/11/[address] you [...] as of this encounter Plan of Treatment Upcoming Encounters Date Type Department Care Team (Late st Contact Info) Description 04/30/2025 4:00 PM EDT Office Visit [facility] MEDICINE [address] [place] [phone] Leilani Gale MD [address] [place] [address] documented as of this encounter Visit Diagnoses Diagnosis COVID-19- Primary documented in this encounter Care Teams Website Admin Relationship Specialty Start Date End Date Leilani Gale MD [address] [place] [address] PCP - General Family Medicine 11/02/21 documented as of this encounter
--- OUTSIDE RECORDS SUMMARY | 2025-04-08 16:35 | XMS_ITS | Patient Health Record ---
Author Organization [facility] Address [address] [place] [address] Care Team Providers Care Tool Grinder Operator External Name Role Phone Bette Garay Primary Care Provid er Unavailable Addis Alexander Unavailable [phone] Allergies Allergen (clinical drug ingredient) Drug/Non Drug [...] End Date Status Cetirizine HCl 10 MG Oral; Duration: 30 Active Vitamin D Active Atorvastatin Calcium Active SUMAtriptan Active CoQ-10 Active Citalopram Hydrobromide 20 MG 1 tablet Orally Once a day Active Montelukast Sodium 10 MG Oral; Duration: 30 Active Advair Diskus 250-50 MCG/DOSE Inhalation; Duration: 30 Act randa Immunizations Vaccine Route Administration Date Status Comme nts COVID-19 Moderna Vaccine Unknown 10/07/2020 Administered Second Dose: 11/04/2020 Social History Tobacco use other than smoking: Question Answer Notes Are you an other tobacco user? No Problems Problem Type SNOMED Code ICD Code Onset Dates Problem Status W/U Status Risk Notes Problem Non-pressure ulcer of right lower extremity, limited to breakdown of skin (L97.911) Active confirmed Plan Of Treatment Pending Test Test Name Order Date [id number] Destruction, 1-14 01/16/2017 [id number]-Nlmv Destruction, 1-03/22/2017 59345-Fisg Destruction, -02/06/2017 [id number]-Upvkfkph Plate 01/16/2017 39161- Debride <25 sq cm 02/06/2017 Insurance Providers Payer Name Payer Address Payer Phone Subscriber Number Group Number Insured Name Patient Relationship to Insured Coverage Start Date Coverage End Date [employer] [address] [place] [address] [id number] Ashley Magdaleno Self - patient is the [...]
[2025-04-08 16:58] LABS: Alanine Aminotransferase 35 U/L (0-31); Albumin Level 4.5 g/dL (3.5-5.0); Alkaline Phosphatase 60 U/L (39-117); Anion Gap 14 (12-20); Aspartate Amino Transferase 25 U/L (5-31); Blood Urea Nitrogen 10 mg/dL (9-16); Calcium 9.4 mg/dL (8.4-10.2); Carbon Dioxide 25 mmol/L (22-29); Chloride 108 mmol/L (96-108); Estimated Glomerular Filt Rate > 60; Potassium 3.9 mmol/L (3.3-5.1); Sodium 143 mmol/L (135-145); Total Protein 7.0 g/dL (6.5-8.0)
== END 2025-04-08 15:40 | disposition home or self-care (01) ==
LOC: HO.LAB 15:39
PROVIDERS: PCP General Practice; Visit Provider Student in an Organized Health Care Education/Training Program
DX: M45.A Non-radiographic axial spondyloarthritis (principal)
CPT/HCPCS: 36415; 80053; 85025; 85652; 86140

== ENCOUNTER 2025-04-15 15:21 | Outpatient (AMB) | payer OTHER, SELFPAY ==
--- NOTE | 2025-04-15 15:28 | A.OFFVIS_ITS ---
Intake Visit Reasons: New prob-LT hand CTS Intake Note: Ashley 49 yr old right hand dominant female presents today for a new problem visit. States she is having numbness and tingling in her left hand. States her symptoms come and go and worsens at night time. State she would like to discuss surgery. Hx of right CTR 01/22/[address] Lewis. Patient also mentioned she has a auto immune condition called ankylosing spondylitis and is causing her to have pain in her left side on the lateral aspect of wrist. Allergies cortisone Allergy (Intermediate, Verified 04/15/25 15:34) Swelling hydromorphone (From DILAUDID) Allergy (Unknown, Verified 04/15/25 15:34) SHORTNESS OF BREATH HPI HPI New prob-LT hand CTS: Details: Ashley is a 49 year old right hand dominant woman who returns to discuss her left carpal tunnel syndrome. She complains of numbness in her left median nerve distribution. Symptoms intermittent, but daily, worse at night. She also complains of bilateral wrist pain, primarily the left lateral wrist, along with swelling. She was recently diagnosed with Ankylosing Spondylitis, and is following with Rheumatology for this. She says she was told this may be causing her wrist pain, but she is unsure. She is currently on Simponi, an immunosuppressant, and a Prednisone taper. She is scheduled to follow up with Rheumatology on 04/17/25. She has a Hx of a right carpal tunnel release, DOS: 01/22/24. She says she is doing well and her sensation is normal. [facility] Medical History (Updated 04/15/25 @ 15:43 by Ankit Cortes) Long-term current use of immunosuppressive biologic agent RUTH (obstructive sleep apnea) Pneumonia Asthma History of abnormal uterine bleeding Hx of fracture of ankle Migraines Anxiety High cholesterol Asthma Surgical History Hx of colonoscopy Hx of left breast biopsy Hx of section Family History Mother Pre-diabetes Father Prostate CA Daughter Non-radiographic axial spondyloarthritis Daughter Matt thyroiditis Social History Household Members: Spouse Alcohol intake: current Alcohol intake frequency: holidays/special occasions only Alcohol type: wine Patient Tobacco Use Status: Never used Tobacco 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, 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 Review of Systems Const All systems reviewed & are unremarkable except as noted in HPI and below Physical Exam Const General: cooperative, healthy appearing and no acute distress Orientation/consciousness: patient oriented x3 HEENT Head: Yes normocephalic and Yes atraumatic Eyes EOM: EOMs intact bilaterally Resp Effort & Inspection: normal respiratory effort and able to speak in complete sentences Cardio Jugular venous distension: no JVD Skin General skin exam: turgor normal Rashes: no rashes Neuro General: patient oriented x3 Extrem Other: Evaluation of Left Upper Extremity: The patient is alert, oriented, and in no acute distress Neuro: No thenar or intrinsic wasting Good APB muscle belly firing and good finger cross Vascular: Cap refill brisk ROM: She can make a fist and extend all her digits Nerve Conduction Study IMPRESSION: 1. This is an abnormal study. 2. There is electrodiagnostic evidence for right moderate-severe median neuropathy at the wrist, consistent with carpal tunnel syndrome. 3. There is no electrodiagnostic evidence for ulnar neuropathy, brachial plexopathy, or cervical radiculopathy. 4. There is electrodiagnostic evidence for left median neuropathy at the wrist. Kalyani Carl MD, JONATHAN 06/30/23 Psych Appearance: grossly normal Affect: normal affect Attitude: cooperative Assessment & Plan Assessment & Plan (1) Carpal tunnel syndrome of left wrist: Code(s): G56.02 - Carpal tunnel syndrome, left upper limb Category: Medical (2) Long-term current use of immunosuppressive biologic agent: Code(s): Z79.620 - alf (current) use of immunosuppressive biologic Category: Medical (3) Bilateral wrist pain: Code(s): M25.531 - Pain in right wrist; M25.532 - Pain in left wrist Category: Medical Plan Assessment & Plan: 1. Left carpal tunnel syndrome, mild Symptoms intermittent, but daily, worse at night I educated her about this condition I discussed operative and non-operative treatment options The patient would like to proceed with surgery The risks and benefits of operative treatment were discussed with the patient and the patient wishes to proceed with surgery. These risks include, but are not limited to risk of damage to blood vessels, nerves, tendons, infection, recurrence, incomplete relief of preoperative symptoms, persistent pain, possible need for further surgery and the risks associated with regional blocks and anesthesia. The plan is to take the patient to the operating room sometime in the next few weeks for the following procedures: 1. Left carpal tunnel release, under local All of the preoperative paperwork including the consent was reviewed today. All the patient's questions were answered. The patient understands that they will be contacted by our physician assistant surgery soon to schedule this procedure She denies Diabetes, blood thinners, asthma, heart, lung, kidney issues She is on Simponi, an immunosuppressant, and currently on a Prednisone taper. She will follow up with Rheumatology on 04/17/25 concerning when she needs to stop her medication prior to surgery 2. Bilateral wrist pain, L>R Perhaps secondary to Ankylosing Spondylitis She will follow up to discuss this when she has recovered from surgery. Radiographs of her wrists required at her follow-up appointment for htis 3. Right carpal tunnel syndrome, S/P release DOS: 01/22/24 Pre-operatively with dense numbness, worse with activities Now with normal sensation and good resolution of her nighttime symptoms Doing well, no complaints Scribe Plan - Not visible on output: Scribed for Leora Lewis MD by Ankit Cortes, medical collections representative, on [ ] at [ ], EST. Coding Level of Care Code Est Pt Level 4 (58936) Diagnoses Carpal tunnel syndrome of left wrist G56.02 Long-term current use of immunosuppressive biologic agent Z79.620 Bilateral wrist pain M25.531; M25.532
--- OUTSIDE RECORDS SUMMARY | 2025-04-15 16:17 | XMS_ITS | Encounter Summary ---
Author Organization [facility] Address [address] [facility] [address] [place] [address] Phone Care Team Providers Care Oil Lease Operator Name Role Phone Kamron Corrales MD Unavailable Cedric Perez MD Unavailable Leilani Gale MD Primary Care Provider + Ron Otoole DO Unavailable Unavailabl e Encounter Details Date Type Department Care Team (Late st Contact Info) Description 09/24/2024 Procedure Pass [facility] Admitting Dept Virtual Department [address] [place] [address] Social History Tobacco Use Types Packs/Day Years Used Date Smoking Tobacco: Never Smokeless Tobacco: Never Alcohol Use Standard Drinks/Week Comments Not Asked 0 (1 standard drink = 0.6 oz pur e alcohol) 3-4/week Education Answer Date Recorded Are you interested in more education? Not on manuelito e 08/19/2024 Are you concerned about learning? Not on file 08/19/2024 No 08/19/2024 No 08/19/2024 Digital Access Answer Date Recorded No 08/19/2024 No 08/19/2024 Reliable internet access at home? Not on file 08/19/2024 Device with a working camera? Not on file Intimate Partner Violence Answer Date R ecorded Are you denied basic needs s uch as food, clothing, or medical care? No 09/24/2024 In the past 12 months have y ou been in a relationship with a person who hurts, threatens, or tries to control you? No 09/24/2024 Are you denied basic needs s uch as food, clothing, or medical care? No 09/24/2024 In the past 12 months have y ou been in a relationship with a person who hurts, threatens, or tries to control you? No 09/24/2024 Comments Unknown Sex and Gender Information Value Date Recorded Sex Assigned at Not on file Legal Sex Female 11:49 AM EST Gender Identity Not on file Sexual Orientation Not on file documented as of this encounter Plan of Treatment Upcoming Encounters Date Type Department Care Team (Late st Contact Info) Description 07/28/2025 10:40 AM EST Office Visit [facility] [address] [place] [address] Luz Elena Walker MD [address] [place] [address] [email or web address] documented as of this encounter Visit Diagnoses Not on filedocumented in this encounter Care Teams Oil Lease Operator Relationship Specialty Start Date End Date Leilani Gale MD [address] [place] [address] [place] [address] PCP - General Family Medicine 09/16/24 Kamron Corrales MD [address] [place] [address] Vascular Surgery 09/16/24 Cedric Perez MD [address] [place] [address] [place] [address] Pulmonary Disease 09/16/24 Ron Otoole DO [address] [place] [address] [place] [address] Physical Medicine and Rehabilitation 09/16/24 documented as of this encounter Additional Source Comments The information contained in this document represents components of the legal health record. It is not the complete legal health record.[facility]
--- OUTSIDE RECORDS SUMMARY | 2025-04-15 16:17 | XMS_ITS | Encounter Summary ---
Author Organization [employer] Address [address] [facility] 7t [place] [address] Care Team Providers Care Snow Maker Name Role Phone Leilani Gale MD Primary Care Provider [phone] Encounter Details Date Type Department Care Team ([facility] st Contact Info) Description 12/27/2024 Orders Only [facility] MEDICINE [address] [place], [place] [phone] Leilani Gale MD [address] [place] [address] COVID-19 (Primary Dx) Social History Tobacco Use [...] Description 04/30/2025 4:00 PM EDT Office Visit [facility] MEDICINE [address] [place] [phone] Leilani Gale MD [address] [place] [address] documented as of this encounter Visit Diagnoses Diagnosis COVID-19- Primary documented in this encounter Care Teams Snow Maker Relationship Specialty Start Date End Date Leilani Gale MD [address] [place] [address] PCP - General Family Medicine 11/02/21 documented as of this encounter
--- OUTSIDE RECORDS SUMMARY | 2025-04-15 16:17 | XMS_ITS ---
Author Name [facility] Organization Unknown Care Team Organization Name Specialty Phone Email Start Date End Da te [facility] Termed, PROVIDER Primary Care 08/02/202204/25
--- OUTSIDE RECORDS SUMMARY | 2025-04-15 16:17 | XMS_ITS | Patient Health Record ---
Author Organization [facility] Address [address] [place] [address] Care Team Providers Care Counter Caser Name Role Phone ERIKA TAVAREZ MD Primary Care Provider Unavail able LIAN HENSON Unavailable [phone] Allergies Allergen (clinical drug ingredient) Drug/Non Drug Allergy documented on EMR Reaction Allergy Type Onset Date Status hydromorphone Dilaudid breathing problems Drug Allergy Active Results Component Value Reference Range Notes SURGICAL PATHOLOGY Reviewed date:01/21/2025 02:27:49 PM Interpretation: Performing Lab:Testing performed or reported by [facility], a Service of [facility], [address] [place] [address] Fidel Locke MD, Design Drafter [facility]# [id number] Notes/Report: Patient Name: ENRIQUE PALMER Lab Patient : [id number] (Age: 49) Collection Date: 01/10/2025 Accession Date: 01/10/2025 Sign Out Date: 01/19/2025 Tissue Source: 1:EMB Final Diagnosis: Endometrium, biopsy: - Weakly proliferative endometrium with stromal breakdown. A. Tubal (ciliated) epithelial change present (estrogen effect). Primary Pathologist:Dianelys Luo M.D.,Ph.D. electronically signed out by: Dianelys Luo M.D.,Ph.D. / [facility] [place] [facility] [place] Clinical History: Abnormal uterine and vaginal bleeding Gross Description: Labeled endometrial biopsy . Received in formalin is a 2.6 x 2.5 x 0.6 cm aggregate of translucent mucus with red, lott tissue. The specimen is entirely submitted. 1 and 2-multiple pieces, x 2. (EG)* As of December 02, 2023, the specimen processing and staining is performed at [facility], [address] [place] [address] (CLIA#[id number]). Its performance characteristics determined by Memo. Dm Read M.D. Design Drafter of Surgical Pathology, Kendrick Flores M.D. Design Drafter Cytopathology Phone #: [phone], On-Call Pathologist: [id number] Test, Urine Reviewed date:01/10/2025 11:31:35 AM Interpretation: Performing Lab: Notes/Report: Test, Urine NEG PDF Report Reviewed date:12/26/2024 04:19:27 PM Interpretation: Performing Lab:[facility] [place], [address], [address], [place], Phone - [phone], Director - [facility] Notes/Report: Clinical Information:VAG/CERV [id number] LMP / Prev Treat...[id number]=[id number] Dates / Results....11/14/2019 No. of containers..01 ThinPrep Vial PDF Report Reviewed date:01/21/2025 03:33:41 PM Interpretation: Performing Lab:[facility] [place], [address], Suite [facility], [place], Phone - [phone], Director - [facility] Notes/Report: Clinical Information:SRC: URINE Chlamydia/GC Amplification Reviewed date:01/21/2025 03:06:46 PM Interpretation: Performing Lab:[facility] [place], [address], Marita [facility], [place], Phone - [phone], Director - [facility] Notes/Report: Clinical Information:SRC: URINE Chlamydia trachomatis, DAISHA Negative Negative Neisseria gonorrhoeae, DAISHA Negative Negative [id number] IGP No Culture 30 Plus Reviewed date:12/26/2024 04:19:08 PM Interpretation: Performing Lab:[facility] [place] [address], [address] [facility], [place], Phone - [phone], Director - [facility] Notes/Report: Clinical Information:VAG/CERV [id number] LMP / Prev Treat...[id number] Dates / Results....11/14/2019 No. of containers..01 ThinPrep Vial DIAGNOSIS: NEGATIVE FOR INTRAEPITHELIAL LESION OR MALIGNANCY. Specimen adequacy: Satisfactory for evaluation. Endocervical and/or squamous metaplastic cells (endocervical component) are present. Clinician provided ICD10: Z01.419 Performed by: Sushil Ramirez , Slide Forming Machine Operator ([facility]) . . Note: The Pap smear is [...] amplification test detects fourteen high-risk HPV types (16,18,31,33,35,39,45,51,5 2,56,58,59,66,68) without differentiation. HPV Genotype Reflex Criteria not met, HPV Genotype not performed. Reason For Referral No Information Medications Medication SIG (Take, Route, Frequency, Duration) Notes Start Date End Date Status ProAir HFA 90MCG 2 Inhalation four times daily; Duration: -3 02/16/2012 Active Singulair 5 MG 1 ORAL daily; Duration: -02/16/2012 Active Vitamin D3 50 MCG (2000 UT) 1 capsule Orally Once a day; Duration: 30 day(s) Active Advair Diskus 250-50 1 Inhalation TWICE DAILY; Duration: -02/16/2012 Active oxyCODONE HCl 10 MG 1 tablet as needed Orally every 6 hrs PRN Active Simponi 50 MG/0.5ML 0.5 mL Subcutaneous Active SUMAtriptan Succinate 50 MG Oral; Duration: 5 PRN Active Ambien 5 MG 1 tablet at bedtime as needed Orally Once a day PRN Active Cyclobenzaprine HCl 5 MG Oral; Duration: 20 PRN Active Atorvastatin Calcium 10 MG 1 tablet Orally Once a day Active Cetirizine HCl 10 MG TAKE 1 TABLET BY MOUTH EVERY DAY NEEDED Oral; Duration: 30 Active Citalopram Hydrobromide 40 MG Orally BEING TAPERED OFF Active Social History Tobacco Use: Social History [...] Status Risk Notes Problem Diverticulitis of colon (498175923) Diverticulitis of intestine, part unspecified, without perforation or abscess without bleeding (K57.92) Active confirmed Problem Disorder of breast (08890686) Disorder of breast, unspecified (N64.9) Active confirmed Problem Abnormal uterine bleeding (88711187910739) Abnormal uterine and vaginal bleeding, unspecified (N93.9) Active confirmed Problem Asthma, unspecified, unspecified status (493.90) Active confirmed Major Vital Signs Temperature 98.0 degrees Fahrenheit 01/20/2025 Blood pressure diastolic 82 mm Hg 01/20/2025 Height 65 in 01/20/2025 Blood pressure systolic 122 mm Hg 01/20/2025 Weight 236 lbs 01/20/2025 BMI 39.27 kg/m2 01/20/2025 Encounters Encounter Location Date Provider Diagnosis [place] [address] [address] 12/23/2024 LIAN HENSON Encounter for gynecological examination (general) (routine) without abnormal findings Z01.419 ; Encounter for screening mammogram for malignant neoplasm of breast Z12.31 and Abnormal uterine and vaginal bleeding, unspecified N93.9 [address] [address] 01/10/2025 LIAN HENSON Abnormal uterine and vaginal bleeding, unspecified N93.9 [address] [address] 01/20/2025 LIAN HENSON Abnormal uterine and vaginal bleeding, unspecified N93.9 and High risk heterosexual behavior Z72.[address] [address] 01/20/2025 LIAN HENSON Assessments Encounter Date Diagnosis (ICD Code) Assessment [...] therapy to help with frequent, erratic bleeding. 01/20/2025 Abnormal uterine and vaginal bleeding, unspecified (ICD-10 - N93.9) While the irregularity of the menses is likely due to perimenopause, the lengthier bleeding can be due to adenomyosis. Consider cyclic NSAIDs or Mirena IUD as first-line therapy, with OCPs, elagolix plus estradiol and norethindrone, relugolix plus estradiol and norethindrone as alternative hormone strategies. She saw her Machine Try Out Setter recently, who recommended against any hormones due to her medications for ankylosing spondylotis. (Rinvoq - will be stopped, and starts Symponi (TNF inhibitor, biologic), as she is not improving enough on Rinvoq) We discussed Mirena IUD in detail: She was instructed that this is best inserted at the end of a menses, and that she should call at the beginning of her next menses to make an appointment for insertion. DNA probe for chlamydia and gonorrhea was taken at this visit. Side effects and potential complications were discussed with her, including irregular bleeding, cramping, vaginal discharge, possibility of discomfort for partner during intercourse from strings, heavier or playground equipment erector menses, expulsion of IUD, uterine perforation with loss of IUD and potential for surgical removal, ectopic or tubal , infection with potential loss of future fertility. All questions answered to the patient's satisfaction. 01/20/2025 High risk heterosexual behavior (ICD-10 - Z72.51) 12/23/2024 Abnormal uterine and vaginal bleeding, unspecified (ICD-10 - N93.9) Likely abnormal bleeding due to perimenopause, but need to rule out polyps, hyperplasia and carcinoma. This is a new, complex problem, evaluated separately from her routine exam, and considerable time was spent on obtaining additional history including ROS, and ordering medications and testing for evaluation. 01/20/2025 Other 32 minutes were spent on the day of the visit reviewing and prepping the chart, obtaining the HPI, examining the patient, counseling the patient on the diagnosis, ordering/refilling medications, ordering tests and procedures and documenting this encounter. Plan Of Treatment Pending Test Test Name Order Date Ultrasound : Breast, right 01/18/2017 Sonohysterogram 12/23/2024 MM Digital Mammo Screening 10/23/2015 ULTRASOUND: PELVIC W/TRANSVAGINAL 2021 ULTRASOUND: PELVIC W/TRANSVAGINAL 2022 MM Digital Screening Mammogram 3D 2024 MM Digital Screening Mammogram 3D 2019 MM Digital Screening Mammogram 3D 2020 MM Digital Screening Mammogram 3D 2021 Chlamydia/GC Amplification-[id number] 2024 Next Appt Details Provider Name:LIAN Aj Celis, 12/25/2025 09:00:00 AM, [address], [place], [address], Insurance Providers Payer Name Payer Address Payer Phone Subscriber Number Group Number Insured Name Patient Relationship to Insured Coverage Start Date Coverage End Date [facility] [address] [place] [address] [id number] ENRIQUE PALMER Self - patient is the [...]
--- OUTSIDE RECORDS SUMMARY | 2025-04-15 16:17 | XMS_ITS | Patient Health Record ---
Author Organization [facility] Address [address] [place] [address] Care Team Providers Care Programming Coordinator Name Role Phone Bette Garay Primary Care Provid er Unavailable Addis Alexander Unavailable [phone] Allergies Allergen (clinical drug ingredient) Drug/Non Drug [...] Treatment Pending Test Test Name Order Date [id number] Destruction, 1-14 01/16/2017 [id number] Destruction, 1-02/06/2017 [id number] Destruction, -03/22/2017 [id number]-Pbzwgzcs Plate 01/16/2017 68051- Debride <25 sq cm 02/06/2017 Insurance Providers Payer Name Payer Address Payer Phone Subscriber Number Group Number Insured Name Patient Relationship to Insured Coverage Start Date Coverage End Date [facility] [address] [place] [address] [id number] Ashley Magdaleno Self - patient is the [...]
== END 2025-04-15 15:49 | disposition home or self-care (01) ==
LOC: HO.HOS 15:22
PROVIDERS: PCP General Practice; Visit Provider Orthopaedic Surgery
DX: G56.02 Carpal tunnel syndrome, left upper limb (principal); Z79.620 Long term (current) use of immunosuppressive biologic; M25.531 Pain in right wrist; M25.532 Pain in left wrist
CPT/HCPCS: 99214

== ENCOUNTER 2025-04-17 15:41 | Outpatient (AMB) | payer OTHER, SELFPAY ==
[2025-04-17 15:43] VITALS: BP 126/72; PULSE 87; O2SAT 98; BMI 39.6
--- NOTE | 2025-04-17 15:43 | MHC.OFFVIS ---
Vital Signs 04/17/25 15:43 Height 5 ft 5 in Weight 238 lb 1.588 oz BMI 39.6 BP 126/72 Blood Pressure Location Lt brachial Position Sitting Pulse 87 Pulse Source Pulse Oximeter Pulse Oximetry (%) 98 Oxygen Delivery Method Room Air Intake Visit Reasons: Intake Note: Patient last seen by Doctor Cecilia Lamas on 01/15/25. Presents today for follow up and test results. Allergies cortisone Allergy (Intermediate, Verified 04/17/25 15:46) Swelling hydromorphone (From DILAUDID) Allergy (Unknown, Verified 04/17/25 15:46) SHORTNESS OF BREATH Medication List - Last Reconciled 04/17/25 by Cecilia Lamas MD albuterol sulfate 90 mcg/actuation 0 mcg inhalation atorvastatin 10 mg PO DAILY cetirizine 10 mg PO DAILY cholecalciferol (vitamin D3) 10 mcg PO DAILY citalopram 20 mg PO DAILY cyclobenzaprine 5 mg PO TID PRN fluticasone propion-salmeterol 250-50 mcg/dose (Wixela Inhub) 1 ea inhalation BID ipratropium-albuterol 0.5 mg-3 mg(2.5 mg base)/3 mL mL inhalation QID montelukast 10 mg PO QPM nebulizers As directed oxycodone 10 mg PO QID prednisone 5 mg PO DIRECTED sumatriptan succinate 50 mg PO DIRECTED PRN zolpidem (Ambien) 10 mg PO BEDTIME PRN 30 days HPI Comments Details: Patient is a 49-year-old female with hyperlipidemia and allergies who presents for follow up of non radiographic ankylosing spondylitis Interval History: Patient last seen with me 01/15/25 with me - Continued to complain of SI joint pain and intermittent flares - Changed Rinvoq to Simponi Today - Simponi not effective: worsening fatigue, hand pain and back pain - Does not feel the Rinvoq was any better Rheumatologic History: Patient diagnosed with non radiographic ankylosing spondylitis 03/2024 Initial history: This is a 48-year-old female who presents for evaluation of sacroiliitis. Patient stated that she has had back pain symptoms for about 10 years. The pain is in different parts of her spine but generally more severe in the lower left back, the SI joint area and the left buttock area. Generally worse in the morning associated with morning stiffness that lasts 1-2 hours. Improved with sitting on heat, moving around. Patient was referred to do physical therapy multiple times with little improvement. 3-4 years ago her symptoms were worse. She would have flare-ups that were few and far in between however for the last 3-4 years she would have a flare-up that occurs every other week and lasts 3-4 days. Her PCP ordered multiple labs which showed positive HLA B27. [facility] was [facility]. She was evaluated and no evidence of an autoimmune rheumatic disease was found. She was then referred to Dr. Otoole. She ibuprofen 600 mg 3 times a day for at least 2 months without improvement. She also took multiple prednisone courses without improvement. She had multiple steroid injections in the left SI joint area as well as other injections without much improvement, she also had radiofrequency ablation procedure. These procedures would help some of her back pain but they do not affect the main painful area in the left lower back, in the SI area. She also gets intermittent joint pain swelling and stiffness of her hands, wrists, fingers were swollen and she had to cut off her wedding ring. She denies any skin rashes. She denies any history suggestive of uveitis or colitis. She states that her daughter was diagnosed with non radiographic axial spa with uveitis and is on Humira. Her other daughter has Matt's thyroiditis. Patient denies any history of DVT/PE. Current Rheumatology Medication(s): Simponi 50mg SC every 4 weeks [facility] Medical History (Updated 04/18/25 @ 10:39 by Cecilia Lamas MD) Long-term current use of immunosuppressive biologic agent RUTH (obstructive sleep apnea) Pneumonia Asthma History of abnormal uterine bleeding Hx of fracture of ankle Migraines Anxiety High cholesterol Asthma Surgical History Hx of colonoscopy Hx of left breast biopsy Hx of section Family History Mother Pre-diabetes Father Prostate CA Daughter Non-radiographic axial spondyloarthritis Daughter Matt thyroiditis Social History Household Members: Spouse Alcohol intake: current Alcohol intake frequency: holidays/special occasions only Alcohol type: wine Patient Tobacco Use Status: Never used Tobacco 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, 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 Review of Systems Const Details: Review of Systems Constitutional: Denies fever, chills, weight loss ENT: Denies vision changes, eye pain or eye redness, dental caries, dry mouth GI: Denies nausea, vomiting, diarrhea, abdominal pain, change in BM Pulm: Denies SOB, PAUL, hemoptysis, wheezing Cards: Denies chest pain, palpitations Skin: Denies Raynaud's, rash, nail changes, photosensitivity, FOLDER OPERATOR: Denies headaches, weakness, paresthesias, recurrent falls MSK: as per HPI All other systems reviewed and are unremarkable except noted above Physical Exam Exam Exam: Vital signs reviewed Physical Examination CONSTITUITIONAL Patient alert and cooperative. Well appearing and in no apparent painful distress MSK Hands Scattered tenderness to palpation of the MCPs and PIPs bilaterally Wrists Right Wrist: Full ROM. 70 degrees of wrist flexion, 80 degrees of wrist extension. No swelling or TTP Left Wrist: Full ROM. 70 degrees of wrist flexion, 80 degrees of wrist extension. No swelling or TTP Elbows Right Elbow: Full ROM. No swelling or TTP. No TTP of the medial and lateral epicondyles Left Elbow: Full ROM. No swelling or TTP. No TTP of the medial and lateral epicondyles Shoulders Right shoulder: Full ROM. No swelling noted. No TTP of the AC joint, subacromial bursa or posterior shoulder Left shoulder: Full ROM. No swelling noted. No TTP of the AC joint, subacromial bursa or posterior shoulder Knees Right knee: Full ROM. No swelling noted. No TTP of the knee joint lie or pes anserine bursa Left knee: Full ROM. No swelling noted. No TTP of the knee joint lie or pes anserine bursa. Ankles Right ankle: Good ankle dorsiflexion and plantar flexion. No swelling. No TTP of the ankle joint Left ankle: Good ankle dorsiflexion and plantar flexion. No swelling. No TTP of the ankle joint Feet Right foot: Negative squeeze test Left foot: Negative squeeze test Tender points? No tenderness to palpation of the bilateral trapezius, supraspinatus, anterior costochondral junctions, bilateral suboccipital muscle insertions SKIN No rashes Vital Signs: Last Vital Signs Pulse 87 04/17/25 15:43 BP 126/72 04/17/25 15:43 Pulse Ox 98 07/24/25 15:43 Oxygen Delivery Method Room Air 04/17/25 15:43 BMI result Body Mass Index 39.6 Results Reviewed Results Reviewed: Laboratory Tests 04/08/25 15:48 WBC 6.1 RBC 4.66 Hgb 14.3 Hct 41.7 Plt Count 315 ESR 7 Sodium 143 Potassium 3.9 Chloride 108 Carbon Dioxide 25 BUN 10 Creatinine 0.84 AST 25 ALT 35 H C-Reactive Protein 0.17 Infectious serologies 01/15/25 01/15/25 11:13 11:36 Hepatitis A IgM Ab Nonreactive Hep Bs Antigen Negative Hep Bs Antibody REACTIVE Hep B Core Total Ab Nonreactive Hepatitis C Ab (EIA) Nonreactive TB Test (T-Spot) Com Negative Assessment & Plan Assessment & Plan (1) 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 female with non radiographic ankylosing spondylitis. Despite changing to Simponi patient says that her proven with a her symptoms in fact she continues to have frequent flares involving both her spine and peripheral joints. 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 Risks include infections, injection site reactions, activation of inflammatory bowel disease. Benefits include improved disease activity. Discussed with patient that if she is feeling sick or having flu-like symptoms she is to hold the medication that week and resolved the following week. (3) Encounter for methotrexate monitoring: Code(s): Z51.81 - Encounter for therapeutic drug level monitoring; Z79.631 - retirement (current) use of antimetabolite agent Plan: #Long-term Current Use of Methotrexate Discussed with patient the benefits and risks of methotrexate for managing their rheumatic condition Benefits include reduced pain, reduced mortality, maintenance of remission and reduction of flares Risks include oral ulcers, photosensitivity, hepatotoxicity, hematologic toxicity, pneumonitis, flu-like symptoms (especially day after administration), nodulosis, lymphomas ? Limit alcohol and avoid Bactrim ? 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
== END 2025-04-17 16:47 | disposition home or self-care (01) ==
LOC: HO.RHE 15:42
PROVIDERS: PCP General Practice; Visit Provider Student in an Organized Health Care Education/Training Program
DX: M45.A Non-radiographic axial spondyloarthritis (principal); Z79.620 Long term (current) use of immunosuppressive biologic; Z51.81 Encounter for therapeutic drug level monitoring; Z79.631 Long term (current) use of antimetabolite agent
CPT/HCPCS: 99215; G2211

== ENCOUNTER 2025-05-02 14:27 | Outpatient (REF) | payer OTHER, SELFPAY ==
--- OUTSIDE RECORDS SUMMARY | 2025-05-02 14:30 | XMS_ITS | Encounter Summary ---
Author Organization [facility] Address [address] [place] [address] Phone Care Team Providers Care Terminal Makeup Operator Name Role Phone Kamron Corrales MD Unavailable Cedric Perez MD Unavailable Leilani Gale MD Primary Care Provider + Ron Otoole DO Unavailable Unavailabl e Encounter Details Date Type Department Care Team (Late st Contact Info) Description 09/24/2024 Procedure Pass [facility] Admitting Dept Virtual Department [address] [place] [id number] Social History Tobacco Use Types Packs/Day Years [...] Value Date Recorded Sex Assigned at Female 04/25/2025 1:23 PM EDT Legal Sex Female 11:49 AM EST Gender Identity Female 04/25/2025 1:23 PM EDT Sexual Orientation Straight 04/25/2025 1: 23 PM EDT documented as of this encounter Plan of Treatment Upcoming Encounters Date Type Department Care Team (Late st Contact Info) Description 06/30/2025 4:15 PM EDT Appointment [address] [address] Luz Elena Walker MD [address] [place] [address] 07/28/2025 10:40 AM EST Office Visit [facility] [address] [place] [address] [place] [address] Luz Elena Walker MD [address] [place] [address] documented as of this encounter Visit Diagnoses Not on filedocumented in this encounter Care Teams Terminal Makeup Operator Relationship Specialty Start Date End Date Leilani Gale MD [address] [place] [address] [place] [address] PCP - General Family Medicine 09/16/24 Kamron Corrales MD [address] [place] [address] Vascular Surgery 09/16/24 Cedric Perez MD [address] [place] [address] [place] [address] Pulmonary Disease 09/16/24 Ron Otoole DO [address] [place] [address] [place] [address] Physical Medicine and Rehabilitation 09/16/24 documented as of this encounter Additional Source Comments The information contained in this document represents components of the legal health record. It is not the complete legal health record.[facility]
--- OUTSIDE RECORDS SUMMARY | 2025-05-02 14:30 | XMS_ITS | Patient Health Record ---
Author Organization [employer] [facility] Address [address] [place] [address] Care Team Providers Care Clinical Education Coordinator Name Role Phone ERIKA TAVAREZ MD Primary Care Provider Unavail able LIAN HENSON Unavailable [phone] Allergies Allergen (clinical drug ingredient) Drug/Non Drug Allergy documented on EMR Reaction Allergy Type Onset Date Status hydromorphone Dilaudid breathing problems Drug Allergy Active Results Component Value Reference Range Notes Test, Urine Reviewed date:01/10/2025 11:31:35 AM Interpretation: Performing Lab: Notes/Report: Test, Urine NEG SURGICAL PATHOLOGY Reviewed date:01/21/2025 02:27:49 PM Interpretation: Performing Lab:Testing performed or reported by [facility], a Service of [facility], [address] [place] [address] Fidel Locke MD, Corporate Investigator [facility]# [id number] Notes/Report: Patient Name: ENRIQUE PALMER Lab Patient : 1975 (Age: 49) Collection Date: 01/10/2025 Accession Date: 01/10/2025 Sign Out Date: 01/19/2025 Tissue Source: 1:EMB Final Diagnosis: Endometrium, biopsy: - Weakly proliferative endometrium with stromal breakdown. A. Tubal (ciliated) epithelial change present (estrogen effect). Primary Pathologist:Dianelys Luo M.D.,Ph.D. electronically signed out by: Dianelys Luo M.D.,Ph.D. / [facility] [place] Clinical History: Abnormal uterine and vaginal bleeding Gross Description: Labeled endometrial biopsy . Received in formalin is a 2.6 x 2.5 x 0.6 cm aggregate of translucent mucus with red, lott tissue. The specimen is entirely submitted. 1 and 2-multiple pieces, x 2. (EG)* As of December 02, 2023, the specimen processing and staining is performed at [facility], [address] [place] [address] (CLIA#[id number]). Its performance characteristics determined by [employer]. Dm Read M.D. Corporate Investigator of Surgical Pathology, Kendrick Flores M.D. Corporate Investigator Cytopathology Phone #: [phone], On-Call Pathologist: [id number] PDF Report Reviewed date:12/26/2024 04:19:27 PM Interpretation: Performing Lab:[facility] [place], [address] [place] [address], [place] [address], [place], Phone - [phone], Director - [facility] Notes/Report: Clinical Information:VAG/CERV [id number] LMP / Prev Treat...[id number] Dates / Results....11/14/2019 No. of containers..01 ThinPrep Vial [id number] IGP No Culture 30 Plus Reviewed date:12/26/2024 04:19:08 PM Interpretation: Performing Lab:[facility] [place], [address] [place] [address], [place] [address], [place], Phone - [phone], Director - [facility] Notes/Report: Clinical Information:VAG/CERV [id number] LMP / Prev Treat...[id number]=[id number] Dates / Results....11/14/2019 No. of containers..01 ThinPrep Vial DIAGNOSIS: NEGATIVE FOR INTRAEPITHELIAL LESION OR MALIGNANCY. Specimen adequacy: Satisfactory for evaluation. Endocervical and/or squamous metaplastic cells (endocervical component) are present. Clinician provided ICD10: Z01.419 Performed by: Sushil Ramirez , Whizzer Operator (ASCP) . . Note: The Pap smear [...] HPV Genotype not performed. PDF Report Reviewed date:01/21/2025 03:33:41 PM Interpretation: Performing Lab:[facility] [place], [address], [address], [place], Phone - [phone], Director - [facility] Notes/Report: Clinical Information:SRC: URINE Chlamydia/GC Amplification Reviewed date:01/21/2025 03:06:46 PM Interpretation: Performing Lab:[facility], [address], [address], [place], Phone - [phone], Director - [facility] Notes/Report: Clinical Information:SRC: URINE Chlamydia trachomatis, DAISHA Negative Negative Neisseria gonorrhoeae, DAISHA Negative Negative Reason For Referral No Information Medications Medication [...] Status Risk Notes Problem Diverticulitis of colon (989118835) Diverticulitis of intestine, part unspecified, without perforation or abscess without bleeding (K57.92) Active confirmed Problem Disorder of breast (09540283) Disorder of breast, unspecified (N64.9) Active confirmed Problem Abnormal uterine bleeding (30602366183824) Abnormal uterine and vaginal bleeding, unspecified (N93.9) Active confirmed Problem Asthma (disorder) (815193413) Asthma, unspecified, unspecified status (493.90) Active confirmed Major Vital Signs Temperature 98.0 degrees Fahrenheit 01/20/2025 Blood pressure diastolic 82 mm Hg 01/20/2025 Height 65 in 01/20/2025 Blood pressure systolic 122 mm Hg 01/20/2025 Weight 236 lbs 01/20/2025 BMI 39.27 kg/m2 01/20/2025 Encounters Encounter Location Date Provider Diagnosis [address] [address] 12/23/2024 LIAN HENSON Encounter for gynecological examination (general) (routine) without abnormal findings Z01.419 ; Encounter for screening mammogram for malignant neoplasm of breast Z12.31 and Abnormal uterine and vaginal bleeding, unspecified N93.[address] [address] 01/10/2025 LIAN HENSON Abnormal uterine and vaginal bleeding, unspecified N93.[address] [address] 01/20/2025 LIAN HENSON Abnormal uterine and vaginal bleeding, unspecified N93.9 and High risk heterosexual behavior Z72.[address] [address] 01/20/2025 LIAN HENSON Assessments Encounter Date Diagnosis [...] as alternative hormone strategies. She saw her Traffic And Transport Planner recently, who recommended against any hormones due [...] partner during intercourse from strings, heavier or body finisher menses, expulsion of IUD, uterine perforation with [...] MM Digital Screening Mammogram 3D 2021 Chlamydia/GC Amplification-[id number] 2024 Next Appt Details Provider Name:LIAN FORDE Lalita, 12/25/2025 09:00:00 AM, [address], [address], [place], [address], Insurance Providers Payer Name Payer Address Payer Phone Subscriber Number Group Number Insured Name Patient Relationship to Insured Coverage Start Date Coverage End Date [facility] [address] [place] [address] [id number] ENRIQUE PALMER Self - patient is the [...]
--- OUTSIDE RECORDS SUMMARY | 2025-05-02 14:30 | XMS_ITS | Encounter Summary ---
Author Organization [employer] Address [address] [place] [address] Care Team Providers Care Loan Approver Name Role Phone Leilani Gale MD Primary Care Provider [phone] Encounter Details Date Type Department Care Team (Latest Contact Info) Description 04/30/2025 Travel Social History Tobacco Use Types Packs/Day Years [...] on filedocumented in this encounter Care Teams Loan Approver Relationship Specialty Start Date End Date Leilani Gale MD [address] [place] [address] PCP - General Family Medicine 11/02/21 documented as of this encounter
--- OUTSIDE RECORDS SUMMARY | 2025-05-02 14:30 | XMS_ITS | Patient Health Record ---
Author Organization [facility] Address [address] [place] [address] Care Team Providers Care Gravity Meter Operator Name Role Phone Bette Garay Primary Care Provid er Unavailable Addis Alexander Unavailable [phone] Allergies Allergen (clinical drug ingredient) Drug/Non Drug [...] Treatment Pending Test Test Name Order Date [id number] Destruction, 1-14 01/16/2017 [id number] Destruction, 1-02/06/2017 [id number] Destruction, -03/22/2017 [id number] Plate 01/16/2017 22622- Debride <25 sq cm 02/06/2017 Insurance Providers Payer Name Payer Address Payer Phone Subscriber Number Group Number Insured Name Patient Relationship to Insured Coverage Start Date Coverage End Date [facility] [address] [place] [address] [id number] Ashley Magdaleno Self - patient is the [...]
[2025-05-02 16:32] LABS: Hemoglobin A1C 142.4877 umol/L; Total Hemoglobin (HGBA1C) 3797.9538 umol/L
== END 2025-05-02 14:28 | disposition home or self-care (01) ==
LOC: HO.HHCL 14:27
PROVIDERS: PCP General Practice; Referring Provider Internal Medicine; Visit Provider General Practice
DX: E66.812 Obesity, class 2 (principal); Z68.39 Body mass index [BMI] 39.0-39.9, adult; E04.1 Nontoxic single thyroid nodule; Z13.1 Encounter for screening for diabetes mellitus
CPT/HCPCS: 36415; 83036; 84443; 86376

== ENCOUNTER 2025-05-23 10:35 | Outpatient (AMB) | payer OTHER, SELFPAY ==
--- OUTSIDE RECORDS SUMMARY | 2024-03-18 06:20 | XMS_ITS ---
Author Organization Total [employer] [facility] Address [address] [address] Care Team Providers Care Party Demonstrator Name Role Phone ERIKA TAVAREZ MD Primary Care Provider Unavail able LIAN HENSON Unavailable [phone] Allergies Allergen (clinical drug ingredient) Drug/Non Drug Allergy documented on EMR Reaction Allergy Type Onset Date Status hydromorphone Dilaudid breathing problems Drug Allergy Active REASON FOR VISIT Annual ELECTRICAL SOFTWARE ENGINEER Physical Encounters Encounter Location Date Provider Diagnosis [facility] [employer] [address] [address] 03/18/2024 LIAN HENSON Encounter for gynecological examination [...] Follow Up: 1 Year, Reason: Y early Automation And Control Engineer Exam Provider Name:LIAN Celis, 12/25/2025 09:00:00 AM, [address] [place] [address], [address], [place], [address], Progress Notes * ARTURO PALMEROB: 3 (49 yo F)Acc No.[id number]:03/18/2024 PROGRESS NOTES Patient: ASHLEY GLASER Provider: Aj HENSON MD :1975 A ge:48 Y S ex:Female Date:03/18/2024 Address:[address] [place] [address], , [facility] Pcp:ERIKA TAVAREZ MD Subjective: * Chief Complaints: * 1 . Annual ELECTRICAL SOFTWARE ENGINEER Physical. 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 She has been in state of [...] days/week by . * ROS: A nnual Automation And Control Engineer Exam ROS: Bowel habit changes d enies. [...] without perforation or abscess without bleeding. * Automation And Control Engineer History: G ravida/ Para 4 /3. S [...] no acute distress, well developed, well nourished, scleroscope tester present in room. HEAD: n ormocephalic, atraumatic. [...] * Follow Up: 1 Year (Reason: Yearly Automation And Control Engineer Exam) * Images: Billing Information: * Visit Code: 31027 Preventive Care Est Pt. Age 40-64. 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 She has been in state of [...] General Examination GENERAL APPEARANCE: in no ac [place] distress, well developed, well nourished, scleroscope tester present in room HEAD: normocephalic, atrau matic [...]
--- OUTSIDE RECORDS SUMMARY | 2024-04-09 10:20 | XMS_ITS ---
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 SUPERVISOR Physical Encounters Encounter Location Date Provider Diagnosis [facility] [address] [address] 04/09/2024 LIAN HENSON Encounter for gynecological examination [...] Follow Up: 1 Year, Reason: Y early Anode Adjuster Exam Provider Name:LIAN Celis, 12/25/2025 09:00:00 AM, [address] [place] [address], [address], [place], [address], Progress Notes * ARTURO PALMEROB: 3 (49 yo F)Acc No.[id number]:04/09/2024 PROGRESS NOTES Patient: ASHELY GLASER Provider: Aj HENSON MD :1975 A ge:48 Y S ex:Female Date:04/09/2024 Address:[address] [place] [address], , [facility] Pcp:ERIKA TAVAREZ MD Subjective: * Chief Complaints: * 1 . 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 She has been in state of [...] days/week by . * ROS: A nnual Anode Adjuster Exam ROS: Bowel habit changes d enies. [...] without perforation or abscess without bleeding. * Anode Adjuster History: G ravida/ Para 4 /3. S [...] no acute distress, well developed, well nourished, structural iron erector present in room. HEAD: n ormocephalic, atraumatic. [...] * Follow Up: 1 Year (Reason: Yearly Anode Adjuster Exam) * Images: Billing Information: * Visit Code: 57503 Preventive Care Est Pt. Age 40-64. 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 She has been in state of [...] General Examination GENERAL APPEARANCE: in no ac [place] distress, well developed, well nourished, structural iron erector present in room HEAD: normocephalic, atrau matic [...]
[2025-05-23 10:38] VITALS: BP 118/68; PULSE 96; O2SAT 96; BMI 40.4
--- NOTE | 2025-05-23 10:38 | A.OFFVIS_ITS ---
Vital Signs 05/23/25 10:38 Height 5 ft 5 in Weight 242 lb 8.136 oz BMI 40.4 BP 118/68 Blood Pressure Location Lt brachial Position Sitting Pulse 96 Pulse Source Pulse Oximeter Pulse Oximetry (%) 96 Oxygen Delivery Method Room Air Intake Visit Reasons: Asthma [employer] Team Member Required: No Accompanied by: Self / Same As Patient Allergies hydromorphone (From DILAUDID) Allergy (Unknown, Verified 05/23/25 10:43) SHORTNESS OF BREATH HPI Comments Details: The patient is a 49-year-old woman with a known history of asthma who has been complaining of ongoing recurrent asthma symptoms requiring prednisone. in the past she was evaluated and treated by a local news correspondent. she has continued to use allergy medicine. Typically in the winter in the fall the worst seasons. Then, back in July 2020 the patient did develop significant COVID. She was initially evaluated in the ER 08/22/2020. She was treated and discharged. Although her symptoms worsen and she ended up admitted at [facility] with COVID related pneumonia. She did improve she did not need any oxygen upon discharge. Subsequently after that she has had multiple at episodes of URIs that activate her asthma requiring prednisone. The last time this occurred was back in June 2022. She did have a chest x-ray at that time that I personally reviewed demonstrating some peribronchial coughing in the x-ray also demonstrated decreased lung volumes. But no focal area of airspace disease. Currently she is taking Advair in addition to her rescue inhaler. Seems to be doing better at this time. She continues with her allergy medicine as well. She is back to her baseline. In addition to this the patient does complaint of daytime drowsiness. Her Nephi score is elevated 24. Her complains that she has been snoring more and he has also noted that she has had apneic episodes. He does uses CPAP and strongly feels like she needs 1 as well. Therefore go ahead and request a home sleep study at this time. 10/11/2022 the patient is here for a pulmonary follow-up visit. The patient overall is doing well. She continues use her Advair and also her allergy medication. She continues to be at baseline. She has not required her rescue inhaler. We did review her pulmonary function studies demonstrating normal spirometry without any evidence of any obstruction and no evidence of any restriction. Some slight increased response to the small airways but otherwise within normal limits. The patient did not have any blood work. This point clinically she is doing well. If her symptoms worsen we can consider allergy testing for additional interventions. The patient also continues to have daytime drowsiness. Her Nephi score continues to be elevated 07/18. She did have a home sleep study which we personally reviewed. The patient did have moderate degree of sleep apnea with an AHI of 14 and also significant hypoxia and tachycardia. Therefore the patient to start CPAP therapy at this time. The patient is agreeable at this time. Will make arrangements with the local [employer] company to start PAP therapy. Will have the patient return in several months and bring her machine to further evaluate her response to therapy. 02/07/2023 the patient is here for pulmonary follow-up visit. The fusion is doing well from an asthma standpoint. She continues with the Advair. She has not required any rescue inhalers. She still struggling with CPAP however. She is using the nasal pillows. Her issue is that she wakes up in the middle the night and takes off the machine without realizing. She has been averaging around 75% usage which is relatively okay. The patient says AHI is down to about 2. The patient still having episodes of apnea specially because she requires higher pressures. I am concerned because high pressures may cause more weight gain in's and more difficulty tolerating it. Therefore will provide her with sleep aid in order for to tolerated better. I did increase her m PAP pressures from 14-16 cm of water. 08/15/2023 The patient is here for a pulmonary follow up visit. Doing well for an asthma standpoint. Has been using the Advair. Has not required the HOLLY as needed. No exacerbations. The patient also has been using his APAP. The therapy has been effective and beneficial. She does use it more than4 hours a night. Her AHI is aroung 2. mean pressures are 15-16. We will increase the min pressure from 6 to 8. 05/23/2025 the patient is here for pulmonary follow-up visit. She feels like her breathing is worse. Feels like she is having increased chest tightness and shortness of breath. Moderate severity. Also has a dry cough. She does continue her allergy medicines. We were able to do a peak flow in the office in her peak flow was about 345. The patient does not respond well to the powder inhalers such as Wixela. Will go ahead and switch over to Symbicort with a spacer. She will continue with the Singulair. Hopefully this provides better administration of the medication. The patient will also undergo a chest x-ray she is having some chest discomfort. Primarily on the colds 2 areas on the side. And will have her undergo pulmonary function studies. If the patient is no better we can always add a long-acting muscarinic antagonist to her regimen. Otherwise will follow-up after her PFTs. [facility] Medical History (Updated 04/18/25 @ 10:39 by Cecilia Lamas MD) Long-term current use of immunosuppressive biologic agent RUTH (obstructive sleep apnea) Pneumonia Asthma History of abnormal uterine bleeding Hx of fracture of ankle Migraines Anxiety High cholesterol Asthma Surgical History Hx of colonoscopy Hx of left breast biopsy Hx of section Family History Mother Pre-diabetes Father Prostate CA Daughter Non-radiographic axial spondyloarthritis Daughter Matt thyroiditis Social History Household Members: Spouse Alcohol intake: current Alcohol intake frequency: holidays/special occasions only Alcohol type: wine Patient Tobacco Use Status: Never used Tobacco 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, 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 Review of Systems Const Denies daytime sleepiness, Denies snoring and Denies stops breathing during sleep Eyes Denies change in vision ENT Denies change in voice, Reports nasal congestion, Reports nasal discharge and Denies throat swelling Card Denies chest pain and Reports dyspnea on exertion Resp Reports cough, Reports dyspnea on exertion, Denies snoring and Reports wheezing GI Reports no additional complaints Musc Reports no additional complaints and Reports arthralgias Skin/Breast Denies rash Neuro Reports no additional complaints Son/Lymph Denies easy bleeding Aller/Immun Reports seasonal rhinorrhea, Denies throat swelling and Reports wheezing Physical Exam Vital Signs: Last Vital Signs Pulse 96 05/23/25 10:38 BP 118/68 05/23/25 10:38 Pulse Ox 96 05/23/25 10:38 Oxygen Delivery Method Room Air 05/23/25 10:38 BMI result Body Mass Index 40.4 Const General: comfortable HEENT Head: Yes atraumatic Eyes General: appearance normal, both eyes and all related structures Neck Neck: Yes normal visual inspection Chest Chest palpation & inspection: normal inspection of the chest Resp Effort & Inspection: normal respiratory effort Auscultation: no wheezes and diminished lung sounds Cardio Rate: regular rate Rhythm: regular rhythm Heart sounds: S1 normal heart sound present and S2 normal heart sound present GI Auscultation: normal bowel sounds Skin General skin exam: no rashes or lesions noted Extrem General: Yes no clubbing, cyanosis or edema Assessment & Plan Assessment & Plan (1) Asthma: Code(s): J45.909 - Unspecified asthma, uncomplicated Category: Medical Qualifiers: Asthma complication type: uncomplicated Asthma persistence: persistent Asthma severity: moderate Qualified Code(s): J45.40 - Moderate persistent asthma, uncomplicated (2) RUTH (obstructive sleep apnea): Comment: Moderate Code(s): G47.33 - Obstructive sleep apnea (adult) (pediatric) Category: Medical Plan stop Advair start Symbicort with spacer consider LAMA HOLLY as needed Singulair APAP, adjusted 10-16 ramp 8 PFTs/CXR F/U 3-4 months Orders: Orders XR chest 2V 05/23/25 J45.40 - Moderate persistent asthma, uncomplicated PFT pulmonary function test 05/23/25 J45.40 - Moderate persistent asthma, uncomplicated Medications: New budesonide-formoterol 160-4.5 mcg/actuation (Symbicort) 2 puffs inhalation BID 10.2 grams 11RF 30 days J44.89 - Other specified chronic obstructive pulmonary disease Coding Level of Care Code Est Pt Level 4 (76130) Diagnoses Moderate persistent asthma without complication J45.40 Asthma complication type: uncomplicated Asthma persistence: persistent Asthma severity: moderate RUTH (obstructive sleep apnea) G47.33 Time Spent (min) 17
--- OUTSIDE RECORDS SUMMARY | 2025-05-23 11:13 | XMS_ITS | Clinical Summary ---
Author Organization [employer] Address [address] [facility] [address] [place] [address] Care Team Providers Care Basket Filler Name Role Phone Leilani Gale MD Primary Care Provider [phone] Allergies Active Allergy Reactions Criticality Noted Date Comments Hydromorphone Hcl 12/16/2021 Other reaction(s): breathing problems Wound Dressings 11/30/2022 Other reaction(s): swollen red rash Medications cholecalciferol (Vitamin D-3) 50 MCG (1999) capsule daily. Active ipratropium-alb uterol (Duo-Neb) 0.5-2.5 mg/3 mL nebulizer solution USE 1 VIAL VIA NEBULIZER 4 TIMES A DAY 06/27/20 22 Active predniSONE (Deltasone) 20 MG tablet Take 40 mg by mouth in the morning. 06/29/20 22 Active Turmeric 500 MG capsule Active SUMAtriptan (Imitrex) 50 MG tablet TAKE [...] 09/13/20 24 Active citalopram (CeleXA) 20 MG tabletIndicatio ns:Anxiety TAKE 1 TABLET BY MOUTH EVERY DAY 90 tablet 3 12/18/19 25 Active Fluticasone-Star meterol 250-50 MCG/ACT aerosol powder INHALE 1 PUFF BY MOUTH TWICE DAILY IN THE MORNING AND IN THE EVENING (APPROXIMATE LY 12 HOUR APART, RINSE MOUTH AFTER USING.) 60 each 5 02/08/20 25 Active montelukast (Singulair) 10 MG tablet TAKE 1 TABLET BY MOUTH EVERY DAY IN THE EVENING 90 tablet 3 02/19/20 25 Active cetirizine (ZyrTEC) 10 MG tablet TAKE 1 TABLET BY MOUTH EVERY DAY 90 tablet 3 02/22/20 25 Active atorvastatin (Lipitor) 10 MG tablet TAKE 1 TABLET BY MOUTH ONCE DAILY 90 tablet 3 02/25/20 25 Active zolpidem (Ambien) 10 MG tabletIndicatio ns:Insomnia due to medical condition Take 1 tablet (10 mg) by mouth if needed at bedtime for sleep. 30 tablet 04/30/20 25 Active cyclobenzaprine (Flexeril) 5 MG tabletIndicatio ns:Ankylosing spondylitis of lumbosacral region (CMS/HCC) Take 1 tablet (5 mg) by mouth at bedtime. 30 tablet 3 04/30/20 25 Active oxyCODONE (Roxicodone) 5 MG immediate release tabletIndicatio ns:Ankylosing spondylitis of lumbosacral region (CMS/HCC) Take 1 tablet (5 mg) by mouth if needed at bedtime for severe pain. 30 tablet 04/30/20 25 025 Active Simponi 50 MG/0.5ML solution auto-injector Inject 50 mg under the skin every 30 (thirty) days. 02/09/20 25 Active Rinvoq 15 MG tablet sustained-relea se 24 hour 12/27/19 25 Active predniSONE (Deltasone) 5 MG tablet TAKE 1 TABLET BY MOUTH DIRECTED, TAKE 15MG FOR 10 DAYS THEN 5MG FOR 10 DAYS AND STOP 04/18/20 25 Active coenzyme Q-10 50 MG capsule daily. 025 Discontinued(Th erapy completed) zolpidem (Ambien) 10 MG tablet Take 10 mg by mouth if needed at bedtime. 02/09/20 23 025 Discontinued(Re order (will not trigger notification to Pharmacy)) cyclobenzaprine (Flexeril) 5 MG tablet Take 1 tablet (5 mg) by mouth at bedtime. 30 tablet 3 05/03/20 24 025 Discontinued(Re order (will not trigger notification to Pharmacy)) Nirmatrelvir&Ri tonavir 300/100 (Paxlovid, 300/100,) 20 x 150 MG & 10 x 100MG tablet therapy packIndications :COVID-19 Take 1 Dose by mouth 2 times daily. 30 each 12/28/19 25 025 Discontinued(Th erapy completed) Active Problems Problem Noted Date Diagnosed Date Abnormal uterine bleeding 05/05/2025 Diverticulitis of colon 05/05/2025 Ankylosing spondylitis of lumbosacral region 02/2025 Nontoxic multinodular goiter 02/28/2025 Bilateral carpal tunnel syndrome 11/15/2023 Overview (11/15/2023): Ortho note 11/15/23; Pt to have surgical release Thyroid nodule greater than or equal to 1.5 cm in diameter incidentally noted on imaging study 05/31/2023 Multiple thyroid nodules 05/23/2023 Anxiety 11/30/2022 Arthritis 11/30/2022 Disorder of breast [...] 10/30/2006 Asthma 09/25/1961 Overview (11/30/2022): Dr. Roberson, origination specialist Encounters Date Type Department Care Team Description 04/30/2025 4:00 PM EDT Office Visit [facility] [address] [place] [address] Leilani Gale MD Ankylosing spondylitis of lumbosacral region ([facility]) (Primary Dx); Mild persistent asthma without complication; Dietary counseling; Exercise counseling; Class 2 obesity without serious comorbidity with body mass index (BMI) of 39.0 to 39.9 in adult, unspecified obesity type; Thyroid nodule greater than or equal to 1.5 cm in diameter incidentally noted on imaging study; SI (sacroiliac) joint dysfunction; Insomnia due to medical condition; Nevus of right thigh 04/30/2025 Travel 04/23/2025 Travel 04/23/2025 Patient Outreach [facility] [address] [place] [address] Leilani Gale MD Pre-visit Planning ([facility] unable to reach, disconnected ) 04/08/2025 Orders Only GENERIC EXTERNAL DATA DEPARTMENT Provider, Generic External Data 02/23/2025 Refill [facility] [address] [place] [address] Leilani Gale MD 02/20/2025 Refill [facility] [address] [place] [address] Leilani Gale MD from Last 3 Months Immunizations Immunization Administration Dates Next Due Influenza Injectable Quadriv alant Preservative Free IIV4 MDCK 07/20/2022,06/14/2022,06/15/2021,2019 Influenza injectable quadriv alent IIV4 with preservative 06/05/2019,06/06/2018 Influenza injectable quadriv alent preservative free 07/16/2023 Influenza, IIV3, injectable 05/24/2012 Influenza, Injectable, MDCK, preservative free 07/13/2024 Influenza, Unspecified 06/03/2020,05/26/2019 Moderna Covid-19 Vaccine 6+ Bivalent 01/16/2023 Pneumococcal Conjugate PCV 13 10/23/2015 Pneumococcal Conjugate PCV 20 08/22/2022 Tdap 01/28/2022,01/12/2012 Zoster, Recombinant 04/18/2025,09/08/2024 Social History Tobacco Use Types Packs/Day Years Used Date Smoking Tobacco: Never Smokeless Tobacco: Never Tobacco Cessation:Counseling Given: Not Answered Alcohol Use Standard Drinks/Week Comments Yes 0 (1 standard drink = 0.6 oz pur e alcohol) sometimes wine PHQ-2 Answer Date Recorded Patient Health Questionnaire-2 Score 0 11/28/2022 Alcohol Answer Date Recorded How often do you have a drink containing alcohol ? 3 05/05/2025 How many drinks containing a lcohol do you have on a typical day when you are drinking? 0 05/05/2025 How often do you have six or more drinks on one occasion? 0 05/05/2025 Housing Stability Answer Date Recorded What is [...] Recorded Patient Health Questionnaire-2 Score 0 11/28/2022 Internet Access Answer Date Recorded Internet Access Q1 Yes 05/05/2025 Internet Access Q2 Not on file 05/05/2025 Comments Unknown Intention Date Recorded No desire to become (finding) 0 04/30/2025 Sex and Gender Information Value Date Recorded Sex Assigned at Female 07/25/2022 10:20 AM EDT Legal Sex Female 10:20 AM EDT Gender Identity Female 07/25/2022 10:20 AM EDT Sexual Orientation Straight 07/25/2022 10 :20 AM EDT Last Filed Vital Signs Vital Sign Reading Time Taken Comments Blood Pressure 138/72 04/30/2025 4:10 PM EDT Pulse 90 04/30/2025 4:10 PM EDT Temperature 37.2 C (98.9 F) 04/30/2025 4:10 PM EDT Respiratory Rate 20 04/30/2025 4:10 PM EDT Oxygen Saturation 98% 04/12/2023 4:15 PM EDT Inhaled Oxygen Concentration - - Weight 110 kg (242 lb) 04/30/2025 4:10 PM EDT Height 165.1 cm (5' 5 ) 04/30/2025 4:10 PM EDT Body Mass Index 40.27 04/30/2025 4:10 PM EDT Plan of Treatment Health Maintenance Due Date Last Done Comments CT Colonography 1973 FIT DNA/Cologuard 1973 FIT 1973 FOBT 1973 HIV Screening 1973 Sigmoidoscopy 1973 Hepatitis C Screening 1991 Hepatitis B Vaccines (1 of 3 - 19+ 3-dose series) 1992 Pap Smear 1994 Cervical Cancer Screening 2003 HPV/Cotest 2003 Mammogram 2013 Depression Screening 11/29/2023 11/28/2022, 11/29/19 23 SDOH Screening 11/29/2023 11/28/2022 Influenza Vaccine (#1) 2025 , 07/16/2023, 07/20/2022, Additional history exists Disability Screening 04/23/2026 04/23/2025 Alcohol/Substance Use Screening 05/05/2026 05/05/2025 Family Planning (PISQ) 05/05/2026 05/05/2025 Tobacco Screening 05/05/2026 05/05/2025 Lipid Panel 05/31/2028 05/31/2023 DTaP/Tdap/Td Vaccines (3 - Td or Tdap) 01/29/2032 01/28/2022, 01/12/2012 Colonoscopy 06/10/2032 06/10/2022, 06/10/2022 Colorectal Cancer Screening 06/10/2032 RSV Patients and Patients Aged 60 years or older (1 - 1-dose 75+ series) 2048 Pneumococcal Vaccine: 50+ Years Completed 08/22/2022, 10/23/2015 COVID-19 Vaccine Completed 07/13/2024, , 01/11/2022, Additional history exists Zoster Vaccines Completed 04/18/2025, 09/08/2024 HIB Vaccines Aged Out No longer eligi [...] patient's age to complete this topic Meningococcal B Vaccine Aged Out No l onger eligible based on patient's age to complete [...] Procedure Name Priority Date/Time Associated Diagnosis Comments HEMOGLOBIN A1C Routine 05/02/2025 2:31 PM EDT Class 2 obesity without serious comorbidity with body mass index (BMI) of 39.0 to 39.9 in adult, unspecified obesity type THYROID PEROXIDASE ANTIBODIES Routine 05/02/2025 2:31 PM EDT Thyroid nodule greater than or equal to 1.5 cm in diameter incidentally noted on imaging study TSH W/REFLEX TO FT4 Routine 05/02/2025 2 :31 PM EDT Thyroid nodule greater than or equal to 1.5 cm in diameter incidentally noted on imaging study SED RATE BY MODIFIED WESTERGREN Routine 04/08/2025 3:48 PM EDT C-REACTIVE PROTEIN Routine 04/08/2025 3: 48 PM EDT COMPREHENSIVE METABOLIC PANEL Routine 04/08/2025 3:48 PM EDT CBC WITH AUTO DIFFERENTIAL Routine 04/08/2025 3:48 PM EDT LIPID PANEL, STANDARD Routine 05/31/2023 10:17 AM EDT High cholesterol HM COLONOSCOPY Routine 06/10/2022 from Last 3 Months or Most Recently Relevant to Health Maintenance Results * TSH W/Reflex to FT4 (05/02/2025 2:31 PM EDT) Pathologist [facility] TSH reflex Free T4 0.69 0.32 - 4.0 uIU/mL [facility] Blood Venous blood specimen / Unknown 05/02/2025 2:31 PM EDT 05/02/2025 4:39 PM EDT Leilani Gale MD LAB BLOOD ORDERABLES Final Res ult Performing Organization Address City/[facility]/ZIP Co de Phone Number [facility] [address] [place] [address] [phone] * Thyroid Peroxidase Antibodies (05/02/2025 2:31 PM EDT) Pathologist [facility] Thyroid Peroxidase Antibodies <1 <9 IU/mL [facility] Comment:THIS TEST WAS PERFOR MED AT:[facility] [address] [phone] STEWART MD Blood Venous blood specimen / Unknown 05/02/2025 2:31 PM EDT 05/02/2025 4:39 PM EDT Leilani Gale MD LAB BLOOD ORDERABLES Final Res ult Performing Organization Address City/[facility]/ZIP Co de Phone Number [facility] [address] [place] [phone] * Hemoglobin A1c (05/02/2025 2:31 PM EDT) Pathologist [facility] Hemoglobin A1c 5.6 <6.0 % [facility] Comment:Hemoglobin A1C Refer ence Range Adults: 4.8 - 6.0 % Non diabetic: < 6.0 % Goal: < 7.0 %Additional Action Suggested: > 8.0 %Note: Hemoglobin A1c results are invalid for patients with abnormal amounts of HbF. Blood transfusions may impact the HbA1c concentration in the patient sample. Estimated Average Glucose 114 mg/dL [facility] Comment:eAG = Estimated ave rage glucose which is %A1C expressed asaverage glucose, using the formula of the [id number] Glucose study (ADAG), Diabetes Care, Vol.31,#8,2007 Blood Venous blood specimen / Unknown 05/02/2025 2:31 PM EDT 05/02/2025 4:12 PM EDT us Leilani Gale MD LAB BLOOD ORDERABLES Final Res ult [facility] [address] [place] [phone] * (ABNORMAL) CBC auto differential (04/08/2025 3:48 PM EDT) Pathologist [facility] White Blood Count 6.1 4.8 - 10.8 X10*3/uL [facility] Red Blood Count 4.66 4.20 - 5.50 X10*6/uL [facility] Hemoglobin 14.3 12.0 - 16.0 g/dl [facility] Hematocrit 41.7 37.0 - 47.0 % [facility] Mean Corpuscular Volume 89.5 80.0 - 98.0 fL [facility] Mean Corpuscular Hemoglobin 30.7 27.0 - 33.0 pg [facility] Mean Corpuscular HGB Conc 34.3 31.0 - 35.0 g/dl [facility] Red Cell Distribution Width 11.5 11.0 - 16.0 % [facility] Platelet Count 315 160 - 400 X10*3/uL [facility] Mean Platelet Volume 9.8 9.4 - 12.3 fL [facility] Neutrophils Percent Auto 52.2 45 - 73 % [facility] Imm Gran Pct Auto 0.2 0.0 - 0.4 % [facility] Lymphocytes Percent Auto 34.5 20 - 40 % [facility] Monocytes Percent Auto 6.3 2 - 11 % [facility] Eosinophils Percent Auto 5.6(H) 0 - 4 % [facility] Basophils Percent Auto 1.2 0 - 2 % [facility] NRBC Pct Auto 0.0 0.0 - 0.2 /100WBC [facility] Neutrophils Absolute Auto 3.2 2.0 - 8.3 x10*3/uL [facility] Imm Gran Abs Auto 0.01 0.00 - 0.03 X10*3/uL [facility] Lymphocytes Absolute Auto 2.1 1.2 - 4.9 X10*3/uL [facility] Monocytes Absolute Auto 0.4 0.1 - 1.2 X10*3/uL [facility] Eosinophils Absolute Auto 0.3 0.0 - 0.4 X10*3/uL [facility] Basophils Absolute Auto 0.1 0.0 - 0.2 X10*3/uL [facility] NRBC Abs Auto 0.000 0.0 - 0.012 X10*3/uL [facility] 04/08/2025 3:48 PM EDT 04/08/2025 3:48 PM EDT us Generic External Data Provider LAB BLOOD ORDERAB LES Final Result [facility] [address], [place] [phone] * Sed Rate by Modified Suzanne (04/08/2025 3:48 PM EDT) Erythrocyte Sedimentation Rate 7 0 - 20 MM/HR [facility] Comment:Patients with polycy themia and many hemoglobin abnormalitiesmay have depressed sed rates whereas patients with anemiamay have elevated sed rates. 04/08/2025 3:48 PM EDT 04/08/2025 3:48 PM EDT us Generic External Data Provider LAB BLOOD ORDERAB LES Final Result Performing Organization Address City/[facility]/ZIP Co de Phone Number [facility] [address] [place] [phone] [phone] * C-reactive Protein (04/08/2025 3:48 PM EDT) C Reactive Protein 0.17 < or = 0.50 mg/dL [facility] 04/08/2025 3:48 PM EDT 04/08/2025 3:48 PM EDT us Generic External Data Provider LAB BLOOD ORDERAB LES Final Result Performing Organization Address [facility] Co de Phone Number [facility] [address] [place] [address] [phone] * (ABNORMAL) Comprehensive Metabolic Panel (04/08/2025 3:48 PM EDT) Sodium 143 135 - 145 mmol/L [facility] Potassium 3.9 3.3 - 5.1 mmol/L [facility] Chloride 108 96 - 108 mmol/L [facility] Carbon Dioxide 25 22 - 29 mmol/L [facility] Anion Gap 14 12 - 20 [facility] Urea Nitrogen (BUN) 10 9 - 16 mg/dL [facility] Creatinine, Serum 0.84 0.5 - 1.4 mg/dL [facility] Estimated Glomerular Filt Rate >60 [facility] Comment:Chronic Kidney Disea se: Estimated GFR < 60 mL/min/1.92d7Rmgccr Kidney Disease: Estimated GFR < 15 mL/min/1.73m2 Glucose 123(H) 60 - 115 mg/dL [facility] Calcium 9.4 8.4 - 10.2 mg/dL [facility] Bilirubin, Total 0.3 0.0 - 1.0 mg/dL [facility] Aspartate Amino Transferase 25 5 - 31 U/L [facility] Alanine Aminotransferase 35(H) 0 - 31 U/L [facility] Total Protein 7.0 6.5 - 8.0 g/dL [facility] Albumin Level 4.5 3.5 - 5.0 g/dL [facility] Alkaline Phosphatase 60 39 - 117 U/L [facility] 04/08/2025 3:48 PM EDT 04/08/2025 3:48 PM EDT us Generic External Data Provider LAB BLOOD ORDERAB LES Final Result [facility] [address] [place] [phone] * (ABNORMAL) Lipid Panel, Standard (05/31/2023 10:17 AM EDT) Triglycerides 153(H) <150 mg/dL [facility] Comment:Desirable Triglyceri de: less than 150 mg/dLBorderline High Triglyceride 150-199 mg/dLHigh Triglyceride: 200-499 mg/dLVery High Triglyceride: greater than or equal to 5OO mg/dL Cholesterol 168 <200 mg/dL [facility] Comment:Desirable Cholestero l: less than 200 mg/dLBorderline High Cholesterol: 200-239 mg/dLHigh Cholesterol: greater than 239 mg/dL LDL Cholesterol Calculated 85 <100 mg/dL [facility] Comment:Desirable LDL: less than 100 mg/dLNear Optimal/Above Optimal LDL: 110- 129 mg/dLBorderline High LDL: 130-159 mg/dLHigh LDL: 160-189 mg/dLVery High LDL: greater than or equal to 190 mg/dL HDL Cholesterol 53 >40 mg/dL [facility] Comment:Desirable HDL: great er than 40 mg/dL Note: This HDL assay may give artificially low results in patients with liver disease. Blood Venous blood specimen / Unknown 05/31/2023 10:17 AM EDT 05/31/2023 11:16 AM EDT Leilani Gale MD LAB BLOOD ORDERABLES Final Res ult [facility] [address] [place] [phone] * Hm Colonoscopy (06/10/2022) Colonoscopy Normal Normal [facility] Comment:see scanned report 06/10/2022 Leilani Gale MD HEALTH MAINTENANCE Final Resul t Performing Organization Address City/[facility]/ZIP Co de Phone Number [facility] [address] [place] [address] [phone] from Last 3 Months or Most Recently Relevant to Health Maintenance Insurance [facility] , [address] [place] [phone] Care Teams Basket Filler Relationship Specialty Start Date End Date Leilani Gale MD [address] [facility] [place] [address] PCP - General Family Medicine 11/02/21
--- OUTSIDE RECORDS SUMMARY | 2025-05-23 11:13 | XMS_ITS | Encounter Summary ---
Author Organization [employer] Address [address] [facility] [address] [place] [address] Care Team Providers Care Reliability Technician Name Role Phone Leilani Gale MD Primary Care Provider [phone] Reason for Referral * Consultation (Routine) - Authorized Specialty Diagnoses / Procedures Referred By Contac t Referred To Contact Endocrinology Diagnoses Thyroid nodule greater than or equal to 1.5 cm in diameter incidentally noted on imaging study Leilani Gale MD [address] [place] [address] Phone: tel: [facility] [address] [address] Phone: tel: fax: Referral ID Status Reason Start Date Expiration Date Visits Requested Visits Authorized [id number] Authorized Specialty Services Required 10/08/2024 10/08/2025 1 1 Encounter Details Date Type Department Care Team (Late st Contact Info) Description 10/08/2024 Orders Only [facility] [address] [place], [place] [phone] Leilani Gale MD [address], [place] [phone] Thyroid nodule greater than or equal to [...] Primary documented in this encounter Care Teams Reliability Technician Relationship Specialty Start Date End Date Leilani Gale MD [address] [place] [phone] PCP - General Family Medicine 11/02/21 documented as of this encounter
--- OUTSIDE RECORDS SUMMARY | 2025-05-23 11:13 | XMS_ITS | Encounter Summary ---
Author Organization [employer] Address [address] [place] [address] Care Team Providers Care Trousseau Consultant Name Role Phone Leilani Gale MD Primary Care Provider [phone] Encounter Details Date Type Department Care Team (Late st Contact Info) Description 12/27/2024 Orders Only [facility] [address] [place], [place] [phone] Leilani Gale MD [address] [place] [address] COVID-19 (Primary Dx) Social History Tobacco Use [...] Primary documented in this encounter Care Teams Trousseau Consultant Relationship Specialty Start Date End Date Leilani Gale MD [address] [place] [address] PCP - General Family Medicine 11/02/21 documented as of this encounter
--- OUTSIDE RECORDS SUMMARY | 2025-05-23 11:13 | XMS_ITS | Patient Health Record ---
Author Organization [facility] Address [address] [place] [address] Care Team Providers Care Swamper Name Role Phone ERIKA TAVAREZ MD Primary Care Provider Unavail able LIAN HENSON Unavailable [phone] Allergies Allergen (clinical drug ingredient) Drug/Non Drug Allergy documented on EMR Reaction Allergy Type Onset Date Status hydromorphone Dilaudid breathing problems Drug Allergy Active Results Component Value Reference Range Notes Chlamydia/GC Amplification Reviewed date:01/21/2025 03:06:46 PM Interpretation: Performing Lab:[facility] [place], [address], [address], [place], Phone - [phone], Director - [facility] Notes/Report: Clinical Information:SRC: URINE Chlamydia trachomatis, DAISHA Negative Negative Neisseria gonorrhoeae, DAISHA Negative Negative PDF Report Reviewed date:01/21/2025 03:33:41 PM Interpretation: Performing Lab:[facility] [place], [address], [address], [place], Phone - [phone], Director - [facility] Notes/Report: Clinical Information:SRC: URINE SURGICAL PATHOLOGY Reviewed date:01/21/2025 02:27:49 PM Interpretation: Performing Lab:Testing performed or reported by [facility], a Service of [facility], [address] [place] [address] Fidel Locke MD, Head Waiter/Waitress Banquet RAMESH# [id number] Notes/Report: Patient Name: ENRIQUE PALMER Lab Patient : 1975 (Age: 49) Collection Date: 01/10/2025 Accession Date: 01/10/2025 Sign Out Date: 01/19/2025 Tissue Source: 1:EMB Final Diagnosis: Endometrium, biopsy: - Weakly proliferative endometrium with stromal breakdown. A. Tubal (ciliated) epithelial change present (estrogen effect). Primary Pathologist:Dianelys Luo M.D.,Ph.D. electronically signed out by: Dianelys Lou M.D.,Ph.D. / [facility] [place] Clinical History: Abnormal uterine and vaginal bleeding Gross Description: Labeled endometrial biopsy . Received in formalin is a 2.6 x 2.5 x 0.6 cm aggregate of translucent mucus with red, lott tissue. The specimen is entirely submitted. 1 and 2-multiple pieces, x 2. (EG)* As of December 02, 2023, the specimen processing and staining is performed at [facility], [address] [place] [address] (CLIA#[id number]). Its performance characteristics determined by [employer] Dm Read M.D. Head Waiter/Waitress Banquet of Surgical Pathology, Kendrick Flores M.D. Head Waiter/Waitress Banquet Cytopathology Phone #: [phone], On-Call Pathologist: [id number] Test, Urine Reviewed date:01/10/2025 11:31:35 AM Interpretation: Performing Lab: Notes/Report: Test, Urine NEG PDF Report Reviewed date:12/26/2024 04:19:27 PM Interpretation: Performing Lab:Vahe [place], Etta [facility], [address], Phone - [phone], Director - [facility] Notes/Report: Clinical Information:VAG/CERV [id number] LMP / Prev Treat...NNC=[id number] Dates / Results....11/14/2019 No. of containers..01 ThinPrep Vial [id number]-Yip IGP No Culture 30 Plus Reviewed date:12/26/2024 04:19:08 PM Interpretation: Performing Lab:Etta Oliveros [facility], [address], Phone - [phone], Director - [facility] Notes/Report: Clinical Information:VAG/CERV [id number] LMP / Prev Treat...OWN=[id number] Dates / Results....11/14/2019 No. of containers..01 ThinPrep Vial DIAGNOSIS: NEGATIVE FOR INTRAEPITHELIAL LESION OR MALIGNANCY. Specimen adequacy: Satisfactory for evaluation. Endocervical and/or squamous metaplastic cells (endocervical component) are present. Clinician provided ICD10: Z01.419 Performed by: Sushil Ramirez , Autopsy Pathologist ([facility]) . . Note: The Pap smear is [...] Status Risk Notes Problem Diverticulitis of colon (730995559) Diverticulitis of intestine, part unspecified, without perforation or abscess without bleeding (K57.92) Active confirmed Problem Disorder of breast (19119849) Disorder of breast, unspecified (N64.9) Active confirmed Problem Abnormal uterine bleeding (13516077388408) Abnormal uterine and vaginal bleeding, unspecified (N93.9) Active confirmed Problem Asthma (disorder) (704370290) Asthma, unspecified, unspecified status (493.90) Active confirmed Major Vital Signs Temperature 98.0 degrees Fahrenheit 01/20/2025 Blood pressure diastolic 82 mm Hg 01/20/2025 Height 65 in 01/20/2025 Blood pressure systolic 122 mm Hg 01/20/2025 Weight 236 lbs 01/20/2025 BMI 39.27 kg/m2 01/20/2025 Encounters Encounter Location Date Provider Diagnosis [address] [address] 12/23/2024 LIAN HENSON Encounter for gynecological examination (general) (routine) without abnormal findings Z01.419 ; Encounter for screening mammogram for malignant neoplasm of breast Z12.31 and Abnormal uterine and vaginal bleeding, unspecified N93.[address] [address] 01/10/2025 LIAN HENSON Abnormal uterine and vaginal bleeding, unspecified N93.[address] [address] 01/20/2025 LIAN HENSON Abnormal uterine and vaginal bleeding, unspecified N93.9 and High risk heterosexual behavior Z72.[address] [address] 01/20/2025 LIAN HENSON Assessments Encounter Date Diagnosis [...] as alternative hormone strategies. She saw her Eating Disorder Specialist recently, who recommended against any hormones due [...] partner during intercourse from strings, heavier or glass bender menses, expulsion of IUD, uterine perforation with [...] MM Digital Screening Mammogram 3D 2021 Chlamydia/GC Amplification-671466 2024 Next Appt Details Provider Name:LIAN FORDE Lalita, 12/25/2025 09:00:00 AM, [address], [address], [place], [address], Insurance Providers Payer Name Payer Address Payer Phone Subscriber Number Group Number Insured Name Patient Relationship to Insured Coverage Start Date Coverage End Date [facility] [address] [place] [address] [id number] ENRIQUE PALMER Self - patient is the [...]
--- OUTSIDE RECORDS SUMMARY | 2025-05-23 11:13 | XMS_ITS | Encounter Summary ---
Author Organization [employer] Address [address] 7[address] [place] [address] Care Team Providers Care Dining Car Waiter/Waitress Name Role Phone Leilani Gale MD Primary Care Provider [phone] Reason for Referral * Consultation (Routine) - Closed Specialty Diagnoses / Procedures Referred By Peng booth Referred To Contact Gastroenterology Diagnoses Redundant colon Colon cancer screening Leilani Gale MD [address] [place] [address] Phone: tel: fax: [facility] [address] [place] [address] Phone: tel: fax: Referral ID Status Reason Start Date Expiration Date V isits Requested Visits Authorized [id number] Closed Specialty Services Required 05/31/2024 05/31/2025 1 1 * Imaging (Routine) - Closed Specialty Diagnoses / Procedures Referred By Peng booth Referred To Contact Radiology Diagnoses Thyroid nodule greater than or equal to 1.5 cm in diameter incidentally noted on imaging study Procedures US Thyroid Leilani Gale MD [address] [place] [address] Phone: tel: fax: [address] Phone: tel: fax: Referral ID Status Reason Start Date Expiration Date Visits Re quested Visits Authorized [id number] Closed 05/31/2024 05/31/2025 1 1 Encounter Details Date Type Department Care Team (Late st Contact Info) Description 05/31/2024 Orders Only [facility] MEDICINE [address] [place] [address] Leilani Gale MD [address] [place] [address] Thyroid nodule greater than or equal to [...] AM EDT Narrative 07/19/2024 8:39 AM EDT [place] [address] Ultrasound Report Signed Patient: Ashley Magdaleno MR#: [id number] : 1975 Acct:[id number] Age/Sex: 48 / F ADM Date: 06/17/24 Loc: .US Attending Dr: Leilani Gale MD Ordering Physician: Leilani Gale Date of Service: 06/17/24 Procedure(s): US thyroid Accession Number(s): [id number] cc: Leilani Gale EXAMINATION: US THYROID CLINICAL [...] than or equal to 1 cm: 1. Medical Office Professional Instructor nodules are described as follows: 1. Location: [...] Ritesh Liang MD 07/19/2024 08:36 AM EDT RP Dictated By: Ritesh Liang MD Signed By: <Electronically signed by Ritesh Liang MD in OV> 07/19/24 0836 DD/ 0938 TD/TT: 06/17/24 0948 [employer]istics: SS Procedure Note Donotuseinterpreter, Image - 07/19/[address] [address] Ultrasound Report Signed Patient: Ashley Magdaleno EMR#: [id number] : 1975Acct:[id number] Age/Sex: 48 / FADM Date: 06/17/24 Loc: HO.US Attending Dr: Leilani Gale MD Ordering Physician: Leilani Gale Date of Service: 06/17/24 Procedure(s): US thyroid Accession Number(s): [id number] cc: Leilani Gale EXAMINATION: US THYROID CLINICAL [...] than or equal to 1 cm: 1. Medical Office Professional Instructor nodules are described as follows: 1. Location: [...] 07/19/24 0836 DD/ 0938 TD/TT: 06/17/24 0948 Lieutenant [employer]: SS us Leilani Gale MD IMG US PROCEDURES Final Result documented in this encounter Visit Diagnoses Diagnosis Thyroid nodule greater than or equal to 1.5 cm in diameter incidentally noted on imaging study- Primary Redundant colon Other congenital anomalies of intestine Colon cancer screening Special screening for malignant neoplasms, colon documented in this encounter Care Teams Dining Car Waiter/Waitress Relationship Specialty Start Date End Date Leilani Gale MD [address] [place] [address] PCP - General Family Medicine 11/02/21 documented as of this encounter
--- OUTSIDE RECORDS SUMMARY | 2025-05-23 11:13 | XMS_ITS | Encounter Summary ---
Author Organization [employer] Address [address] [facility] 7[address] [place] [address] Care Team Providers Care Mentally Retarded Teacher Name Role Phone Leilani Gale MD Primary Care Provider [phone] Reason for Referral * Consultation (Routine) - Canceled Specialty Diagnoses / Procedures Referred By Contac t Referred To Contact Endocrinology Diagnoses Thyroid nodule greater than or equal to 1.5 cm in diameter incidentally noted on imaging study Leilani Gale MD [address] [place] [address] Phone: tel: fax: Referral ID Status Reason Start Date Expiration Date Visits Requested Visits Authorized [id number] Canceled Specialty Services Required 08/08/2024 08/08/2025 1 1 Encounter Details Date Type Department Care Team (Late st Contact Info) Description 08/08/2024 Orders Only [facility] MEDICINE [address] [place] [address] Leilani Gale MD [address] [place], [place] [id number] Thyroid nodule greater than or equal to [...] your housing situation today? I have sherrie sing 07/11/[address] you li [...] Primary documented in this encounter Care Teams Mentally Retarded Teacher Relationship Specialty Start Date End Date Leilani Gale MD [address] [place] [address] PCP - General Family Medicine 11/02/21 documented as of this encounter
--- OUTSIDE RECORDS SUMMARY | 2025-05-23 11:14 | XMS_ITS | Patient Health Record ---
Author Organization [facility] Address [address] [facility] [place] [address] Care Team Providers Care Bank Advisor Name Role Phone Bette Garay Primary Care Provid er Unavailable Addis Alexander Unavailable [phone] Allergies Allergen (clinical drug ingredient) Drug/Non Drug [...] Treatment Pending Test Test Name Order Date 44074-Vhto Destruction, 1-14 01/16/2017 95375-Tsel Destruction, 1-02/06/2017 26109-Otee Destruction, -03/22/2017 68014-Iwjebonv Plate 01/16/2017 39730- Debride <25 sq cm 02/06/2017 Insurance Providers Payer Name Payer Address Payer Phone Subscriber Number Group Number Insured Name Patient Relationship to Insured Coverage Start Date Coverage End Date [facility] [address] [place] [address] [id number] Ashley Magdaleno Self - patient is the [...]
--- OUTSIDE RECORDS SUMMARY | 2025-05-23 11:14 | XMS_ITS | Clinical Summary ---
Author Organization [facility] Address [address] [place] [address] Phone Care Team Providers Care Crane Chaser Name Role Phone Kamron Corrales MD Unavailable [phone] Cedric Perez MD Unavailable Leilani Gale MD Primary Care Provider + Ron Otoole DO Unavailable [phone] Allergies Active Allergy Reactions Criticality Noted Date Comments Hydromorphone Shortness Of Breath High 09/16/2024 Cannot catch breath Laryngeal spasm Adhesive Tape-Silicones 09/16/2024 Medications albuterol 90 mcg/actuation inhaler Inhale 2 puffs into the lungs 4 (four) times a day. 09/03/2024 Active atorvastatin (LIPITOR) 10 MG tablet Take 1 tablet by mouth every morning. 09/02/2024 Active cetirizine (ZYRTEC) 10 MG tablet Take 1 tablet by mouth every morning. 09/02/2024 Active citalopram (CELEXA) 20 MG tablet Take 1 tablet by mouth every morning. 06/13/2024 Active fluticasone propion-salmete roL (ADVAIR DISKUS) 250-50 mcg/dose DISKUS Inhale 1 puff into the lungs 2 (two) times a day. 09/03/2024 Active montelukast (SINGULAIR) 10 mg tablet Take 10 mg by mouth every evening. 08/11/2024 Active cholecalciferol (VITAMIN D3) 2,000 unit tablet Take 1,000 Units by mouth daily. Active cyanocobalamin, vitamin B-12, (VITAMIN B-12 ORAL) Take by mouth. Active adalimumab (HUMIRA) 40 mg/0.8 mL pen kit Inject 40 mg under the skin every 14 (fourteen) days. Active SUMATRIPTAN SUCCINATE ORAL Take by mouth. Active cyclobenzaprine (FLEXERIL) 5 MG tablet Take 5 mg by mouth 3 (three) times a day as needed for muscle spasms (5-10 mg). Active oxyCODONE HCl 10 mg Tab Take 5 mg by mouth every 6 (six) hours as needed for pain (specific location in comments). Active SIMPONI 50 mg/0.5 mL pen Inject 50 mg under the skin every 30 (thirty) days. 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 Thyroid ultrasound on 06/26/2023 confirmed a 2.2 cm right TR 4 nodule. She had a nondiagnostic FNA of this nodule on 08/01/2023. Repeat FNA on 09/04/2023 was benign. Last ultrasound on 06/17/2024, report reviewed, images were not available. The right mid nodule measured larger 3.2 x 1.3 x 2.4 cm from 2.2 x 1.3 x 2.1 cm but this time was reported as TI-RADS 3 from TI-RADS 4. Had 2 other less than 1 cm nodules in the right lobe and 2 less than 1 cm nodule in the left lobe. She has some occasional clearing of her throat and more shortness of breath lately walking upstairs. She had a PFT a year ago and has follow-up with her laborer bituminous paving, Dr. Perez. She seems clinically euthyroid. TSH was not available. Family history of hypothyroidism in father and Matt's thyroiditis in one of her daughters. 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 - Would repeat thyroid ultrasound in 05/2025 -Will request ultrasound images for review-I wonder if the enlargement of the right nodule was related to increasing cystic component. - Added TSH and TPO to labs done by PCP in 04/2025. - Follow-up after the ultrasound Encounters Date Type Department Care Team Description 03/04/2025 Orders Only [facility],Outside Imaging [address] [place] [address] System, Provider Not In, PhD 03/04/2025 Ancillary Orders [facility],Outside Imaging [address] [place] [address] Unknown, Abbe, 03/04/2025 Ancillary Orders [facility],Outside Imaging [address] [place] [address] Unknown, Abbe, 03/04/2025 Ancillary Orders [facility],Outside Imaging [address] [place] [address] Unknown, Abbe, 03/04/2025 Ancillary Orders [facility],Outside Imaging [address] [place] [address] Unknown, Abbe, 02/25/2025 2:00 PM EDT Office Visit [facility] [address] [place] [address] [place] [address] Luz Elena Walker MD Nontoxic multinodular goiter (Primary Dx) 02/25/2025 Telephone [facility] [address] [place] [address] [place] [address] Luz Elena Walker MD from Last 3 Months Social History Tobacco Use Types Packs/Day Years Used Date Smoking Tobacco: Never Smokeless Tobacco: Never Tobacco Cessation:Counseling Given: Not Answered Alcohol Use Standard Drinks/Week Comments Not Asked [...] Orientation Straight 04/25/2025 1: 23 PM EDT Last Filed Vital Signs Vital Sign Reading Time Taken Comments Blood Pressure 132/72 02/25/2025 2:00 PM EDT Pulse 102 02/25/2025 2:00 PM EDT Temperature 36.6 C (97.9 F) 09/24/2024 9:40 AM EST Respiratory Rate 18 09/24/2024 9:50 AM EST Oxygen Saturation 98% 02/25/2025 2:00 PM EDT Inhaled Oxygen Concentration - - Weight 108 kg (238 lb) 02/25/2025 2:00 PM EDT Height 164 cm (5' 4.57 ) 02/25/2025 2:00 PM EDT Body Mass Index 40.14 02/25/2025 2:00 PM EDT Plan of Treatment Upcoming Encounters Date Type Department Care Team (Late st Contact Info) Description 06/30/2025 4:15 PM EDT Appointment [address] [address] Luz Elena Walker MD [address] [place] [phone] [email or web address] 07/28/2025 10:40 AM EST Office Visit [facility] [address] [place] [address] [place] [address] Luz Elena Walker MD [address] [place] [address] [email or web address] Health Maintenance Due Date Last Done Comments DEPRESSION SCREENING 1985 HEPATITIS C SCREENING 1991 HIV ONE-TIME SCREENING (18-65 YEARS) 1991 ZOSTER VACCINES (1 of 2) 1992 PAP SMEAR 1994 SCREENING FOR DIABETES 2008 MAMMOGRAM 2013 COLOGUARD 2018 FIT TEST 2018 FOBT 2018 SIGMOIDOSCOPY 2018 VIRTUAL COLONOSCOPY 2018 COVID-19 VACCINE (6 - Moderna risk season) 2025 07/13/2024, 01/16/2023, 01/11/2022, Additional history exists LIPID PANEL 05/31/2028 05/31/2023 Adult Td,Tdap Booster 01/29/2032 01/28/2022, 012 COLONOSCOPY 09/24/2034 09/24/2024 COLORECTAL CANCER SCREENING 09/24/2034 PNEUMOCOCCAL VACCINES (50+ years) Completed 08/22/2022, 10/23/2015 SMOKING STATUS SCREENING (Once After 26 Yrs) Completed 02/25/2025 HEPATITIS A VACCINES Aged Out No long er eligible based on patient's age to complete this topic HIB VACCINES Aged Out No longer eligi ble based on patient's age to complete this topic MENINGOCOCCAL VACCINES (ACWY) Aged Out No longer eligible based on patient's age to complete this topic MENINGOCOCCAL VACCINES (B) Aged Out N o longer eligible based on patient's age to complete this topic Medical Devices Implanted Type Area Superintendent Sanitation Device Identifier Shelf Expiration Date Model / Serial / Lot Screws Ankle Titanium Marker Left Breast Procedures Procedure Name Priority Date/Time Associated Diagnosis Comments CYTOLOGY Routine 03/04/2025 12:32 PM EDT CYTOLOGY Routine 03/04/2025 12:30 PM EDT ENDOSCOPY, COLON 09/24/2024 9:16 AM EST from Last 3 Months or Most Recently Relevant to Health Maintenance Results * Cytology (03/04/2025 12:32 PM EDT) Only the most recent of2 resultswithin the time period is included. us Provider Not In System PhD PATHOLOGY ORDERABLES Final Result * ENDOSCOPY, COLON (09/24/2024 9:16 AM EST) Narrative Transcriptions Tio Logan MD - 09/24/2024 9:16 AM EST [facility] Patient Name: Ashley Sharla Attending MD:: TIO LOGAN MD, , Procedure Date: 09/24/2024 9:16 AM Date of : 1975 Age: 49 Admit Type: Outpatient Gender: Female Room: [place] [address] Referring MD: Leilani Gale Exam Type: Colonoscopy Indications: High risk colon cancer surveillance: Personalhistory of colonic polyps Medications: Monitored Anesthesia Care Procedure: Informed consent was obtained from the patientafter discussion of the indications, limitations, alternatives, benefits, and risks of the procedure. Risks specifically discussed include but are not limited to medication reactions, missed lesions, bleeding, perforation, or the need for emergent surgery. Throughout the procedure, the patient's blood pressure, pulse, end-tidal CO2, and oxygensaturations were monitored continuously. The Colonoscope was introduced through the anus and advanced to the cecum, identified by appendiceal orifice and ileocecal valve. The colonoscopy was performed without difficulty. The patient tolerated the procedure well. The quality of the bowel preparation was excellent. The quality of the bowel preparation was evaluated using the BBPS (BostonBowel Preparation Scale) with scores of: Right Colon = 3, Transverse Colon = 3 and Left Colon = 3 (entiremucosa seen well with no residual staining, smallfragments of stool or opaque liquid). The total BBPS score equals 9. Anatomical landmarks were photographed. Complications: No immediate complications. Estimated blood loss:None. Findings: The perianal and digital rectal examinations were normal. Multiple small-mouthed diverticula were found inthe sigmoid colon and descending colon. A tattoo was seen in the sigmoid colon. The tattoo site appeared normal. Internal hemorrhoids were found duringretroflexion. The hemorrhoids were mild. The exam was otherwise normal throughout theexamined colon. Impression: - Mild diverticulosis in the sigmoid colon and inthe descending colon. - Tattoo in sigmoid, healthy appearing. - Internal hemorrhoids. - No specimens collected. Recommendation: - Discharge patient to home. - Repeat colonoscopy in 5 years for surveillance,also with propofol. TIO LOGAN MD, 09/24/2024 9:36:51 AM This report has been signed electronically. Number of Addenda: 0 Note Initiated On: 09/24/2024 9:16 AM Procedure Code(s): --- Professional --- 60622, Colonoscopy, flexible; diagnostic, including collection of specimen(s) by brushing or washing, when performed (separateprocedure) --- Technical --- 09078, Colonoscopy, flexible; diagnostic, including collection of specimen(s) by brushing or washing, when performed (separateprocedure) Diagnosis Code(s): --- Professional --- Z86.010, Personal history of colonic polyps K64.8, Other hemorrhoids K57.30, Diverticulosis of large intestine without perforation or abscess without bleeding --- Technical --- Z86.010, Personal history of colonic polyps K64.8, Other hemorrhoids K57.30, Diverticulosis of large intestine without perforation or abscess without bleeding CPT copyright 2021 [employer]. All rights reserved. The codes documented in this report are preliminary and upon flotation tender helper reviewmay be revised to meet current compliance requirements. Procedure Date: 09/24/2024 9:16:[address] [place] [address] Leilani Gale MD GI PROCEDURE ORDERABLES Final Result from Last 3 Months or Most Recently Relevant to Health Maintenance Insurance [facility] Care Teams Crane Chaser Relationship Specialty Start Date End Date Leilani Gale MD [address] [place] [address] [place] [address] PCP - General Family Medicine 09/16/24 Kamron Corrales MD [address] [place] [address] Vascular Surgery 09/16/24 Cedric Perez MD [address] [place] [address] [place] [address] Pulmonary Disease 09/16/24 Ron Otoole DO [address] [place] [address] Dr [place] [id number] Physical Medicine and Rehabilitation 09/16/24 Additional Source Comments The information contained in this document represents components of the legal health record. It is not the complete legal health record.[facility]
--- OUTSIDE RECORDS SUMMARY | 2025-05-23 11:14 | XMS_ITS | Encounter Summary ---
Author Organization [facility] Address [address] [place] [address] Phone Care Team Providers Care Videogame Tester Name Role Phone Kamron Corrales MD Unavailable [phone] Cedric Perez MD Unavailable Leilani Gale MD Primary Care Provider + Ron Otoole DO Unavailable [phone] Encounter Details Date Type Department Care Team (Late st Contact Info) Description 09/24/2024 Procedure Pass [facility] Endoscopy Admitting Dept Virtual Department [address] [place] [address] Social History Tobacco Use Types Packs/Day Years [...] Info) Description 06/30/2025 4:15 PM EDT Appointment [address] [address] Luz Elena Walker MD [address] [place] [address] 07/28/2025 10:40 AM EST Office Visit [facility] [address] [place] [address] Luz Elena Walker MD [address] [place] [address] documented as of this encounter Visit Diagnoses Not on filedocumented in this encounter Care Teams Videogame Tester Relationship Specialty Start Date End Date Leilani Gale MD [address] [place] [address] [place] [address] PCP - General Family Medicine 09/16/24 Kamron Corrales MD [address] [place] [address] Vascular Surgery 09/16/24 Cedric Perez MD [address] [place] [address] [place] [address] Pulmonary Disease 09/16/24 Ron Otoole DO [address] [place] [address] [place] [address] Physical Medicine and Rehabilitation 09/16/24 documented as of this encounter Additional Source Comments The information contained in this document represents components of the legal health record. It is not the complete legal health record.[facility]
== END 2025-05-23 11:16 | disposition home or self-care (01) ==
LOC: HO.HPS 10:35
PROVIDERS: PCP General Practice; Visit Provider Hospitalist
DX: J45.40 Moderate persistent asthma, uncomplicated (principal); G47.33 Obstructive sleep apnea (adult) (pediatric)
CPT/HCPCS: 99214

== ENCOUNTER 2025-05-23 10:35 | Outpatient (REF) | payer OTHER, SELFPAY ==
--- NOTE | ~2025-05-23 | XR_ITS ---
EXAMINATION: XR CHEST 2 VIEWS HISTORY: J45.40 - Moderate persistent asthma, uncomplicated COMPARISON: Comparison is made with the prior examination dated 06/30/2022. FINDINGS: PA and lateral views of the chest are submitted. The lungs are expanded and clear. There is no pleural effusion, pneumothorax, or pulmonary vascular congestion. The heart is normal in size. The bones are intact. XR/XR chest 2V IMPRESSION: No acute cardiopulmonary abnormality. Electronically signed by: Vj Ma MD 05/23/2025 11:45 AM EDT
--- OUTSIDE RECORDS SUMMARY | 2025-05-23 12:25 | XMS_ITS | Encounter Summary ---
Author Organization [facility] Address [address] [place] [address] Care Team Providers Care Mat Weaver Name Role Phone Bette Garay DO Primary Care Pro vider Unavailable Community, Pcp Primary Care Provider Harish Winters MD, PHD Unavailable Unava ilable Reason for Referral * EXTERNAL (Urgent) - Authorized/Booked Specialty Diagnoses / Procedures Referred By Peng booth Referred To Contact Neurology Diagnoses Migraine without aura and without status migrainosus, not intractable Procedures REFERRAL TO NEUROLOGY Louise Fairchild PA-C [address] [place] [address] [facility] [address], [address] [place] [address] Referral ID Status Reason Start Date Expiration Date V isits Requested Visits Authorized [id number] Authorized/B ooked 01/20/2021 04/22/2021 1 1 Encounter Details Date Type Department Care Team Description 01/19/2021 Pt. Non Urgent Medical Question Adult Medicine [address] [address] Louise Fairchild PA-C [address] [place] [id number] Migraine without aura and without status migrainosus, [...] Neuro Referral Elida Espinosa was seen at [facility] yesterday for continuing migraines with complex [...] migrainosus documented in this encounter Care Teams Mat Weaver Relationship Specialty Start Date End Date Bette Garay DO PCP - General Internal Medicine 02/27/14 06/06/21 [facility], Pcp PCP - General Internal Medicine 11/09/21 Harish Palomo MD, PHD Specialist Neurosurgery 11/09/21 documented as of this encounter
--- OUTSIDE RECORDS SUMMARY | 2025-05-23 12:25 | XMS_ITS | Encounter Summary ---
Author Organization [facility] Address [address] [place] [address] Care Team Providers Care Dumpster Driver Name Role Phone Bette Garay DO Primary Care Pro vider Unavailable Community, Pcp Primary Care Provider Harish Winters MD, PHD Unavailable Unava ilable Encounter Details Date Type Department Care Team Description 11/26/2019 Traffic Workforce Representative Report Medical Records [address] [place] [address] Rehab., [place] Social History Tobacco Use Types Packs/Day Years [...] on filedocumented in this encounter Care Teams Dumpster Driver Relationship Specialty Start Date End Date Bette Garay DO PCP - General Internal Medicine 02/27/14 06/06/21 Community, Pcp PCP - General Internal Medicine 11/09/21 Harish Palomo MD, PHD Specialist Neurosurgery 11/09/21 documented as of this encounter
--- OUTSIDE RECORDS SUMMARY | 2025-05-23 12:25 | XMS_ITS | Encounter Summary ---
Author Organization [facility] Address [address] [place] [address] Care Team Providers Care Booker Name Role Phone Bette Garay DO Primary Care Pro vider Unavailable Community, Pcp Primary Care Provider Harish Winters MD, PHD Unavailable Unava ilable Encounter Details Date Type Department Care Team Description 08/07/2016 Refill Adult Medicine [address] [address] Bette Garay DO Social History Tobacco Use [...] MG tablet [Bette Jay DO] Preferred pharmacy: [address] Comment: documented in this encounter Plan of Treatment Not on file documented as of this encounter Visit Diagnoses Not on filedocumented in this encounter Care Teams Booker Relationship Specialty Start Date End Date Bette Garay DO PCP - General Internal Medicine 02/27/14 06/06/21 [facility], Pcp PCP - General Internal Medicine 11/09/21 Harish Palomo MD, PHD Specialist Neurosurgery 11/09/21 documented as of this encounter
--- OUTSIDE RECORDS SUMMARY | 2025-05-23 12:25 | XMS_ITS | Encounter Summary ---
Author Organization [facility] Address [address] [place] [address] Care Team Providers Care Machine Joiner Cementer Name Role Phone Bette Garay DO Primary Care Pro vider Unavailable Community, Pcp Primary Care Provider Harish Winters MD, PHD Unavailable Unava ilable Reason for Visit * Reason Comments E-prescribe Rx Request Encounter Details Date Type Department Care Team Description 08/08/2020 Refill Adult Medicine [address] [address] Bette Garay DO E-prescribe Rx Request Social [...] N/A Patients current insurance carrier is: Payor: [email or web address] [place] / Plan: ReferMe $20 [place] 1 / Product Type: HMO [id number] documented in this encounter Plan of Treatment Not on file documented as of this encounter Visit Diagnoses Not on filedocumented in this encounter Care Teams Machine Joiner Cementer Relationship Specialty Start Date End Date Bette Garay DO PCP - General Internal Medicine 02/27/14 06/06/21 [facility], Pcp PCP - General Internal Medicine 11/09/21 Harish Palomo MD, PHD Specialist Neurosurgery 11/09/21 documented as of this encounter
--- OUTSIDE RECORDS SUMMARY | 2025-05-23 12:25 | XMS_ITS | Encounter Summary ---
Author Organization [facility] Address [address] [place] [address] Care Team Providers Care Validation Consultant Name Role Phone Bette Garay DO Primary Care Pro vider Unavailable Community, Pcp Primary Care Provider Harish Winters MD, PHD Unavailable Unava ilable Encounter Details Date Type Department Care Team Description 05/12/2020 Telephone Adult [address] [address] Shefali Dowling, MOE Social History Tobacco Use [...] on filedocumented in this encounter Care Teams Validation Consultant Relationship Specialty Start Date End Date Bette Garay DO PCP - General Internal Medicine 02/27/14 06/06/21 Community, Pcp PCP - General Internal Medicine 11/09/21 Harish Palomo MD, PHD Specialist Neurosurgery 11/09/21 documented as of this encounter
--- OUTSIDE RECORDS SUMMARY | 2025-05-23 12:25 | XMS_ITS | Encounter Summary ---
Author Organization [facility] Address [address] [place] [address] Care Team Providers Care Stone Polisher Hand Name Role Phone Bette Garay DO Primary Care Pro vider Unavailable Community, Pcp Primary Care Provider Harish Winters MD, PHD Unavailable Unava ilable Reason for Visit * Reason Comments E-prescribe Rx Request Encounter Details Date Type Department Care Team Description 08/17/2019 Refill Adult Medicine [address] [address] Bette Garay DO E-prescribe Rx Request Social [...] N/A Patients current insurance carrier is: Payor: [employer] / Plan: Xradia $20 [place] 1 / Product Type: Simply Pasta [employer] MoreO [id number] documented in this encounter Plan of Treatment Not on file documented as of this encounter Visit Diagnoses Not on filedocumented in this encounter Care Teams Stone Polisher Hand Relationship Specialty Start Date End Date Bette Garay DO PCP - General Internal Medicine 02/27/14 06/06/21 [facility], Pcp PCP - General Internal Medicine 11/09/21 Harish Palomo MD, PHD Specialist Neurosurgery 11/09/21 documented as of this encounter
--- OUTSIDE RECORDS SUMMARY | 2025-05-23 12:25 | XMS_ITS | Encounter Summary ---
Author Organization [facility] Address [address] [place] [address] Care Team Providers Care Assistant Strength Coach Name Role Phone Bette Garay DO Primary Care Pro vider Unavailable Community, Pcp Primary Care Provider Harish Winters MD, PHD Unavailable Unava ilable Encounter Details Date Type Department Care Team Description 12/24/2020 Pt. Non Urgent Medic al Question Adult Medicine [address] [address] Bette Garay DO Social History Tobacco Use [...] on filedocumented in this encounter Care Teams Assistant Strength Coach Relationship Specialty Start Date End Date Bette Garay DO PCP - General Internal Medicine 02/27/14 06/06/21 [facility], Pcp PCP - General Internal Medicine 11/09/21 Harish Palomo MD, PHD Specialist Neurosurgery 11/09/21 documented as of this encounter
--- OUTSIDE RECORDS SUMMARY | 2025-05-23 12:25 | XMS_ITS | Encounter Summary ---
Author Organization [facility] Address [address] [place] [address] Care Team Providers Care Finisher Polisher Name Role Phone Bette Garay DO Primary Care Pro vider Unavailable Community, Pcp Primary Care Provider Harish Winters MD, PHD Unavailable Unava ilable Reason for Visit * Reason Comments E-prescribe Rx Request Encounter Details Date Type Department Care Team Description 11/13/2018 Refill Adult Medicine [address] [address] Shankea Blanco PA-C E-prescribe Rx Request Social History [...] an upcoming appointment? [facility] to [facility] [...] N/A Patients current insurance carrier is: Payor: [employer] [place] / Plan: HMO $30 [place] [id number] /Product Type: HMO [id number] documented in this encounter Plan of Treatment Not on file documented as of this encounter Visit Diagnoses Not on filedocumented in this encounter Care Teams Finisher Polisher Relationship Specialty Start Date End Date Bette Garay DO PCP - General Internal Medicine 02/27/14 06/06/21 [facility], Pcp PCP - General Internal Medicine 11/09/21 Harish Palomo MD, PHD Specialist Neurosurgery 11/09/21 documented as of this encounter
--- OUTSIDE RECORDS SUMMARY | 2025-05-23 12:25 | XMS_ITS | Encounter Summary ---
Author Organization [facility] Address [address] [place] [address] Care Team Providers Care Underwriting Support Manager Name Role Phone Community, Pcp Primary Care Provider Harish Winters MD, PHD Unavailable Unava ilable Encounter Details Date Type Department Care Team Description 08/09/2021 Song Plugger Report Medical Records [address] [place] [address] Ron Otoole DO Social History Tobacco Use [...] on filedocumented in this encounter Care Teams Underwriting Support Manager Relationship Specialty Start Date End Date Community, Pcp PCP - General Internal Medicine 11/09/21 Harish Palomo MD, PHD Specialist Neurosurgery 11/09/21 documented as of this encounter
--- OUTSIDE RECORDS SUMMARY | 2025-05-23 12:25 | XMS_ITS | Encounter Summary ---
Author Organization [facility] Address [address] [place] [address] Care Team Providers Care Accessories Repairer Name Role Phone Community, Pcp Primary Care Provider Harish Winters MD, PHD Unavailable Unava ilable Encounter Details Date Type Department Care Team Description 07/27/2021 Cat Breeder Report Medical Records [address] [place] [address] Ron Otoole DO Social History Tobacco Use [...] on filedocumented in this encounter Care Teams Accessories Repairer Relationship Specialty Start Date End Date Community, Pcp PCP - General Internal Medicine 11/09/21 Harish Palomo MD, PHD Specialist Neurosurgery 11/09/21 documented as of this encounter
--- OUTSIDE RECORDS SUMMARY | 2025-05-23 12:25 | XMS_ITS | Encounter Summary ---
Author Organization [facility] Address [address] [place] [address] Care Team Providers Care Spray Maker Name Role Phone Bette Garay DO Primary Care Pro vider Unavailable Community, Pcp Primary Care Provider Harish Winters MD, PHD Unavailable Unava ilable Encounter Details Date Type Department Care Team Description 05/08/2018 Refill Adult Medicine [address] [address] Bette Garay DO Social History Tobacco Use [...] MG tablet [Bette Jay DO] Preferred pharmacy: [id number] AT Comment: Helharley??? My pharmacy closed ([facility] in [place]). I requested twice, through the pharmacies, that my meds be transferred to [facility] on [facility] in [place], but they seem to be unable to do this. I am wondering if you might be able to just send along new prescriptions to [facility] for me? I think this isthe easiest way to get this done. Please let me know if there are any questions. Thank you very much! documented in this encounter Plan of Treatment Not on file documented as of this encounter Visit Diagnoses Not on filedocumented in this encounter Care Teams Spray Maker Relationship Specialty Start Date End Date Bette Garay DO PCP - General Internal Medicine 02/27/14 06/06/21 Community, Pcp PCP - General Internal Medicine 11/09/21 Harish Palomo MD, PHD Specialist Neurosurgery 11/09/21 documented as of this encounter
--- OUTSIDE RECORDS SUMMARY | 2025-05-23 12:25 | XMS_ITS | Encounter Summary ---
Author Organization [facility] Address [address] [place] [address] Care Team Providers Care Coach Wirer Name Role Phone Bette Garay DO Primary Care Pro vider Unavailable Community, Pcp Primary Care Provider Harish Winters MD, PHD Unavailable Unava ilable Encounter Details Date Type Department Care Team Description 01/19/2018 Orders Only Adult Medicine [address] [address] Bette Garay DO Social History Tobacco Use [...] on filedocumented in this encounter Care Teams Coach Wirer Relationship Specialty Start Date End Date Bette Garay DO PCP - General Internal Medicine 02/27/14 06/06/21 Community, Pcp PCP - General Internal Medicine 11/09/21 Harish Palomo MD, PHD Specialist Neurosurgery 11/09/21 documented as of this encounter
--- OUTSIDE RECORDS SUMMARY | 2025-05-23 12:25 | XMS_ITS | Encounter Summary ---
Author Organization [facility] Address [address] [place] [address] Care Team Providers Care Room Service Food Service Attendant Name Role Phone Community, Pcp Primary Care Provider Harish Winters MD, PHD Unavailable Unava ilable Reason for Visit * Reason Onset Date Comments Faxed Refill 07/27/2021 Encounter Details Date Type Department Care Team Description 07/27/2021 Refill Adult Medicine [address] [address] Louise Fairchild PA-C [address] [place] [address] Faxed Refill Social History Tobacco Use Types [...] the RX # listed on the fax? [id number] Patients current insurance carrier is: Payor: [employer] / Plan: PPO $20 [place] / Product Type: PPO [id number] documented in this encounter Plan of Treatment Not on file documented as of this encounter Visit Diagnoses Not on filedocumented in this encounter Care Teams Room Service Food Service Attendant Relationship Specialty Start Date End Date Community, Pcp PCP - General Internal Medicine 11/09/21 Harish Palomo MD, PHD Specialist Neurosurgery 11/09/21 documented as of this encounter
--- OUTSIDE RECORDS SUMMARY | 2025-05-23 12:25 | XMS_ITS | Encounter Summary ---
Author Organization [facility] Address [address] [place] [address] Care Team Providers Care Collateral Clerk Name Role Phone Bette Garay DO Primary Care Pro vider Unavailable Community, Pcp Primary Care Provider Harish Winters MD, PHD Unavailable Unava ilable Encounter Details Date Type Department Care Team Description 12/16/2020 Solar Power Installer Report Medical Records [address] [place] [address] Addis Alexander DPM Social History Tobacco Use [...] on filedocumented in this encounter Care Teams Collateral Clerk Relationship Specialty Start Date End Date Bette Garay DO PCP - General Internal Medicine 02/27/14 06/06/21 [facility], Pcp PCP - General Internal Medicine 11/09/21 Harish Palomo MD, PHD Specialist Neurosurgery 11/09/21 documented as of this encounter
--- OUTSIDE RECORDS SUMMARY | 2025-05-23 12:25 | XMS_ITS | Encounter Summary ---
Author Organization [facility] Address [address] [place] [address] Care Team Providers Care Childcare Provider Name Role Phone Bette Garay DO Primary Care Pro vider Unavailable Community, Pcp Primary Care Provider Harish Winters MD, PHD Unavailable Unava ilable Encounter Details Date Type Department Care Team Description 05/13/2020 Pt. Non Urgent Medic al Question Adult Medicine - [address] [address] Molly Rossi MD Social History Tobacco Use [...] on filedocumented in this encounter Care Teams Childcare Provider Relationship Specialty Start Date End Date Bette Garay DO PCP - General Internal Medicine 02/27/14 06/06/21 [facility], Pcp PCP - General Internal Medicine 11/09/21 Harish Palomo MD, PHD Specialist Neurosurgery 11/09/21 documented as of this encounter
--- OUTSIDE RECORDS SUMMARY | 2025-05-23 12:26 | XMS_ITS | Encounter Summary ---
Author Organization [facility] Address [address] [place] [address] Care Team Providers Care Supervisor Diagnostic Name Role Phone Community, Pcp Primary Care Provider Harish Winters MD, PHD Unavailable Unava ilable Encounter Details Date Type Department Care Team Description 08/24/2021 Welder Apprentice Combination Report Medical Records [address] [place] [address] Narendra Martinez MD Social History Tobacco Use Types Packs/Day [...] on filedocumented in this encounter Care Teams Supervisor Diagnostic Relationship Specialty Start Date End Date Community, Pcp PCP - General Internal Medicine 11/09/21 Harish Palomo MD, PHD Specialist Neurosurgery 11/09/21 documented as of this encounter
--- OUTSIDE RECORDS SUMMARY | 2025-05-23 12:26 | XMS_ITS | Encounter Summary ---
Author Organization [facility] Address [address] [place] [address] Care Team Providers Care Administrative Aide Name Role Phone Community, Pcp Primary Care Provider Harish Winters MD, PHD Unavailable Unava ilable Encounter Details Date Type Department Care Team Description 11/10/2021 SCAN [facility] [place] [address] [place] [address] Harish Palomo MD, PHD Social [...] on filedocumented in this encounter Care Teams Administrative Aide Relationship Specialty Start Date End Date Community, Pcp PCP - General Internal Medicine 11/09/21 Harish Palomo MD, PHD Specialist Neurosurgery 11/09/21 documented as of this encounter
== END 2025-05-23 10:36 | disposition home or self-care (01) ==
LOC: HO.XRAY 10:35
PROVIDERS: PCP General Practice; Visit Provider Hospitalist
DX: J45.40 Moderate persistent asthma, uncomplicated (principal); J44.89 Other specified chronic obstructive pulmonary disease; G47.33 Obstructive sleep apnea (adult) (pediatric)
CPT/HCPCS: 71046

== ENCOUNTER → 2025-05-23 11:26 | Outpatient (BNV) | payer OTHER, SELFPAY | PROVIDERS: PCP General Practice; Visit Provider Radiology Diagnostic Radiology | DX: J45.40 Moderate persistent asthma, uncomplicated (principal) | CPT/HCPCS: 71046 ==

== ENCOUNTER 2025-07-09 12:02 | Outpatient (RCR) | payer OTHER, SELFPAY | END 2025-07-28 13:37 | disposition home or self-care (01) | LOC: HO.PT 12:02 | PROVIDERS: PCP General Practice; Visit Provider Physical Medicine & Rehabilitation | DX: M54.12 Radiculopathy, cervical region (principal); M54.2 Cervicalgia | CPT/HCPCS: 97014; 97162 ==

== ENCOUNTER 2025-08-12 14:37 | Outpatient (AMB) | payer OTHER, SELFPAY ==
--- OUTSIDE RECORDS SUMMARY | 2024-02-29 06:00 | XMS_ITS ---
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 Physical Encounters Encounter Location Date Provider Diagnosis [facility] [address] [place] [phone] 02/29/2024 LIAN HENSON Encounter for gynecological examination [...] Follow Up: 1 Year, Reason: Y early Hospital Cleaner Exam Provider Name:LIAN Celis, 12/25/2025 09:00:00 AM, [address], [address], [place], [address], Progress Notes * ARTURO PALMEROB: 3 (49 yo F)Acc No.[id number]:02/29/2024 PROGRESS NOTES Patient: ASHLEY GLASER Provider: Aj HENSON MD :1975 A ge:48 Y S ex:Female Date:02/29/2024 Address:[address] [place] [address], , [facility] Pcp:ERIKA TAVAREZ MD Subjective: * Chief Complaints: * 1 . 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 She has been in state of [...] days/week by . * ROS: A nnual Hospital Cleaner Exam ROS: Bowel habit changes d enies. [...] no acute distress, well developed, well nourished, alcohol rubber present in room. HEAD: n ormocephalic, atraumatic. [...] * Follow Up: 1 Year (Reason: Yearly Hospital Cleaner Exam) * Images: Billing Information: * Visit Code: 16606 Preventive Care Est Pt. Age 40-64. 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 She has been in state of [...] General Examination GENERAL APPEARANCE: in no ac [place] distress, well developed, well nourished, alcohol rubber present in room HEAD: normocephalic, atrau matic [...]
--- OUTSIDE RECORDS SUMMARY | 2024-03-18 05:20 | XMS_ITS ---
Author Organization Total [employer] [facility] Address [address] [address] Care Team Providers Care Plate Grinder Name Role Phone ERIKA TAVAREZ MD Primary Care Provider Unavail able LIAN HENSON Unavailable [phone] Allergies Allergen (clinical drug ingredient) Drug/Non Drug Allergy documented on EMR Reaction Allergy Type Onset Date Status hydromorphone Dilaudid breathing problems Drug Allergy Active REASON FOR VISIT Annual SCCM ADMINISTRATOR Physical Encounters Encounter Location Date Provider Diagnosis [facility] [address] [address] 03/18/2024 LIAN HENSON Encounter for gynecological examination (general) (routine) without abnormal findings Z01.419 ; Encounter for screening mammogram for malignant neoplasm of breast Z12.31 and Encounter for screening for infections with a predominantly sexual mode of transmission Z11.3 Assessments Encounter Date Diagnosis (ICD Code) Assessment Notes Treatment Notes Treatment Clinical Notes Section Notes 03/18/2024 Encounter for gynecological examination (general) (routine) without [...] to keep colon screening up to date. 03/18/2024 Encounter for screening mammogram for malignant neoplasm of breast (ICD-10 - Z12.31) 03/18/2024 Encounter for screening for infections with a [...] Follow Up: 1 Year, Reason: Y early Clinical Support Nurse Exam Provider Name:LIAN Celis, 12/25/2025 09:00:00 AM, [address] [place] [address], [address], [place], [address], Progress Notes * ARTURO PALMEROB: 3 (49 yo F)Acc No.[id number]:03/18/2024 PROGRESS NOTES Patient: ASHLEY GLASER Provider: Aj HENSON MD :1975 A ge:48 Y S ex:Female Date:03/18/2024 Address:[address] [place] [address], , [facility] Pcp:ERIKA TAVAREZ MD Subjective: * Chief Complaints: * 1 . Annual SCCM ADMINISTRATOR Physical. * HPI: C onstitutional: Daphnie wood is a 48yo with LMP x/x/x who presents for her yearly scientific informatics analyst exam. She has been in state of [...] days/week by . * ROS: A nnual Clinical Support Nurse Exam ROS: Bowel habit changes d enies. [...] sychiatric: Denies A nxiety. * Medical History: U nspecified asthma, uncomplicated, Pure hypercholesterolemia, unspecified, Anxiety disorder, unspecified, Disorder of breast, unspecified, Unspecified lump in the left breast, upper inner quadrant, Unspecified lump in the right breast, upper inner quadrant, COVID-19, Diverticulitis of intestine, part unspecified, without perforation or abscess without bleeding. * Clinical Support Nurse History: G ravida/ Para 4 /3. S exual activity c urrently sexually active. L ast Pap Smear: NIL/neg HR HPV. M ammogram: 50-75% density, 08/25/21 Unilat Right, 08/17/21 50-75% density, 01/13/20 50- 75% density, 05/16/19 right breast u/s, 01/16/2017, 50-75% density. A bnormal Pap Smear: N one. L MP and menses 1 . H istory of STD's: N one. B irth Control: p gabriel had vasectomy. C olonoscopy 2 022 - polyp found; diverticulosis. G YN HISTORY MISC. Dense breasts counseling done. Cristela lifetime risk is 7.1%. No supplemental screening indicated. * OB History: T otal pregnancies G ravida 4, Para 3. 2 vaginal. 1 . T otal living children 3 . A bortion(s) 1 . P regnancy # 1: n ormal spontaneous vaginal delivery (), 07/19/92, Cassandra, 5lb 1oz, IUGR. P regnancy # 2: e lective terminations of (ETOP), T1, no complications. P regnancy # 3 n ormal spontaneous vaginal delivery (), 11/30/94, Alejandra, 7lb 3oz, no complications. P regnancy # 4: P rimary , 04/03/96, born at 31.5 wks, Maura, 2lb 12oz, breech and PPROM. Started as a twin (lost first twin in first trimester). * Allergies: D ilaudid: breathing problems. Objective: * Vitals: * Examination: G eneral Examination: GENERAL APPEARANCE: i n no acute distress, well developed, well nourished, grease remover present in room. HEAD: n ormocephalic, atraumatic. [...] * Follow Up: 1 Year (Reason: Yearly Clinical Support Nurse Exam) * Images: Billing Information: * Visit Code: 40555 Preventive Care Est Pt. Age 40-64. 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 She has been in state of [...] General Examination GENERAL APPEARANCE: in no ac [place] distress, well developed, well nourished, grease remover present in room HEAD: normocephalic, atrau matic [...]
--- OUTSIDE RECORDS SUMMARY | 2024-03-18 05:20 | XMS_ITS ---
Author Organization Total [facility] Address 46 [facility] [address] [place] [address] Care Team Providers Care Roll Tube Setter Name Role Phone DAYSI ALATORRE, ERIKA Primary Care Provider Unavail LIAN Steven Unavailable [phone] REASON FOR VISIT Annual MANAGER AUTOMOTIVE Physical Encounters Encounter Location Date Provider Diagnosis [facility] [employer] [address] [place] [address] [address] [place] [address] 03/18/2024 LIAN HENSON Plan Of Treatment Next Appt Details Provider Name:LIAN Celis, 12/25/2025 09:00:00 AM, [address] [place] [address], [address], [place], [address], Progress Notes * ARTURO PALMEROB: 3 (49 yo F)Acc No.[id number]:03/18/2024 PROGRESS NOTES Patient: ENRIQUE GLASER Provider: Aj HENSON MD :1975 A ge:48 Y S ex:Female Date:03/18/2024 Address:[address] [place] [address], , [facility] Pcp:ERIKA TAVAREZ MD Subjective: * Chief Complaints: * 1 . Annual MANAGER AUTOMOTIVE Physical. * Medical History: Objective: * Vitals: Assessment: Plan: * Treatment: * Images: Billing Information: * Visit Code: * Procedure Codes: * Electronic signature of LIAN HENSON MD on 08/13/2025 at 12:32 PM EST Sign off status: Pending * Provider: Aj HENSON MD Date: 0 03/18/2024 Generated for Madhu gray/Luis/Donaldo on: 1 10/13/2024 12:32 PM EST
--- OUTSIDE RECORDS SUMMARY | 2024-04-09 09:20 | XMS_ITS ---
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 Physical Encounters Encounter Location Date Provider Diagnosis [facility] [address] [address] 04/09/2024 LIAN HENSON Encounter for gynecological examination [...] Follow Up: 1 Year, Reason: Y early Degreasing Solution Mixer Exam Provider Name:LIAN Celis, 12/25/2025 09:00:00 AM, [address] [place] [address], [address], [place], [address], Progress Notes * ARTURO PALMEROB: 3 (49 yo F)Acc No.[id number]:04/09/2024 PROGRESS NOTES Patient: ASHLEY GLASER Provider: Aj HENSON MD :1975 A ge:48 Y S ex:Female Date:04/09/2024 Address:[address] [place] [address], , [id number] Pcp:ERIKA TAVAREZ MD Subjective: * Chief Complaints: * 1 . Annual BACKGROUND INVESTIGATOR Physical. 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 She has been in state of [...] days/week by . * ROS: A nnual Degreasing Solution Mixer Exam ROS: Bowel habit changes d enies. [...] without perforation or abscess without bleeding. * Degreasing Solution Mixer History: G ravida/ Para 4 /3. S [...] no acute distress, well developed, well nourished, micrographics services supervisor present in room. HEAD: n ormocephalic, atraumatic. [...] * Follow Up: 1 Year (Reason: Yearly Degreasing Solution Mixer Exam) * Images: Billing Information: * Visit Code: 02523 Preventive Care Est Pt. Age 40-64. 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 She has been in state of [...] General Examination GENERAL APPEARANCE: in no ac [place] distress, well developed, well nourished, micrographics services supervisor present in room HEAD: normocephalic, atrau matic [...]
--- NOTE | 2025-08-12 14:39 | A.OFFVIS_ITS ---
Vital Signs 08/12/25 14:45 Height 5 ft 5 in Weight 246 lb 4.101 oz BMI 41.0 BP 130/80 Blood Pressure Location Lt brachial Position Sitting Pulse 89 Pulse Source Pulse Oximeter Pulse Oximetry (%) 96 Oxygen Delivery Method Room Air Intake Visit Reasons: follow up Intake Note: Patient presents for follow up. Allergies hydromorphone (From DILAUDID) Allergy (Unknown, Verified 08/12/25 14:44) SHORTNESS OF BREATH HPI Comments Details: Patient is a 49-year-old female with hyperlipidemia and allergies who presents for follow up of non radiographic ankylosing spondylitis Interval History: Patient last seen with me 04/17/25 with me - Simponi 50mg SC every 4 weeks - Simponi not effective: worsening fatigue, hand pain and back pain - Does not feel the Rinvoq was any better - Secukinumab started Today - On Simponi 50mg SC every 4 weeks - Contacted the office and said that the simponi started working and wanted to continue - Overall feels the Simponi has been doing okay, does not feel it is as effective Humira - Still has breakthrough flares, atleast once a month - Flares: exhaustion as well as increase in pain and stiffness in the lower back and hips - The duration of the flares have decreased from 5-7 days to 1-2 days - Worsening neck and left hip pain - Sent to PT for neck but that was not helpful Rheumatologic History: Patient diagnosed with non radiographic ankylosing spondylitis 03/2024 +HLA b27 Failed NSAIDs Humira 04/2024 effective - 07/2024 Stopped due to insurance Humira biosimilar - secondary failure Rinvoq not effective Simponi - okay effectiveness Initial history: This is a 48-year-old female who presents for evaluation of sacroiliitis. Patient stated that she has had back pain symptoms for about 10 years. The pain is in different parts of her spine but generally more severe in the lower left back, the SI joint area and the left buttock area. Generally worse in the morning associated with morning stiffness that lasts 1-2 hours. Improved with sitting on heat, moving around. Patient was referred to do physical therapy multiple times with little improvement. 3-4 years ago her symptoms were worse. She would have flare-ups that were few and far in between however for the last 3-4 years she would have a flare-up that occurs every other week and lasts 3-4 days. Her PCP ordered multiple labs which showed positive HLA B27. She was referred to [facility]. She was evaluated and no evidence of an autoimmune rheumatic disease was found. She was then referred to Dr. Otoole. She ibuprofen 600 mg 3 times a day for at least 2 months without improvement. She also took multiple prednisone courses without improvement. She had multiple steroid injections in the left SI joint area as well as other injections without much improvement, she also had radiofrequency ablation procedure. These procedures would help some of her back pain but they do not affect the main painful area in the left lower back, in the SI area. She also gets intermittent joint pain swelling and stiffness of her hands, wrists, fingers were swollen and she had to cut off her wedding ring. She denies any skin rashes. She denies any history suggestive of uveitis or colitis. She states that her daughter was diagnosed with non radiographic axial spa with uveitis and is on Humira. Her other daughter has Matt's thyroiditis. Patient denies any history of DVT/PE. Current Rheumatology Medication(s): Simponi 50mg SC every 4 weeks [facility] Medical History (Updated 08/12/25 @ 15:04 by Cecilia Lamas MD) Long-term current use of immunosuppressive biologic agent RUTH (obstructive sleep apnea) Pneumonia Asthma History of abnormal uterine bleeding Hx of fracture of ankle Migraines Anxiety High cholesterol Asthma Surgical History Hx of colonoscopy Hx of left breast biopsy Hx of section Family History Mother Pre-diabetes Father Prostate CA Daughter Non-radiographic axial spondyloarthritis Daughter Matt thyroiditis Social History (Updated 08/12/25 @ 14:45 by STEVEN Carbone) Household Members: Family Alcohol intake: current Alcohol intake frequency: holidays/special occasions only Alcohol type: wine Patient Tobacco Use Status: Never used Tobacco 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, 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 Review of Systems Narrative Review of Systems Constitutional: Denies fever, chills, weight loss ENT: Denies vision changes, eye pain or eye redness, dental caries, dry mouth GI: Denies nausea, vomiting, diarrhea, abdominal pain, change in BM Pulm: Denies SOB, PAUL, hemoptysis, wheezing Cards: Denies chest pain, palpitations Skin: Denies Raynaud's, rash, nail changes, photosensitivity, SHOVEL LOGGER: Denies headaches, weakness, paresthesias, recurrent falls MSK: as per HPI All other systems reviewed and are unremarkable except noted above Physical Exam Exam Exam: Vital signs reviewed Physical Examination CONSTITUITIONAL Patient alert and cooperative. Well appearing and in no apparent painful distress MSK Hands * Right Hand: Able to make a fist. No swelling or tenderness to palpation of the MCPs, PIPs or DIPs. * Left Hand: Able to make a fist. No swelling or tenderness to palpation of the MCPs, PIPs or DIPs. Wrists * Right Wrist: Full ROM to flexion and extension. No swelling or TTP * Left Wrist: Full ROM to flexion and extension. No swelling or TTP Elbows * Right Elbow: Full ROM. No swelling or TTP. No TTP of the medial epicondyle. No TTP of the lateral epicondyle * Left Elbow: Full ROM. No swelling or TTP. No TTP of the medial epicondyle. No TTP of the lateral epicondyle Shoulders * Right shoulder: Full ROM. No swelling noted. No TTP of the AC joint. No TTP of the subacromial bursa. No TTP of the posterior shoulder * Left shoulder: Full ROM. No swelling noted. No TTP of the AC joint. No TTP of the subacromial bursa. No TTP of the posterior shoulder Knees * Right knee: Full ROM. No swelling noted. No TTP of the knee joint line. No TTP of pes anserine bursa * Left knee: Full ROM. No swelling noted. No TTP of the knee joint line. No TTP of pes anserine bursa. * Crepitations felt bilaterally Ankles * Right ankle: Good ankle dorsiflexion and plantar flexion. No swelling. No TTP of the ankle joint * Left ankle: Good ankle dorsiflexion and plantar flexion. No swelling. No TTP of the ankle joint Feet * Right foot: Negative squeeze test * Left foot: Negative squeeze test Tender points? * No tenderness to palpation of the bilateral trapezius, supraspinatus, anterior costochondral junctions, bilateral suboccipital muscle insertions SKIN No rashes Vital Signs: Last Vital Signs Pulse 89 11/18/25 14:45 BP 130/80 08/12/25 14:45 Pulse Ox 96 08/12/25 14:45 Oxygen Delivery Method Room Air 08/12/25 14:45 BMI result Body Mass Index 41.0 Results Reviewed Results Reviewed: Laboratory Tests 04/08/25 15:48 WBC 6.1 RBC 4.66 Hgb 14.3 Hct 41.7 Plt Count 315 ESR 7 Sodium 143 Potassium 3.9 Chloride 108 Carbon Dioxide 25 BUN 10 Creatinine 0.84 AST 25 ALT 35 H C-Reactive Protein 0.17 Infectious serologies 01/15/25 01/15/25 11:13 11:36 Hepatitis A IgM Ab Nonreactive Hep Bs Antigen Negative Hep Bs Antibody REACTIVE Hep B Core Total Ab Nonreactive Hepatitis C Ab (EIA) Nonreactive TB Test (T-Spot) Com Negative Assessment & Plan Assessment & Plan (1) 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 female with non radiographic ankylosing spondylitis. 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 Plan: #Long-term Use of TNF Inhibitors: Golimumab Discussed with the patient the benefits and risks of TNF inhibitors for the management of the rheumatic condition Benefits include reduce pain, maintenance of remission and reduction of flares as well as progression of the disease Risks include injection sites/infusion reactions, serious infections (such as bacterial infections, opportunistic infections), malignancy, delaminating syndromes, autoimmune phenomena, CHF exacerbations, palmar plantar psoriasis and cytopenias Recommended rotating injection sites, and holding medication during and for up to 1 week after resolution of a febrile illness or open skin wound Plan I spent 30 minutes reviewing the record and labs, taking a history, examining the patient, discussing the treatment plan, and documenting in the medical record Coding Level of Care Code Est Pt Level 4 (33397) Complex EM visit Add On G2211 Diagnoses 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
[2025-08-12 14:45] VITALS: BP 130/80; PULSE 89; O2SAT 96; BMI 41.0
--- OUTSIDE RECORDS SUMMARY | 2025-08-13 12:28 | XMS_ITS | Encounter Summary ---
Author Organization [employer] Address [address] [facility] [address] [place] [address] Care Team Providers Care Supervisor Cell Room Name Role Phone Leilani Gale MD Primary Care Provider [phone] Encounter Details Date Type Department Care Team (Late st Contact Info) Description 07/11/2025 Orders Only [facility] [address] [place], [place] [phone] ProviderKeo MD Social History Tobacco Use Types Packs/Day [...] Q2 Not on file 05/05/2025 Comments Unknown Sex and Gender Information Value Date Recorded Sex Assigned at Female 07/25/2022 10:20 AM EDT Legal Sex Female 10:20 AM EDT Gender Identity Female 07/25/2022 10:20 AM EDT Sexual Orientation Straight 07/25/2022 10 :20 AM EDT documented as of this encounter Plan of Treatment Upcoming Encounters Date Type Department Care Team (Late st Contact Info) Description 09/12/2025 11:15 AM EST Office Visit [facility] [address] [place] [address] Quynh Bliss MD [address] [place] [address] documented as of this encounter Procedures Procedure Name Priority Date/Time Associated Diagnosis Comments DERMATOPATHOLOGY REPORT Routine 07/04/2025 3:36 PM EDT documented in this encounter Results * Dermatopathology Report (07/04/2025 3:36 PM EDT) us Historical Provider LAB BLOOD ORDERABLES Leela l Result documented in this encounter Visit Diagnoses Not on filedocumented in this encounter Care Teams Supervisor Cell Room Relationship Specialty Start Date End Date Leilani Gale MD [address] [place] [address] PCP - General Family Medicine 11/02/21 documented as of this encounter
--- OUTSIDE RECORDS SUMMARY | 2025-08-13 12:28 | XMS_ITS | Encounter Summary ---
Author Organization [facility] Address [address] [place] [address] Care Team Providers Care Supreme Court Judge Name Role Phone Community, Pcp Primary Care Provider Harish Winters MD, PHD Unavailable Unava ilable Encounter Details Date Type Department Care Team Description 07/27/2021 Stereoplotter Operator Report Medical Records [address] [place] [id number] Ron Otoole DO Social History Tobacco Use [...] on filedocumented in this encounter Care Teams Supreme Court Judge Relationship Specialty Start Date End Date Community, Pcp PCP - General Internal Medicine 11/09/21 Harish Palomo MD, PHD Specialist Neurosurgery 11/09/21 documented as of this encounter
--- OUTSIDE RECORDS SUMMARY | 2025-08-13 12:28 | XMS_ITS | Encounter Summary ---
Author Organization [employer] Address [address] [facility] [place] [address] Care Team Providers Care Technical Applications Specialist Name Role Phone Leilani Gale MD Primary Care Provider [phone] Encounter Details Date Type Department Care Team (Late st Contact Info) Description 08/12/2025 Orders Only GENERIC EXTERNAL DATA DEPARTMENT Provider, [...] 09/12/2025 11:15 AM EST Office Visit [facility] [address] [place] [address] Quynh Bliss MD [address] [place] [address] documented as of this encounter Procedures Procedure Name Priority Date/Time Associated Diagnosis Comments CBC WITH AUTO DIFFERENTIAL Routine 08/12/2025 3:30 PM EST SED RATE BY MODIFIED WESTERGREN Routine 08/12/2025 3:30 PM EST C-REACTIVE PROTEIN Routine 08/12/2025 3: 30 PM EST COMPREHENSIVE METABOLIC PANEL Routine 08/12/2025 3:30 PM EST documented in this encounter Results * Sed Rate by Modified Westergren (08/12/2025 3:30 PM EST) Erythrocyte Sedimentation Rate 8 0 - 20 MM/HR [facility] Comment:Patients with polycy themia and many hemoglobin abnormalitiesmay have depressed sed rates whereas patients with anemiamay have elevated sed rates. 08/12/2025 3:30 PM EST 08/12/2025 5:55 PM EST us Generic External Data Provider LAB BLOOD ORDERAB LES Final Result Performing Organization Address City/[facility]/ZIP Co de Phone Number [facility] [address] [place] [phone] * C-reactive Protein (08/12/2025 3:30 PM EST) C Reactive Protein 0.37 < or = 0.50 mg/dL [facility] 08/12/2025 3:30 PM EST 08/12/2025 6:14 PM EST us Generic External Data Provider LAB BLOOD ORDERAB LES Final Result Performing Organization Address [facility] Co de Phone Number [facility] [address] [place] [phone] * (ABNORMAL) Comprehensive Metabolic Panel (08/12/2025 3:30 PM EST) Pathologist [facility] Sodium 139 135 - 145 mmol/L [facility] Potassium 3.8 3.3 - 5.1 mmol/L [facility] Chloride 105 96 - 108 mmol/L [facility] Carbon Dioxide 25 22 - 29 mmol/L [facility] Anion Gap 13 12 - 20 [facility] Urea Nitrogen (BUN) 19(H) 9 - 16 mg/dL [facility] Creatinine, Serum 0.80 0.5 - 1.4 mg/dL [facility] Estimated Glomerular Filt Rate >60 [facility] Comment:Chronic Kidney Disea se: Estimated GFR < 60 mL/min/1.74e4Quyqon Kidney Disease: Estimated GFR < 15 mL/min/1.73m2 Glucose 96 60 - 115 mg/dL [facility] Calcium 9.0 8.4 - 10.2 mg/dL [facility] Bilirubin, Total 0.3 0.0 - 1.0 mg/dL [facility] Aspartate Amino Transferase 21 5 - 31 U/L [facility] Alanine Aminotransferase 25 0 - 31 U/L [facility] Total Protein 6.9 6.5 - 8.0 g/dL [facility] Albumin Level 4.3 3.5 - 5.0 g/dL [facility] Alkaline Phosphatase 60 39 - 117 U/L [facility] 08/12/2025 3:30 PM EST 08/12/2025 6:14 PM EST us Generic External Data Provider LAB BLOOD ORDERAB LES Final Result [facility] [address] [place], [place] [phone] * CBC auto differential (08/12/2025 3:30 PM EST) White Blood Count 9.0 4.8 - 10.8 X10*3/uL [facility] Red Blood Count 4.34 4.20 - 5.50 X10*6/uL [facility] Hemoglobin 13.5 12.0 - 16.0 g/dl [facility] Hematocrit 39.9 37.0 - 47.0 % [facility] Mean Corpuscular Volume 91.9 80.0 - 98.0 fL [facility] Mean Corpuscular Hemoglobin 31.1 27.0 - 33.0 pg [facility] Mean Corpuscular HGB Conc 33.8 31.0 - 35.0 g/dl [facility] Red Cell Distribution Width 12.1 11.0 - 16.0 % [facility] Platelet Count 304 160 - 400 X10*3/uL [facility] Mean Platelet Volume 9.8 9.4 - 12.3 fL [facility] Neutrophils Percent Auto 67.5 45 - 73 % [facility] Imm Gran Pct Auto 0.1 0.0 - 0.4 % [facility] Lymphocytes Percent Auto 21.5 20 - 40 % [facility] Monocytes Percent Auto 6.4 2 - 11 % [facility] Eosinophils Percent Auto 3.5 0 - 4 % [facility] Basophils Percent Auto 1.0 0 - 2 % [facility] NRBC Pct Auto 0.0 0.0 - 0.2 /100WBC [facility] Neutrophils Absolute Auto 6.1 2.0 - 8.3 x10*3/uL [facility] Imm Gran Abs Auto 0.01 0.00 - 0.03 X10*3/uL [facility] Lymphocytes Absolute Auto 1.9 1.2 - 4.9 X10*3/uL [facility] Monocytes Absolute Auto 0.6 0.1 - 1.2 X10*3/uL [facility] Eosinophils Absolute Auto 0.3 0.0 - 0.4 X10*3/uL [facility] Basophils Absolute Auto 0.1 0.0 - 0.2 X10*3/uL [facility] NRBC Abs Auto 0.000 0.0 - 0.012 X10*3/uL [facility] 08/12/2025 3:30 PM EST 08/12/2025 5:55 PM EST us Generic External Data Provider LAB BLOOD ORDERAB LES Final Result Performing Organization Address City/State/[facility] Co de Phone Number [facility] [address] [place] [phone] documented in this encounter Visit Diagnoses Not on filedocumented in this encounter Care Teams Technical Applications Specialist Relationship Specialty Start Date End Date Leilani Gale MD [address] [place] [phone] PCP - General Family Medicine 11/02/21 documented as of this encounter
--- OUTSIDE RECORDS SUMMARY | 2025-08-13 12:28 | XMS_ITS | Encounter Summary ---
Author Organization [facility] Address [address] [place] [address] Care Team Providers Care Environmental Research Project Manager Name Role Phone Community, Pcp Primary Care Provider Harish Winters MD, PHD Unavailable Unava ilable Encounter Details Date Type Department Care Team Description 08/09/2021 Watch Guard Gate Report Medical Records [address] [place] [phone] Ron Otoole DO Social History Tobacco Use [...] on filedocumented in this encounter Care Teams Environmental Research Project Manager Relationship Specialty Start Date End Date Community, Pcp PCP - General Internal Medicine 11/09/21 Harish Palomo MD, PHD Specialist Neurosurgery 11/09/21 documented as of this encounter
--- OUTSIDE RECORDS SUMMARY | 2025-08-13 12:29 | XMS_ITS | Encounter Summary ---
Author Organization [facility] Address [address] [place] [address] Care Team Providers Care Corn Husk Baler Name Role Phone Bette Graay DO Primary Care Pro vider Unavailable Community, Pcp Primary Care Provider Harish Winters MD, PHD Unavailable Unava ilable Encounter Details Date Type Department Care Team Description 05/08/2018 Refill Adult Medicine [address] [address] Bette Garay DO Social History Tobacco Use [...] MG tablet [Bette Jay DO] Preferred pharmacy: [id number] AT Comment: Helharley??? My pharmacy closed ([facility] in [place]). I requested twice, through the pharmacies, that my meds be transferred to [facility] on [facility] in [place], but they seem to be unable to do this. I am wondering if you might be able to just send along new prescriptions to [facility] for me? I think this isthe easiest way to get this done. Please let me know if there are any questions. Thank you very much! documented in this encounter Plan of Treatment Not on file documented as of this encounter Visit Diagnoses Not on filedocumented in this encounter Care Teams Corn Husk Baler Relationship Specialty Start Date End Date Bette Garay DO PCP - General Internal Medicine 02/27/14 06/06/21 Community, Pcp PCP - General Internal Medicine 11/09/21 Harish Palomo MD, PHD Specialist Neurosurgery 11/09/21 documented as of this encounter
--- OUTSIDE RECORDS SUMMARY | 2025-08-13 12:29 | XMS_ITS | Encounter Summary ---
Author Organization [facility] Address [address] [place] [address] Care Team Providers Care [place] Tower Loader Name Role Phone Bette Garay DO Primary Care Pro vider Unavailable Community, Pcp Primary Care Provider Harish Winters MD, PHD Unavailable Unava ilable Encounter Details Date Type Department Care Team Description 01/19/2018 Pt. Non Urgent Medic al Question Adult Medicine [address] [address] Bette Garay DO Social History Tobacco Use [...] me a quick call on my cell ([phone]) so we can discuss if you are in agreement with this new plan? I would greatly appreciate it. documented in this encounter Plan of Treatment Not on file documented as of this encounter Visit Diagnoses Not on filedocumented in this encounter Care Teams [place]imerock Tower Loader Relationship Specialty Start Date End Date Bette Garay DO PCP - General Internal Medicine 02/27/14 06/06/21 [facility], Pcp PCP - General Internal Medicine 11/09/21 Harish Palomo MD, PHD Specialist Neurosurgery 11/09/21 documented as of this encounter
--- OUTSIDE RECORDS SUMMARY | 2025-08-13 12:29 | XMS_ITS | Patient Health Record ---
Author Organization [facility] Address [address] [place] [address] Care Team Providers Care Formal Waiter/Waitress Name Role Phone ERIKA TAVAREZ MD Primary Care Provider Unavail able LIAN HENSON Unavailable [phone] Allergies Allergen (clinical drug ingredient) Drug/Non Drug Allergy documented on EMR Reaction Allergy Type Onset Date Status hydromorphone Dilaudid breathing problems Drug Allergy Active Results Component Value Reference Range Notes PDF Report Reviewed date:12/26/2024 04:19:27 PM Interpretation: Performing Lab:[facility], [address], [employer], Phone - [phone], Director - [facility] Notes/Report: Clinical Information:VAG/CERV [id number] LMP / Prev Treat...DWT=[id number] Dates / Results....11/14/2019 No. of containers..01 ThinPrep Vial Chlamydia/GC Amplification Reviewed date:01/21/2025 03:06:46 PM Interpretation: Performing Lab:[facility] Oliver[facility] [place], [address], [employer], Phone - [phone], Director - [facility] Notes/Report: Clinical Information:SRC: URINE Chlamydia trachomatis, DAISHA Negative Negative Neisseria gonorrhoeae, DAISHA Negative Negative PDF Report Reviewed date:01/21/2025 03:33:41 PM Interpretation: Performing Lab:Etta Oliveros [place], [address], [employer], Phone - [phone], Director - [facility] Notes/Report: Clinical Information:SRC: URINE SURGICAL PATHOLOGY Reviewed date:01/21/2025 02:27:49 PM Interpretation: Performing Lab:Testing performed or reported by [facility], a Service of [facility], [address] [place] [address] Fidel Locke MD, Access Database Developer CLIA# [id number] Notes/Report: Patient Name: ENRIQUE PALMER Lab Patient : 1975 (Age: 49) Collection Date: 01/10/2025 Accession Date: 01/10/2025 Sign Out Date: 01/19/2025 Tissue Source: 1:EMB Final Diagnosis: Endometrium, biopsy: - Weakly proliferative endometrium with stromal breakdown. A. Tubal (ciliated) epithelial change present (estrogen effect). Primary Pathologist:Dianelys Luo M.D.,Ph.D. electronically signed out by: Dianelys Luo M.D.,Ph.D. / [facility] Clinical History: Abnormal uterine and vaginal bleeding Gross Description: Labeled endometrial biopsy . Received in formalin is a 2.6 x 2.5 x 0.6 cm aggregate of translucent mucus with red, lott tissue. The specimen is entirely submitted. 1 and 2-multiple pieces, x 2. (EG)* As of December 02, 2023, the specimen processing and staining is performed at [facility], [address] [place] [address] (CLIA#[id number]). Its performance characteristics determined by [facility]. Dm Read M.D. Access Database Developer of Surgical Pathology, Kendrick Flores M.D. Access Database Developer Cytopathology Phone #: [phone], On-Call Pathologist: [id number] Test, Urine Reviewed date:01/10/2025 11:31:35 AM Interpretation: Performing Lab: Notes/Report: Test, Urine NEG [id number] IGP No Culture 30 Plus Reviewed date:12/26/2024 04:19:08 PM Interpretation: Performing Lab:[facility] [place], [address] [place] [address], Suite [facility] [place], Phone - [phone], Director - [facility] Notes/Report: Clinical Information:VAG/CERV [id number] LMP / Prev Treat...QMI=[id number] Dates / Results....11/14/2019 No. of containers..01 ThinPrep Vial DIAGNOSIS: NEGATIVE FOR INTRAEPITHELIAL LESION OR MALIGNANCY. Specimen adequacy: Satisfactory for evaluation. Endocervical and/or squamous metaplastic cells (endocervical component) are present. Clinician provided ICD10: Z01.419 Performed by: Sushil Ramirez , Powder Press Operator ([facility]) . . Note: The Pap [...] Status Risk Notes Problem Diverticulitis of colon (057397499) Diverticulitis of intestine, part unspecified, without perforation or abscess without bleeding (K57.92) Active confirmed Problem Disorder of breast (34921402) Disorder of breast, unspecified (N64.9) Active confirmed Problem Abnormal uterine bleeding (21135272159367) Abnormal uterine and vaginal bleeding, unspecified (N93.9) Active confirmed Problem Asthma (disorder) (882625954) Asthma, unspecified, unspecified status (493.90) Active confirmed Major Vital Signs Temperature 98.0 degrees Fahrenheit 01/20/2025 Blood pressure diastolic 82 mm Hg 01/20/2025 Height 65 in 01/20/2025 Blood pressure systolic 122 mm Hg 01/20/2025 Weight 236 lbs 01/20/2025 BMI 39.27 kg/m2 01/20/2025 Encounters Encounter Location Date Provider Diagnosis [address] [address] 12/23/2024 LIAN HENSON Encounter for gynecological examination (general) (routine) without abnormal findings Z01.419 ; Encounter for screening mammogram for malignant neoplasm of breast Z12.31 and Abnormal uterine and vaginal bleeding, unspecified N93.[address] [address] 01/10/2025 LIAN HENSON Abnormal uterine and vaginal bleeding, unspecified N93.[address] [address] 01/20/2025 LIAN HENSON Abnormal uterine and vaginal bleeding, unspecified N93.9 and High risk heterosexual behavior Z72.[address] [address] 01/20/2025 LIAN HENSON Assessments Encounter Date Diagnosis [...] as alternative hormone strategies. She saw her Loan Supervisor recently, who recommended against any hormones due [...] partner during intercourse from strings, heavier or line director menses, expulsion of IUD, uterine perforation with [...] MM Digital Screening Mammogram 3D 2021 Chlamydia/GC Amplification-[id number] 2024 Next Appt Details Provider Name:LIAN FORDE Lalita, 12/25/2025 09:00:00 AM, [address], [address], [place], [address], Insurance Providers Payer Name Payer Address Payer Phone Subscriber Number Group Number Insured Name Patient Relationship to Insured Coverage Start Date Coverage End Date [facility] [address] [place] [address] [id number] ENRIQUE PALMER Self - patient is the [...]
--- OUTSIDE RECORDS SUMMARY | 2025-08-13 12:29 | XMS_ITS | Encounter Summary ---
Author Organization [employer] Address [address] 7[address] [place] [address] Care Team Providers Care Practical Nursing Teacher Name Role Phone Leilani Gale MD Primary Care Provider Encounter Details Date Type Department Care Team (Late st Contact Info) Description 12/27/2024 Orders Only [facility] [address] [place], [place] [phone] Leilani Gale MD [address] [place] [address] COVID-19 (Primary Dx) Social History Tobacco Use Types Packs/Day Years Used Date Smoking Tobacco: Never Smokeless Tobacco: Never Alcohol Use Standard Drinks/Week Comments Yes 0 (1 standard drink = 0.6 oz pur e alcohol) sometimes wine PHQ-2 Answer Date Recorded Patient Health Questionnaire-2 Score 0 11/28/2022 Housing Stability Answer Date Recorded What is your housing situation today? I have sherrie sloiman 07/11/[address] you li [...] Description 09/12/2025 11:15 AM EST Office Visit [facility] [address] [place] [address] Quynh Bliss MD [address] [place] [address] documented as of this encounter Visit Diagnoses Diagnosis COVID-19- Primary documented in this encounter Care Teams Practical Nursing Teacher Relationship Specialty Start Date End Date Leilani Gale MD [address] [place] [address] [phone] PCP - General Family Medicine 11/02/21 documented as of this encounter
--- OUTSIDE RECORDS SUMMARY | 2025-08-13 12:30 | XMS_ITS | Encounter Summary ---
Author Organization [facility] Address [address] [place] [address] Care Team Providers Care Lobbyist Name Role Phone Bette Garay DO Primary Care Pro vider Unavailable Community, Pcp Primary Care Provider Harish Winters MD, PHD Unavailable Unava ilable Encounter Details Date Type Department Care Team Description 12/24/2020 Pt. Non Urgent Medic al Question Adult Medicine [address] [address] Bette Garay DO Social History Tobacco Use [...] on filedocumented in this encounter Care Teams Lobbyist Relationship Specialty Start Date End Date Bette Garay DO PCP - General Internal Medicine 02/27/14 06/06/21 [facility], Pcp PCP - General Internal Medicine 11/09/21 Harish Palomo MD, PHD Specialist Neurosurgery 11/09/21 documented as of this encounter
--- OUTSIDE RECORDS SUMMARY | 2025-08-13 12:30 | XMS_ITS | Encounter Summary ---
Author Organization [facility] Address [address] [place] [address] Care Team Providers Care Passenger Service Supervisor Name Role Phone Bette Garay DO Primary Care Pro vider Unavailable Community, Pcp Primary Care Provider Harish Winters MD, PHD Unavailable Unava ilable Encounter Details Date Type Department Care Team Description 12/16/2020 Lymphedema Therapist Report Medical Records [address] [place] [address] Addis Alexander DPM Social History Tobacco Use [...] on filedocumented in this encounter Care Teams Passenger Service Supervisor Relationship Specialty Start Date End Date Bette Garay DO PCP - General Internal Medicine 02/27/14 06/06/21 [facility], Pcp PCP - General Internal Medicine 11/09/21 Harish Palomo MD, PHD Specialist Neurosurgery 11/09/21 documented as of this encounter
--- OUTSIDE RECORDS SUMMARY | 2025-08-13 12:30 | XMS_ITS | Encounter Summary ---
Author Organization [facility] Address [address] [place] [address] Care Team Providers Care Tank Truck Loader Name Role Phone Bette Garay DO Primary Care Pro vider Unavailable Community, Pcp Primary Care Provider Harish Winters MD, PHD Unavailable Unava ilable Encounter Details Date Type Department Care Team Description 08/07/2016 Refill Adult Medicine [address] [address] Bette Garay DO Social History Tobacco Use [...] MG tablet [Bette Jay DO] Preferred pharmacy: [address] Comment: documented in this encounter Plan of Treatment Not on file documented as of this encounter Visit Diagnoses Not on filedocumented in this encounter Care Teams Tank Truck Loader Relationship Specialty Start Date End Date Bette Garay DO PCP - General Internal Medicine 02/27/14 06/06/21 [facility], Pcp PCP - General Internal Medicine 11/09/21 Harish Palomo MD, PHD Specialist Neurosurgery 11/09/21 documented as of this encounter
--- OUTSIDE RECORDS SUMMARY | 2025-08-13 12:30 | XMS_ITS | Patient Health Record ---
Author Organization [facility] Address [address] [place] [address] Care Team Providers Care Qa Test Lead Name Role Phone Bette Garay Primary Care Provid er Unavailable Addis Alexander Unavailable [phone] Allergies Allergen (clinical drug ingredient) Drug/Non Drug [...] Treatment Pending Test Test Name Order Date [id number] Destruction, 1-14 01/16/2017 [id number] Destruction, 1-02/06/2017 85725-Umtu Destruction, -03/22/2017 [id number]-Wfeqifkw Plate 01/16/2017 35711- Debride <25 sq cm 02/06/2017 Insurance Providers Payer Name Payer Address Payer Phone Subscriber Number Group Number Insured Name Patient Relationship to Insured Coverage Start Date Coverage End Date [facility] [address] [place] [address] [id number] Ashley Magdaleno Self - patient is the [...]
--- OUTSIDE RECORDS SUMMARY | 2025-08-13 12:30 | XMS_ITS | Encounter Summary ---
Author Organization [facility] Address [address] [place] [address] Care Team Providers Care Certified Ethical Hacker Name Role Phone Bette Garay DO Primary Care Pro vider Unavailable Community, Pcp Primary Care Provider Harish Winters MD, PHD Unavailable Unava ilable Reason for Visit * Reason Comments E-prescribe Rx Request Encounter Details Date Type Department Care Team Description 07/23/2020 Refill Adult Medicine [address] [address] Bette Garay DO E-prescribe Rx Request Social [...] N/A Patients current insurance carrier is: Payor: [employer] [place] / Plan: [employer] $20 [place] 1 / Product Type: HMO [id number] documented in this encounter Plan of Treatment Not on file documented as of this encounter Visit Diagnoses Not on filedocumented in this encounter Care Teams Certified Ethical Hacker Relationship Specialty Start Date End Date Bette Garay DO PCP - General Internal Medicine 02/27/14 06/06/21 [facility], Pcp PCP - General Internal Medicine 11/09/21 Harish Palomo MD, PHD Specialist Neurosurgery 11/09/21 documented as of this encounter
--- OUTSIDE RECORDS SUMMARY | 2025-08-13 12:30 | XMS_ITS | Encounter Summary ---
Author Organization [facility] Address [address] [place] [address] Care Team Providers Care Correction Officer [place] Name Role Phone Bette Garay DO Primary Care Pro vider Unavailable Community, Pcp Primary Care Provider Harish Winters MD, PHD Unavailable Unava ilable Encounter Details Date Type Department Care Team Description 01/16/2017 Process Machine Operator Report Medical Records [address] [place] [address] Black, Talya Social History Tobacco Use Types Packs/Day Years [...] on filedocumented in this encounter Care Teams Correction Officer [place] [employer] Relationship Specialty Start Date End Date Bette Garay DO PCP - General Internal Medicine 02/27/14 06/06/21 [facility], Pcp PCP - General Internal Medicine 11/09/21 Harish Palomo MD, PHD Specialist Neurosurgery 11/09/21 documented as of this encounter
--- OUTSIDE RECORDS SUMMARY | 2025-08-13 12:30 | XMS_ITS | Encounter Summary ---
Author Organization [facility] Address [address] [place] [address] Care Team Providers Care Rip/Mould Operator Name Role Phone Bette Garay DO Primary Care Pro vider Unavailable Community, Pcp Primary Care Provider Harish Winters MD, PHD Unavailable Unava ilable Reason for Visit * Reason Comments E-prescribe Rx Request Encounter Details Date Type Department Care Team Description 05/20/2020 Refill Adult Medicine [address] [address] Tiara Faye MD [address] [place] [address] E-prescribe Rx Request Social History Tobacco Use [...] Telephone Encounter - Cinthya Woods M.A. - 05/20/2020 9:07 AM EDT Lab Results Component Value Date NA 138 05/11/2020 K 4.3 05/11/2020 CO2 24 05/11/2020 CL 108 05/11/2020 BUN 12 05/11/2020 CREAT 0.82 05/11/2020 GLU 91 05/11/2020 CA 8.8 05/11/2020 GFR > 60 05/11/2020 Last appt 04/[address] Hinojosa * Telephone Encounter - Suellen Torres - 05/20/2020 8:33 AM EDT Patient would like script to be: E-PRESCRIBED/FAXED TO PHARMACY WHEN WAS THE PATIENT'S LAST APPOINTMENT IN ADULT MEDICINE? 05/07/2020 WHEN WAS THE LAST TIME THE PATIENT SAW THEIR PCP? 11/15/2019 Does patient have an upcoming appointment? No-patient [...] N/A Patients current insurance carrier is: Payor: [employer] [place] / Plan: [employer] $20 [place] 1 / Product Type: HMO [id number] documented in this encounter Plan of Treatment Not on file documented as of this encounter Visit Diagnoses Not on filedocumented in this encounter Care Teams Rip/Mould Operator Relationship Specialty Start Date End Date Bette Garay DO PCP - General Internal Medicine 02/27/14 06/06/21 [facility], Pcp PCP - General Internal Medicine 11/09/21 Harish Palomo MD, PHD Specialist Neurosurgery 11/09/21 documented as of this encounter
--- OUTSIDE RECORDS SUMMARY | 2025-08-13 12:30 | XMS_ITS | Encounter Summary ---
Author Organization [facility] Address [address] [place] [address] Care Team Providers Care Grooving Lathe Tender Name Role Phone Bette Garay DO Primary Care Pro vider Unavailable Community, Pcp Primary Care Provider Harish Winters MD, PHD Unavailable Unava ilable Reason for Visit * Reason Comments E-prescribe Rx Request Encounter Details Date Type Department Care Team Description 08/08/2020 Refill Adult Medicine [address] [address] Bette Garay DO E-prescribe Rx Request Social [...] N/A Patients current insurance carrier is: Payor: [employer] [place] / Plan: [employer] $20 [place] 1 / Product Type: HMO [id number] documented in this encounter Plan of Treatment Not on file documented as of this encounter Visit Diagnoses Not on filedocumented in this encounter Care Teams Grooving Lathe Tender Relationship Specialty Start Date End Date Bette Garay DO PCP - General Internal Medicine 02/27/14 06/06/21 [facility], Pcp PCP - General Internal Medicine 11/09/21 Harish Palomo MD, PHD Specialist Neurosurgery 11/09/21 documented as of this encounter
--- OUTSIDE RECORDS SUMMARY | 2025-08-13 12:31 | XMS_ITS | Encounter Summary ---
Author Organization [facility] Address [address] [place] [address] Care Team Providers Care Print Production Manager Name Role Phone Bette Garay DO Primary Care Pro vider Unavailable Community, Pcp Primary Care Provider Harish Winters MD, PHD Unavailable Unava ilable Reason for Visit * Reason Comments E-prescribe Rx Request Encounter Details Date Type Department Care Team Description 02/18/2020 Refill Adult Medicine [address] [address] Bette Garay DO E-prescribe Rx Request Social [...] N/A Patients current insurance carrier is: Payor: [employer] [place] / Plan: [employer] $20 [place] 1 / Product Type: HMO [id number] documented in this encounter Plan of Treatment Not on file documented as of this encounter Visit Diagnoses Not on filedocumented in this encounter Care Teams Print Production Manager Relationship Specialty Start Date End Date Bette Garay DO PCP - General Internal Medicine 02/27/14 06/06/21 [facility], Pcp PCP - General Internal Medicine 11/09/21 Harish Palomo MD, PHD Specialist Neurosurgery 11/09/21 documented as of this encounter
--- OUTSIDE RECORDS SUMMARY | 2025-08-13 12:31 | XMS_ITS | Encounter Summary ---
Author Organization [facility] Address [address] [place] [address] Care Team Providers Care Rubber Goods Tester Name Role Phone Bette Garay DO Primary Care Pro vider Unavailable Community, Pcp Primary Care Provider Harish Winters MD, PHD Unavailable Unava ilable Reason for Visit * Reason Onset Date Comments Letter 05/08/2020 Encounter Details Date Type Department Care Team Description 05/08/2020 Telephone Adult Medicine [address] [address] Bette Garay DO Letter Social History Tobacco Use Types Packs/Day Years [...] encounter Miscellaneous Notes * Telephone Encounter - Molly Rossi MD - 05/08/2020 3:58 PM EDT ok * Telephone Encounter - Quynh Estrada M.A. - 05/08/2020 3:41 PM EDT Please sign letter on your desk. Thank you in advance * Telephone Encounter - Molly Rossi MD - 05/08/2020 3:10 PM EDT ok * Telephone Encounter - Kavon Dugan - 05/08/2020 2:14 PM EDT Patient had covid19 like symptoms and was seen for an appt on 05/[address] Rosario. She is requesting a letter yo be written indicating that she was seen for her symptoms. Please advise [phone] ([phone]) documented in this encounter Plan of Treatment Not on file documented as of this encounter Visit Diagnoses Not on filedocumented in this encounter Care Teams Rubber Goods Tester Relationship Specialty Start Date End Date Bette Garay DO PCP - General Internal Medicine 02/27/14 06/06/21 [facility], Pcp PCP - General Internal Medicine 11/09/21 Harish Palomo MD, PHD Specialist Neurosurgery 11/09/21 documented as of this encounter
--- OUTSIDE RECORDS SUMMARY | 2025-08-13 12:31 | XMS_ITS | Encounter Summary ---
Author Organization [facility] Address [address] [place] [address] Care Team Providers Care Export Clerk Name Role Phone Bette Garay DO Primary Care Pro vider Unavailable Community, Pcp Primary Care Provider Harish Winters MD, PHD Unavailable Unava ilable Encounter Details Date Type Department Care Team Description 05/12/2020 Telephone Adult [address] [address] Shefali Dowling, MOE Social History Tobacco Use [...] on filedocumented in this encounter Care Teams Export Clerk Relationship Specialty Start Date End Date Bette Garay DO PCP - General Internal Medicine 02/27/14 06/06/21 Community, Pcp PCP - General Internal Medicine 11/09/21 Harish Palomo MD, PHD Specialist Neurosurgery 11/09/21 documented as of this encounter
--- OUTSIDE RECORDS SUMMARY | 2025-08-13 12:31 | XMS_ITS | Encounter Summary ---
Author Organization [employer] Address [address] [facility] [address] [facility] 7t [place] [address] Care Team Providers Care Export Specialist Name Role Phone Leilani Gale MD Primary Care Provider Reason for Referral * Consultation (Routine) - Closed Specialty Diagnoses / Procedures Referred By Peng booth Referred To Contact Gastroenterology Diagnoses Redundant colon Colon cancer screening Leilani Gale MD [address] [place] [address] Phone: tel: fax: [facility] Gastroenterology [address] [place] [address] Phone: tel: fax: Referral ID Status Reason Start Date Expiration Date V isits Requested Visits Authorized [id number] Closed Specialty Services Required 05/31/2024 05/31/2025 1 1 * Imaging (Routine) - Closed Specialty Diagnoses / Procedures Referred By Peng booth Referred To Contact Radiology Diagnoses Thyroid nodule greater than or equal to 1.5 cm in diameter incidentally noted on imaging study Procedures US Thyroid Leilani Gale MD [address] [place] [address] Phone: tel: fax: [facility] [address] [place] [address] Phone: tel: fax: Referral ID Status Reason Start Date Expiration Date Visits Re quested Visits Authorized [id number] Closed 05/31/2024 05/31/2025 1 1 Encounter Details Date Type Department Care Team (Late st Contact Info) Description 05/31/2024 Orders Only [facility] [address] [place] [address] Leilani Gale MD [address] [place] [address] Thyroid nodule greater than or equal to [...] Description 09/12/2025 11:15 AM EST Office Visit [facility] [address] [place], [place] [phone] Quynh Bliss MD [address] [place], [place] [phone] Scheduled Referrals Name Type Priority Associated Diagnoses [...] AM EDT Narrative 07/19/2024 8:39 AM EDT [address] [address] Ultrasound Report Signed Patient: Ashley Magdaleno MR#: [id number] : 1975 Acct:[id number] Age/Sex: 48 / F ADM Date: 06/17/24 Loc: HO.US Attending Dr: Leilani Gale MD Ordering Physician: Leilani Gale Date of Service: 06/17/24 Procedure(s): US thyroid Accession Number(s): [id number] cc: Leilani Gale EXAMINATION: US THYROID CLINICAL [...] than or equal to 1 cm: 1. Radar Engineering Teacher nodules are described as follows: 1. Location: [...] 07/19/24 0836 DD/ 0938 TD/TT: 06/17/24 0948 Chiropractic Teacher: SS Procedure Note Donotuseinterpreter, Image - 07/19/[address] [address] Ultrasound Report Signed Patient: Ashley Magdaleno EMR#: [id number] : 1975Acct:[id number] Age/Sex: 48 / FADM Date: 06/17/24 Loc: .US Attending Dr: Leilani Gale MD Ordering Physician: Leilani Gale Date of Service: 06/17/24 Procedure(s): US thyroid Accession Number(s): [id number] cc: Leilani Gale EXAMINATION: US THYROID CLINICAL [...] than or equal to 1 cm: 1. Radar Engineering Teacher nodules are described as follows: 1. Location: [...] Liang MD Signed By: <Electronically signed by Rtiesh Liang MD in OV> 07/19/24 0836 DD/ 0938 TD/TT: 06/17/24 0948 Chiropractic Teacher: ART us Leilani Gale MD IMG US PROCEDURES Final Result documented in this encounter Visit Diagnoses Diagnosis Thyroid nodule greater than or equal to 1.5 cm in diameter incidentally noted on imaging study- Primary Redundant colon Other congenital anomalies of intestine Colon cancer screening Special screening for malignant neoplasms, colon documented in this encounter Care Teams Export Specialist Relationship Specialty Start Date End Date Leilani Gale MD [address] [place] [address] PCP - General Family Medicine 11/02/21 documented as of this encounter
--- OUTSIDE RECORDS SUMMARY | 2025-08-13 12:31 | XMS_ITS | Encounter Summary ---
Author Organization [employer] Address [address] [facility] 7[address] [place] [address] Care Team Providers Care Farmworker Brooder Farm Name Role Phone Leilani Gale MD Primary Care Provider [phone] Reason for Referral * Consultation (Routine) - Closed Specialty Diagnoses / Procedures Referred By Contac t Referred To Contact Endocrinology Diagnoses Thyroid nodule greater than or equal to 1.5 cm in diameter incidentally noted on imaging study Leilani Gale MD [address] [place] [address] Phone: tel: fax: [facility] [address] [place] [phone] Phone: tel: fax: Referral ID Status Reason Start Date Expiration Date V isits Requested Visits Authorized [id number] Closed Specialty Services Required 10/08/2024 10/08/2025 1 1 Encounter Details Date Type Department Care Team (Late st Contact Info) Description 10/08/2024 Orders Only [facility] [address] [place], [place] [phone] Leilani Gale MD [address] [place], [place] [phone] Thyroid nodule greater than or equal to [...] Description 09/12/2025 11:15 AM EST Office Visit [facility] [address] [place] [address] Quynh Bliss MD [address] [place] [address] Scheduled Referrals Name Type Priority Associated Diagnoses [...] Primary documented in this encounter Care Teams Farmworker Brooder Farm Relationship Specialty Start Date End Date Leilani Gale MD [address] [place] [address] PCP - General Family Medicine 11/02/21 documented as of this encounter
--- OUTSIDE RECORDS SUMMARY | 2025-08-13 12:31 | XMS_ITS | Encounter Summary ---
Author Organization [facility] Address [address] [place] [address] Care Team Providers Care Shrimp Header Name Role Phone Bette Garay DO Primary Care Pro vider Unavailable Community, Pcp Primary Care Provider Harish Winters MD, PHD Unavailable Unava ilable Encounter Details Date Type Department Care Team Description 10/15/2014 Assistant County Engineer Report Medical Records [address] [place] [id number] Valerie Wu PA-C Social History Tobacco Use Types Packs/Day Years [...] on filedocumented in this encounter Care Teams Shrimp Header Relationship Specialty Start Date End Date Bette Garay DO PCP - General Internal Medicine 02/27/14 06/06/21 Community, Pcp PCP - General Internal Medicine 11/09/21 Harish Palomo MD, PHD Specialist Neurosurgery 11/09/21 documented as of this encounter
--- OUTSIDE RECORDS SUMMARY | 2025-08-13 12:32 | XMS_ITS | Clinical Summary ---
Author Organization [employer] Address [address] [facility] 7t [place] [address] Care Team Providers Care Erp Programmer Name Role Phone Leilani Gale MD Primary Care Provider [phone] Allergies Active Allergy Reactions Criticality Noted Date Comments Hydromorphone Hcl 12/16/2021 Other reaction(s): breathing problems Wound Dressings 11/30/2022 Other reaction(s): swollen red rash Medications cholecalciferol (Vitamin D-3) 50 MCG (1999) capsule daily. Active ipratropium-albu terol (Duo-Neb) 0.5-2.5 mg/3 mL nebulizer solution USE 1 VIAL VIA NEBULIZER 4 TIMES A DAY 2 Active Turmeric 500 MG capsule Active SUMAtriptan [...] FOR ASTHMA 8.5 g 3 4 Active citalopram (CeleXA) 20 MG tabletIndication s:Anxiety TAKE 1 TABLET BY MOUTH EVERY DAY 90 tablet 3 5 Active montelukast (Singulair) 10 MG tablet TAKE 1 TABLET BY MOUTH EVERY DAY IN THE EVENING 90 tablet 3 5 Active zolpidem (Ambien) 10 MG tabletIndication s:Insomnia due to medical condition Take 1 tablet (10 mg) by mouth if needed at bedtime for sleep. 30 tablet 5 Active cyclobenzaprine (Flexeril) 5 MG tabletIndication s:Ankylosing spondylitis of lumbosacral region (HCC) Take 1 tablet (5 mg) by mouth at bedtime. 30 tablet 3 5 Active Simponi 50 MG/0.5ML solution auto-injector Inject 50 mg under the skin every 30 (thirty) days. 5 Active atorvastatin (Lipitor) 10 MG tablet Take 1 tablet (10 mg) by mouth Once per day. 90 tablet 3 5 Active cetirizine (ZyrTEC) 10 MG tablet Take 1 tablet (10 mg) by mouth Once per day. 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 Encounters Date Type Department Care Team Description 08/12/2025 Orders Only GENERIC EXTERNAL DATA DEPARTMENT Provider, [facility] External Data 07/11/[address] [address] Leilani Gale MD Lab Orders (Melanoma diagnosis) 07/11/2025 Orders Only [facility] [address] [place] [phone] Provider, MD Keo 07/11/[address] [address] Lisa Campbell RN Appointment Request 07/04/2025 3:00 PM EDT Office Visit [address] [address] Navi Camarillo MD Neoplasm of uncertain behavior (Primary Dx) 07/04/2025 Travel 07/01/2025 Travel 06/25/2025 Refill [facility] [address] [place] [address] Leilani Gale MD 06/19/[address] [phone] Leilani Gale MD 06/16/2025 Refill [facility] [address] [place] [phone] Leilani Gale MD 05/23/2025 Orders Only [facility] External Provider, [facility] from Last 3 Months Immunizations Immunization Administration [...] Sign Reading Time Taken Comments Blood Pressure 120/80 07/04/2025 3:10 PM EDT Pulse 74 07/04/2025 3:10 PM EDT Temperature 37.1 C (98.7 F) 07/04/2025 3:10 PM EDT Respiratory Rate 18 07/04/2025 3:10 PM EDT Oxygen Saturation 98% 04/12/2023 4:15 PM EDT Inhaled Oxygen Concentration - - Weight 110 kg (242 lb 9.6 oz) 07/04/2025 3:10 PM EDT Height 165.1 cm (5' 5 ) 07/04/2025 3:10 PM EDT Body Mass Index 40.37 07/04/2025 3:10 PM EDT Plan of Treatment Upcoming Encounters Date Type Department Care Team (Late st Contact Info) Description 09/12/2025 11:15 AM EST Office Visit [facility] [address] [place] [address] Quynh Bliss MD [address] [place] [address] Health Maintenance Due Date Last Done Comments CT Colonography 1973 FIT DNA/Cologuard 1973 FIT 1973 FOBT 1973 HIV Screening 1973 Sigmoidoscopy 1973 Derm Melanoma Skin Check 02/17/1974 Hepatitis C Screening 1991 Hepatitis B Vaccines (1 of 3 - 19+ 3-dose series) 1992 Pap Smear 1994 Cervical Cancer Screening 2003 HPV/Cotest 2003 Mammogram 2013 RSV Patients and Patients Aged 60 years or older (1 - Risk 50-74 years 1-dose series) 2023 Depression Screening 11/29/2023 11/28/2022, 11/29/19 23 SDOH Screening 11/29/2023 11/28/2022 Disability Screening 04/23/2026 04/23/2025 Alcohol/Substance Use Screening 05/05/2026 05/05/2025 Family Planning (PISQ) 05/05/2026 05/05/2025 Tobacco Screening 07/11/2026 07/11/2025 Lipid Panel 05/31/2028 05/31/2023 DTaP/Tdap/Td Vaccines (3 - Td or Tdap) 01/29/2032 01/28/2022, 01/12/2012 Colonoscopy 06/10/2032 06/10/2022, 06/10/2022 Colorectal Cancer Screening 06/10/2032 Pneumococcal Vaccine: 50+ Years Completed 08/22/2022, 10/23/2015 Zoster Vaccines Completed 04/18/2025, 09/08/2024 COVID-19 Vaccine Completed 06/29/2025, , 01/16/2023, Additional history exists Influenza Vaccine Completed 06/29/2025, , 07/16/2023, Additional history exists HIB Vaccines Aged Out No longer eligi [...] Procedure Name Priority Date/Time Associated Diagnosis Comments SED RATE BY MODIFIED WESTERGREN Routine 08/12/2025 3:30 PM EST C-REACTIVE PROTEIN Routine 08/12/2025 3: 30 PM EST COMPREHENSIVE METABOLIC PANEL Routine 08/12/2025 3:30 PM EST CBC WITH AUTO DIFFERENTIAL Routine 08/12/2025 3:30 PM EST AMB REFERRAL TO DERMATOLOGY STAT 07/16/2025 Malignant melanoma of right lower extremity including hip (HCC) DERMATOPATHOLOGY REPORT Routine 07/04/20 3:36 PM EDT XR CHEST 2 VIEWS Routine 05/23/2025 11:2 6 AM EDT LIPID PANEL, STANDARD Routine 05/31/2023 10:17 AM EDT High cholesterol HM COLONOSCOPY Routine 06/10/2022 from Last 3 Months or Most Recently Relevant to Health Maintenance Results * CBC auto differential (08/12/2025 3:30 PM EST) White Blood Count 9.0 4.8 - 10.8 X10*3/uL [facility] Red Blood Count 4.34 4.20 - 5.50 X10*6/uL [facility] Hemoglobin 13.5 12.0 - 16.0 g/dl [facility] Hematocrit 39.9 37.0 - 47.0 % [facility] Mean Corpuscular Volume 91.9 80.0 - 98.0 fL [facility] Mean Corpuscular Hemoglobin 31.1 27.0 - 33.0 pg [facility] Mean Corpuscular HGB Conc 33.8 31.0 - 35.0 g/dl [facility] Red Cell Distribution Width 12.1 11.0 - 16.0 % [facility] Platelet Count 304 160 - 400 X10*3/uL [facility] Mean Platelet Volume 9.8 9.4 - 12.3 fL [facility] Neutrophils Percent Auto 67.5 45 - 73 % [facility] Imm Gran Pct Auto 0.1 0.0 - 0.4 % [facility] Lymphocytes Percent Auto 21.5 20 - 40 % [facility] Monocytes Percent Auto 6.4 2 - 11 % [facility] Eosinophils Percent Auto 3.5 0 - 4 % [facility] Basophils Percent Auto 1.0 0 - 2 % [facility] NRBC Pct Auto 0.0 0.0 - 0.2 /100WBC [facility] Neutrophils Absolute Auto 6.1 2.0 - 8.3 x10*3/uL [facility] Imm Gran Abs Auto 0.01 0.00 - 0.03 X10*3/uL [facility] Lymphocytes Absolute Auto 1.9 1.2 - 4.9 X10*3/uL [facility] Monocytes Absolute Auto 0.6 0.1 - 1.2 X10*3/uL [facility] Eosinophils Absolute Auto 0.3 0.0 - 0.4 X10*3/uL [facility] Basophils Absolute Auto 0.1 0.0 - 0.2 X10*3/uL [facility] NRBC Abs Auto 0.000 0.0 - 0.012 X10*3/uL [facility] 08/12/2025 3:30 PM EST 08/12/2025 5:55 PM EST us Generic External Data Provider LAB BLOOD ORDERAB LES Final Result [facility] [address] [place] [phone] [phone] * Sed Rate by Modified Suzanne (08/12/2025 3:30 PM EST) Erythrocyte Sedimentation Rate 8 0 - 20 MM/HR [facility] Comment:Patients with polycy themia and many hemoglobin abnormalitiesmay have depressed sed rates whereas patients with anemiamay have elevated sed rates. 08/12/2025 3:30 PM EST 08/12/2025 5:55 PM EST us Generic External Data Provider LAB BLOOD ORDERAB LES Final Result Performing Organization Address [facility] Co de Phone Number [facility] [address] [place] [phone] * C-reactive Protein (08/12/2025 3:30 PM EST) C Reactive Protein 0.37 < or = 0.50 mg/dL [facility] 08/12/2025 3:30 PM EST 08/12/2025 6:14 PM EST us Generic External Data Provider LAB BLOOD ORDERAB LES Final Result Performing Organization Address [facility] de Phone Number [facility] [address] [place] [phone] * (ABNORMAL) Comprehensive Metabolic Panel (08/12/2025 3:30 PM EST) Pathologist [facility] Sodium 139 135 - 145 mmol/L [facility] Potassium 3.8 3.3 - 5.1 mmol/L [facility] Chloride 105 96 - 108 mmol/L [facility] Carbon Dioxide 25 22 - 29 mmol/L [facility] Anion Gap 13 12 - 20 [facility] Urea Nitrogen (BUN) 19(H) 9 - 16 mg/dL [facility] Creatinine, Serum 0.80 0.5 - 1.4 mg/dL [facility] Estimated Glomerular Filt Rate >60 [facility] Comment:Chronic Kidney Disea se: Estimated GFR < 60 mL/min/[id number] Kidney Disease: Estimated GFR < 15 mL/min/1.73m2 Glucose 96 60 - 115 mg/dL [facility] Calcium 9.0 8.4 - 10.2 mg/dL [facility] Bilirubin, Total 0.3 0.0 - 1.0 mg/dL [facility] Aspartate Amino Transferase 21 5 - 31 U/L [facility] Alanine Aminotransferase 25 0 - 31 U/L [facility] Total Protein 6.9 6.5 - 8.0 g/dL [facility] Albumin Level 4.3 3.5 - 5.0 g/dL [facility] Alkaline Phosphatase 60 39 - 117 U/L [facility] 08/12/2025 3:30 PM EST 08/12/2025 6:14 PM EST Generic External Data Provider LAB BLOOD ORDERAB LES Final Result [facility] [address] [place] [phone] * Referral to Dermatology (07/16/2025) Leilani Gale MD OUTPATIENT REFERRAL ORDERABLES Final Result * Dermatopathology Report (07/04/2025 3:36 PM EDT) Historical Provider MD LAB BLOOD ORDERABLES Leela l Result * XR Chest 2 Views (05/23/2025 11:26 AM EDT) Anatomical Region Laterality Modality Chest Radiographic Tamia ging 05/23/2025 11:2 6 AM EDT Narrative 05/23/2025 11:47 AM EDT [address] [address] XRay Report Signed Patient: Ashley Magdaleno MR#: [id number] : 1975 Acct:[id number] Age/Sex: 49 / F ADM Date: 05/23/25 Loc: [facility] Attending Dr: Cedric Perez MD Ordering Physician: Cedric Perez MD Date of Service: 05/23/25 Procedure(s): XR chest 2V Accession Number(s): [id number] cc: Leilani Gale; Cedric Perez MD EXAMINATION: XR CHEST 2 VIEWS HISTORY: J45.40 - Moderate persistent asthma, uncomplicated COMPARISON: Comparison is made with the prior examination dated 06/30/2022. FINDINGS: PA and lateral views of the chest are submitted. The lungs are expanded and clear. There is no pleural effusion, pneumothorax, or pulmonary vascular congestion. The heart is normal in size. The bones are intact. XR/XR chest 2V IMPRESSION: No acute cardiopulmonary abnormality. Electronically signed by: Vj Ma MD 05/23/2025 11:45 AM EDT RP Dictated By: Vj Ma MD Signed By: <Electronically signed by Vj Ma MD in OV> 05/23/25 1145 DD/ 1126 TD/TT: 05/23/25 1136 Public Health Policy Analyst: Procedure Note Donotuseinterpreter, Image - 05/23/2025 [place] [address] XRay Report Signed Patient: Ashley Magdaleno EMR#: [id number] : 1975Acct:[id number] Age/Sex: 49 / FADM Date: 05/23/25 Loc: HO.XRAY Attending Dr: Cedric Perez MD Ordering Physician: Cedric Perez MD Date of Service: 05/23/25 Procedure(s): XR chest 2V Accession Number(s): [id number] cc: Leilani Gale; Cedric Perez MD EXAMINATION: XR CHEST 2 VIEWS HISTORY: J45.40 - Moderate persistent asthma, uncomplicated COMPARISON: Comparison is made with the prior examination dated 06/30/2022. FINDINGS: PA and lateral views of the chest are submitted. The lungs are expanded and clear. There is no pleural effusion, pneumothorax, or pulmonary vascular congestion. The heart is normal in size. The bones are intact. XR/XR chest 2V IMPRESSION: No acute cardiopulmonary abnormality. Electronically signed by: Vj Ma MD 05/23/2025 11:45 AM EDT RP Dictated By: Vj Ma MD Signed By: <Electronically signed by Vj aM MD in OV> 05/23/25 1145 DD/ 1126 TD/TT: 05/23/25 1136 Public Health Policy Analyst: [facility] External Provider IMG XR PROCEDURES Edited Result - Final * (ABNORMAL) Lipid Panel, Standard (05/31/2023 10:17 AM EDT) Triglycerides 153(H) <150 mg/dL [facility] Comment:Desirable Triglyceri de: less than 150 mg/dLBorderline High Triglyceride 150-199 mg/dLHigh Triglyceride: 200-499 mg/dLVery High Triglyceride: greater than or equal to 5OO mg/dL Cholesterol 168 <200 mg/dL [facility] Comment:Desirable Cholestero l: less than 200 mg/dLBorderline High Cholesterol: 200-239 mg/dLHigh Cholesterol: greater than 239 mg/dL LDL Cholesterol Calculated 85 <100 mg/dL [facility] Comment:Desirable LDL: less than 100 mg/dLNear Optimal/Above Optimal LDL: 110- 129 mg/dLBorderline High LDL: 130-159 mg/dLHigh LDL: 160-189 mg/dLVery High LDL: greater than or equal to 190 mg/dL HDL Cholesterol 53 >40 mg/dL [facility] Comment:Desirable HDL: great er than 40 mg/dL Note: This HDL assay may give artificially low results in patients with liver disease. Blood Venous blood specimen / Unknown 05/31/2023 10:17 AM EDT 05/31/2023 11:16 AM EDT Leilani Gale MD LAB BLOOD ORDERABLES Final Res ult Performing Organization Address City/[facility]/ZIP Co de Phone Number [facility] [address] [place] [phone] * Hm Colonoscopy (06/10/2022) Colonoscopy Normal Normal [facility] Comment:see scanned report 06/10/2022 Leilani Gale MD HEALTH MAINTENANCE Final Resul t [facility] [address] [place] [phone] from Last 3 Months or Most Recently Relevant to Health Maintenance Insurance [facility] , [address] [place] [address] Care Teams Erp Programmer Relationship Specialty Start Date End Date Leilani Gale MD [address] [place] [phone] PCP - General Family Medicine 11/02/21
--- OUTSIDE RECORDS SUMMARY | 2025-08-13 12:32 | XMS_ITS | Encounter Summary ---
Author Organization [employer] Address [address] [facility] 7t [place] [address] Care Team Providers Care Fbi Sharpshooter Name Role Phone Leilani Gale MD Primary Care Provider [phone] Reason for Referral * Consultation (Routine) - Canceled Specialty Diagnoses / Procedures Referred By Contac t Referred To Contact Endocrinology Diagnoses Thyroid nodule greater than or equal to 1.5 cm in diameter incidentally noted on imaging study Leilani Gale MD [address] [place] [address] Phone: tel: fax: Referral ID Status Reason Start Date Expiration Date Visits Requested Visits Authorized [id number] Canceled Specialty Services Required 08/08/2024 08/08/2025 1 1 Encounter Details Date Type Department Care Team (Late st Contact Info) Description 08/08/2024 Orders Only [facility] [address] [place] [address] Leilani Gale MD [address] [place], [place] [phone] Thyroid nodule greater than or equal to [...] Description 09/12/2025 11:15 AM EST Office Visit [facility] [address] [place] [phone] Quynh Bliss MD [address] [place] [address] Scheduled Referrals Name Type Priority Associated Diagnoses [...] Primary documented in this encounter Care Teams Fbi Sharpshooter Relationship Specialty Start Date End Date Leilani Gale MD [address] [place] [address] PCP - General Family Medicine 11/02/21 documented as of this encounter
--- OUTSIDE RECORDS SUMMARY | 2025-08-13 12:32 | XMS_ITS | Encounter Summary ---
Author Organization [facility] Address [address] [place] [address] Care Team Providers Care Purchasing Manager/Sales Name Role Phone Bette Garay DO Primary Care Pro vider Unavailable Community, Pcp Primary Care Provider Harish Winters MD, PHD Unavailable Unava ilable Encounter Details Date Type Department Care Team Description 10/23/2018 Transfer Records Medical Records [address] [place] [id number] Abstract, Provider Social History Tobacco Use Types Packs/Day Years [...] on filedocumented in this encounter Care Teams Purchasing Manager/Sales Relationship Specialty Start Date End Date Bette Garay DO PCP - General Internal Medicine 02/27/14 06/06/21 [facility], Pcp PCP - General Internal Medicine 11/09/21 Harish Palomo MD, PHD Specialist Neurosurgery 11/09/21 documented as of this encounter
--- OUTSIDE RECORDS SUMMARY | 2025-08-13 12:32 | XMS_ITS | Encounter Summary ---
Author Organization [facility] Address [address] [place] [address] Care Team Providers Care Core Winder Machine Operator Name Role Phone Bette Garay DO Primary Care Pro vider Unavailable Community, Pcp Primary Care Provider Harish Winters MD, PHD Unavailable Unava ilable Reason for Visit * Reason Comments E-prescribe Rx Request Encounter Details Date Type Department Care Team Description 10/26/2019 Refill Adult Medicine [address] [address] Shaneka Blanco PA-C E-prescribe Rx Request Social [...] Telephone Encounter - Mary Martinez M.A. - 10/28/2019 8:39 AM EST Last office visit 10/24/19 Next office visit 11/15/19 documented in this encounter Plan of Treatment Not on file documented as of this encounter Visit Diagnoses Not on filedocumented in this encounter Care Teams Core Winder Machine Operator Relationship Specialty Start Date End Date Bette Garay DO PCP - General Internal Medicine 02/27/14 06/06/21 Community, Pcp PCP - General Internal Medicine 11/09/21 Harish Palomo MD, PHD Specialist Neurosurgery 11/09/21 documented as of this encounter
--- OUTSIDE RECORDS SUMMARY | 2025-08-13 12:32 | XMS_ITS | Encounter Summary ---
Author Organization [facility] Address [address] [place] [address] Care Team Providers Care Cotton Dispatcher Name Role Phone Bette Garay DO Primary Care Pro vider Unavailable Community, Pcp Primary Care Provider Harish Winters MD, PHD Unavailable Unava ilable Reason for Visit * Reason Comments E-prescribe Rx Request Encounter Details Date Type Department Care Team Description 11/13/2018 Refill Adult Medicine [address] [address] Shaneka Blanco PA-C E-prescribe Rx Request Social [...] an upcoming appointment? No[facility] for [facility] due to [...] N/A Patients current insurance carrier is: Payor: [employer] [place] / Plan: HMO $30 [place] [id number] /Product Type: HMO [id number] documented in this encounter Plan of Treatment Not on file documented as of this encounter Visit Diagnoses Not on filedocumented in this encounter Care Teams Cotton Dispatcher Relationship Specialty Start Date End Date Bette Garay DO PCP - General Internal Medicine 02/27/14 06/06/21 [facility], Pcp PCP - General Internal Medicine 11/09/21 Harish Palomo MD, PHD Specialist Neurosurgery 11/09/21 documented as of this encounter
--- OUTSIDE RECORDS SUMMARY | 2025-08-13 12:33 | XMS_ITS | Encounter Summary ---
Author Organization [facility] Address [address] [place] [address] Care Team Providers Care Research And Development Researcher Name Role Phone Bette Garay DO Primary Care Pro vider Unavailable Community, Pcp Primary Care Provider Harish Winters MD, PHD Unavailable Unava ilable Reason for Visit * Reason Comments E-prescribe Rx Request Encounter Details Date Type Department Care Team Description 01/14/2019 Refill Adult Medicine [address] [address] Louise Fairchild PA-C [address] [place] [phone] E-prescribe Rx Request Social History Tobacco Use [...] N/A Patients current insurance carrier is: Payor: [employer] [place] / Plan: [employer] $30 [id number] /Product Type: HMO [id number] documented in this encounter Plan of Treatment Not on file documented as of this encounter Visit Diagnoses Not on filedocumented in this encounter Care Teams Research And Development Researcher Relationship Specialty Start Date End Date Bette Garay DO PCP - General Internal Medicine 02/27/14 06/06/21 [facility], Pcp PCP - General Internal Medicine 11/09/21 Harish Palomo MD, PHD Specialist Neurosurgery 11/09/21 documented as of this encounter
--- OUTSIDE RECORDS SUMMARY | 2025-08-13 12:33 | XMS_ITS | Encounter Summary ---
Author Organization [facility] Address [address] [place] [address] Care Team Providers Care Doll Surgeon Name Role Phone Bette Garay DO Primary Care Pro vider Unavailable Community, Pcp Primary Care Provider Harish Winters MD, PHD Unavailable Unava ilable Encounter Details Date Type Department Care Team Description 09/07/2018 Java Technical Manager Report Medical Records [address] [place] [address] Jarrell Aldrich Social History Tobacco Use Types [...] on filedocumented in this encounter Care Teams Doll Surgeon Relationship Specialty Start Date End Date Bette Garay DO PCP - General Internal Medicine 02/27/14 06/06/21 [facility], Pcp PCP - General Internal Medicine 11/09/21 Harish Palomo MD, PHD Specialist Neurosurgery 11/09/21 documented as of this encounter
--- OUTSIDE RECORDS SUMMARY | 2025-08-13 12:33 | XMS_ITS | Clinical Summary ---
Author Organization [facility] Address [address] [place] [address] Phone Care Team Providers Care Procedure Writer Name Role Phone Kamron Corrales MD Unavailable Cedric Perez MD Unavailable Leilani Gale MD Primary Care Provider + Ron Otoole DO Unavailable [phone] Allergies Active Allergy Reactions Criticality Noted Date [...] skin every 30 (thirty) days. 02/08/2025 Active SYMBICORT 160-4.5 mcg/actuation inhaler Inhale 2 puffs into the lungs 2 (two) times a day. 05/23/2025 Active Active Problems Problem Noted Date Diagnosed Date Nontoxic multinodular goiter 02/28/2025 Assessment & Plan (07/31/2025 8:12 PM EST): Last thyroid ultrasound from 07/02/2025 reviewed. No clinically significant change in the right partially cystic 2.9 cm in TR 3 nodule. This nodule had a nondiagnostic FNA in 07/2023 and a benign FNA in 08/2023. The bilateral less than 1 cm nodules are not a clinical concern at this point. Patient is clinically and biochemically euthyroid. Last TSH 0.69 in 04/2025, not on treatment. Because of her family history of Matt thyroiditis and her father her TPO was checked which was undetectable. No compression symptoms in the thyroid bed. She is scheduled to have PFTs tomorrow. -Plan to repeat ultrasound and TSH in 1 year. -Patient will contact me if symptoms of hypo or hyperthyroidism in the interim Assessment & Plan (02/28/2025 10:38 PM EDT): [...] year ago and has follow-up with her stitch bonder machine operator helper, Dr. Perez. She seems clinically euthyroid. TSH [...] Encounters Date Type Department Care Team Description 07/28/2025 10:40 AM EST Office Visit [facility] [address] [place] [address] Luz Elena Walker MD Nontoxic multinodular goiter (Primary Dx) 07/02/2025 5:06 PM EDT - 07/02/2025 11:59 PM EDT Hospital Encounter [facility], [facility] - [address] [address] Luz Elena Walker MD Discharge Disposition: Home or Self Care from Last 3 Months Social History Tobacco [...] Sign Reading Time Taken Comments Blood Pressure 122/68 07/28/2025 10:39 AM EST Pulse 82 07/28/2025 10:39 AM EST Temperature 36.6 C (97.9 F) 09/24/2024 9:40 AM EST Respiratory Rate 18 09/24/2024 9:50 AM EST Oxygen Saturation 97% 07/28/2025 10: 39 AM EST Inhaled Oxygen Concentration - - Weight 110.6 kg (243 lb 12.8 oz) 2024 10:39 AM EST Height 164 cm (5' 4.57 ) 07/28/2025 10: 39 AM EST Body Mass Index 41.12 07/28/2025 10:39 AM EST Plan of Treatment Upcoming Encounters Date Type Department Care Team (Late st Contact Info) Description 07/28/2026 2:40 PM EST Office Visit [facility] [address] [place] [address] [place] [address] Luz Elena Walker MD [address] [place] [id number] [email or web address] Health Maintenance Due Date Last Done Comments DEPRESSION SCREENING 1985 HEPATITIS C SCREENING 1991 HIV ONE-TIME SCREENING (18-65 YEARS) 1991 ZOSTER VACCINES (1 of 2) 1992 PAP SMEAR 1994 SCREENING FOR DIABETES 2008 MAMMOGRAM 2013 COLOGUARD 2018 FIT TEST 2018 FOBT 2018 SIGMOIDOSCOPY 2018 VIRTUAL COLONOSCOPY 2018 RSV VACCINE (1 - Risk 50-74 years 1-dose series) 2023 INFLUENZA VACCINE (#1) 2025 , 07/16/2023, 07/20/2022, Additional history exists COVID-19 VACCINE ( season) 2025 07/13/2024, 01/16/2023, 01/11/2022, Additional history exists LIPID PANEL 05/31/2028 05/31/2023 COLONOSCOPY 09/24/2029 09/24/2024 COLORECTAL CANCER SCREENING 09/24/2029 Adult Td,Tdap Booster 01/29/2032 01/28/2022, 012 PNEUMOCOCCAL VACCINES (50+ years) Completed 08/22/2022, 10/23/2015 SMOKING STATUS SCREENING (Once After 26 Yrs) Completed 07/28/2025 HEPATITIS A VACCINES Aged Out No long [...] this topic Medical Devices Implanted Type Area Acoustical Logging Engineer Device Identifier Shelf Expiration Date Model / Serial / Lot Screws Ankle Titanium Marker Left Breast Procedures Procedure Name Priority Date/Time Associated Diagnosis Comments US THYROID GLAND Routine 07/02/2025 5:21 PM EDT Nontoxic multinodular goiter ENDOSCOPY, COLON 09/24/2024 9:16 AM EST from Last 3 Months or Most Recently Relevant to Health Maintenance Results * US Thyroid Gland (07/02/2025 5:21 PM EDT) Anatomical Region Laterality Modality Neck, Head, Chest Ultrasound 07/03/2025 8:05 AM EDT Impressions 07/03/2025 8:16 AM EDT Bilateral thyroid nodules including a 2.9 cm TR 3 nodule in the right lobe of the thyroid gland that is indeterminant and does meet the ACR consensus criteria for biopsy unless previously biopsied. Please correlate with biopsy results. Narrative 07/03/2025 8:16 AM EDT US THYROID GLAND Referring clinician's provided indication for this examination in Epic: Multinodular Goiter; Incidental right mid 2.2 cm TR 4 nodule in 06/2023 with benign FNA in 08/2023. Grown to 3.2 cm but TR 3 in 05/2024. No repeat FNA TECHNIQUE: Ultrasound of the thyroid. COMPARISON: 06/17/2024 FINDINGS: Right Thyroid: The right lobe measures 2.8 cm x 5.7 cm x 2.6 cm. Nodule #: 1 Maximum size: 11 mm x 8 mm x 6 mm, previously 10 mm x 8 mm x 7 mm by my measurement Position: Upper gland Composition: Spongiform (0 pts) Echogenicity: Hypoechoic (2 pts) Shape: Qauzd-uusb-ztvj (0) Margins: Smooth (0 pts) Echogenic Foci: No calcifications (0 pts) Additional Echogenic foci: None (0 pts) Significant change is size (>/= 20% in two dimensions or increase in 2mm): No Change in Features: No ACR TI-RADS total points: 2 ACR TI-RADS risk category: TR2 (2 points) ACR TI-RADS recommendation: No follow-up indicated Nodule #: 2 Maximum size: 2.9 cm x 2.4 cm x 1.6 cm, previously 3.2 cm x 2.4 cm by 1.3 cm Position: Upper gland Composition: Mixed cystic and solid (1 pt) Echogenicity: Hypoechoic (2 pts) Shape: Puznz-qspa-afvm (0) Margins: Smooth (0 pts) Echogenic Foci: No calcifications (0 pts) Additional Echogenic foci: None (0 pts) Significant change is size (>/= 20% in two dimensions or increase in 2mm): No Change in Features: No ACR TI-RADS total points: 3 ACR TI-RADS risk category: TR3 (3 points) ACR TI-RADS recommendation: Fine needle aspiration, unless previously biopsied. Correlate with biopsy results There is a stable 8 mm TR 4 nodule in the right mid gland No right sided adenopathy is detected. Left Thyroid: The left lobe measures 4.9 cm x 1.9 cm x 2.4 cm There is stable TR 3 and TR 2 nodules measuring 8 mm in diameter or less. No new suspicious nodules identified in the left lobe of the thyroid gland No left sided adenopathy is detected. No suspicious nodules identified within the isthmus Parathyroid: A parathyroid adenoma is not identified. Procedure Note Barry Palencia MD - 07/03/2025 US THYROID GLAND Referring clinician's provided indication for this examination in Epic:Multinodular Goiter; Incidental right mid 2.2 cm TR 4 nodule in 06/2023with benign FNA in 08/2023. Grown to 3.2 cm but TR 3 in 05/2024. Norepeat FNA TECHNIQUE: Ultrasound of the thyroid. COMPARISON: 06/17/2024 FINDINGS: Right Thyroid: The right lobe measures 2.8 cm x 5.7 cm x 2.6 cm. Nodule #: 1 Maximum size: 11 mm x 8 mm x 6 mm, previously 10 mm x 8 mm x 7 mm by mymeasurement Position: Upper gland Composition: Spongiform (0 pts) Echogenicity: Hypoechoic (2 pts) Shape: Fqknw-agyw-dfwt (0) Margins: Smooth (0 pts) Echogenic Foci: No calcifications (0 pts) Additional Echogenic foci: None (0 pts) Significant change is size (>/= 20% in two dimensions or increase in 2mm):No Change in Features: No ACR TI-RADS total points: 2 ACR TI-RADS risk category: TR2 (2 points) ACR TI-RADS recommendation: No follow-up indicated Nodule #: 2 Maximum size: 2.9 cm x 2.4 cm x 1.6 cm, previously 3.2 cm x 2.4 cm by 1.3cm Position: Upper gland Composition: Mixed cystic and solid (1 pt) Echogenicity: Hypoechoic (2 pts) Shape: Rodva-cgeg-rzbr (0) Margins: Smooth (0 pts) Echogenic Foci: No calcifications (0 pts) Additional Echogenic foci: None (0 pts) Significant change is size (>/= 20% in two dimensions or increase in 2mm):No Change in Features: No ACR TI-RADS total points: 3 ACR TI-RADS risk category: TR3 (3 points) ACR TI-RADS recommendation: Fine needle aspiration, unless previouslybiopsied. Correlate with biopsy results There is a stable 8 mm TR 4 nodule in the right mid gland No right sided adenopathy is detected. Left Thyroid: The left lobe measures 4.9 cm x 1.9 cm x 2.4 cm There is stable TR 3 and TR 2 nodules measuring 8 mm in diameter orless. No new suspicious nodules identified in the left lobe of the thyroidgland No left sided adenopathy is detected. No suspicious nodules identified within the isthmus Parathyroid: A parathyroid adenoma is not identified. IMPRESSION: Bilateral thyroid nodules including a 2.9 cm TR 3 nodule in the right lobeof the thyroid gland that is indeterminant and does meet the ACR consensuscriteria for biopsy unless previously biopsied. Please correlate withbiopsy results. us Luz Elena Walker MD [facility] US THYROID Final Result * ENDOSCOPY, COLON (09/24/2024 9:16 AM EST) Narrative Transcriptions Tio Logan MD - 09/24/2024 9:16 AM EST [facility] Patient Name: Ashley Magdaleno Attending MD:: TIO LOGAN MD, , Procedure Date: 09/24/2024 9:16 AM Date of : 1975 Age: 49 Admit Type: Outpatient Gender: Female Room: [facility] 04 Referring MD: Leilani Gale Exam Type: Colonoscopy [...] 9:16 AM Procedure Code(s): --- Professional --- 41890, Colonoscopy, flexible; diagnostic, including collection of specimen(s) by brushing or washing, when performed (separateprocedure) --- Technical --- 70059, Colonoscopy, flexible; diagnostic, including collection of specimen(s) [...] or abscess without bleeding CPT copyright 2021 [employer] [place] [employer]. All rights reserved. The codes documented in this report are preliminary and upon processor grain reviewmay be revised to meet current compliance requirements. Procedure Date: 09/24/2024 9:16:01 AM [address] [place] [address] Leilani Gale MD GI PROCEDURE ORDERABLES Final Result from Last 3 Months or Most Recently Relevant to Health Maintenance [facility] Care Teams Procedure Writer Relationship Specialty Start Date End Date Leilani Gale MD [address] [place] [address] [place] [address] PCP - General Family Medicine 09/16/24 Kamron oCrrales MD [address] [place] [address] Vascular Surgery 09/16/24 Cedric Perez MD [address] [place] [address] [place] [address] Pulmonary Disease 09/16/24 Ron Otoole DO [address] [place] [address] [place] [address] Physical Medicine and Rehabilitation 09/16/24 Additional Source Comments The information contained in this document represents components of the legal health record. It is not the complete legal health record.[facility]
--- OUTSIDE RECORDS SUMMARY | 2025-08-13 12:33 | XMS_ITS | Encounter Summary ---
Author Organization [facility] Address [address] [place] [address] Care Team Providers Care Awake Overnight Monitor Name Role Phone Bette Garay DO Primary Care Pro vider Unavailable Community, Pcp Primary Care Provider Harish Winters MD, PHD Unavailable Unava ilable Encounter Details Date Type Department Care Team Description 06/12/2018 Orders Only Adult Medicine [address] [address] Bette Garay DO Dyslipidemia (Primary Dx); Vitamin [...] - 60 U/L 06/23/2018 12:36 PM EDT [facility] 06/23/2018 10:1 4 AM EDT 06/23/2018 10:15 AM EDT Bette Raines DO LAB [address] * TRANSAMINASE (SGOT)(AST) UV- (06/23/2018 10:14 AM EDT) AST (SGOT) 15 10 - 42 U/L 06/23/2018 12:36 PM EDT [facility] 06/23/2018 10:1 4 AM EDT 06/23/2018 10:15 AM EDT [employer] Colasacco DO LAB Performing Organization Address City/[facility] Co de Phone Number [address] * (ABNORMAL) LIPID PROFILE (06/23/2018 10:14 AM EDT) Cholesterol 172 0 - 200 mg/dL 06/23/2018 12:36 PM EDT [facility] TRIGLYCERIDES 97 0 - 150 mg/dL 06/23/2018 12:36 PM EDT [facility] HDL CHOLESTEROL 49 >40 mg/dL 8 12:36 PM EDT [facility] LDL CALCULATED 104(H) 0 - 100 mg/dL 06/23/2018 12:36 PM EDT [facility] TC-HDLC RATIO 4 0.0 - 4.4 mg/dL 06/23/2018 12:36 PM EDT [facility] 06/23/2018 10:1 4 AM EDT 06/23/2018 10:15 AM EDT [employer] Colasacco DO LAB Performing Organization Address City/[facility] Co de Phone Number [address] * (ABNORMAL) 25 HYDROXY INCLUDES FRACTIONS IF PERFORMED (06/23/2018 10:14 AM EDT) 25-HYDROXY VITAMIN D TOTAL 29(L) 30 - 80 ng/ml 06/25/2018 11:12 AM EDT [facility] Comment: Vitamin D Reference Ranges Deficiency: <20 ng/mL Insufficiency: 20-29 ng/mL Optimal: 30-80 ng/mL High: >80 ng/mL 06/23/2018 10:1 4 AM EDT 06/23/2018 10:15 AM EDT B[employer] Colasacco DO LAB Performing Organization Address [facility] Co de Phone Number [address] * VITAMIN B-12, ASSAY (06/23/2018 10:14 AM EDT) VITAMIN B12 419 211 - 946 pg/mL 06/23/2018 12:36 PM EDT [facility] 06/23/2018 10:1 4 AM EDT 06/23/2018 10:15 AM EDT Bette [employer] DO LAB Performing Organization Address [facility] Co de Phone Number [address] * CBC (AUTO DIFF PLATELET) (06/23/2018 10:14 AM EDT) WBC 6.4 4.8 - 10.8 x10-3 06/23/2018 10:24 AM EDT [facility] RBC 4.8 3.8 - 4.8 x10-6 06/23/2018 10:24 AM EDT [facility] HGB 14.2 11.5 - 16.0 g/dl 06/23/2018 10:24 AM EDT [facility] HCT 42.8 35 - 47 % 06/23/2018 10:24 AM EDT [facility] MCV 89.9 79 - 98 fl 06/23/2018 10:24 AM EDT [facility] MCH 29.8 27 - 32 pg 06/23/2018 10:24 AM EDT [facility] MCHC 33.2 32 - 37 g/dl 06/23/2018 10:24 AM EDT [facility] RDW 11.9 11 - 15 % 06/23/2018 10:24 AM EDT [facility] PLT COUNT 324 130 - 400 x10-3 06/23/2018 10:24 AM EDT [facility] MEAN PLATELET VOLUME 9.3 7 - 11 fl 06/23/2018 10:24 AM EDT [facility] NEUT % 56.6 41 - 85 % 06/23/2018 10:24 AM EDT [facility] LYMPH % 31.8 15 - 48 % 06/23/2018 10:24 AM EDT [facility] MONO % 6.4 0 - 12 % 06/23/2018 10:24 AM EDT [facility] EOS % 3.9 0 - 5 % 06/23/2018 10:24 AM EDT [facility] BASO % 1.3 0 - 2 % 06/23/2018 10:24 AM EDT [facility] 06/23/2018 10:1 4 AM EDT 06/23/2018 10:15 AM EDT Bette Raines DO LAB Performing Organization Address City/State/[facility] Co de Phone Number [facility] [address] [facility] documented in this encounter Visit Diagnoses Diagnosis Dyslipidemia- Primary Other and unspecified hyperlipidemia Vitamin D deficiency Unspecified vitamin D deficiency Fatigue, unspecified type documented in this encounter Care Teams Awake Overnight Monitor Relationship Specialty Start Date End Date Bette Garay DO PCP - General Internal Medicine 02/27/14 06/06/21 [facility], Pcp PCP - General Internal Medicine 11/09/21 Harish Palomo MD, PHD Specialist Neurosurgery 11/09/21 documented as of this encounter
--- OUTSIDE RECORDS SUMMARY | 2025-08-13 12:33 | XMS_ITS | Encounter Summary ---
Author Organization [facility] Address [address] [place] [address] Phone Care Team Providers Care Electronic Specialist Name Role Phone Kamron Corrales MD Unavailable Cedric Perez MD Unavailable Leilani Gale MD Primary Care Provider + Ron Otoole DO Unavailable [phone] Encounter Details Date Type Department Care Team (Late st Contact Info) Description 09/24/2024 Procedure Pass [facility] Endoscopy Admitting Dept Virtual Department [address] [place] [address] Social History Tobacco Use Types Packs/Day Years [...] 2:40 PM EST Office Visit [facility] [address] [place] [address] [place] [address] Luz Elena Walker MD [address] [place] [phone] [email or web address] documented as of this encounter Visit Diagnoses Not on filedocumented in this encounter Care Teams Electronic Specialist Relationship Specialty Start Date End Date Leilani Gale MD [address] [place] [address] [place] [address] PCP - General Family Medicine 09/16/24 Kamron Corrales MD [address] [place] [phone] Vascular Surgery 09/16/24 Cedric Perez MD [address] [place] [address] [place] [address] Pulmonary Disease 09/16/24 Ron Otoole DO [address] [place] [address] [place] [address] Physical Medicine and Rehabilitation 09/16/24 documented as of this encounter Additional Source Comments The information contained in this document represents components of the legal health record. It is not the complete legal health record.[facility]
--- OUTSIDE RECORDS SUMMARY | 2025-08-13 12:33 | XMS_ITS | Encounter Summary ---
Author Organization [facility] Address [address] [place] [address] Care Team Providers Care Mayonnaise Mixer Name Role Phone Community, Pcp Primary Care Provider Harish Winters MD, PHD Unavailable Unava ilable Encounter Details Date Type Department Care Team Description 11/10/2021 Release of Information Medical Records [address] [place] [id number] Abstract, Provider Social History Tobacco Use Types [...] on filedocumented in this encounter Care Teams Mayonnaise Mixer Relationship Specialty Start Date End Date Community, Pcp PCP - General Internal Medicine 11/09/21 Harish Palomo MD, PHD Specialist Neurosurgery 11/09/21 documented as of this encounter
--- OUTSIDE RECORDS SUMMARY | 2025-08-13 12:33 | XMS_ITS | Encounter Summary ---
Author Organization [facility] Address [address] [place] [address] Care Team Providers Care Employment Director Name Role Phone Bette Garay DO Primary Care Pro vider Unavailable Community, Pcp Primary Care Provider Harish Winters MD, PHD Unavailable Unava ilable Encounter Details Date Type Department Care Team Description 10/23/2018 Transfer Records Medical Records [address] [place] [id number] Jarrell Aldrich Social History Tobacco Use Types [...] on filedocumented in this encounter Care Teams Employment Director Relationship Specialty Start Date End Date Bette Garay DO PCP - General Internal Medicine 02/27/14 06/06/21 [facility], Pcp PCP - General Internal Medicine 11/09/21 Harish Palomo MD, PHD Specialist Neurosurgery 11/09/21 documented as of this encounter
== END 2025-08-12 15:11 | disposition home or self-care (01) ==
LOC: HO.RHES 14:38
PROVIDERS: PCP General Practice; Visit Provider Student in an Organized Health Care Education/Training Program
DX: M45.A Non-radiographic axial spondyloarthritis (principal); Z51.81 Encounter for therapeutic drug level monitoring; Z79.620 Long term (current) use of immunosuppressive biologic
CPT/HCPCS: 99214; G2211

== ENCOUNTER 2025-08-12 14:37 | Outpatient (REF) | payer OTHER, SELFPAY ==
[2025-08-12 18:03] LABS: MANUAL DIFF FLAG NO
[2025-08-12 18:22] LABS: Hematocrit 39.9 % (37.0-47.0); Hemoglobin 13.5 g/dl (12.0-16.0); Imm Gran Abs Auto 0.01 X10*3/uL (0.00-0.03); Imm Gran Pct Auto 0.1 % (0.0-0.4); Lymphocytes Absolute Auto 1.9 X10*3/uL (1.2-4.9); Mean Corpuscular HGB Conc 33.8 g/dl (31.0-35.0); Mean Corpuscular Hemoglobin 31.1 pg (27.0-33.0); Mean Corpuscular Volume 91.9 fL (80.0-98.0); NRBC Abs Auto 0.000 X10*3/uL (0.0-0.012); NRBC Pct Auto 0.0 /100WBC (0.0-0.2); Platelet Count 304 X10*3/uL (160-400); Red Blood Count 4.34 X10*6/uL (4.20-5.50); White Blood Count 9.0 X10*3/uL (4.8-10.8)
[2025-08-12 18:44] LABS: Alanine Aminotransferase 25 U/L (0-31); Albumin Level 4.3 g/dL (3.5-5.0); Alkaline Phosphatase 60 U/L (39-117); Anion Gap 13 (12-20); Aspartate Amino Transferase 21 U/L (5-31); Blood Urea Nitrogen 19 mg/dL (9-16); Calcium 9.0 mg/dL (8.4-10.2); Carbon Dioxide 25 mmol/L (22-29); Chloride 105 mmol/L (96-108); Estimated Glomerular Filt Rate > 60; Potassium 3.8 mmol/L (3.3-5.1); Sodium 139 mmol/L (135-145); Total Protein 6.9 g/dL (6.5-8.0)
== END 2025-08-12 14:38 | disposition home or self-care (01) ==
LOC: HO.HKASLDS 14:37
PROVIDERS: PCP General Practice; Visit Provider Student in an Organized Health Care Education/Training Program
DX: M45.A Non-radiographic axial spondyloarthritis (principal); Z51.81 Encounter for therapeutic drug level monitoring; Z79.620 Long term (current) use of immunosuppressive biologic; Z79.899 Other long term (current) drug therapy
CPT/HCPCS: 36415; 80053; 85025; 85652; 86140

== ENCOUNTER 2025-09-02 14:21 | Outpatient (AMB) | payer OTHER, SELFPAY ==
--- OUTSIDE RECORDS SUMMARY | 2024-03-18 05:20 | XMS_ITS ---
Author Organization Total [employer] [facility] Address [address] [address] Care Team Providers Care Correctional Facility Nurse Name Role Phone ERIKA TAVAREZ MD Primary Care Provider Unavail able LIAN HENSON Unavailable [phone] Allergies Allergen (clinical drug ingredient) Drug/Non Drug Allergy documented on EMR Reaction Allergy Type Onset Date Status hydromorphone Dilaudid breathing problems Drug Allergy Active REASON FOR VISIT Annual GLASS LATHE OPERATOR Physical Encounters Encounter Location Date Provider Diagnosis [facility] [employer] [address] [address] 03/18/2024 LIAN HENSON Encounter for gynecological examination [...] Follow Up: 1 Year, Reason: Y early Electric Lift Truck Driver Exam Provider Name:LIAN Celis, 12/25/2025 09:00:00 AM, [address] [place] [address], [address], [place], [address], Progress Notes * ARTURO PALMEROB: 3 (50 yo F)Acc No.[id number]:03/18/2024 PROGRESS NOTES Patient: ASHLEY GLASER Provider: Aj HENSON MD :1975 A ge:48 Y S ex:Female Date:03/18/2024 Address:[address] [place] [address], , [facility] Pcp:ERIKA TAVAREZ MD Subjective: * Chief Complaints: * 1 . Annual GLASS LATHE OPERATOR Physical. 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 She has been in state [...] days/week by . * ROS: A nnual Electric Lift Truck Driver Exam ROS: Bowel habit changes d enies. [...] without perforation or abscess without bleeding. * Electric Lift Truck Driver History: G ravida/ Para 4 /3. S [...] no acute distress, well developed, well nourished, television host present in room. HEAD: n ormocephalic, atraumatic. [...] * Follow Up: 1 Year (Reason: Yearly Electric Lift Truck Driver Exam) * Images: Billing Information: * Visit Code: 16823 Preventive Care Est Pt. Age 40-64. * Procedure Codes: * Electronic signature of LIAN HENSON MD on 09/02/2025 at 08:18 PM EST Sign off status: Pending * Provider: Aj HENSON MD Date: 0 03/18/2024 Generated for Madhu gray/Luis/Donaldo on: 1 11/03/2024 08:18 PM EST History and Physical Notes * HPI (History of Present Illness) Category Sub-Category Detail Notes Category Not es Constitutional Ashley is a 48yo with LMP x/x/x who presents for her yearly online communications manager exam. She has been in state [...] General Examination GENERAL APPEARANCE: in no ac [place] distress, well developed, well nourished, television host present in room HEAD: normocephalic, atrau matic [...]
--- OUTSIDE RECORDS SUMMARY | 2024-03-18 05:20 | XMS_ITS ---
Author Organization Total [employer] [facility] Address 46 [facility] [address] [place] [address] Care Team Providers Care Grievance And Appeals Specialist Name Role Phone DAYSI ALATORRE, ERIKA Primary Care Provider Unavail LIAN Steven Unavailable [phone] REASON FOR VISIT Annual ASPHALT RAKER Physical Encounters Encounter Location Date Provider Diagnosis [facility] [employer] [address] [place] [address] [address] [place] [address] 03/18/2024 LIAN HENSON Plan Of Treatment Next Appt Details Provider Name:LIAN Celis, 12/25/2025 09:00:00 AM, [address] [place] [address], [address], [place], [address], Progress Notes * ARTURO PALMEROB: 3 (50 yo F)Acc No.[id number]:03/18/2024 PROGRESS NOTES Patient: ENRIQUE GLASER Provider: Aj HENSON MD :1975 A ge:48 Y S ex:Female Date:03/18/2024 Address:[address] [place] [address], , [facility] Pcp:ERIKA TAVAREZ MD Subjective: * Chief Complaints: * 1 . Annual ASPHALT RAKER Physical. * Medical History: Objective: * Vitals: Assessment: Plan: * Treatment: * Images: Billing Information: * Visit Code: * Procedure Codes: * Electronic signature of LIAN HENSON MD on 09/02/2025 at 08:19 PM EST Sign off status: Pending * Provider: Aj HENSON MD Date: 03/18/2024 Generated for Madhu gray/Luis/Donaldo on: 1 11/03/2024 08:19 PM EST
--- OUTSIDE RECORDS SUMMARY | 2024-04-09 09:20 | XMS_ITS ---
Author Organization Total [employer] [facility] Address [address] [address] Care Team Providers Care Air Pollution Specialist Name Role Phone ERIKA TAVAREZ MD Primary Care Provider Unavail able LIAN HENSON Unavailable [phone] Allergies Allergen (clinical drug ingredient) Drug/Non Drug Allergy documented on EMR Reaction Allergy Type Onset Date Status hydromorphone Dilaudid breathing problems Drug Allergy Active REASON FOR VISIT Annual ART EDUCATION PROFESSOR Physical Encounters Encounter Location Date Provider Diagnosis [facility] [employer] [address] [address] 04/09/2024 LIAN HENSON Encounter for gynecological examination (general) (routine) without abnormal findings Z01.419 ; Encounter for screening mammogram for malignant neoplasm of breast Z12.31 and Encounter for screening for infections with a predominantly sexual mode of transmission Z11.3 Assessments Encounter Date Diagnosis (ICD Code) Assessment Notes Treatment Notes Treatment Clinical Notes Section Notes 04/09/2024 Encounter for gynecological examination (general) (routine) without [...] to keep colon screening up to date. 04/09/2024 Encounter for screening mammogram for malignant neoplasm of breast (ICD-10 - Z12.31) 04/09/2024 Encounter for screening for infections with a [...] Follow Up: 1 Year, Reason: Y early Smash Fixer Exam Provider Name:LIAN Celis, 12/25/2025 09:00:00 AM, [address] [place] [address], [address], [place], [address], Progress Notes * ARTURO PALMEROB: 3 (50 yo F)Acc No.[id number]:04/09/2024 PROGRESS NOTES Patient: ASHLEY GLASER Provider: Aj HENSON MD :1975 A ge:48 Y S ex:Female Date:04/09/2024 Address:[address] [place] [address], , [facility] Pcp:ERIKA TAVAREZ MD Subjective: * Chief Complaints: * 1 . Annual ART EDUCATION PROFESSOR Physical. 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 She has been in state of [...] days/week by . * ROS: A nnual Smash Fixer Exam ROS: Bowel habit changes d enies. [...] without perforation or abscess without bleeding. * Smash Fixer History: G ravida/ Para 4 /3. S [...] no acute distress, well developed, well nourished, web press jogger present in room. HEAD: n ormocephalic, atraumatic. [...] * Follow Up: 1 Year (Reason: Yearly Smash Fixer Exam) * Images: Billing Information: * Visit Code: 28410 Preventive Care Est Pt. Age 40-64. * Procedure Codes: * Electronic signature of LIAN HENSON MD on 09/02/2025 at 08:19 PM EST Sign off status: Pending * Provider: Aj HENSON MD Date: 0 04/09/2024 Generated for Madhu gray/Luis/Donaldo on: 1 11/03/2024 08:19 PM EST History and Physical Notes * HPI (History of Present Illness) Category Sub-Category Detail Notes Category Not es Constitutional Ashley is a 48yo with LMP x/x/x who presents for her yearly delinquent notice machine operator exam. She has been in state of [...] ac [place] distress, well developed, well nourished, web press jogger present in room HEAD: normocephalic, atrau matic [...]
[2025-09-02 14:30] VITALS: BMI 40.9
--- NOTE | 2025-09-02 14:30 | MHC.OFFVIS ---
Vital Signs 09/02/25 14:30 Height 5 ft 5 in Weight 246 lb BMI 40.9 Intake Visit Reasons: Preop LT CTR 09/08/25 AR Intake Note: Ashley is a 50 year old right hand dominant female who presents today pre-operatively for discussion of their Left Carpal Tunnel Release scheduled for 09/08/[address] Lewis. Patient reports she has been holding her Simponi. Consents signed in office today. Allergies hydromorphone (From DILAUDID) Allergy (Unknown, Verified 09/02/25 14:30) SHORTNESS OF BREATH HPI HPI Preop LT CTR 09/08/25 AR: Details: Ashley is a 50 year old right hand dominant female who presents today pre-operatively for discussion of their Left Carpal Tunnel Release scheduled for 09/08/[address] Lewis. Patient reports she has been holding her Simponi for previous melanoma excision, and plans to continue holding until after carpal tunnel release. Denies any new medical diagnoses aside from melanoma, or any new medications. Patient reports she has not been placed on any chemotherapy agents or radiation regimens. Consents signed in office today. [facility] Medical History (Updated 08/12/25 @ 15:04 by Cecilia Lamas MD) Long-term current use of immunosuppressive biologic agent RUTH (obstructive sleep apnea) Pneumonia Asthma History of abnormal uterine bleeding Hx of fracture of ankle Migraines Anxiety High cholesterol Asthma Surgical History Hx of colonoscopy Hx of left breast biopsy Hx of section Family History Mother Pre-diabetes Father Prostate CA Daughter Non-radiographic axial spondyloarthritis Daughter Matt thyroiditis Social History (Updated 08/12/25 @ 14:45 by STEVEN Carbone) Household Members: Family Alcohol intake: current Alcohol intake frequency: holidays/special occasions only Alcohol type: wine Patient Tobacco Use Status: Never used Tobacco 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, 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 Review of Systems Const All systems reviewed & are unremarkable except as noted in HPI and below Physical Exam Vital Signs: BMI result Body Mass Index 40.9 Const General: cooperative, healthy appearing and no acute distress Orientation/consciousness: patient oriented x3 HEENT Head: Yes normocephalic and Yes atraumatic Eyes EOM: EOMs intact bilaterally Resp Effort & Inspection: normal respiratory effort and able to speak in complete sentences Cardio Jugular venous distension: no JVD Skin General skin exam: turgor normal Rashes: no rashes Neuro General: patient oriented x3 Extrem Other: Evaluation of Left Upper Extremity: The patient is alert, oriented, and in no acute distress Neuro: No thenar or intrinsic wasting Good APB muscle belly firing and good finger cross Vascular: Cap refill brisk ROM: She can make a fist and extend all her digits Nerve Conduction Study IMPRESSION: 1. This is an abnormal study. 2. There is electrodiagnostic evidence for right moderate-severe median neuropathy at the wrist, consistent with carpal tunnel syndrome. 3. There is no electrodiagnostic evidence for ulnar neuropathy, brachial plexopathy, or cervical radiculopathy. 4. There is electrodiagnostic evidence for left median neuropathy at the wrist. Kalyani Carl MD, JONATHAN 06/30/23 Psych Appearance: grossly normal Affect: normal affect Attitude: cooperative Assessment & Plan Assessment & Plan (1) Carpal tunnel syndrome of left wrist: Code(s): G56.02 - Carpal tunnel syndrome, left upper limb Category: Medical (2) Long-term current use of immunosuppressive biologic agent: Code(s): Z79.620 - intermediate frame tender (current) use of immunosuppressive biologic Category: Medical (3) Bilateral wrist pain: Code(s): M25.531 - Pain in right wrist; M25.532 - Pain in left wrist Category: Medical Plan Assessment & Plan: 1. Left carpal tunnel syndrome, mild Symptoms intermittent, but daily, worse at night I educated her about this condition I discussed operative and non-operative treatment options The patient would like to proceed with surgery The risks and benefits of operative treatment were discussed with the patient and the patient wishes to proceed with surgery. These risks include, but are not limited to risk of damage to blood vessels, nerves, tendons, infection, recurrence, incomplete relief of preoperative symptoms, persistent pain, possible need for further surgery and the risks associated with regional blocks and anesthesia. The plan is to take the patient to the operating room sometime in the next few weeks for the following procedures: 1. Left carpal tunnel release, under local All of the preoperative paperwork including the consent was reviewed today. All the patient's questions were answered. The patient understands that they will be contacted by our production recorder soon to schedule this procedure She denies Diabetes, blood thinners, asthma, heart, lung, kidney issues Simponi will continue to be held until after surgery 2. Bilateral wrist pain, L>R Perhaps secondary to Ankylosing Spondylitis She will follow up to discuss this when she has recovered from surgery. Radiographs of her wrists required at her follow-up appointment for htis 3. Right carpal tunnel syndrome, S/P release DOS: 01/22/24 Pre-operatively with dense numbness, worse with activities Now with normal sensation and good resolution of her nighttime symptoms Doing well, no complaints Coding Level of Care Code Est Pt Level 4 (09495) Diagnoses Carpal tunnel syndrome of left wrist G56.02 Long-term current use of immunosuppressive biologic agent Z79.620 Bilateral wrist pain M25.531; M25.532
--- OUTSIDE RECORDS SUMMARY | 2025-09-02 20:19 | XMS_ITS | Encounter Summary ---
Author Organization [facility] Address [address] [place] [address] Phone Care Team Providers Care Dishwasher Preparer Name Role Phone Kamron Corrales MD Unavailable Cedric Perez MD Unavailable Leilani Gale MD Primary Care Provider + Ron Otoole DO Unavailable [phone] Encounter Details Date Type Department Care Team (Late st Contact Info) Description 09/24/2024 Procedure Pass [facility] Endoscopy Admitting Dept Virtual Department [address] [place] [address] Social History Tobacco Use Types Packs/Day Years [...] 2:40 PM EST Office Visit [facility] [address] [place] [address] [place] [address] Luz Elena Walker MD [address] [place] [address] [email or web address] documented as of this encounter Visit Diagnoses Not on filedocumented in this encounter Care Teams Dishwasher Preparer Relationship Specialty Start Date End Date Leilani Gale MD [address] [place] [address] [place] [address] PCP - General Family Medicine 09/16/24 Kamron Corrales MD [address] [place] [address] Vascular Surgery 09/16/24 Cedric Perez MD [address] [place] [address] [place] [address] Pulmonary Disease 09/16/24 Ron Otoole DO [address] [place] [address] [place] [address] Physical Medicine and Rehabilitation 09/16/24 documented as of this encounter Additional Source Comments The information contained in this document represents components of the legal health record. It is not the complete legal health record.[facility]
--- OUTSIDE RECORDS SUMMARY | 2025-09-02 20:19 | XMS_ITS | Clinical Summary ---
Author Organization [facility] Address [address] [place] [address] Phone Care Team Providers Care Pad Machine Offbearer Name Role Phone Kamron Corrales MD Unavailable Cedric Perez MD Unavailable Leilani Gale MD Primary Care Provider + Ron Otoole DO Unavailable [phone] Allergies Active Allergy Reactions Criticality Noted Date [...] year ago and has follow-up with her director of regulatory affairs, Dr. Perez. She seems clinically euthyroid. TSH [...] AM EST Office Visit [facility] [address] [place] [address] Luz Elena Walker MD Nontoxic multinodular goiter (Primary Dx) 07/02/2025 5:06 PM EDT - 07/02/2025 11:59 PM EDT Hospital Encounter [facility] - [address] [address] Luz Elena Walker MD Discharge Disposition: Home [...] 2:40 PM EST Office Visit [facility] [address] [place] [address] [place] [address] Luz Elena Walker MD [address] [place] [address] [email or web address] Health Maintenance Due Date Last Done Comments [...] this topic Medical Devices Implanted Type Area Nurse Practitioner Adult Device Identifier Shelf Expiration Date Model / [...] (0 pts) Echogenicity: Hypoechoic (2 pts) Shape: Uqxxp-ugxa-kuiz (0) Margins: Smooth (0 pts) Echogenic Foci: [...] (1 pt) Echogenicity: Hypoechoic (2 pts) Shape: Bzsca-vlwu-xwnd (0) Margins: Smooth (0 pts) Echogenic Foci: [...] (0 pts) Echogenicity: Hypoechoic (2 pts) Shape: Wjaax-nbji-hwsd (0) Margins: Smooth (0 pts) Echogenic Foci: [...] (1 pt) Echogenicity: Hypoechoic (2 pts) Shape: Sqfti-bilt-krcv (0) Margins: Smooth (0 pts) Echogenic Foci: [...] withbiopsy results. us Luz Elena Walker MD [facility] US THYROID Final Result * ENDOSCOPY, COLON (09/24/2024 9:16 AM EST) Narrative Transcriptions Tio Logan MD - 09/24/2024 9:16 AM EST [facility] Patient Name: Ashley Magdaleno Attending MD:: TIO LOGAN MD, , Procedure Date: 09/24/2024 9:16 AM Date of : 1975 Age: 49 Admit Type: Outpatient Gender: Female Room: [facility] 04 Referring MD: Leilani Gale Exam Type: [...] 9:16 AM Procedure Code(s): --- Professional --- 26512, Colonoscopy, flexible; diagnostic, including collection of specimen(s) by brushing or washing, when performed (separateprocedure) --- Technical --- 05292, Colonoscopy, flexible; diagnostic, including collection of specimen(s) [...] or abscess without bleeding CPT copyright 2021 [employer]. All rights reserved. The codes documented in this report are preliminary and upon yard caller reviewmay be revised to meet current compliance requirements. Procedure Date: 09/24/2024 9:16:01 AM [address] [place] [address] Leilani Gale MD GI PROCEDURE ORDERABLES Final Result from Last 3 Months or Most Recently Relevant to Health Maintenance [facility] ON LICENSE OF [facility] ON LICENSE OF [facility] ON LICENSE OF [facility] Care Teams Pad Machine Offbearer Relationship Specialty Start Date End Date Leilani Gale MD [address] [place] [address] [place] [address] PCP - General Family Medicine 09/16/24 Kamron Corrales MD [address] [place] [address] Vascular Surgery 09/16/24 Cedric Perez MD [address] [place] [address] [place] [address] Pulmonary Disease 09/16/24 Ron Otoole DO [address] [place] [address] [place] [address] Physical Medicine and Rehabilitation 09/16/24 Additional Source Comments The information contained in this document represents components of the legal health record. It is not the complete legal health record.[facility]
--- OUTSIDE RECORDS SUMMARY | 2025-09-02 20:19 | XMS_ITS | Patient Health Record ---
Author Organization [facility] Address [address] [place] [address] Care Team Providers Care Salesperson Pianos And Organs Name Role Phone ERIKA TAVAREZ MD Primary Care Provider Unavail able LIAN HENSON Unavailable [phone] Allergies Allergen (clinical drug ingredient) Drug/Non Drug Allergy documented on EMR Reaction Allergy Type Onset Date Status hydromorphone Dilaudid breathing problems Drug Allergy Active Results Component Value Reference Range Notes PDF Report Reviewed date:12/26/2024 04:19:27 PM Interpretation: Performing Lab:[facility] [place], [address], [address], [place], Phone - [phone], Director - [facility] Notes/Report: Clinical Information:VAG/CERV [id number] LMP / Prev Treat...ZFK=[id number] Dates / Results....11/14/2019 No. of containers..01 ThinPrep Vial Test, Urine Reviewed date:01/10/2025 11:31:35 AM Interpretation: Performing Lab: Notes/Report: Test, Urine NEG SURGICAL PATHOLOGY Reviewed date:01/21/2025 02:27:49 PM Interpretation: Performing Lab:Testing performed or reported by [facility], a Service of [facility], [address] [place] [address] Fidel Locke MD, On Site Coordinator RAMESH# [id number] Notes/Report: Patient Name: ENRIQUE PALMER Lab Patient : 1975 (Age: 49) Collection Date: 01/10/2025 Accession Date: 01/10/2025 Sign Out Date: 01/19/2025 Tissue Source: 1:EMB Final Diagnosis: Endometrium, biopsy: - Weakly proliferative endometrium with stromal breakdown. A. Tubal (ciliated) epithelial change present (estrogen effect). Primary Pathologist:Dianelys Luo M.D.,Ph.D. electronically signed out by: Dianelys Luo M.D.,Ph.D. / [facility] Clinical History: Abnormal uterine and vaginal bleeding Gross Description: Labeled endometrial biopsy . Received in formalin is a 2.6 x 2.5 x 0.6 cm aggregate of translucent mucus with red, lott tissue. The specimen is entirely submitted. 1 and 2-multiple pieces, x 2. (EG)* As of December 02, 2023, the specimen processing and staining is performed at [facility], [address] [place] [address] (CLIA#[id number]). Its performance characteristics determined by [employer]. Dm Read M.D. On Site Coordinator of Surgical Pathology, Kendrick Flores M.D. On Site Coordinator Cytopathology Phone #: [phone], On-Call Pathologist: [id number] Chlamydia/GC Amplification Reviewed date:01/21/2025 03:06:46 PM Interpretation: Performing Lab:[facility] [place], [address] [place] [address], [address], [facility], Phone - [phone], Director - [facility] Notes/Report: Clinical Information:SRC: URINE Chlamydia trachomatis, DAISHA Negative Negative Neisseria gonorrhoeae, DAISHA Negative Negative PDF Report Reviewed date:01/21/2025 03:33:41 PM Interpretation: Performing Lab:[facility] [place], [address] [address], [place] [address], [place], Phone - [phone], Director - [facility] Notes/Report: Clinical Information:SRC: URINE 370855-Rtt IGP No Culture 30 Plus Reviewed date:12/26/2024 04:19:08 PM Interpretation: Performing Lab:[facility] [place], [employer] [address], [address], [facility], Phone - [phone], Director - [facility] Notes/Report: Clinical Information:VAG/CERV [id number] LMP / Prev Treat...CWK=[id number] Dates / Results....11/14/2019 No. of containers..01 ThinPrep Vial DIAGNOSIS: NEGATIVE FOR INTRAEPITHELIAL LESION OR MALIGNANCY. Specimen adequacy: Satisfactory for evaluation. Endocervical and/or squamous metaplastic cells (endocervical component) are present. Clinician provided ICD10: Z01.419 Performed by: Sushil Ramirez , Funeral Director And Embalmer ([facility]) . . Note: The Pap [...] Status Risk Notes Problem Diverticulitis of colon (902801735) Diverticulitis of intestine, part unspecified, without perforation or abscess without bleeding (K57.92) Active confirmed Problem Disorder of breast (67054543) Disorder of breast, unspecified (N64.9) Active confirmed Problem Abnormal uterine bleeding (25899110691429) Abnormal uterine and vaginal bleeding, unspecified (N93.9) Active confirmed Problem Asthma (disorder) (038680729) Asthma, unspecified, unspecified status (493.90) Active confirmed Major Vital Signs Temperature 98.0 degrees Fahrenheit 01/20/2025 Blood pressure diastolic 82 mm Hg 01/20/2025 Height 65 in 01/20/2025 Blood pressure systolic 122 mm Hg 01/20/2025 Weight 236 lbs 01/20/2025 BMI 39.27 kg/m2 01/20/2025 Encounters Encounter Location Date Provider Diagnosis [address] [address] 12/23/2024 LIAN HENSON Encounter for gynecological examination (general) (routine) without abnormal findings Z01.419 ; Encounter for screening mammogram for malignant neoplasm of breast Z12.31 and Abnormal uterine and vaginal bleeding, unspecified N93.[address] [address] 01/10/2025 LIAN HENSON Abnormal uterine and vaginal bleeding, unspecified N93.[address] [address] 01/20/2025 LIAN HENSON Abnormal uterine and vaginal bleeding, unspecified N93.9 and High risk heterosexual behavior Z72.[address] [address] 01/20/2025 LIAN HENSON Assessments Encounter Date Diagnosis [...] as alternative hormone strategies. She saw her Mower Sharpener recently, who recommended against any hormones due [...] partner during intercourse from strings, heavier or metal finisher menses, expulsion of IUD, uterine perforation [...] MM Digital Screening Mammogram 3D 2021 Chlamydia/GC Amplification-[id number] 2024 Next Appt Details Provider Name:LIAN FORDE Lalita, 12/25/2025 09:00:00 AM, [address], [address], [place], [address], Insurance Providers Payer Name Payer Address Payer Phone Subscriber Number Group Number Insured Name Patient Relationship to Insured Coverage Start Date Coverage End Date [facility] [address] [place] [address] [id number] ENRIQUE PALMER Self - patient is the [...]
--- OUTSIDE RECORDS SUMMARY | 2025-09-02 20:19 | XMS_ITS | Patient Health Record ---
Author Organization [facility] Address [address] [place] [address] Care Team Providers Care Cyber Software Engineer Name Role Phone Nandini Shore Primary Care Provider Addis Scott Unavailable [phone] Allergies Allergen (clinical drug ingredient) Drug/Non Drug [...] Treatment Pending Test Test Name Order Date [id number]-Flsi Destruction, -01/16/2017 71780-Ltrn Destruction, -14 02/06/2017 35520-Mmfc Destruction, -14 03/22/2017 75492-Ksbebmzw Plate 01/16/2017 29590- Debride <25 sq cm 02/06/2017 Next Appt Details Provider Name:Addis willis, 10/16/2025 10:30:00 AM, [address] [facility], [place], [address], Insurance Providers Payer Name Payer Address Payer Phone Subscriber Number Group Number Insured Name Patient Relationship to Insured Coverage Start Date Coverage End Date [facility] [address] [place] [address] [id number] Ashley Magdaleno Self - patient is the insured Medical (General) History Medical History History ICD Code Anxiety asthma Chicken pox Migraines Sciatica Back,Hip,and Knee pain Broken bones Cholesterol Cataracts Headaches/Migraines Neuropathy chronic sinusitis Joint implants/screws Surgical History Surgery Date(Month/Year) Uterine Ablation 2014 Intraductal Papiloma Removal 2012 section 1995 breast biopsy 12/2019 ankle surgery L 10/2018 ankle ORIF L 07/2018
--- OUTSIDE RECORDS SUMMARY | 2025-09-02 20:19 | XMS_ITS ---
Author Name Humble Broderick Address Unknown Organization [facility] Care Team Providers Care Clinic Charge Nurse Name Role Phone Unavailable Primary Care Physician Unavailab le History Of Present Illness This is a 50 year old female who is following up for superficial spreading melanoma on the right anterior proximal thigh. She was seen on July 25, 2025, at which time consultation excision was performed. We decided on the following plan: Melanoma Wide Local Excision.The patient presents for excision. Allergies, Adverse Reactions, Alerts Substance RxNorm Reaction(s) Severity Status Start Da te Dilaudid Anaphylaxis unspecified active Medications Medication Generic Name RxNorm Strength Strength Unit Route Dose Dose Form Frequency Date Started Date Ended Status Indication Sig mupirocin mupiroci n 633059 2 % Topica l ointm ent 08/07/20 25 active Appl y thin laye r to woun d on butt ock once nel y unti l heal ed albuterol sulfate 4847571 90 mcg/actua tion Inhala tion 1 HFA Aeros ol Inhal er PRN active fluticasone propion-dontae meterol 3743424 250-50 mcg/dose Inhala tion 1 Blist er, With Inhal ation Devic e PRN suspend ed Symbicort 0096095 160-4.5 mcg/actua tion Inhala tion 1 HFA Aeros ol Inhal er PRN active atorvastati n 582892 10 mg Oral 1 table t QD active cetirizine 2757204 10 mg Oral 1 table t QD active citalopram 20030325 20 mg Oral 1 table t QD active cyclobenzap rine 554546 5 mg Oral 1 table t QD active montelukast 20011029 10 mg Oral 1 tabl e t QD active oxycodone 8658633 10 mg Oral 1 table t QD active zolpidem 464950 10 mg Oral 1 table t QD active Simponi 0865670 50 mg/0.5 mL Subcut aneous 1 Pen Injec tor every 4 weeks active Problems Problem Code Type Status Date of Diagnosis Da te of Resolution Malignant melanoma of lower limb (disorder) 397876328(SN OMED) Diagnosis active 07/25/2025 Anxiety disorder (disorder) 824020716(SN OMED) Problem active Asthma (disorder) 752459640(SN OMED) Problem active History of clinical finding in subject (situation) 309423771(SN OMED) Problem active Malignant melanoma (disorder) 438190506(SN OMED) Problem active Epidermoid cyst of skin (disorder) 642513016(SN OMED) Diagnosis active 08/07/2025 Malignant melanoma of lower limb (disorder) 596054897(SN OMED) Diagnosis active 07/29/2025 Melanocytic nevus of left upper limb (disorder) 050139060449 103(SNOMED) Diagnosis active 07/29/2025 Melanocytic nevus of trunk (disorder) 703783939(SN OMED) Diagnosis active 07/29/2025 Disorder of pigmentation (disorder) 456041494(SN OMED) Diagnosis active 07/29/2025 Disorder of pigmentation (disorder) 739965942(SN OMED) Diagnosis active 07/29/2025 Seborrheic keratosis (disorder) 774426421(SN OMED) Diagnosis active 07/29/2025 Benign neoplasm of skin of trunk (disorder) 66845020(SNO MED) Diagnosis active 07/29/2025 Benign neoplasm of skin of face (disorder) 46607895(SNO MED) Diagnosis active 07/29/2025 Malignant melanoma of lower limb (disorder) 118520551(SN OMED) Diagnosis active 08/28/2025 Results No data Encounters Service provided at [address], [address], [place], [place] [id number]. Office phonenumber is [phone]. Office fax number is [phone]. Encounter Diagnosis Location Date / Time Type Disc harge Status Superficial Spreading Melanoma (C43.71) [facility] 08/28/2025 17:45:00 UTC NI Reason For Referral No data Procedures Procedure Date Excision (procedure) 08/28/2025 12:00 am UTC Incision and drainage of skin (procedure ) 08/07/2025 12:00 am UTC Documentation of current medications (pr ocedure) 08/02/2025 12:00 am UTC Documentation of past medical history (p rocedure) Documentation of past medical history (p rocedure) Documentation of past medical history (p rocedure) Documentation of past medical history (p rocedure) Documentation of past medica l history (procedure) 1996Ankle surgery 2018Breast surgery Review Of Systems Provider reviewed on Aug 28, 2025.A focused review of systems was performed including Allergic / Immunologic, Cardiovascular, Constitutional / Symptom, Hematologic / Lymphatic, Integumentary, Neurological, Psychiatric, and Respiratory.No Problems With Healing, No Problems With Scarring (hypertrophic Or Keloid), No Problems With Bleeding, No Immunosuppression, No Chest Pain, No Fever Or Chills, NoHeadaches, No Seizures, No Shortness Of Breath, No Anxiety, And No Depression. Assessment 1.Superficial Spreading Melanoma, Status: Inadequately ControlledExcision: right posterior lateral distal thigh; Size of Lesion in cm - 0.9; x Size of Lesion in cm - 0.7; Size of Margin in cm - 1; Excision Method - Elliptical; Repair Type - Complex; Intermediate / Complex Repair - Final Wound Length in cm - 7.1; Primary Defect Length (in cm) - 2.9; Primary Defect Width (in cm) - 2.7. Plan of Care Future visit for 09/18/2025 - Follow up in 3 weeks for: Suture Removal. Other Instructions: 09/19/25. Other Instructions: 09/19/25. Code Detail Instructions 131280 mupirocin 2 % topical ointment A pply thin layer to wound on buttock once daily until healed Instructions No Data Social History Code Activity Start Date End Date 103267527 (SNOMED) Never smoker Sex Female Sexual orientation Don't Know Gender identity Unspecified Vital Signs Vital Sign Measurement Date Recorded Heart Rate 87 /min MonAug 28 18:43 :02 [facility] 2024 Systolic Blood Pressure 122 mm[Hg] MonAug 28 18:43:02 [facility] 2024 Diastolic Blood Pressure 64 mm[Hg] MonAug 28 18:43:02 [facility] 2024 Insurances Coverage Status Coverage Type Relationship to Subscriber Member Identifier Subscriber Identifier Group Identifier Payer Identifier Active Self [id number]
== END 2025-09-02 14:39 | disposition home or self-care (01) ==
LOC: HO.HOS 14:22
PROVIDERS: PCP General Practice
DX: G56.02 Carpal tunnel syndrome, left upper limb (principal); Z79.620 Long term (current) use of immunosuppressive biologic; M25.531 Pain in right wrist; M25.532 Pain in left wrist
CPT/HCPCS: 99024

== ENCOUNTER 2025-09-08 06:36 | Day surgery (SDC) | payer OTHER, SELFPAY ==
--- OUTSIDE RECORDS SUMMARY | 2024-02-29 06:00 | XMS_ITS ---
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 Encounters Encounter Location Date Provider Diagnosis [facility] [address] [place] [phone] 02/29/2024 LIAN HENSON Encounter for gynecological examination (general) (routine) without abnormal findings Z01.419 ; Encounter for screening mammogram for malignant neoplasm of breast Z12.31 and Encounter for screening for infections with a predominantly sexual mode of transmission Z11.3 Assessments Encounter Date Diagnosis (ICD Code) Assessment Notes Treatment Notes Treatment Clinical Notes Section Notes 02/29/2024 Encounter for gynecological examination (general) (routine) without abnormal findings (ICD-10 - Z01.419) During the visit, the following areas of concern were addressed: Discussed cervical cancer screening with either cytology alone every 3 years or high risk HPV co-testing every 5 years as per ASCCP guidelines. Advised continued annual pelvic exams. Patient encouraged to increase her level of exercise. SBE technique encouraged/tau ght. Patient reminded when annual mammogram is due. Patient encouraged to keep colon screening up to date. 02/29/2024 Encounter for screening mammogram for malignant neoplasm of breast (ICD-10 - Z12.31) 02/29/2024 Encounter for screening for infections with a predominantly sexual mode of transmission (ICD-10 - Z11.3) Plan Of Treatment Treatment Notes Assessment Notes Encounter for gynecological examination (general) (routine) without abnormal findings During the visit, the following areas of concern were addressed: Discussed cervical cancer screening with either cytology alone every 3 years or high risk HPV co-testing every 5 years as per ASCCP guidelines. Advised continued annual pelvic exams. Patient encouraged to increase her level of exercise. SBE technique encouraged/taught. Patient reminded when annual mammogram is due. Patient encouraged to keep colon screening up to date. Pending Test Test Name Order Date MM Digital Screening Mammogram 3D 2023 Next Appt Details Follow Up: 1 Year, Reason: Y early Line Fisher Exam Provider Name:LIAN Celis, 12/25/2025 09:00:00 AM, [address], [address], [place], [address], Progress Notes * ARTURO PALMEROB: 3 (49 yo F)Acc No.[id number]:02/29/2024 PROGRESS NOTES Patient: ASHLEY GLASER Provider: Aj HENSON MD :1975 A ge:48 Y S ex:Female Date:02/29/2024 Address:[address] [place] [address], , [facility] Pcp:ERIKA TAVAREZ MD Subjective: * Chief Complaints: * 1 . 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 She has been in state of good health since her last exam. She has the following concerns:. She has received the Moderna Covid-19 vaccine. Relationship status: for years. She is sexually active. Sexual partner(s): male. She does wish to have STI testing. Menses: Contraception: vasectomy She does report vaginal dryness. She does have hot flashes/night sweats. The patient has not had an abnormal pap smear within the last 5 years. Her most recent pap smear was 11/14/2019 - NIL, neg HRHPV. Cotesting due 2024. She has been diagnosed with breast cancer. She does have a family history of breast cancer. Her last mammogram was 10/30/23. She has heterogeneously dense breast tissue, with a Cristela model lifetime risk of 7.1%. No supplemental screening is indicated. She does have a family history of colon cancer. She a has had a colonoscopy. The last colonoscopy was 06/15/22. The patient does exercise. She exercises x days/week by . * ROS: A nnual Line Fisher Exam ROS: Bowel habit changes d enies. B ladder symptoms d enies. V aginal discharge, unusual d enies. V aginal itch or odor d enies. w eight or appetite changes d enies. C hest pains, SOB d enies. d epression d enies.? B reast: Denies B reast lump. D enies N ipple discharge.? H ematology: Denies S wollen glands. S kin: Patient denies c hanging moles. P sychiatric: Denies A nxiety. * Medical History: Objective: * Vitals: * Examination: G eneral Examination: GENERAL APPEARANCE: i n no acute distress, well developed, well nourished, rate analyst present in room. HEAD: n ormocephalic, atraumatic. NECK/THYROID: n mague supple, full range of motion, thyroid normal. LYMPH NODES: n o axillary or supraclavicular adenopathy.? SKIN: normal, good turgor, no rashes, no suspicious lesions. BREASTS: normal, no dimpling, no discharge, no drainage, no masses palpable bilaterally, nontender. ABDOMEN: soft, non-tender, non distended without masses or hepatosplenomegay. RECTAL: normal tone, no masses palpable. BACK: no costovertebral angle tenderness. FEMALE GENITOURINARY: V ulva without lesions or masses, vagina pink without abnormal discharge, lesions or masses, cervix appears normal and is not tender to palpation, uterus is normal size, mobile, nontender and anteverted, ovaries are not palpable. NEUROLOGIC: alert and oriented, gait normal. PSYCH: alert, oriented, cognitive function intact, cooperative with exam, good eye contact, mood/affect full range, speech clear. Assessment: * Assessment: 1. E ncounter for gynecological examination (general) (routine) without abnormal findings - Z01.419 (Primary) 2 . E ncounter for screening mammogram for malignant neoplasm of breast - Z12.31 3 . E ncounter for screening for infections with a predominantly sexual mode of transmission - Z11.3 Plan: * Treatment: 2. E ncounter for screening mammogram for malignant neoplasm of breast I maging: MM Digital Screening Mammogram 3D * Follow Up: 1 Year (Reason: Yearly Line Fisher Exam) * Images: Billing Information: * Visit Code: 94206 Preventive Care Est Pt. Age 40-64. 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 She has been in state of good health since her last exam. She has the following concerns:. She has received the Moderna Covid-19 vaccine. Relationship status: for years. She is sexually active. Sexual partner(s): male. She does wish to have STI testing. Menses: Contraception: vasectomy She does report vaginal dryness. She does have hot flashes/night sweats. The patient has not had an abnormal pap smear within the last 5 years. Her most recent pap smear was 11/14/2019 - NIL, neg HRHPV. Cotesting due 2024. She has been diagnosed with breast cancer. She does have a family history of breast cancer. Her last mammogram was 10/30/23. She has heterogeneously dense breast tissue, with a Cristela model lifetime risk of 7.1%. No supplemental screening is indicated. She does have a family history of colon cancer. She a has had a colonoscopy. The last colonoscopy was 06/15/22. The patient does exercise. She exercises x days/week by . Examination Category Sub-Category Detail Notes Category Not es General Examination GENERAL APPEARANCE: in no ac [place] distress, well developed, well nourished, rate analyst present in room HEAD: normocephalic, atrau matic NECK/THYROID: neck supple, full ra nge of motion, thyroid normal ABDOMEN: soft, non-tender, no n distended without masses or hepatosplenomegay NEUROLOGIC: alert and oriented, gait normal SKIN: normal, good turgor, no rashes, no suspicious lesions BACK: no costovertebral an gle tenderness BREASTS: normal, no dimpling, no discharge, no drainage, no masses palpable bilaterally, nontender LYMPH NODES: no axillary or supra clavicular adenopathy RECTAL: normal tone, no mass es palpable PSYCH: alert, oriented, cog nitive function intact, cooperative with exam, good eye contact, mood/affect full range, speech clear FEMALE GENITOURINARY: Vulva without lesi ons or masses, vagina pink without abnormal discharge, lesions or masses, cervix appears normal and is not tender to palpation, uterus is normal size, mobile, nontender and anteverted, ovaries are not palpable
--- OUTSIDE RECORDS SUMMARY | 2024-03-18 05:20 | XMS_ITS ---
Author Organization Total [employer] [facility] Address [address] [address] Care Team Providers Care Production Aide Name Role Phone ERIKA TAVAREZ MD Primary Care Provider Unavail able LIAN HENSON Unavailable [phone] Allergies Allergen (clinical drug ingredient) Drug/Non Drug Allergy documented on EMR Reaction Allergy Type Onset Date Status hydromorphone Dilaudid breathing problems Drug Allergy Active REASON FOR VISIT Annual DIRECTOR OF PROMOTIONS Physical Encounters Encounter Location Date Provider Diagnosis [facility] [employer] [address] [address] 03/18/2024 LIAN HENSON Encounter for gynecological examination [...] Follow Up: 1 Year, Reason: Y early Label Paster Exam Provider Name:LIAN Celis, 12/25/2025 09:00:00 AM, [address] [place] [address], [address], [place], [address], Progress Notes * ARTURO PALMEROB: 3 (49 yo F)Acc No.[id number]:03/18/2024 PROGRESS NOTES Patient: ASHLEY GLASER Provider: Aj HENSON MD :1975 A ge:48 Y S ex:Female Date:03/18/2024 Address:[address] [place] [address], , [facility] Pcp:ERIKA TAVAREZ MD Subjective: * Chief Complaints: * 1 . Annual DIRECTOR OF PROMOTIONS Physical. 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 She has been in state of [...] has heterogeneously dense breast tissue, with a Cristeal model lifetime risk of 7.1%. No supplemental screening is indicated. She does have a family history of colon cancer. She a has had a colonoscopy. The last colonoscopy was 06/15/22. The patient does exercise. She exercises x days/week by . * ROS: A nnual Label Paster Exam ROS: Bowel habit changes d enies. [...] without perforation or abscess without bleeding. * Label Paster History: G ravida/ Para 4 /3. S [...] no acute distress, well developed, well nourished, assurance manager insurance present in room. HEAD: n ormocephalic, atraumatic. [...] * Follow Up: 1 Year (Reason: Yearly Label Paster Exam) * Images: Billing Information: * Visit Code: 34280 Preventive Care Est Pt. Age 40-64. 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 She has been in state of [...] General Examination GENERAL APPEARANCE: in no ac [place] distress, well developed, well nourished, assurance manager insurance present in room HEAD: normocephalic, atrau matic [...]
--- OUTSIDE RECORDS SUMMARY | 2024-03-18 05:20 | XMS_ITS ---
Author Organization Total [facility] Address 46 [facility] [address] [place] [address] Care Team Providers Care Work Manager Name Role Phone DAYSI ALATORRE, ERIKA Primary Care Provider Unavail LIAN Steven Unavailable [phone] REASON FOR VISIT Annual A[employer] SALES ENGINEER Physical Encounters Encounter Location Date Provider Diagnosis [facility] [employer] [address] [place] [address] [address] [place] [address] 03/18/2024 LIAN HENSON Plan Of Treatment Next Appt Details Provider Name:LIAN Celis, 12/25/2025 09:00:00 AM, [address] [place] [address], [facility] [address], [place], [address], Progress Notes * ARTURO PALMEROB: 3 (49 yo F)Acc No.[id number]:03/18/2024 PROGRESS NOTES Patient: ENRIQUE GLASER Provider: Aj HENSON MD :1975 A ge:48 Y S ex:Female Date:03/18/2024 Address:[address] [place] [address], , [facility] Pcp:ERIKA TAVAREZ MD Subjective: * Chief Complaints: * 1 . Annual AEROS[employer]ACE PRODUCTS SALES ENGINEER Physical. * Medical History: Objective: * Vitals: Assessment: Plan: * Treatment: * Images: Billing Information: * Visit Code: * Procedure Codes: * Electronic signature of LIAN HENSON MD on 08/14/2025 at 12:00 AM EST Sign off status: Pending * Provider: Aj HENSON MD Date: 03/18/2024 Generated for Madhu gray/Luis/Donaldo on: 1 10/14/2024 12:00 AM EST
--- OUTSIDE RECORDS SUMMARY | 2025-08-13 23:59 | XMS_ITS | Encounter Summary ---
Author Organization [employer] Address [address] [address] 7t [place] [address] Care Team Providers Care Travertine Installer Name Role Phone Leilani Gale MD Primary Care Provider [phone] Encounter Details Date Type Department Care Team [...] Description 09/12/2025 11:15 AM EST Office Visit [facility] [address] [place] [address] Quynh Bliss MD [address] [place] [address] documented as of this encounter Procedures Procedure [...] Rate 8 0 - 20 MM/HR [facility] Comment:Patients with polycy themia and many hemoglobin abnormalitiesmay have depressed sed rates whereas patients with anemiamay have elevated sed rates. 08/12/2025 3:30 PM EST 08/12/2025 5:55 PM EST us Generic External Data Provider LAB BLOOD ORDERAB LES Final Result Performing Organization Address City/[facility]/ZIP Co de Phone Number [facility] [address] [place] [phone] * C-reactive Protein (08/12/2025 3:30 PM EST) C Reactive Protein 0.37 < or = 0.50 mg/dL [facility] 08/12/2025 3:30 PM EST 08/12/2025 6:14 PM EST us Generic External Data Provider LAB BLOOD ORDERAB LES Final Result Performing Organization Address [facility] Co de Phone Number [facility] [address] [place] [phone] * (ABNORMAL) Comprehensive Metabolic Panel (08/12/2025 3:30 PM EST) Pathologist [facility] Sodium 139 135 - 145 mmol/L [facility] Potassium 3.8 3.3 - 5.1 mmol/L [facility] Chloride 105 96 - 108 mmol/L [facility] Carbon Dioxide 25 22 - 29 mmol/L [facility] Anion Gap 13 12 - 20 [facility] Urea Nitrogen (BUN) 19(H) 9 - 16 mg/dL [facility] Creatinine, Serum 0.80 0.5 - 1.4 mg/dL [facility] Estimated Glomerular Filt Rate >60 [facility] Comment:Chronic Kidney Disea se: Estimated GFR < 60 mL/min/1.26q1Nrxxcc Kidney Disease: Estimated GFR < 15 mL/min/1.73m2 Glucose 96 60 - 115 mg/dL [facility] Calcium 9.0 8.4 - 10.2 mg/dL [facility] Bilirubin, Total 0.3 0.0 - 1.0 mg/dL [facility] Aspartate Amino Transferase 21 5 - 31 U/L [facility] Alanine Aminotransferase 25 0 - 31 U/L [facility] Total Protein 6.9 6.5 - 8.0 g/dL [facility] Albumin Level 4.3 3.5 - 5.0 g/dL [facility] Alkaline Phosphatase 60 39 - 117 U/L [facility] 08/12/2025 3:30 PM EST 08/12/2025 6:14 PM EST us Generic External Data Provider LAB BLOOD ORDERAB LES Final Result [facility] [address] [place], [place] [phone] * CBC auto differential (08/12/2025 3:30 PM EST) White Blood Count 9.0 4.8 - 10.8 X10*3/uL [facility] Red Blood Count 4.34 4.20 - 5.50 X10*6/uL [facility] Hemoglobin 13.5 12.0 - 16.0 g/dl [facility] Hematocrit 39.9 37.0 - 47.0 % [facility] Mean Corpuscular Volume 91.9 80.0 - 98.0 fL [facility] Mean Corpuscular Hemoglobin 31.1 27.0 - 33.0 pg [facility] Mean Corpuscular HGB Conc 33.8 31.0 - 35.0 g/dl [facility] Red Cell Distribution Width 12.1 11.0 - 16.0 % [facility] Platelet Count 304 160 - 400 X10*3/uL [facility] Mean Platelet Volume 9.8 9.4 - 12.3 fL [facility] Neutrophils Percent Auto 67.5 45 - 73 % [facility] Imm Gran Pct Auto 0.1 0.0 - 0.4 % [facility] Lymphocytes Percent Auto 21.5 20 - 40 % [facility] Monocytes Percent Auto 6.4 2 - 11 % [facility] Eosinophils Percent Auto 3.5 0 - 4 % [facility] Basophils Percent Auto 1.0 0 - 2 % [facility] NRBC Pct Auto 0.0 0.0 - 0.2 /100WBC [facility] Neutrophils Absolute Auto 6.1 2.0 - 8.3 x10*3/uL [facility] Imm Gran Abs Auto 0.01 0.00 - 0.03 X10*3/uL [facility] Lymphocytes Absolute Auto 1.9 1.2 - 4.9 X10*3/uL [facility] Monocytes Absolute Auto 0.6 0.1 - 1.2 X10*3/uL [facility] Eosinophils Absolute Auto 0.3 0.0 - 0.4 X10*3/uL [facility] Basophils Absolute Auto 0.1 0.0 - 0.2 X10*3/uL [facility] NRBC Abs Auto 0.000 0.0 - 0.012 X10*3/uL [facility] 08/12/2025 3:30 PM EST 08/12/2025 5:55 PM EST us Generic External Data Provider LAB BLOOD ORDERAB LES Final Result Performing Organization Address City/State/[facility] Co de Phone Number [facility] [address] [place] [phone] documented in this encounter Visit Diagnoses Not on filedocumented in this encounter Care Teams Travertine Installer Relationship Specialty Start Date End Date Leilani Gale MD [address] [place] [phone] PCP - General Family Medicine 11/02/21 documented as of this encounter
--- OUTSIDE RECORDS SUMMARY | 2025-08-13 23:59 | XMS_ITS | Encounter Summary ---
Author Organization [employer] Address [address] [facility] 7t [place] [address] Care Team Providers Care Director Of Email Marketing Name Role Phone Leilani Gale MD Primary Care Provider [phone] Reason for Referral * Consultation (Routine) - Closed Specialty Diagnoses / Procedures Referred By Contac t Referred To Contact Endocrinology Diagnoses Thyroid nodule greater than or equal to 1.5 cm in diameter incidentally noted on imaging study Leilani Gale MD [address] [place] [address] Phone: tel: fax: [facility] [address] [place] [phone] Phone: tel: fax: Referral ID Status Reason Start Date Expiration Date V isits Requested Visits Authorized [id number] Closed Specialty Services Required 10/08/2024 10/08/2025 1 1 Encounter Details Date Type Department Care Team (Late st Contact Info) Description 10/08/[address] [facility] [address] [place], [place] [phone] Leilani Gale MD [address] [place], [place] [phone] Thyroid nodule greater than or equal to [...] Description 09/12/2025 11:15 AM EST Office Visit [facility] [address] [place] [address] Quynh Bliss MD [address] [place] [address] Scheduled Referrals Name Type Priority Associated Diagnoses [...] Primary documented in this encounter Care Teams Director Of Email Marketing Relationship Specialty Start Date End Date Leilani Gale MD [address] [place] [address] PCP - General Family Medicine 11/02/21 documented as of this encounter
--- OUTSIDE RECORDS SUMMARY | 2025-08-13 23:59 | XMS_ITS | Encounter Summary ---
Author Organization [employer] Address [address] [facility] 7t [place] [address] Care Team Providers Care Metalsmith Name Role Phone Leilani Gale MD Primary Care Provider [phone] Encounter Details Date Type Department Care Team (Late st Contact Info) Description 07/11/2025 Orders Only [facility] [address] [place], [place] [phone] ProviderKeo MD Social History Tobacco Use Types [...] Description 09/12/2025 11:15 AM EST Office Visit [facility] [address] [place] [address] Quynh Bliss MD [address] [place] [address] documented as of this encounter Procedures Procedure Name Priority Date/Time Associated Diagnosis Comments DERMATOPATHOLOGY REPORT Routine 07/04/2025 3:36 PM EDT documented in this encounter Results * Dermatopathology Report (07/04/2025 3:36 PM EDT) us Historical Provider LAB BLOOD ORDERABLES Leela l Result documented in this encounter Visit Diagnoses Not on filedocumented in this encounter Care Teams Metalsmith Relationship Specialty Start Date End Date Leilani Gale MD [address] [place] [address] PCP - General Family Medicine 11/02/21 documented as of this encounter
--- OUTSIDE RECORDS SUMMARY | 2025-08-14 | XMS_ITS | Encounter Summary ---
Author Organization [employer] Address [address] [facility] 7t [place] [address] Care Team Providers Care Chief Security And Safety Officer Name Role Phone Leilani Gale MD Primary Care Provider [phone] Reason for Referral * Consultation (Routine) - Closed Specialty Diagnoses / Procedures Referred By Peng booth Referred To Contact Gastroenterology Diagnoses Redundant colon Colon cancer screening Leilani Gale MD [address] [place] [address] Phone: tel: fax: [facility] [address] [place] [address] Phone: tel: fax: Referral ID Status Reason Start Date Expiration Date V isits Requested Visits Authorized [id number] Closed Specialty Services Required 05/31/2024 05/31/2025 1 1 * Imaging (Routine) - Closed Specialty Diagnoses / Procedures Referred By Peng booth Referred To Contact Radiology Diagnoses Thyroid nodule greater than or equal to 1.5 cm in diameter incidentally noted on imaging study Procedures US Thyroid Leilani Gale MD [address] [place] [address] Phone: tel: fax: [facility] [address] [place] [address] Phone: tel: fax: Referral ID Status Reason Start Date Expiration Date Visits Re quested Visits Authorized [id number] Closed 05/31/2024 05/31/2025 1 1 Encounter Details Date Type Department Care Team (Late st Contact Info) Description 05/31/2024 Orders Only [facility] [address] [place] [address] Leilani Gale MD [address] [place] [address] Thyroid nodule greater than or equal to [...] Description 09/12/2025 11:15 AM EST Office Visit [facility] [address] [place], [place] [phone] Quynh Bliss MD [address] [place], [place] [phone] Scheduled Referrals Name Type Priority Associated Diagnoses [...] AM EDT Narrative 07/19/2024 8:39 AM EDT [address] [address] Ultrasound Report Signed Patient: Ashley Magdaleno MR#: [id number] : 1975 Acct:[id number] Age/Sex: 48 / F ADM Date: 06/17/24 Loc: HO.US Attending Dr: Leilani Gale MD Ordering Physician: Leilani Gale Date of Service: 06/17/24 Procedure(s): US thyroid Accession Number(s): [id number] cc: Leilani Gale EXAMINATION: US THYROID CLINICAL [...] than or equal to 1 cm: 1. Professor In Family Studies nodules are described as follows: 1. Location: [...] 07/19/24 0836 DD/ 0938 TD/TT: 06/17/24 0948 Hollow Handle Bench Worker: SS Procedure Note Donotuseinterpreter, Image - 07/19/[address] [address] Ultrasound Report Signed Patient: Ashley Magdaleno EMR#: [id number] : 1975Acct:[id number] Age/Sex: 48 / FADM Date: 06/17/24 Loc: .US Attending Dr: Leilani Gale MD Ordering Physician: Leilani Gale Date of Service: 06/17/24 Procedure(s): US thyroid Accession Number(s): [id number] cc: Leilani Gale EXAMINATION: US THYROID CLINICAL [...] than or equal to 1 cm: 1. Professor In Family Studies nodules are described as follows: 1. 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
--- OUTSIDE RECORDS SUMMARY | 2025-08-14 | XMS_ITS | Encounter Summary ---
Author Organization [employer] Address [address] [facility] [address] 7[address] [place] [address] Care Team Providers Care Wash Rack Operator Name Role Phone Leilani Gale MD Primary Care Provider [phone] Encounter Details Date Type Department Care Team (Late st Contact Info) Description 12/27/2024 Orders Only [facility] [address] [place], [place] [phone] Leilani Gale MD [address] [place] [address] COVID-19 (Primary Dx) Social History Tobacco Use [...] Description 09/12/2025 11:15 AM EST Office Visit [facility] [address] [place] [address] Quynh Bliss MD [address] [place] [address] documented as of this encounter Visit Diagnoses Diagnosis COVID-19- Primary documented in this encounter Care Teams Wash Rack Operator Relationship Specialty Start Date End Date Leilani Gale MD [address] [place] [address] [phone] PCP - General Family Medicine 11/02/21 documented as of this encounter
--- OUTSIDE RECORDS SUMMARY | 2025-08-14 | XMS_ITS | Clinical Summary ---
Author Organization [employer] Address [address] [facility] 7t [place] [address] Care Team Providers Care Wire Wrapping Machine Operator Name Role Phone Leilani Gale MD Primary Care Provider [phone] Allergies Active Allergy Reactions Criticality Noted Date [...] 10/30/2006 Asthma 09/25/1959 Overview (11/30/2022): Dr. 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 Travel 07/01/2025 Travel 06/25/2025 Refill [facility] [address] [place] [phone] Leilani Gale MD 06/19/[address] [phone] Leilani Gale MD 06/16/2025 Refill [facility] [address] [place] [address] Leilani Gale MD 05/23/2025 Orders Only [facility] External Provider, [facility] from Last 3 Months Immunizations Immunization Administration [...] Description 09/12/2025 11:15 AM EST Office Visit [facility] [address] [place] [address] Quynh Bliss MD [address] [place] [address] Health Maintenance Due Date Last Done Comments [...] Blood Count 9.0 4.8 - 10.8 X10*3/uL [facility] Red Blood Count 4.34 4.20 - 5.50 X10*6/uL [facility] Hemoglobin 13.5 12.0 - 16.0 g/dl [facility] Hematocrit 39.9 37.0 - 47.0 % [facility] Mean Corpuscular Volume 91.9 80.0 - 98.0 fL [facility] Mean Corpuscular Hemoglobin 31.1 27.0 - 33.0 pg [facility] Mean Corpuscular HGB Conc 33.8 31.0 - 35.0 g/dl [facility] Red Cell Distribution Width 12.1 11.0 - 16.0 % [facility] Platelet Count 304 160 - 400 X10*3/uL [facility] Mean Platelet Volume 9.8 9.4 - 12.3 fL [facility] Neutrophils Percent Auto 67.5 45 - 73 % [facility] Imm Gran Pct Auto 0.1 0.0 - 0.4 % [facility] Lymphocytes Percent Auto 21.5 20 - 40 % [facility] Monocytes Percent Auto 6.4 2 - 11 % [facility] Eosinophils Percent Auto 3.5 0 - 4 % [facility] Basophils Percent Auto 1.0 0 - 2 % [facility] NRBC Pct Auto 0.0 0.0 - 0.2 /100WBC [facility] Neutrophils Absolute Auto 6.1 2.0 - 8.3 x10*3/uL [facility] Imm Gran Abs Auto 0.01 0.00 - 0.03 X10*3/uL [facility] Lymphocytes Absolute Auto 1.9 1.2 - 4.9 X10*3/uL [facility] Monocytes Absolute Auto 0.6 0.1 - 1.2 X10*3/uL [facility] Eosinophils Absolute Auto 0.3 0.0 - 0.4 X10*3/uL [facility] Basophils Absolute Auto 0.1 0.0 - 0.2 X10*3/uL [facility] NRBC Abs Auto 0.000 0.0 - 0.012 X10*3/uL [facility] 08/12/2025 3:30 PM EST 08/12/2025 5:55 PM EST us Generic External Data Provider LAB BLOOD ORDERAB LES Final Result [facility] [address] [place] [phone] [phone] * Sed Rate by Modified Suzanne (08/12/2025 3:30 PM EST) Erythrocyte Sedimentation Rate 8 0 - 20 MM/HR [facility] Comment:Patients with polycy themia and many hemoglobin abnormalitiesmay have depressed sed rates whereas patients with anemiamay have elevated sed rates. 08/12/2025 3:30 PM EST 08/12/2025 5:55 PM EST us Generic External Data Provider LAB BLOOD ORDERAB LES Final Result Performing Organization Address [facility] Co de Phone Number [facility] [address] [place] [phone] * C-reactive Protein (08/12/2025 3:30 PM EST) C Reactive Protein 0.37 < or = 0.50 mg/dL [facility] 08/12/2025 3:30 PM EST 08/12/2025 6:14 PM EST us Generic External Data Provider LAB BLOOD ORDERAB LES Final Result Performing Organization Address [facility] de Phone Number [facility] [address] [place] [phone] * (ABNORMAL) Comprehensive Metabolic Panel (08/12/2025 3:30 PM EST) Pathologist [facility] Sodium 139 135 - 145 mmol/L [facility] Potassium 3.8 3.3 - 5.1 mmol/L [facility] Chloride 105 96 - 108 mmol/L [facility] Carbon Dioxide 25 22 - 29 mmol/L [facility] Anion Gap 13 12 - 20 [facility] Urea Nitrogen (BUN) 19(H) 9 - 16 mg/dL [facility] Creatinine, Serum 0.80 0.5 - 1.4 mg/dL [facility] Estimated Glomerular Filt Rate >60 [facility] Comment:Chronic Kidney Disea se: Estimated GFR < 60 mL/min/1.22i2Gbydho Kidney Disease: Estimated GFR < 15 mL/min/1.73m2 Glucose 96 60 - 115 mg/dL [facility] Calcium 9.0 8.4 - 10.2 mg/dL [facility] Bilirubin, Total 0.3 0.0 - 1.0 mg/dL [facility] Aspartate Amino Transferase 21 5 - 31 U/L [facility] Alanine Aminotransferase 25 0 - 31 U/L [facility] Total Protein 6.9 6.5 - 8.0 g/dL [facility] Albumin Level 4.3 3.5 - 5.0 g/dL [facility] Alkaline Phosphatase 60 39 - 117 U/L [facility] 08/12/2025 3:30 PM EST 08/12/2025 6:14 PM EST Generic External Data Provider LAB BLOOD ORDERAB LES Final Result [facility] [address] [place] [phone] * Referral to Dermatology (07/16/2025) Leilani Gale MD OUTPATIENT REFERRAL ORDERABLES Final Result * Dermatopathology Report (07/04/2025 3:36 PM EDT) Historical Provider MD LAB BLOOD ORDERABLES Leela l Result * XR Chest 2 Views (05/23/2025 11:26 AM EDT) Anatomical Region Laterality Modality Chest Radiographic Tamia ging 05/23/2025 11:2 6 AM EDT Narrative 05/23/2025 11:47 AM EDT [address] [address] XRay Report Signed Patient: Ashley Magdaleno MR#: [id number] : 1975 Acct:[id number] Age/Sex: 49 / F ADM Date: 05/23/25 Loc: REGGIE Attending Dr: Cedric Perez MD Ordering Physician: Cedric Perez MD Date of Service: 05/23/25 Procedure(s): XR chest 2V Accession Number(s): [id number] cc: Leilani Gale; Cedric Perez MD EXAMINATION: [...] 11:45 AM EDT RP Dictated By: Vj aM MD Signed By: <Electronically signed by Vj Ma MD in OV> 05/23/25 1145 DD/ 1126 TD/TT: 05/23/25 1136 Continuous Dryout Operator Helper: Procedure Note Donotuseinterpreter, Image - 05/23/2025 [place] [address] XRay Report Signed Patient: Ashley Magdaleno EMR#: [id number] : 1975Acct:[id number] Age/Sex: 49 / FADM Date: 05/23/25 Loc: HO.XRAY Attending Dr: Cedric Perez MD Ordering Physician: Cedric Perez MD Date of Service: 05/23/25 Procedure(s): XR chest 2V Accession Number(s): [id number] cc: Leilani Gale; Cedric Perez MD EXAMINATION: [...] 05/23/25 1145 DD/ 1126 TD/TT: 05/23/25 1136 Continuous Dryout Operator Helper: [facility] External Provider IMG XR PROCEDURES Edited Result - Final * (ABNORMAL) Lipid Panel, Standard (05/31/2023 10:17 AM EDT) Triglycerides 153(H) <150 mg/dL [facility] Comment:Desirable Triglyceri de: less than 150 mg/dLBorderline High Triglyceride 150-199 mg/dLHigh Triglyceride: 200-499 mg/dLVery High Triglyceride: greater than or equal to 5OO mg/dL Cholesterol 168 <200 mg/dL [facility] Comment:Desirable Cholestero l: less than 200 mg/dLBorderline High Cholesterol: 200-239 mg/dLHigh Cholesterol: greater than 239 mg/dL LDL Cholesterol Calculated 85 <100 mg/dL [facility] Comment:Desirable LDL: less than 100 mg/dLNear Optimal/Above Optimal LDL: 110- 129 mg/dLBorderline High LDL: 130-159 mg/dLHigh LDL: 160-189 mg/dLVery High LDL: greater than or equal to 190 mg/dL HDL Cholesterol 53 >40 mg/dL [facility] Comment:Desirable HDL: great er than 40 mg/dL Note: This HDL assay may give artificially low results in patients with liver disease. Blood Venous blood specimen / Unknown 05/31/2023 10:17 AM EDT 05/31/2023 11:16 AM EDT Leilani Gale MD LAB BLOOD ORDERABLES Final Res ult Performing Organization Address City/[facility]/ZIP Co de Phone Number [facility] [address] [place] [phone] * Hm Colonoscopy (06/10/2022) Colonoscopy Normal Normal [facility] Comment:see scanned report 06/10/2022 Leilani Gale MD HEALTH MAINTENANCE Final Resul t [facility] [address] [place] [phone] from Last 3 Months or Most Recently Relevant to Health Maintenance Insurance [facility] , [address] [place] [address] Care Teams Wire Wrapping Machine Operator Relationship Specialty Start Date End Date Leilani Gale MD [address] [place] [phone] PCP - General Family Medicine 11/02/21
--- OUTSIDE RECORDS SUMMARY | 2025-08-14 | XMS_ITS | Encounter Summary ---
Author Organization [employer] Address [address] [facility] 7t [place] [address] Care Team Providers Care Ems Educator Name Role Phone Leilani Gale MD Primary Care Provider [phone] Reason for Referral * Consultation (Routine) - Canceled Specialty Diagnoses / Procedures Referred By Contac t Referred To Contact Endocrinology Diagnoses Thyroid nodule greater than or equal to 1.5 cm in diameter incidentally noted on imaging study Leilani Gale MD [address] [place] [address] Phone: tel: fax: Referral ID Status Reason Start Date Expiration Date Visits Requested Visits Authorized [id number] Canceled Specialty Services Required 08/08/2024 08/08/2025 1 1 Encounter Details Date Type Department Care Team (Late st Contact Info) Description 08/08/[address] [facility] [address] [place] [address] Leilani Gale MD [address] [place], [place] [phone] Thyroid nodule greater than or equal to [...] 09/12/2025 11:15 AM EST Office Visit [facility] [address] [place] [phone] Quynh Bliss MD [address] [place] [address] Scheduled Referrals Name Type Priority Associated Diagnoses [...] Primary documented in this encounter Care Teams Ems Educator Relationship Specialty Start Date End Date Leilani Gale MD [address] [place] [address] PCP - General Family Medicine 11/02/21 documented as of this encounter
--- OUTSIDE RECORDS SUMMARY | 2025-08-14 00:01 | XMS_ITS | Encounter Summary ---
Author Organization [facility] Address [address] [place] [address] Phone Care Team Providers Care Driller Hand Name Role Phone Kamron Corrales MD Unavailable Cedric Perez MD Unavailable [phone] Leilani Gale MD Primary Care Provider + Ron Otoole DO Unavailable [phone] Encounter Details Date Type Department Care Team (Late st Contact Info) Description 09/24/2024 Procedure Pass [facility] Endoscopy Admitting Dept Virtual Department [address] [place] [address] Social History Tobacco Use Types Packs/Day Years [...] 2:40 PM EST Office Visit [facility] [address] [place] [address] [place] [address] Luz Elena Walker MD [address] [place] [address] [email or web address] documented as of this encounter Visit Diagnoses Not on filedocumented in this encounter Care Teams Driller Hand Relationship Specialty Start Date End Date Leilani Gale MD [address] [place] [address] [place] [address] PCP - General Family Medicine 09/16/24 Kamron Corrales MD [address] [place] [address] Vascular Surgery 09/16/24 Cedric Perez MD [address] [place] [address] [place] [address] Pulmonary Disease 09/16/24 Ron Otoole DO [address] [place] [address] [place] [address] Physical Medicine and Rehabilitation 09/16/24 documented as of this encounter Additional Source Comments The information contained in this document represents components of the legal health record. It is not the complete legal health record.[facility]
--- OUTSIDE RECORDS SUMMARY | 2025-08-14 00:01 | XMS_ITS | Clinical Summary ---
Author Organization [facility] Address [address] [place] [address] Phone Care Team Providers Care Head Porter Name Role Phone Kamron Corrales MD Unavailable Cedric Perez MD Unavailable Leilani Gale MD Primary Care Provider + Ron Otoole DO Unavailable [phone] Allergies Active Allergy Reactions Criticality Noted Date [...] year ago and has follow-up with her area director of home health sales, Dr. Perez. She seems clinically euthyroid. TSH [...] AM EST Office Visit [facility] [address] [place] [address] Luz Elena Walker MD Nontoxic multinodular goiter (Primary Dx) 07/02/2025 5:06 PM EDT - 07/02/2025 11:59 PM EDT Hospital Encounter [facility] - [address] [address] Luz Elena Walker MD Discharge Disposition: Home [...] 2:40 PM EST Office Visit [facility] [address] [place] [address] [place] [address] Luz Elena Walker MD [address] [place] [address] [email or web address] Health Maintenance Due Date Last Done Comments [...] this topic Medical Devices Implanted Type Area Shipping Lead Device Identifier Shelf Expiration Date Model / [...] (0 pts) Echogenicity: Hypoechoic (2 pts) Shape: Xwjen-bzhh-wxqf (0) Margins: Smooth (0 pts) Echogenic Foci: [...] (1 pt) Echogenicity: Hypoechoic (2 pts) Shape: Clgqi-eqjm-oxhg (0) Margins: Smooth (0 pts) Echogenic Foci: [...] (0 pts) Echogenicity: Hypoechoic (2 pts) Shape: Xyyut-tecd-dboc (0) Margins: Smooth (0 pts) Echogenic Foci: [...] (1 pt) Echogenicity: Hypoechoic (2 pts) Shape: Nhidn-cthh-hase (0) Margins: Smooth (0 pts) Echogenic Foci: [...] withbiopsy results. us Luz Elena Walker MD [facility] [place] THYROID Final Result * ENDOSCOPY, COLON (09/24/2024 9:16 AM EST) Narrative Transcriptions Tio Logan MD - 09/24/2024 9:16 AM EST [facility] Patient Name: Ashley Magdaleno Attending MD:: TIO LOGAN MD, , Procedure Date: 09/24/2024 9:16 AM Date of : 1975 Age: 49 Admit Type: Outpatient Gender: Female Room: [facility] 04 Referring MD: Leilani Gale Exam Type: [...] 9:16 AM Procedure Code(s): --- Professional --- 51585, Colonoscopy, flexible; diagnostic, including collection of specimen(s) by brushing or washing, when performed (separateprocedure) --- Technical --- 63431, Colonoscopy, flexible; diagnostic, including collection of specimen(s) [...] or abscess without bleeding CPT copyright 2021 [employer]. All rights reserved. The codes documented in this report are preliminary and upon banquet supervisor reviewmay be revised to meet current compliance requirements. Procedure Date: 09/24/2024 9:16:01 AM [address] [place] [address] Leilani Gale MD GI PROCEDURE ORDERABLES Final Result from Last 3 Months or Most Recently Relevant to Health Maintenance [facility] Care Teams Head Porter Relationship Specialty Start Date End Date Leilani Gale MD [address] [place] [address] [place] [address] PCP - General Family Medicine 09/16/24 Kamron Corrales MD [address] [place] [address] Vascular Surgery 09/16/24 Cedric Perez MD [address] [place] [address] [place] [address] Pulmonary Disease 09/16/24 Ron Otoole DO [address] [place] [address] [place] [address] Physical Medicine and Rehabilitation 09/16/24 Additional Source Comments The information contained in this document represents components of the legal health record. It is not the complete legal health record.[facility]
--- OUTSIDE RECORDS SUMMARY | 2025-08-14 00:01 | XMS_ITS | Patient Health Record ---
Author Organization [facility] Address [address] [facility] [place] [address] Care Team Providers Care Air Traffic Systems Technician Name Role Phone Bette Garay Primary Care Provid er Unavailable Addis Alexander Unavailable [phone] Allergies Allergen (clinical drug ingredient) Drug/Non Drug [...] Treatment Pending Test Test Name Order Date [id number]-Iogc Destruction, 1-14 01/16/2017 25906-Nwjt Destruction, 1-02/06/2017 04049-Nict Destruction, -03/22/2017 79165-Rmrrvdrx Plate 01/16/2017 55736- Debride <25 sq cm 02/06/2017 Insurance Providers Payer Name Payer Address Payer Phone Subscriber Number Group Number Insured Name Patient Relationship to Insured Coverage Start Date Coverage End Date [facility] [address] [place] [address] [id number] Ashley Magdaleno Self - patient is the [...]
[2025-09-08 07:08] VITALS: BP 109/64; PULSE 81; RESP 16; TEMP 36.4; O2SAT 95; BMI 40.9
--- NOTE | 2025-09-08 07:55 | MHC.SHP ---
Pre-Procedural Eval Section A - 24 Hr Update-Section A only Date of Service: 09/08/25 The patient is an INPATIENT: No Changes since office visit: No Cold of Flu in the past 2 weeks, No New Medical Problems, No Changes in Medication and No Patient answered all questions The patient has been examined within 24 hours of the surgical procedure. The History & Physical has been completed within 30 days and I have reviewed it.: Yes Section B - Complete if H&P > 30 days Chief Complaint: Carpal tunnel syndrome, left upper limb Allergies: Allergies Allergy/AdvReac Type Severity Reaction Status Date / Time hydromorphone (From DILAUDID) Allergy Unknown SHORTNESS Verified 09/02/25 14:30 OF BREATH Plan Diagnosis/Plan: Unchanged I have reviewed the history and physical and performed a pertinent physical examination on my patient. No changes have occurred unless specified. Time Spent With Patient Time: Total time managing care of this patient today ____ minutes.
--- NOTE | 2025-09-08 07:56 | W.PM.OPN ---
Operative Note Operative Note Date of Service: 09/08/25 Narrative: Preop diagnosis: 1. Left Carpal tunnel syndrome Postop diagnosis: same Procedure: 1. Left Carpal tunnel release Surgeon: Leora Lewis MD Stock Worker And Deliverer: None Anesthesia: local block using 1% lidocaine with epinephrine Findings: Thickened transverse carpal ligament. EBL: Less than 5 mL Specimens: None Complications: None Disposition: Brought to recovery room in stable condition Plan: Follow-up for 10-14 days for wound check and suture removal Indications: The patient is 50 years old, with left carpal tunnel syndrome that has been unresponsive to nonoperative management. The risks and benefits of operative treatment including but not limited to risk of damage to blood vessels, nerves, tendons, infection, persistent pain, persistent symptoms, or possible need for additional surgery were discussed with the patient and the patient wishes to proceed with surgery. Procedure: Once consent was obtained a local block was performed using a combination of 1% lidocaine with epinephrine. The patient was then brought back to the operating suite and placed on the operative table in supine position. The left upper extremity was prepped and draped in a standard surgical fashion. Once assured that we had a good block, a 2.0 cm longitudinal incision was made centered over the carpal tunnel. The incision was made through the skin to the subcutaneous tissues using a #15 blade. Dissection was made down to the level of the transverse carpal ligament with care being taken to protect the palmar cutaneous nerve. Once the transverse carpal ligament was clearly visualized, a longitudinal incision was made in the transverse carpal ligament 1st using a #15 blade, then using tenotomy scissors under direct visualization. Care was taken to look for and protect the motor branch of the median nerve when seen in this area. Once satisfied with our carpal tunnel release the wound was copiously irrigated with normal saline and hemostasis was obtained with a brief period of local pressure. The skin edges were reapproximated with some 5.0 nylon suture material and a sterile dressing was applied. The patient appears to have tolerated the procedure well and with no complications. All digits were well vascularized at the conclusion of the case.
[2025-09-08 08:51] VITALS: BP 120/72; PULSE 77; RESP 18; O2SAT 95
== END 2025-09-08 08:53 | disposition home or self-care (01) ==
PROVIDERS: PCP General Practice; Visit Provider Orthopaedic Surgery
PROC: (CPT 64721; principal; 2025-09-08 07:30)
DX: G56.02 Carpal tunnel syndrome, left upper limb (principal); M25.532 Pain in left wrist; G47.33 Obstructive sleep apnea (adult) (pediatric); E78.00 Pure hypercholesterolemia, unspecified; J45.909 Unspecified asthma, uncomplicated; G43.909 Migraine, unspecified, not intractable, without status migrainosus; F41.9 Anxiety disorder, unspecified; Z87.01 Personal history of pneumonia (recurrent); Z87.81 Personal history of (healed) traumatic fracture; Z79.620 Long term (current) use of immunosuppressive biologic; Z79.899 Other long term (current) drug therapy; Z88.5 Allergy status to narcotic agent
CPT/HCPCS: 64721; J0165; J2003; J2004

== ENCOUNTER → 2025-09-08 06:36 | Outpatient (BNV) | payer OTHER, SELFPAY | PROVIDERS: PCP General Practice; Visit Provider Orthopaedic Surgery | DX: G56.02 Carpal tunnel syndrome, left upper limb (principal) | CPT/HCPCS: 64721 ==

== ENCOUNTER 2025-09-23 14:01 | Outpatient (AMB) | payer OTHER, SELFPAY ==
--- OUTSIDE RECORDS SUMMARY | 2024-04-09 09:20 | XMS_ITS ---
Author Organization Total [employer] [facility] Address [address] [address] Care Team Providers Care Books Salesperson Name Role Phone ERIKA TAVAREZ MD Primary Care Provider Unavail able LIAN HENSON Unavailable [phone] Allergies Allergen (clinical drug ingredient) Drug/Non Drug Allergy documented on EMR Reaction Allergy Type Onset Date Status hydromorphone Dilaudid breathing problems Drug Allergy Active REASON FOR VISIT Annual TANK CAR MECHANIC Physical Encounters Encounter Location Date Provider Diagnosis [facility] [employer] [address] [address] 04/09/2024 LIAN HENSON Encounter for gynecological examination [...] Follow Up: 1 Year, Reason: Y early Healthcare Marketer Exam Provider Name:LIAN Celis, 12/25/2025 09:00:00 AM, [address] [place] [address], [address], [place], [address], Progress Notes * ARTURO PALMEROB: 3 (50 yo F)Acc No.[id number]:04/09/2024 PROGRESS NOTES Patient: ASHLEY GLASER Provider: Aj HENSON MD :1975 A ge:48 Y S ex:Female Date:04/09/2024 Address:[address] [place] [address], , [facility] Pcp:ERIKA TAVAREZ MD Subjective: * Chief Complaints: * 1 . Annual TANK CAR MECHANIC Physical. 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 She has been in state of [...] days/week by . * ROS: A nnual Healthcare Marketer Exam ROS: Bowel habit changes d enies. [...] without perforation or abscess without bleeding. * Healthcare Marketer History: G ravida/ Para 4 /3. S [...] no acute distress, well developed, well nourished, taker down present in room. HEAD: n ormocephalic, atraumatic. [...] * Follow Up: 1 Year (Reason: Yearly Healthcare Marketer Exam) * Images: Billing Information: * Visit Code: 31568 Preventive Care Est Pt. Age 40-64. 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 She has been in state of [...] General Examination GENERAL APPEARANCE: in no ac [place] distress, well developed, well nourished, taker down present in room HEAD: normocephalic, atrau matic [...]
--- NOTE | 2025-09-23 14:05 | MHC.OFFVIS ---
Vital Signs 09/23/25 14:15 Height 5 ft 5 in Weight 246 lb BMI 40.9 Intake Visit Reasons: PO LT CTR 09/08/25 AR Intake Note: Ashley is a 50 year old right hand dominant female who presents today for her first post operative visit s/p Left Carpal Tunnel Release, DOS: 09/08/[address] Lewis. Patient reports she is doing well. She denies any numbness, tingling, finger locking. Sutures removed in office and Steri-strips applied. Allergies hydromorphone (From DILAUDID) Allergy (Unknown, Verified 09/23/25 14:16) SHORTNESS OF BREATH HPI HPI PO LT CTR 09/08/25 AR: Details: Ashley is a 50 year old right hand dominant female who presents today for her first post operative visit s/p Left Carpal Tunnel Release, DOS: 09/08/[address] Lewis. Patient reports she is doing well. Denies any pain in the left hand or wrist. She denies any numbness, tingling, finger locking. Sutures removed in office and Steri-strips applied. [facility] Medical History (Updated 08/12/25 @ 15:04 by Cecilia Lamas MD) Long-term current use of immunosuppressive biologic agent RUTH (obstructive sleep apnea) Pneumonia Asthma History of abnormal uterine bleeding Hx of fracture of ankle Migraines Anxiety High cholesterol Asthma Surgical History Hx of colonoscopy Hx of left breast biopsy Hx of section Family History Mother Pre-diabetes Father Prostate CA Daughter Non-radiographic axial spondyloarthritis Daughter Matt thyroiditis Social History (Updated 08/12/25 @ 14:45 by STEVEN Carbone) Household Members: Family Alcohol intake: current Alcohol intake frequency: holidays/special occasions only Alcohol type: wine Patient Tobacco Use Status: Never used Tobacco 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 Neuro: Normal sensation of the tips of all digits of the left hand at this time Vascular: Cap refill brisk Pain: No tenderness to palpation about the incision site on volar left wrist over carpal tunnel No pain with range of motion of the left hand ROM: Patient was able to make a closed fist and extend all digits of the left hand fully and without difficulty Skin: Well approximated and well healing incision site noted over the carpal tunnel of the left wrist No lacerations or abrasions. General: No ecchymosis, erythema, or evidence of infection. Psych: Appears grossly normal Affect normal Attitude cooperative Assessment & Plan Assessment & Plan (1) Carpal tunnel syndrome of left wrist: Code(s): G56.02 - Carpal tunnel syndrome, left upper limb Category: Medical Plan 1. Status post left carpal tunnel release DOS 09/08/2025 With symptomatic resolution postoperatively Patient appears to be recovering well postoperatively Patient is educated about the typical recovery course No under water times one-week, 2 lb weight limit x2 weeks Patient appears to be recovering very well, and requires no further acute follow-up with us postoperatively Patient is educated and worrisome signs and symptoms, and should call us if they experience any of these, including but not limited to redness, swelling, increased pain, and discharge Patient understands this and is amenable to this plan Follow-up as needed Coding Level of Care Code Global (22847) Diagnoses Carpal tunnel syndrome of left wrist G56.02
[2025-09-23 14:15] VITALS: BMI 40.9
--- OUTSIDE RECORDS SUMMARY | 2025-09-23 17:50 | XMS_ITS | Encounter Summary ---
Author Organization [employer] Address [address] [facility] [address] [place] [address] Care Team Providers Care Lineman Apprentice Name Role Phone Leilani Gale MD Primary Care Provider [phone] Reason for Referral * Consultation (Routine) - Closed Specialty Diagnoses / Procedures Referred By Peng booth Referred To Contact Gastroenterology Diagnoses Redundant colon Colon cancer screening Leilani Gale MD [address] [place] [address] Phone: tel: fax: [facility] [address] [place] [address] Phone: tel: fax: Referral ID Status Reason Start Date Expiration Date V isits Requested Visits Authorized [id number] Closed Specialty Services Required 05/31/2024 05/31/2025 1 1 * Imaging (Routine) - Closed Specialty Diagnoses / Procedures Referred By Peng booth Referred To Contact Radiology Diagnoses Thyroid nodule greater than or equal to 1.5 cm in diameter incidentally noted on imaging study Procedures US Thyroid Leilani Gale MD [address] [place] [address] Phone: tel: fax: [facility] [address] [place] [phone] Phone: tel: fax: Referral ID Status Reason Start Date Expiration Date Visits Re quested Visits Authorized [id number] Closed 05/31/2024 05/31/2025 1 1 Encounter Details Date Type Department Care Team (Late st Contact Info) Description 05/31/2024 Orders Only [facility] MEDICINE [address] [place] [address] Leilani Gale MD [address] [place] [address] Thyroid nodule greater than or equal to [...] AM EDT Narrative 07/19/2024 8:39 AM EDT [place] [address] Ultrasound Report Signed Patient: Ashley Magdaleno MR#: [id number] : 1975 Acct:[id number] Age/Sex: 48 / F ADM Date: 06/17/24 Loc: HO.US Attending Dr: Leilani Gale MD Ordering Physician: Leilani Gale Date of Service: 06/17/24 Procedure(s): US thyroid Accession Number(s): [id number] cc: Leilani Gale EXAMINATION: US THYROID CLINICAL [...] than or equal to 1 cm: 1. Fee Clerk nodules are described as follows: 1. Location: [...] 07/19/24 0836 DD/ 0938 TD/TT: 06/17/24 0948 File Clerk Data Entry: SS Procedure Note Donotuseinterpreter, Image - 07/19/[address] [address] Ultrasound Report Signed Patient: Ashley Magdaleno EMR#: [id number] : 1975Acct:[id number] Age/Sex: 48 / FADM Date: 06/17/24 Loc: HO.US Attending Dr: Leilani Gale MD Ordering Physician: Leilani Gale Date of Service: 06/17/24 Procedure(s): US thyroid Accession Number(s): [id number] cc: Leilani Gale EXAMINATION: US THYROID CLINICAL [...] than or equal to 1 cm: 1. Fee Clerk nodules are described as follows: 1. Location: [...] 07/19/24 0836 DD/ 0938 TD/TT: 06/17/24 0948 File Clerk Data Entry: SS us Leilani Gale MD IMG US PROCEDURES Final Result documented in this encounter Visit Diagnoses Diagnosis Thyroid nodule greater than or equal to 1.5 cm in diameter incidentally noted on imaging study- Primary Redundant colon Other congenital anomalies of intestine Colon cancer screening Special screening for malignant neoplasms, colon documented in this encounter Care Teams Lineman Apprentice Relationship Specialty Start Date End Date Leilani Gale MD [address] [place] [address] PCP - General Family Medicine 11/02/21 documented as of this encounter
--- OUTSIDE RECORDS SUMMARY | 2025-09-23 17:50 | XMS_ITS | Encounter Summary ---
Author Organization [employer] Address [address] [facility] [address] [place] [address] Care Team Providers Care Doubler Operator Name Role Phone Leilani Gale MD Primary Care Provider [phone] Reason for Referral * Consultation (Routine) - Closed Specialty Diagnoses / Procedures Referred By Contac t Referred To Contact Endocrinology Diagnoses Thyroid nodule greater than or equal to 1.5 cm in diameter incidentally noted on imaging study Leilani Gale MD [address] [place] [address] Phone: tel: fax: [facility] [address] [place] [phone] Phone: tel: fax: Referral ID Status Reason Start Date Expiration Date V isits Requested Visits Authorized [id number] Closed Specialty Services Required 10/08/2024 10/08/2025 1 1 Encounter Details Date Type Department Care Team (Late st Contact Info) Description 10/08/2024 Orders Only [facility] MEDICINE [address] [place], [place] [phone] Leilani Gale MD [address] [place], [place] [phone] Thyroid nodule greater than or equal to [...] Primary documented in this encounter Care Teams Doubler Operator Relationship Specialty Start Date End Date Leilani Gale MD [address] [place] [address] PCP - General Family Medicine 11/02/21 documented as of this encounter
--- OUTSIDE RECORDS SUMMARY | 2025-09-23 17:50 | XMS_ITS | Patient Health Record ---
Author Organization [facility] Address [address] [place] [address] Care Team Providers Care Alcohol Rubber Name Role Phone ERIKA TAVAREZ MD Primary Care Provider Unavail able LIAN HENSON Unavailable [phone] Allergies Allergen (clinical drug ingredient) Drug/Non Drug Allergy documented on EMR Reaction Allergy Type Onset Date Status hydromorphone Dilaudid breathing problems Drug Allergy Active Results Component Value Reference Range Notes Test, Urine Reviewed date:01/10/2025 11:31:35 AM Interpretation: Performing Lab: Notes/Report: Test, Urine NEG SURGICAL PATHOLOGY Reviewed date:01/21/2025 02:27:49 PM Interpretation: Performing Lab:Testing performed or reported by [facility], a Service of [facility], [address] [place] [address] Fidel Locke MD, Director Index [facility]# [id number] Notes/Report: Patient Name: ENRIQUE PALMER Lab Patient : [id number] (Age: 49) Collection Date: 01/10/2025 Accession Date: 01/10/2025 Sign Out Date: 01/19/2025 Tissue Source: 1:EMB Final Diagnosis: Endometrium, biopsy: - Weakly proliferative endometrium with stromal breakdown. A. Tubal (ciliated) epithelial change present (estrogen effect). Primary Pathologist:Dianelys Luo M.D.,Ph.D. electronically signed out by: Dianelys Luo M.D.,Ph.D. / [facility] Clinical History: Abnormal uterine and vaginal bleeding Gross Description: Labeled endometrial biopsy . Received in formalin is a 2.6 x 2.5 x 0.6 cm aggregate of translucent mucus with red, lott tissue. The specimen is entirely submitted. 1 and 2-multiple pieces, x 2. (EG)* As of December 02, 2023, the specimen processing and staining is performed at [facility], [address] [place] [address] (CLIA#[id number]). Its performance characteristics determined by [employer] Dm Read M.D. Director Index of Surgical Pathology, Kendrick Flores M.D. Director Index Cytopathology Phone #: [phone], On-Call Pathologist: [id number] Chlamydia/GC Amplification Reviewed date:01/21/2025 03:06:46 PM Interpretation: Performing Lab:[facility] [place], [address] [place] [address], [place] [address], [place], Phone - [phone], Director - [facility] Notes/Report: Clinical Information:SRC: URINE Chlamydia trachomatis, DAISHA Negative Negative Neisseria gonorrhoeae, DAISHA Negative Negative PDF Report Reviewed date:01/21/2025 03:33:41 PM Interpretation: Performing Lab:[facility] [place], [address] [place] [address], [place] [address], [place], Phone - [phone], Director - [facility] Notes/Report: Clinical Information:SRC: URINE [id number] IGP No Culture 30 Plus Reviewed date:12/26/2024 04:19:08 PM Interpretation: Performing Lab:[facility] [place], [address] [place] [address], [place] [address], [place], Phone - [phone], Director - [facility] Notes/Report: Clinical Information:VAG/CERV [id number] LMP / Prev Treat...[id number] Dates / Results....11/14/2019 No. of containers..01 ThinPrep Vial DIAGNOSIS: NEGATIVE FOR INTRAEPITHELIAL LESION OR MALIGNANCY. Specimen adequacy: Satisfactory for evaluation. Endocervical and/or squamous metaplastic cells (endocervical component) are present. Clinician provided ICD10: Z01.419 Performed by: Sushil Ramirez , Call Center Support Consultant ([facility]) . . Note: The Pap smear is [...] Performing Lab:[facility] [place], [address], [address], [place], Phone - [phone], Director - [facility] Notes/Report: Clinical Information:VAG/CERV [id number] LMP / Prev Treat...[id number]=[id number] Dates / Results....11/14/2019 No. of containers..01 ThinPrep Vial Reason For Referral No Information Medications Medication SIG (Take, Route, Frequency, Duration) Notes Start Date End Date Status ProAir HFA 90MCG 2 Inhalation four times daily; Duration: -3 02/16/2012 Active Singulair 5 MG 1 ORAL daily; Duration: -3 02/16/2012 Active Vitamin D3 50 MCG (2000 UT) [...] Status Risk Notes Problem Diverticulitis of colon (033094407) Diverticulitis of intestine, part unspecified, without perforation or abscess without bleeding (K57.92) Active confirmed Problem Disorder of breast (53799729) Disorder of breast, unspecified (N64.9) Active confirmed Problem Abnormal uterine bleeding (83829915320358) Abnormal uterine and vaginal bleeding, unspecified (N93.9) Active confirmed Problem Asthma (disorder) (043711491) Asthma, unspecified, unspecified status (493.90) Active confirmed Major Vital Signs Temperature 98.0 degrees Fahrenheit 01/20/2025 Blood pressure diastolic 82 mm Hg 01/20/2025 Height 65 in 01/20/2025 Blood pressure systolic 122 mm Hg 01/20/2025 Weight 236 lbs 01/20/2025 BMI 39.27 kg/m2 01/20/2025 Encounters Encounter Location Date Provider Diagnosis [address] [address] 12/23/2024 LIAN HENSON Encounter for gynecological examination (general) (routine) without abnormal findings Z01.419 ; Encounter for screening mammogram for malignant neoplasm of breast Z12.31 and Abnormal uterine and vaginal bleeding, unspecified N93.[address] [address] 01/10/2025 LIAN HENSON Abnormal uterine and vaginal bleeding, unspecified N93.[address] [address] 01/20/2025 LIAN HENSON Abnormal uterine and vaginal bleeding, unspecified N93.9 and High risk heterosexual behavior Z72.[address] [address] 01/20/2025 LIAN HENSON Assessments Encounter Date Diagnosis [...] as alternative hormone strategies. She saw her [employer] recently, who recommended against any hormones due [...] partner during intercourse from strings, heavier or hot plate plywood press offbearer menses, expulsion of IUD, uterine perforation with [...] MM Digital Screening Mammogram 3D 2021 Chlamydia/GC Amplification-[id number] 2024 Next Appt Details Provider Name:LIAN FORDE Lalita, 12/25/2025 09:00:00 AM, [address], [address], [place], [address], Insurance Providers Payer Name Payer Address Payer Phone Subscriber Number Group Number Insured Name Patient Relationship to Insured Coverage Start Date Coverage End Date [facility] [address] [place] [address] [id number] ENRIQUE PALMER Self - patient is the [...]
--- OUTSIDE RECORDS SUMMARY | 2025-09-23 17:50 | XMS_ITS | Encounter Summary ---
Author Organization [employer] Address [address] 7t [place] [address] Care Team Providers Care Cleater Name Role Phone Leilani Gale MD Primary Care Provider [phone] Reason for Referral * Consultation (Routine) - Canceled Specialty Diagnoses / Procedures Referred By Contac t Referred To Contact Endocrinology Diagnoses Thyroid nodule greater than or equal to 1.5 cm in diameter incidentally noted on imaging study Leilani Gale MD [address] [place] [address] Phone: tel: fax: Referral ID Status Reason Start Date Expiration Date Visits Requested Visits Authorized [id number] Canceled Specialty Services Required 08/08/2024 08/08/2025 1 1 Encounter Details Date Type Department Care Team (Late st Contact Info) Description 08/08/2024 Orders Only [facility] [address] [place] [address] Leilani Gale MD [address] [place], [place] [phone] Thyroid nodule greater than or equal to [...] Primary documented in this encounter Care Teams Cleater Relationship Specialty Start Date End Date Leilani Gale MD [address] [place] [address] PCP - General Family Medicine 11/02/21 documented as of this encounter
--- OUTSIDE RECORDS SUMMARY | 2025-09-23 17:50 | XMS_ITS | Encounter Summary ---
Author Organization [employer] Address [address] 7t [place] [address] Care Team Providers Care Paperhanger Assistant Name Role Phone Leilani Gale MD Primary Care Provider [phone] Encounter Details Date Type Department Care Team (Late st Contact Info) Description 07/11/2025 Orders Only [facility] [address] [place], [place] [phone] ProviderKeo MD Social History Tobacco Use Types [...] on filedocumented in this encounter Care Teams Paperhanger Assistant Relationship Specialty Start Date End Date Leilani Gale MD [address] [place] [address] PCP - General Family Medicine 11/02/21 documented as of this encounter
--- OUTSIDE RECORDS SUMMARY | 2025-09-23 17:50 | XMS_ITS | Clinical Summary ---
Author Organization [employer] Address [address] 7[address] [place] [address] Care Team Providers Care Improvement Engineer Name Role Phone Leilani Gale MD Primary Care Provider [phone] Allergies Active Allergy Reactions Criticality Noted Date Comments Cortisone Swelling High 04/10/2024 Hydromorphone Hcl 12/16/2021 Other reaction(s): breathing problems Wound Dressings 11/30/2022 Other reaction(s): swollen red rash Medications cholecalcifero l (Vitamin D-3) 50 MCG (1999) capsule daily. Active ipratropium-al buterol (Duo-Neb) 0.5-2.5 mg/3 mL nebulizer solution USE 1 VIAL VIA NEBULIZER 4 TIMES A DAY 06/27/20 22 Active Turmeric 500 MG capsule Active albuterol 108 (90 Base) MCG/ACT inhaler INHALE 2 PUFFS BY MOUTH EVERY 4 TO 6 HOURS NEEDED FOR COUGH / FOR ASTHMA 8.5 g 3 09/13/20 24 Active citalopram (CeleXA) 20 MG tabletIndicati ons:Anxiety TAKE 1 TABLET BY MOUTH EVERY DAY 90 tablet 3 12/18/19 25 Active montelukast (Singulair) 10 MG tablet TAKE 1 TABLET BY MOUTH EVERY DAY IN THE EVENING 90 tablet 3 02/19/20 25 Active zolpidem (Ambien) 10 MG tabletIndicati ons:Insomnia due to medical condition Take 1 tablet (10 mg) by mouth if needed at bedtime for sleep. 30 tablet 04/30/20 25 Active cyclobenzaprin e (Flexeril) 5 MG tabletIndicati ons:Ankylosing spondylitis of lumbosacral region (HCC) Take 1 tablet (5 mg) by mouth at bedtime. 30 tablet 3 04/30/20 25 Active Simponi 50 MG/0.5ML solution auto-injector Inject 50 mg under the skin every 30 (thirty) days. 02/09/20 25 Active atorvastatin (Lipitor) 10 MG tablet Take 1 tablet (10 mg) by mouth Once per day. 90 tablet 3 06/17/20 25 Active cetirizine (ZyrTEC) 10 MG tablet Take 1 tablet (10 mg) by mouth Once per day. 90 tablet 3 06/26/20 25 Active SUMAtriptan (Imitrex) 50 MG tablet TAKE 1 TABLET BY MOUTH AT ONSET OF MIGRAINE. MAY REPEAT ONCE AFTER 2 HOURS IF NEEDED. NO MORE THAN 2 DOSES PER 24 HOURS 10 tablet 6 09/01/20 25 Active cyclobenzaprin e (Flexeril) 5 MG tablet Take 5 mg by mouth if needed in the morning, at noon, and at bedtime for muscle spasms. Active oxyCODONE (Oxy-IR) 5 MG immediate release capsule Take 5 mg by mouth every 6 (six) hours if needed for severe pain. Active budesonide-for moterol (Symbicort) 160-4.5 MCG/ACT inhaler Rinse mouth with water after use to reduce aftertaste and incidence of candidiasis. Do not swallow. Active SUMAtriptan (Imitrex) 50 MG tablet TAKE 1 TABLET BY MOUTH AT ONSET OF MIGRAINE. MAY REPEAT ONCE AFTER 2 HOURS IF NEEDED. NO MORE THAN 2 DOSES PER 24 HOURS 10 tablet 6 06/28/20 24 025 Discontinued(Re order (will not trigger notification to Pharmacy)) Active Problems Problem Noted Date Diagnosed Date Obstructive sleep apnea syndrome 09/12/2025 Overview (09/12/2025): On CPAP Preop cardiovascular exam 09/12/2025 Assessment & Plan (09/12/2025 1:52 PM EST): Patient was seen for pre-operative evaluation. Patient reports no symptoms of CP at rest or with exertion, dyspnea at rest or with exertion, PND, LE edema, claudication, or palpitations. Patient has no hx of ischemic heart disease, CHF, CVD, diabetes, recent anticoagulant or antithrombotic use, person or family hx of coagulopathy. Patient reports no history of stress test, cardiac cath or coronary revascularization. Patients without any known cardiac risk factors (will undergo low risk surgery, no hx of ischemic heart disease, no h/o CVD, no h/o CHF, & no insulin dependent diabetes mellitus or known renal failure). According to the RCRI, this number of risk factors stratifies the patient to Class O, which carries a 0.4% risk of major CV complications. In this case, CV Risk is low for the intended procedure. 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 Encounters Date Type Department Care Team Description 09/12/2025 1:15 PM EST Office Visit [facility] [address] [place] [address] Mony Esparza MD Preop cardiovascular exam (Primary Dx); Obstructive sleep apnea syndrome 09/12/2025 Travel 09/05/2025 Travel 08/31/2025 Refill [facility] [address] [place] [address] Leilani Gale MD 08/12/2025 Orders Only GENERIC EXTERNAL DATA DEPARTMENT Provider, Generic External Data 07/11/[address] [address] Leilani Gale MD Lab Orders (Melanoma diagnosis) 07/11/2025 Orders Only [facility] [address] [place] [address] Provider, MD Keo 07/11/[address] [address] Lisa Campbell, SILVIA Appointment Request 07/04/2025 3:00 PM EDT Office Visit [address] [address] Navi Camarillo MD Neoplasm of uncertain behavior (Primary Dx) 07/04/2025 Travel 07/01/2025 Travel 06/25/2025 Refill [facility] [address] [place] [phone] Leilani Gale MD from Last 3 Months Immunizations Immunization Administration Dates Next Due Influenza Injectable Quadriv alant Preservative Free IIV4 MDCK 07/20/2022,06/14/2022,06/15/2021,2019 Influenza injectable quadriv alent IIV4 with preservative 06/05/2019,06/06/2018 Influenza injectable quadriv alent preservative free 07/16/2023 Influenza, IIV3, injectable 05/24/2012 Influenza, Injectable, MDCK, preservative free 07/13/2024 Influenza, Recombinant, inje ctable, preservative free 06/29/2025 Influenza, Unspecified 06/03/2020,05/26/2019 Moderna Covid-19 Vaccine 6+ [...] the past 12 months, has t he [employer], oil or water company threatened to shut [...] Sign Reading Time Taken Comments Blood Pressure 133/74 09/12/2025 1:32 PM EST Pulse 84 09/12/2025 1:32 PM EST Temperature 36.8 C (98.3 F) 09/12/2025 1:32 PM EST Respiratory Rate 20 09/12/2025 1:32 PM EST Oxygen Saturation 97% 09/12/2025 1:32 PM EST Inhaled Oxygen Concentration - - Weight 112 kg (247 lb 12.8 oz) 09/12/2025 1:32 P M EST Height 166 cm (5' 5.35 ) 09/12/2025 1:32 PM EST Body Mass Index 40.79 09/12/2025 1:32 PM EST Plan of Treatment Health Maintenance Due Date [...] Family Planning (PISQ) 05/05/2026 05/05/2025 Tobacco Screening 09/12/2026 09/12/2025 Lipid Panel 05/31/2028 05/31/2023 DTaP/Tdap/Td Vaccines (3 [...] DERMATOPATHOLOGY REPORT Routine 07/04/20 3:36 PM EDT LIPID PANEL, STANDARD Routine 05/31/2023 10:17 AM EDT High cholesterol HM COLONOSCOPY Routine 06/10/2022 from Last 3 Months or Most Recently Relevant to Health Maintenance Results * CBC auto differential (08/12/2025 3:30 PM EST) White Blood Count 9.0 4.8 - 10.8 X10*3/uL [facility] Red Blood Count 4.34 4.20 - 5.50 X10*6/uL [facility] Hemoglobin 13.5 12.0 - 16.0 g/dl [facility] Hematocrit 39.9 37.0 - 47.0 % [facility] Mean Corpuscular Volume 91.9 80.0 - 98.0 fL [facility] Mean Corpuscular Hemoglobin 31.1 27.0 - 33.0 pg [facility] Mean Corpuscular HGB Conc 33.8 31.0 - 35.0 g/dl [facility] Red Cell Distribution Width 12.1 11.0 - 16.0 % [facility] Platelet Count 304 160 - 400 X10*3/uL [facility] Mean Platelet Volume 9.8 9.4 - 12.3 fL [facility] Neutrophils Percent Auto 67.5 45 - 73 % [facility] Imm Gran Pct Auto 0.1 0.0 - 0.4 % [facility] Lymphocytes Percent Auto 21.5 20 - 40 % [facility] Monocytes Percent Auto 6.4 2 - 11 % [facility] Eosinophils Percent Auto 3.5 0 - 4 % [facility] Basophils Percent Auto 1.0 0 - 2 % [facility] NRBC Pct Auto 0.0 0.0 - 0.2 /100WBC [facility] Neutrophils Absolute Auto 6.1 2.0 - 8.3 x10*3/uL [facility] Imm Gran Abs Auto 0.01 0.00 - 0.03 X10*3/uL [facility] Lymphocytes Absolute Auto 1.9 1.2 - 4.9 X10*3/uL [facility] Monocytes Absolute Auto 0.6 0.1 - 1.2 X10*3/uL [facility] Eosinophils Absolute Auto 0.3 0.0 - 0.4 X10*3/uL [facility] Basophils Absolute Auto 0.1 0.0 - 0.2 X10*3/uL [facility] NRBC Abs Auto 0.000 0.0 - 0.012 X10*3/uL [facility] 08/12/2025 3:30 PM EST 08/12/2025 5:55 PM EST Generic External Data Provider LAB BLOOD ORDERAB LES Final Result Performing Organization Address [facility]/ZIP Co de Phone Number [facility] [address] [place] [phone] * Sed Rate by Modified Westergren (08/12/2025 3:30 PM EST) Pathologist [facility] Erythrocyte Sedimentation Rate 8 0 - 20 MM/HR [facility] Comment:Patients with polycy themia and many hemoglobin abnormalitiesmay have depressed sed rates whereas patients with anemiamay have elevated sed rates. 08/12/2025 3:30 PM EST 08/12/2025 5:55 PM EST us Generic External Data Provider LAB BLOOD ORDERAB LES Final Result Performing Organization Address [facility] Co de Phone Number [facility] [address] [place] [phone] * C-reactive Protein (08/12/2025 3:30 PM EST) Pathologist [facility] C Reactive Protein 0.37 < or = 0.50 mg/dL [facility] 08/12/2025 3:30 PM EST 08/12/2025 6:14 PM EST us Generic External Data Provider LAB BLOOD ORDERAB LES Final Result Performing Organization Address [facility]/ZIP Co de Phone Number [facility] [address] [place] [phone] * (ABNORMAL) Comprehensive Metabolic Panel (08/12/2025 3:30 PM EST) Sodium 139 135 - 145 mmol/L [facility] Potassium 3.8 3.3 - 5.1 mmol/L [facility] Chloride 105 96 - 108 mmol/L [facility] Carbon Dioxide 25 22 - 29 mmol/L [facility] Anion Gap 13 12 - 20 [facility] Urea Nitrogen (BUN) 19(H) 9 - 16 mg/dL [facility] Creatinine, Serum 0.80 0.5 - 1.4 mg/dL [facility] Estimated Glomerular Filt Rate >60 [facility] Comment:Chronic Kidney Disea se: Estimated GFR < 60 mL/min/1.97g6Mtyghd Kidney Disease: Estimated GFR < 15 mL/min/1.73m2 Glucose 96 60 - 115 mg/dL [facility] Calcium 9.0 8.4 - 10.2 mg/dL [facility] Bilirubin, Total 0.3 0.0 - 1.0 mg/dL [facility] Aspartate Amino Transferase 21 5 - 31 U/L [facility] Alanine Aminotransferase 25 0 - 31 U/L [facility] Total Protein 6.9 6.5 - 8.0 g/dL [facility] Albumin Level 4.3 3.5 - 5.0 g/dL [facility] Alkaline Phosphatase 60 39 - 117 U/L [facility] 08/12/2025 3:30 PM EST 08/12/2025 6:14 PM EST us Generic External Data Provider LAB BLOOD ORDERAB LES Final Result Performing Organization Address City/[facility]/ZIP Co de Phone Number [facility] [address] [place] [address] [phone] * Referral to Dermatology (07/16/2025) Leilani Gale MD OUTPATIENT REFERRAL ORDERABLES Edited Result - Final * Dermatopathology Report (07/04/2025 3:36 PM EDT) Historical Provider LAB BLOOD ORDERABLES Leela l Result * (ABNORMAL) Lipid Panel, Standard (05/31/2023 10:17 AM EDT) Triglycerides 153(H) <150 mg/dL [facility] Comment:Desirable Triglyceri de: less than 150 mg/dLBorderline High Triglyceride 150-199 mg/dLHigh Triglyceride: 200-499 mg/dLVery High Triglyceride: greater than or equal to 5OO mg/dL Cholesterol 168 <200 mg/dL [facility] Comment:Desirable Cholestero l: less than 200 mg/dLBorderline High Cholesterol: 200-239 mg/dLHigh Cholesterol: greater than 239 mg/dL LDL Cholesterol Calculated 85 <100 mg/dL [facility] Comment:Desirable LDL: less than 100 mg/dLNear Optimal/Above Optimal LDL: 110- 129 mg/dLBorderline High LDL: 130-159 mg/dLHigh LDL: 160-189 mg/dLVery High LDL: greater than or equal to 190 mg/dL HDL Cholesterol 53 >40 mg/dL [facility] Comment:Desirable HDL: great er than 40 mg/dL Note: This HDL assay may give artificially low results in patients with liver disease. Blood Venous blood specimen / Unknown 05/31/2023 10:17 AM EDT 05/31/2023 11:16 AM EDT Leilani Gale MD LAB BLOOD ORDERABLES Final Res ult [facility] [address] [place] [address] [phone] * Hm Colonoscopy (06/10/2022) Colonoscopy Normal Normal [facility] Comment:see scanned report 06/10/2022 Leilani Gale MD HEALTH MAINTENANCE Final Resul t [facility] [address] [place] [address] [phone] from Last 3 Months or Most Recently Relevant to Health Maintenance Insurance [facility] , [address] [place] [address] Care Teams Improvement Engineer Relationship Specialty Start Date End Date Leilani Gale MD [address] [place] [phone] PCP - General Family Medicine 11/02/21
--- OUTSIDE RECORDS SUMMARY | 2025-09-23 17:50 | XMS_ITS | Encounter Summary ---
Author Organization [employer] Address [address] [place] [address] Care Team Providers Care Section Chief Name Role Phone Leilani Gale MD Primary Care Provider [phone] Encounter Details Date Type Department Care Team (Late st Contact Info) Description 12/27/2024 Orders Only [facility] [address] [place], [place] [phone] Leilani Gale MD [address] [place] [address] COVID-19 (Primary Dx) Social History Tobacco Use [...] Primary documented in this encounter Care Teams Section Chief Relationship Specialty Start Date End Date Leilani Gale MD [address] [place] [address] PCP - General Family Medicine 11/02/21 documented as of this encounter
--- OUTSIDE RECORDS SUMMARY | 2025-09-23 17:51 | XMS_ITS | Encounter Summary ---
Author Organization [facility] Address [address] [place] [address] Phone Care Team Providers Care Sample Worker Name Role Phone Kamron Corrales MD Unavailable Cedric Perez MD Unavailable Leilani Gale MD Primary Care Provider + Ron Otoole DO Unavailable [phone] Encounter Details Date Type Department Care Team (Late st Contact Info) Description 09/24/2024 Procedure Pass [facility] Endoscopy Admitting Dept Virtual Department [address] [place], [place] [phone] Social History Tobacco Use Types Packs/Day Years [...] Description 07/28/2026 2:40 PM EST Office Visit [facility] [address] [place] [address] [place] [address] Luz Elena Walker MD [address] [place] [phone] [email or web address] documented as of this encounter Visit Diagnoses Not on filedocumented in this encounter Care Teams Sample Worker Relationship Specialty Start Date End Date Leilani Gale MD [address] [place] [address] [place] [phone] PCP - General Family Medicine 09/16/24 Kamron Corrales MD [address] [place] [address] Vascular Surgery 09/16/24 Cedric Perez MD [address] [place] [address] [place] [address] Pulmonary Disease 09/16/24 Ron Otoole DO [address] [place] [address] [place] [address] Physical Medicine and Rehabilitation 09/16/24 documented as of this encounter Additional Source Comments The information contained in this document represents components of the legal health record. It is not the complete legal health record.[facility]
--- OUTSIDE RECORDS SUMMARY | 2025-09-23 17:51 | XMS_ITS ---
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 She was seen on August 28, 2025, at which time Excision (Repair: Complex) was performed. The pathology shows: Scar on the right posterior lateral distal thigh. We recommended the following: Reassure : margins clear.The patient presents for suture removal.Today the patient reports: Quality: no swelling, no drainage, no pain, not malodorous, and no redness. Allergies, Adverse Reactions, Alerts Substance RxNorm Reaction(s) Severity Status Start Da te Dilaudid Anaphylaxis unspecified active Medications Medication Generic Name RxNorm Strength Strength Unit Route Dose Dose Form Frequency Date Started Date Ended Status Indication Sig mupirocin mupiroci n 002740 2 % Topica l ointm ent 08/07/20 25 active Appl y thin laye r to woun d on butt ock once nel y unti l heal ed albuterol sulfate 3466661 90 mcg/actua tion Inhala tion 1 HFA Aeros ol Inhal er PRN active fluticasone propion-dontae meterol 2432163 250-50 mcg/dose Inhala tion 1 Blist er, With Inhal ation Devic e PRN suspend ed Symbicort 6441990 160-4.5 mcg/actua tion Inhala tion 1 HFA Aeros ol Inhal er PRN active atorvastati n 500811 10 mg Oral 1 table t QD active cetirizine 7767535 10 mg Oral 1 table t QD active citalopram 924374 20 mg Oral 1 table t QD active cyclobenzap rine 789612 5 mg Oral 1 table t QD active montelukast 20011029 10 mg Oral 1 tabl e t QD active oxycodone 8236569 10 mg Oral 1 table t QD active zolpidem 782106 10 mg Oral 1 table t QD active Simponi 5035737 50 mg/0.5 mL Subcut aneous 1 Pen Injec tor every 4 weeks active Problems Problem Code Type Status Date of Diagnosis Da te of Resolution Malignant melanoma of lower limb (disorder) 304361319(SN OMED) Diagnosis active 07/25/2025 Anxiety disorder (disorder) 682383809(SN OMED) Problem active Asthma (disorder) 585094036(SN OMED) Problem active History of clinical finding in subject (situation) 497223999(SN OMED) Problem active Malignant melanoma (disorder) 955428083(SN OMED) Problem active Epidermoid cyst of skin (disorder) 296493973(SN OMED) Diagnosis active 08/07/2025 Malignant melanoma of lower limb (disorder) 600713956(SN OMED) Diagnosis active 07/29/2025 Melanocytic nevus of left upper limb (disorder) 591635705203 103(SNOMED) Diagnosis active 07/29/2025 Melanocytic nevus of trunk (disorder) 377504422(SN OMED) Diagnosis active 07/29/2025 Disorder of pigmentation (disorder) 558401392(SN OMED) Diagnosis active 07/29/2025 Disorder of pigmentation (disorder) 214639299(SN OMED) Diagnosis active 07/29/2025 Seborrheic keratosis (disorder) 693510327(SN OMED) Diagnosis active 07/29/2025 Benign neoplasm of skin of trunk (disorder) 73715363(SNO MED) Diagnosis active 07/29/2025 Benign neoplasm of skin of face (disorder) 50690873(SNO MED) Diagnosis active 07/29/2025 Malignant melanoma of lower limb (disorder) 524268227(SN OMED) Diagnosis active 08/28/2025 Surgical follow-up (finding) 722622277(SN OMED) Diagnosis active 09/19/2025 Results No data Encounters Service provided at [address], [address], [place], [place] [id number]. Office phonenumber is [phone]. Office fax number is [phone]. Encounter Diagnosis Location Date / Time Type Disc harge Status Post-Operative Wound Check (Z48.817) [facility] 09/19/2025 15:30:00 [facility] [id number] Reason For Referral No data Procedures Procedure Date Removal of suture (procedure) 09/19/2025 12:00 am [place] Excision (procedure) 08/28/2025 12:00 am [facility] Incision and drainage of skin (procedure ) 08/07/2025 12:00 am [facility] Documentation of current medications (pr ocedure) 08/02/2025 12:00 am [facility] Documentation of past medical history (p rocedure) Documentation of past medical history (p rocedure) Documentation of past medical history (p rocedure) Documentation of past medical history (p rocedure) Documentation of past medical history (p rocedure) Documentation of past medica l history (procedure) 1996Ankle surgery 2018Breast surgery Review Of Systems No Data Assessment 1.Post-Operative Wound CheckSuture Removal (Global Period) Plan of Care Code Detail Instructions 323391 mupirocin 2 % topical ointment A pply thin layer to wound on buttock once daily until healed Instructions No Data Social History Code Activity Start Date End Date 302740426 (SNOMED) Never smoker Sex Female Sexual orientation Don't Know Gender identity Unspecified Vital Signs No data Insurances Coverage Status Coverage Type Relationship to Subscriber Member Identifier Subscriber Identifier Group Identifier Payer Identifier Active Self [id number]
--- OUTSIDE RECORDS SUMMARY | 2025-09-23 17:51 | XMS_ITS | Patient Health Record ---
Author Organization [facility] Address [address] [place] [address] Care Team Providers Care Auger Mill Operator Name Role Phone Nandini Shore Primary Care Provider Addis Scott Unavailable [phone] Allergies Allergen (clinical drug ingredient) Drug/Non Drug [...] Treatment Pending Test Test Name Order Date [id number] Destruction, -01/16/2017 53787-Zkev Destruction, -14 02/06/2017 02257-Uouc Destruction, -14 03/22/2017 40289-Cfkyirwg Plate 01/16/2017 05749- Debride <25 sq cm 02/06/2017 Next Appt Details Provider Name:Addis willis, 10/16/2025 10:30:00 AM, [address] [facility], [place], [address], Insurance Providers Payer Name Payer Address Payer Phone Subscriber Number Group Number Insured Name Patient Relationship to Insured Coverage Start Date Coverage End Date [facility] [address] [place] [address] [id number] Ashley Magdaleno Self - patient is the [...]
--- OUTSIDE RECORDS SUMMARY | 2025-09-23 17:51 | XMS_ITS | Clinical Summary ---
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 She seems clinically euthyroid. TSH [...] Description 07/28/2025 10:40 AM EST Office Visit [facility] [address] [place] [address] Luz Elena Walker MD Nontoxic multinodular goiter (Primary Dx) 07/02/2025 5:06 PM EDT - 07/02/2025 11:59 PM EDT Hospital Encounter [facility], Ultrasound - [address] [address] Luz Elena Walker MD Discharge Disposition: Home [...] Description 07/28/2026 2:40 PM EST Office Visit [facility] [address] [place] [address] Luz Elena Walker MD [address] [place] [address] [email or web address] Health Maintenance Due Date Last Done Comments [...] this topic Medical Devices Implanted Type Area Lie Detector Operator Device Identifier Shelf Expiration Date Model / [...] (0 pts) Echogenicity: Hypoechoic (2 pts) Shape: Gochd-hlxa-hekv (0) Margins: Smooth (0 pts) Echogenic Foci: [...] (1 pt) Echogenicity: Hypoechoic (2 pts) Shape: Awycm-jgcy-esyv (0) Margins: Smooth (0 pts) Echogenic Foci: [...] (0 pts) Echogenicity: Hypoechoic (2 pts) Shape: Fwbne-hcgh-wzlb (0) Margins: Smooth (0 pts) Echogenic Foci: [...] (1 pt) Echogenicity: Hypoechoic (2 pts) Shape: Ieezf-havj-zjla (0) Margins: Smooth (0 pts) Echogenic Foci: [...] biopsied. Please correlate withbiopsy results. us Luz Eelna Walker MD [facility] US THYROID Final Result * ENDOSCOPY, COLON (09/24/2024 9:16 AM EST) Narrative Transcriptions Tio Logan MD - 09/24/2024 9:16 AM EST [facility] Patient Name: Ashley Magdaleno Attending MD:: TIO LOGAN MD, , Procedure Date: 09/24/2024 9:16 AM Date of : 1975 Age: 49 Admit Type: Outpatient Gender: Female Room: [place] [address] Referring MD: Leilani Gale Exam Type: Colonoscopy [...] 9:16 AM Procedure Code(s): --- Professional --- 01317, Colonoscopy, flexible; diagnostic, including collection of specimen(s) by brushing or washing, when performed (separateprocedure) --- Technical --- 90979, Colonoscopy, flexible; diagnostic, including collection of specimen(s) [...] or abscess without bleeding CPT copyright 2021 [employer]. All rights reserved. The codes documented in this report are preliminary and upon stencil printer reviewmay be revised to meet current compliance requirements. Procedure Date: 09/24/2024 9:16:01 AM [address] [place] [address] Leilani Gale MD GI PROCEDURE ORDERABLES Final Result from Last 3 Months or Most Recently Relevant to Health Maintenance Insurance [facility] Care Teams Damper Worker Relationship Specialty Start Date End Date Leilani Gale MD [address] [place] [address] [place] [address] PCP - General Family Medicine 09/16/24 Kamron Corrales MD [address] [place] [id number] Vascular Surgery 09/16/24 Cedric Perez MD [address] [place] [address] [place] [address] Pulmonary Disease 09/16/24 Ron Otoole DO [address] [place] [address] Dr [place], [place]IME [address] Physical Medicine and Rehabilitation 09/16/24 Additional Source Comments The information contained in this document represents components of the legal health record. It is not the complete legal health record.[facility]
== END 2025-09-23 14:29 | disposition home or self-care (01) ==
LOC: HO.HOS 14:02
PROVIDERS: PCP General Practice
DX: G56.02 Carpal tunnel syndrome, left upper limb (principal)
CPT/HCPCS: 99024